=== PATIENT | female | born 1945 | race Caucasian/White ===

== ENCOUNTER 2024-08-01 06:36 | Inpatient (IN) | payer MEDICARE, BC, SELFPAY ==
[2024-08-01] VITALS (36 sets, daily range): BP systolic 94–149; BP diastolic 66–102; PULSE 68–99; RESP 14–22; TEMP 36.5–37.6; O2SAT 90–99; BMI 24.8; BMI 26.5
--- OUTSIDE RECORDS SUMMARY | 2024-08-01 06:38 | XMS_ITS | Clinical Summary ---
Author Organization [facility] Address [address] [place] [address] Care Team Providers Care Weight Tester Name Role Phone Iza Ayon M.D. Primary Care Provider [phone] Source Comments Patient records contain information from all sites at [facility]. For routine questions regarding patient records, call [phone] during business hours, M-F 8:00 AM - 5:00 PM Central Time. Record requests for emergency care only can be directed to [phone] at any time.[facility] Allergies No known active allergies Medications * This document contains information received from the source organization and may not represent a complete record from that organization. multivitamin tablet Take 1 tablet by mouth daily. 015 Active ASCORBIC ACID, VITAMIN C, ORAL Take 500 mg by mouth. 011 Active CALCIUM CARBONATE-VITAM IN D2 ORAL Take 1,200 mg by mouth. 011 Active acetaminophen (TYLENOL) 500 mg tablet Take 1,000 mg by mouth as needed. Active melatonin 5 mg tablet Take 5 mg by mouth. Active polyethylene glycol (MIRALAX) 17 gram/dose oral powder Take by mouth at bedtime as needed. 023 Active sennosides (SENOKOT) 8.6 mg tablet Take 8.6 mg by mouth 2 (two) times a day as needed. 023 Active warfarin (JANTOVEN) 2 mg tabletIndicatio ns:Atrial Fibrillation Paroxysmal (HCC) Please take as directed by your Anticoagulation Clinic. 165 tablet 3 024 Active omeprazole (PriLOSEC) [address] capsule TAKE 1 CAPSULE BY MOUTH IN THE MORNING BEFORE BREAKFAST 90 capsule 3 024 Active dilTIAZem CD (CARDIZEM CD/CARTIA XT) 120 mg 24 hr capsule Take 1 capsule (120 mg total) by mouth daily. 90 capsule 3 024 Active alendronate (FOSAMAX) 70 mg tablet Take 1 tablet (70 mg total) by mouth every 7 (seven) days. Take with 8oz of water, on an empty stomach. Remain upright for 30min. 12 tablet 4 024 Active amiodarone (Pacerone) 200 mg tabletIndicatio ns:Atrial Fibrillation Paroxysmal (HCC) Take 0.5 tablets (100 mg total) by mouth daily. 45 tablet 1 024 Active clobetasoL (Temovate) 0.05 % ointmentIndicat ions:Lichen Sclerosus DIRECTED APPLY 2-3 DAYS PER WEEK NEEDED TO MANAGE SYMPTOMS. INCREASE TO TWICE DAILY FOR UP TO 2 WEEK FOR FLARE-UPS 30 g 3 025 Active clobetasoL (TEMOVATE) 0.05 % ointmentIndicat ions:Lichen Sclerosus Apply 1 application topically as directed. Apply 2-3 days per week as needed to manage symptoms. Increase to twice daily for up to 2 weeks for flare-ups. 30 g 3 023 2024 Discontinued Active Problems Problem Noted Date Diagnosed Date Lichen Sclerosus 01/21/2021 Overview (07/28/2022): Biopsy confirmed in 2020. Managing effectively with clobetasol as needed. Prescription renewed today. Monitoring For Therapeutic Drug Therapy 04/13/20 20 Barretts Esophagus Without Dysplasia 01/16/2020 Urinary Urge Incontinence 12/30/2019 Osteopenia 05/06/2019 Atrial Fibrillation Paroxysmal 05/06/2019 Skilled Nursing (Current) Anticoagulant Treatment 04/17 Lymphedema 04/28/2019 Impaired Fasting Glucose 04/28/2019 Gastroesophageal Reflux Disease Without Esophagi tis 04/28/2019 Peptic Ulcer Disease Personal History 04/28/2019 Detachment Vitreous Posterior 12/15/2013 Opacity Vitreous 07/23/2010 Resolved Problems Problem Noted Date Diagnosed Date Resolved Date COVID-19 Infection 06/16/2021 2 Monitoring For Therapeutic Drug Therapy 05/24/2019 07/27/2019 Atrial Fibrillation Other Persistent 05/16/2019 07/27/2019 Dysphagia 11/14/2008 11/17/2022 Encounters Date Type Department Care Team Description 07/11/2024 Refill Department of Obstetrics and Gynecology in [place], [place] [address] [place] [address] Jaimie Sena APRN, C.N.P. Med Refill 06/18/2024 10:10 AM RISK MODELER Anticoagulation Visit Department of Anticoagulation in [place], [place] [address] [place] [phone] Iza Ayon M.D. Atrial Fibrillation Paroxysmal (HCC); Top Knitter (Current) Anticoagulant Treatment; Barretts Esophagus Without Dysplasia; Monitoring For Therapeutic Drug Therapy 06/18/2024 9:12 AM RISK MODELER - 06/18/2024 11:59 PM RISK MODELER Hospital Encounter Department of Laboratory Medicine in [address] [phone] Iza Ayon M.D. Atrial Fibrillation Paroxysmal (HCC); Skilled Nursing (Current) Anticoagulant Treatment; Barretts Esophagus Without Dysplasia; Monitoring For Therapeutic Drug Therapy Discharge Disposition: Home or Self Care 06/04/2024 12:30 PM RISK MODELER Anticoagulation Visit Department of Anticoagulation in [place], [place] [address] [place] [phone] Iza Ayon M.D. Atrial Fibrillation Paroxysmal (HCC) (Primary Dx); Skilled Nursing (Current) Anticoagulant Treatment; Barretts Esophagus Without Dysplasia; Monitoring For Therapeutic Drug Therapy 06/04/2024 9:37 AM RISK MODELER - 06/04/2024 11:59 PM RISK MODELER Hospital Encounter Department of Laboratory Medicine in [place], [place] [address] [place] [address] Iza Ayon M.D. Atrial Fibrillation Paroxysmal (HCC); Skilled Nursing (Current) Anticoagulant Treatment; Barretts Esophagus Without Dysplasia; Monitoring For Therapeutic Drug Therapy Discharge Disposition: Home or Self Care 05/27/2024 12:00 PM RISK MODELER Anticoagulation Visit Department of Anticoagulation in [place], [place] [address] [place] [phone] Iza Ayon M.D. Atrial Fibrillation Paroxysmal (HCC); Top Knitter (Current) Anticoagulant Treatment; Barretts Esophagus Without Dysplasia; Monitoring For Therapeutic Drug Therapy 05/27/2024 11:20 AM RISK MODELER - 05/27/2024 11:59 PM RISK MODELER Hospital Encounter Department of Laboratory Medicine in [address] [phone] Iza Ayon M.D. Atrial Fibrillation Paroxysmal (HCC); Top Knitter (Current) Anticoagulant Treatment; Barretts Esophagus Without Dysplasia; Monitoring For Therapeutic Drug Therapy Discharge Disposition: Home or Self Care 05/20/2024 Clinical Communication Department of Anticoagulation in [place], [place] [address] [place] [address] Zofia Mendes M.S.N., R.N. Anticoagulation (Upcoming procedure) 05/17/2024 2:00 PM CDT Office Visit Department of Internal Medicine in [address] [phone] Jessica Cardozo, Kai-Chiara., M.S. Preoperative Exam (Primary Dx); Atrial Fibrillation Paroxysmal (HCC); Top Knitter (Current) Anticoagulant Treatment; Gastroesophageal Reflux Disease Without Esophagitis; Need Vaccine Immunization 05/14/2024 10:45 AM CDT Office Visit Department of Cardiovascular Diseases in [place], [place] [address] [place] [phone] Dallas Bradford, NIDHI, C.N.P. Atrial Fibrillation Unspecified (HCC) (Primary Dx); High Risk Medication 05/10/2024 11:30 AM CDT - 05/10/2024 11:59 PM CDT Hospital Encounter Department of Radiology in [address] [address] Jasvir Carrillo M.D. Atrial Fibrillation Unspecified (HCC); High Risk Medication Discharge Disposition: Home or Self Care 05/10/2024 11:20 AM CDT - 05/10/2024 11:29 AM CDT Hospital Encounter Department of Laboratory Medicine in [address] [place] [address] Jasvir Carrillo M.D. Atrial Fibrillation Unspecified (HCC); High Risk Medication Discharge Disposition: Home or Self Care 05/10/2024 11:10 AM CDT - 05/10/2024 11:19 AM CDT Hospital Encounter Department of Laboratory Medicine in [address] [phone] Jasvir Carrillo M.D. Atrial Fibrillation Unspecified (HCC); High Risk Medication Discharge Disposition: Home or Self Care from Last 3 Months Immunizations Name Administration Dates Next Due HZV (ZOSTAVAX) 11/17/2009 Influenza Split 09/04/2006 Influenza high dose QV(65 ye ars or older) (PF) 05/19/2022,05/14/2020 Influenza, Unspecified 05/02/2019 PCV13 02/10/2015 PCV20 12/24/2022 PPSV23 11/07/2013 RZV (SHINGRIX) 12/24/2022,09/21/2022 SARS-COV-2 (COVID-19) - MODE RNA (12 YEARS AND OLDER) Fall Seasonal 05/17/2024 SARS-COV-2 (COVID-19) - PFIZ ER BIVALENT TS(Discontinued)(12 YEARS OR OLDER) 05/19/2022 Td (Adult), adsorbed 11/02/1990 Td Preservative Free (TENIVAC, DECAVAC) 01/16/20 20,05/09/2000 Td, (Adult) Unspecified 05/09/2000 Tdap 11/17/2009 influenza trivalent high dose (HD)(PF) 4,05/02/2019,08/09/2018 influenza vaccine quad (FLUZ ONE/FLUARIX) (6 months and older)(PF) 07/16/2021 Family History Medical History Relation Name Comments No Known Problems Brother No Known Problems Daughter 1 Alena No Known Problems Daughter 2 Maryjo Coronary artery disease Father [place] Root Heart attack Father [place] Root Heart failure Father [place] Root Transient ischemic attack Mother IdaMae No Known Problems Sister 1 No Known Problems Sister 2 Leukemia Son 1 Jose Amputation Son 2 Osmin Neuropathy Son 2 [place] Obesity Son 2 [place] Relation Name Status Comments Brother Daughter 1 Alena Alive Daughter 2 Maryjo Alive Father All Dunlap Mother Wil Sister 1 Sister 2 Son 1 Jose Alive Son 2 Osmin Alive Social History Tobacco Use Types Packs/Day Years Used Date Smoking Tobacco: Never Passive Smoke Exposure: Never Smokeless Tobacco: Never Tobacco Cessation:Counseling Given: Not Answered Alcohol Use Standard Drinks/Week Comments Yes 1 (1 standard drink = 0.6 oz pur e alcohol) [facility] Utilities Answer Date Recorded In the past 12 months has e [employer], oil, or water [employer] threatened to shut off services in your home? No 11/15/2023 Humiliation, Afraid, Rape, and Kick questionnair e Answer Date Recorded Within the last year, have y ou been afraid of your partner or ex-partner? No 12/07/2023 Within the last year, have y ou been humiliated or emotionally abused in other ways by your partner or ex-partner? No Within the last year, have y ou been kicked, hit, slapped, or otherwise physically hurt by your partner or ex-partner? No 12/07/2023 Within the last year, have y ou been raped or forced to have any kind of sexual activity by your partner or ex-partner? No 12/07/2023 Social Connection and Isolat ion Panel [NHANES] Answer Date Recorded In a typical week, how many times do you talk on the phone with family, friends, or neighbors? More than three times a week 11/17/2022 How often do you get togethe r with friends or relatives? More than three times a week 11/17/2022 How often do you attend chur or jewish services? More than 4 times per year 11/17/2022 Do you belong to any clubs o r organizations such as judaism groups, unions, fraternal or athletic groups, or school groups? No 11/17/2022 How often do you attend meet ings of the clubs or organizations you belong to? Never 11/17/2022 Are you , , di vorced, , never , or living with a partner? 11/17/2022 AUDIT-C Answer Date Recorded Q1: How often do you have a drink containing alc ohol? 2-4 times a month 11/17/2022 Q2: How many drinks containi ng alcohol do you have on a typical day when you are drinking? 1 or 2 11/17/2022 Q3: How often do you have si x or more drinks on one occasion? Never 11/17/2022 Overall Financial Resource Strain (CARDIA) Answe r Date Recorded How hard is it for you to pa y for the very basics like food, housing, medical care, and heating? Not hard at all 11/17/2022 PHQ-2 Answer Date Recorded PHQ-2 Score 0 12/07/2023 [facility] of Occupat ional [facility] - Occupational Stress Questionnaire Answer Date Recorded Do you feel stress - tense, restless, nervous, or anxious, or unable to sleep at night because your mind is troubled all the time - these days? Only a little 11/17/2022 Exercise Vital Sign Answer Date Recorde d On average, how many days pe r week do you engage in moderate to strenuous exercise (like a brisk walk)? 3 days 11/15/2023 On average, how many minutes do you engage in exercise at this level? 30 min 11/15/2023 Hunger Vital Sign Answer Date Recorded Within the past 12 months, y ou worried that your food would run out before you got the money to buy more. Never true 11/15/19 24 Within the past 12 months, t he food you bought just didn't last and you didn't have money to get more. Never true 11/15/2023 PRAPARE - Transportation Answer Date Re corded In the past 12 months, has l ack of transportation kept you from medical appointments or from getting medications? No 07/2023 In the past 12 months, has l ack of transportation kept you from meetings, work, or from getting things needed for daily living? No 11/15/2023 Nutrition Answer Date Recorded On average, how many serving s of fruits and vegetables do you eat per day (serving size is equal to 1 cup or approximately the size of a tennis ball)? 3-5 11/15/2023 Dental Answer Date Recorded Dental: Regular Dentist Yes 03/02/20 Employment Answer Date Recorded Employment status Retired 11/15/2023 Housing Stability Answer Date Recorded What is your living situation today? [facility] 11/15/2023 Education Answer Date Recorded What is the highest level of school you have completed or the highest degree you have received? 12th grade 05/06/2019 Comments No Sex and Gender Information Value Date Recorded Sex Assigned at Female 11/15/2023 12:19 PM CDT Legal Sex Female 8:46 AM RISK MODELER Gender Identity Female 01/12/2020 9:19 AM CDT Sexual Orientation Straight 01/12/2020 9: 19 AM CDT Last Filed Vital Signs Vital Sign Reading Time Taken Comments Blood Pressure 119/79 05/17/2024 1:49 PM CDT Pulse 64 05/17/2024 1:49 PM CDT Temperature 36.1 C (96.9 F) 05/17/2024 1:49 PM CDT Respiratory Rate 18 12/07/2023 10:12 AM CDT Oxygen Saturation 100% 05/14/2024 10:28 AM CDT Inhaled Oxygen Concentration - - Weight 75.5 kg (166 lb 7.2 oz) 05/17/2024 1:49 P M CDT Height 172.5 cm (5' 7.91) 12/07/2023 10:12 AM C DT Body Mass Index 25.37 12/07/2023 10:12 AM CDT Plan of Treatment Upcoming Encounters Date Type Department Care Team (Latest Contact Info) Description 08/13/2024 11:20 AM RISK MODELER Appointment Department of Laboratory Medicine in [address] [phone] Iza Ayon M.D. [address] [place] [address] 08/13/2024 12:00 PM RISK MODELER Anticoagulation Visit Department of Anticoagulation in [place], [place] [address] [place] [address] Iza Ayon M.D. [address] [place] [address] 10/23/2024 10:20 AM CDT Appointment Department of Laboratory Medicine in [address] [phone] Dallas Bradford APRN, C.N.P. [address] [place] [phone] 10/23/2024 10:30 AM CDT Appointment Department of Laboratory Medicine in [place], [place] [address] [facility] [place] [address] Dallas Bradford APRN, C.N.P. [address] [address] 10/25/2024 11:30 AM CDT Office Visit Department of Cardiovascular Diseases in [place], [place] [address] [phone] Dallas Bradford APRN, C.N.P. [address] [address] Health Maintenance Due Date Last Done Comments RSV vaccine - (32-36 weeks) or 60+ years (1 - 1-dose 75+ series) 2022 Depression Screening (Annual PHQ-2) 07/17/2024 Fall Risk Screen (Annual) 07/17/2024 Fasting Glucose for Diabetes Screening 12/06/2024 12/07/2023, 12/07/2023, 03/03/2023, Additional history exists Visit: Medicare Annual Wellness 12/07/2024 12/07/2023 Visit: Annual, age 65+ (or Medicare and <65) 05/17/2025 05/17/2024 DTaP,Tdap,and Td Vaccines (3 - Td or Tdap) 01/15/2030 01/16/2020, 11/17/2009, 05/09/2000, Additional history exists Colonoscopy Discontinued 11/19/2013 Colorectal Cancer Screening Discontinued Hepatitis C Screening Completed 11/17/2022 Pneumococcal vaccine (50+ years) Completed 12/24/2022, 02/10/2015, 11/07/2013 Zoster Vaccines Completed 12/24/2022, 03/0 02/2023, 11/17/2009 Mammogram Discontinued 12/07/2023, 0 10/2022, 09/21/2021, Additional history exists COVID-19 Vaccine Completed 05/17/2024, 09/2021, 01/18/2022, Additional history exists Influenza Vaccine Completed 05/17/2024, , 07/16/2021, Additional history exists CT Colonography Discontinued Cologuard Discontinued FIT Discontinued IPV Vaccines Aged Out No longer eligi ble based on patient's age to complete this topic Procedures Procedure Name Priority Date/Time Associated Diagnosis Comments INR REFLEX, POCT, B Routine 06/18/2024 9:22 AM RISK MODELER Atrial Fibrillation Paroxysmal (HCC) Top Knitter (Current) Anticoagulant Treatment Barretts Esophagus Without Dysplasia Monitoring For Therapeutic Drug Therapy INR REFLEX, POCT, B Routine 06/04/2024 9:45 AM RISK MODELER Atrial Fibrillation Paroxysmal (HCC) Top Knitter (Current) Anticoagulant Treatment Barretts Esophagus Without Dysplasia Monitoring For Therapeutic Drug Therapy INR REFLEX, POCT, B Routine 05/27/2024 12:37 PM RISK MODELER Atrial Fibrillation Paroxysmal (HCC) Skilled Nursing (Current) Anticoagulant Treatment Barretts Esophagus Without Dysplasia Monitoring For Therapeutic Drug Therapy DX CHEST AP OR PA AND LATERAL 2 VIEWS RAD - Routine (most inpatients and all outpatients) 05/10/2024 11:47 AM CDT Atrial Fibrillation Unspecified (HCC) High Risk Medication OH T4 FREE Routine 05/10/2024 11:27 AM CDT THYROPEROXIDASE (TPO) ABS, S Routine 05/10/2024 11:27 AM CDT CREATININE WITH EGFR, S/P Routine 05/10/2024 11:27 AM CDT Atrial Fibrillation Unspecified (HCC) High Risk Medication POTASSIUM, S/P Routine 05/10/2024 11:27 AM CDT Atrial Fibrillation Unspecified (HCC) High Risk Medication SODIUM, S/P Routine 05/10/2024 11:27 AM CDT Atrial Fibrillation Unspecified (HCC) High Risk Medication THYROID FUNCTION CASCADE, S Routine 05/10/2024 11:27 AM CDT Atrial Fibrillation Unspecified (HCC) High Risk Medication ALANINE AMINOTRANSFERASE (ALT), S/P Routine 05/10/2024 11:27 AM CDT Atrial Fibrillation Unspecified (HCC) High Risk Medication ASPARTATE AMINOTRANSFERASE (AST), S/P Routine 05/10/2024 11:27 AM CDT Atrial Fibrillation Unspecified (HCC) High Risk Medication ECG Routine 05/10/2024 11:25 AM CDT Atrial Fibrillation Unspecified (HCC) High Risk Medication BI BREAST SCREENING BILATERAL WITH TOMOSYNTHESIS RAD - Routine (most inpatients and all outpatients) 12/07/2023 12:07 PM CDT Screening Mammogram Breast Cancer HEMOGLOBIN A1C, B Routine 12/07/2023 9:43 AM CDT Impaired Fasting Glucose HCV AB SCRN W/REFLEX TO HCV PCR, S Routine 11/17/2022 7:10 AM CDT Screening Examination For Viral Disease from Last 3 Months or Most Recently Relevant to Health Maintenance Results * INR Reflex, POCT, Blood (06/18/2024 9:22 AM RISK MODELER) Only the most recent of3 resultswithin the time period is included. INR Reflex, POCT, B 2.3 06/18/2024 9:21 AM RISK MODELER FB60 Comment: ----ADDITIONAL INFORMATION---- Standard intensity warfarin therapeutic range: 2.0 to 3.0 High intensity warfarin therapeutic range: 2.5 to 3.5 Blood (Blood, Capillary) 06/18/2024 9:22 AM RISK MODELER 06/18/2024 9:21 AM RISK MODELER us Iza Ayon M.D. LAB POCT ORDERABLES - DEVIC E Final Result [facility] [address] [place] [address], [facility] FB60 [facility] in [place] [address] [place] [address] * DX Chest AP or PA and Lateral 2 Views (05/10/2024 11:47 AM CDT) Anatomical Region Laterality Modality Chest, Thoracic RST LOS, Tho racic ARZ LOS, Thoracic FLA LOS N/A Digital Radiography Impressions 05/10/2024 12:45 PM CDT Lung hyperinflation. Otherwise no acute cardiopulmonary abnormality. Narrative 05/10/2024 12:45 PM CDT EXAM: DX CHEST AP OR PA AND LATERAL 2 VIEWS COMPARISON: Radiograph 02/05/2024 FINDINGS: Trachea is midline. Cardiac and mediastinal borders are clear. Cardiac silhouette is nonenlarged. No focal consolidation. No pleural effusion. No pneumothorax. Lung hyperinflation. Visualized upper abdomen is unremarkable. Degenerative change of the thoracic spine. Procedure Note Osmin Cortes M.D. - 05/10/2024 EXAM: DX CHEST AP OR PA AND LATERAL 2 VIEWS COMPARISON: Radiograph 02/05/2024 FINDINGS: Trachea is midline. Cardiac and mediastinal borders are clear.Cardiac silhouette is nonenlarged. No focal consolidation. No pleuraleffusion. No pneumothorax. Lung hyperinflation. Visualized upper abdomenis unremarkable. Degenerative change of the thoracic spine. IMPRESSION: Lung hyperinflation. Otherwise no acute cardiopulmonary abnormality. Jasvir Carrillo M.D. IMG DIAGNOSTIC IMAGING PRO CEDURES Final Result * T4 (Thyroxine), Free, Serum (05/10/2024 11:27 AM CDT) T4 (Thyroxine), Free, S 1.6 0.9 - 1.7 ng/dL 05/10/2024 2:26 PM CDT OWAT Blood 05/10/2024 11:2 7 AM CDT 05/10/2024 1:17 PM CDT Jasvir Carrillo M.D. LAB BLOOD ADD-ON Final Res ult [facility] [address] [place] [address], [place] OWAT [facility] in [place] [address] [place] [address] * (ABNORMAL) Thyroid Function [place] (05/10/2024 11:27 AM CDT) TSH, Sensitive 5.6(H) 0.3 - 4.2 mIU/L 05/10/2024 2:02 PM CDT OW Blood (Blood, Venous) 05/10/2024 11:27 AM CDT 05/10/2024 1:17 PM CDT Jasvir Carrillo M.D. LAB BLOOD ADD-ON Final Res ult [facility] [address] [place] [address], [place] OW[place] [facility] [place] [address] [place] [address] * Thyroperoxidase (TPO) Antibodies (05/10/2024 11:27 AM CDT) Thyroperoxidase Ab, S <15.0 <34.0 IU/mL 05/11/2024 8:18 AM CDT DTL Blood 05/10/2024 11:2 7 AM CDT 05/11/2024 7:43 AM CDT Jasvir Carrillo M.D. LAB BLOOD ADD-ON Final Res ult [facility] [address] [place] [address], [place] DTL [facility] [address] * ALT (Alanine Aminotransferase) (05/10/2024 11:27 AM CDT) Alanine Aminotransferase (ALT), P 19 7 - 45 U/L 05/10/2024 1:49 PM CDT OWAT Blood (Blood, Venous) 05/10/2024 11:27 AM CDT 05/10/2024 1:17 PM CDT Jasvir Carrillo M.D. LAB BLOOD ADD-ON Final Res ult Performing Organization Address City/[facility]/ZIP Co de Phone Number [facility] [address] [place] [address], [facility] [place] [address] [place] [id number] * AST (Aspartate Aminotransferase) (05/10/2024 11:27 AM CDT) Aspartate Aminotransferase (AST), P 26 8 - 43 U/L 05/10/2024 1:49 PM CDT OWAT Blood (Blood, Venous) 05/10/2024 11:27 AM CDT 05/10/2024 1:17 PM CDT Jasvir Carrillo M.D. LAB BLOOD ADD-ON Final Res ult Performing Organization Address City/[facility]/ZIP Co de Phone Number [facility] [address] [place] [address], [place] AT [facility] [place] [address] * Sodium (05/10/2024 11:27 AM CDT) Sodium, P 139 135 - 145 mmol/L 05/10/2024 1:49 PM CDT OWAT Blood (Blood, Venous) 05/10/2024 11:27 AM CDT 05/10/2024 1:17 PM CDT Jasvir Carrillo M.D. LAB BLOOD ADD-ON Final Res ult [facility] [address] [place] [address], [place] [facility] [place] [address] [place] [address] * Potassium (05/10/2024 11:27 AM CDT) Potassium, P 5.1 3.6 - 5.2 mmol/L 05/10/2024 1:49 PM CDT OWAT Blood (Blood, Venous) 05/10/2024 11:27 AM CDT 05/10/2024 1:17 PM CDT Jasvir Carrillo M.D. LAB BLOOD ADD-ON Final Res ult Performing Organization Address City/[facility]/ZIP Co de Phone Number [facility] [address] [place] [address], [place] [facility] [place] [address] [place] [address] * Creatinine with Estimated GFR (05/10/2024 11:27 AM CDT) Creatinine 0.92 0.59 - 1.04 mg/dL 05/10/2024 1:49 PM CDT OWAT Estimated GFR (eGFR) 64 >=60 mL/min/BSA 05/10/2024 1:49 PM CDT OWAT Comment: Estimated GFR calculated using the 2020 CKD_EPI creatinine equation. Blood (Blood, Venous) 05/10/2024 11:27 AM CDT 05/10/2024 1:17 PM CDT Jasvir Carrillo M.D. LAB BLOOD ADD-ON Final Res ult [facility] [address] [place] [address], [place] [facility] [place] [address] [place] [address] * ECG 12 Lead (05/10/2024 11:25 AM CDT) Ventricular Rate ECG/Min 63 BPM MUSE OH Interval 94 ms MUSE QRSD Interval 94 ms MUSE QT Interval 464 ms MUSE QTC Interval 474 ms MUSE P Tracy 62 degrees MUSE R Tracy 27 degrees MUSE T Wave Tracy 31 degrees MUSE 05/10/2024 11:2 5 AM CDT 05/10/2024 11:46 AM CDT Impressions MUSE - 05/10/2024 11:46 AM CDT Sinus rhythm with short OH Premature atrial complexes Low voltage QRS in the limb leads Nonspecific T wave abnormality When compared with ECG of 05-Feb-2024 14:34, OH interval has decreased Reviewed by TINA Fitzgerald Narrative Procedure Note Joselito Negrete M.D. - 05/10/2024 IMPRESSION: Sinus rhythm with short OH Premature atrial complexes Low voltage QRS in the limb leads Nonspecific T wave abnormality When compared with ECG of 05-Feb-2024 14:34, OH interval has decreased Reviewed by TINA Fitzgerald Jasvir Carrillo M.D. ECG ORDERABLES Final Resu lt MUSE NA * BI Breast Screening Bilateral with Tomosynthesis (12/07/2023 12:07 PM CDT) Anatomical Region Laterality Modality Breast, Breast Imaging RST L OS, Breast Imaging ARZ LOS, Breast Imaging FLA LOS Bilateral Mammography Impressions 12/07/2023 12:25 PM CDT Negative. RECOMMENDATION: Annual Screening Mammogram ASSESSMENT: BI-RADS: 1: Negative. Narrative 12/07/2023 12:25 PM CDT EXAM: BI BREAST SCREENING BILATERAL WITH TOMOSYNTHESIS Current study was evaluated with a Computer Aided Detection (CAD) system. INDICATION: Screening mammogram. COMPARISON: Prior exam(s) were available and reviewed for comparison. DENSITY: c. The breast(s) are heterogeneously dense, which may obscure small masses. FINDINGS: No mammographic findings of malignancy. Procedure Note Isaac Goetz M.D. - 12/07/2023 EXAM: BI BREAST SCREENING BILATERAL WITH TOMOSYNTHESIS Current study was evaluated with a Computer Aided Detection (CAD) system. INDICATION: Screening mammogram. COMPARISON: Prior exam(s) were available and reviewed for comparison. DENSITY: c. The breast(s) are heterogeneously dense, which may obscuresmall masses. FINDINGS: No mammographic findings of malignancy. IMPRESSION: Negative. RECOMMENDATION: Annual Screening Mammogram ASSESSMENT: BI-RADS: 1: Negative. Iza Ayon M.D. IMG BI PROCEDURES Final Res ult * Hemoglobin A1c (12/07/2023 9:43 AM CDT) Hemoglobin A1c, B 5.6 4.2 - 5.6 % 12/07/2023 10:[address] [facility] Blood (Blood, Venous) 12/07/2023 9:43 AM CDT 12/07/2023 9:45 AM CDT Iza Ayon M.D. LAB BLOOD ADD-ON Final Resu lt [facility] [address] [place] [address], [facility] in [place] [address] [place] [address] * HCV Ab Scrn w/Reflex to HCV PCR, Serum (11/17/2022 7:10 AM CDT) HCV Ab Screen, S Negative Negative 11/18/19 3:38 PM CDT MKTO Comment: Biotin has been identified by the java lead engineer as a potential interfering substance. Higher concentrations of biotin may be found in multivitamins, hair/nail supplements, and workout supplements. If the result does not match clinical observations, repeat testing after patient refrains from the use of supplements for at least 12 hours. Blood (Blood, Venous) 11/17/2022 7:10 AM CDT Narrative [facility] - 11/17/2022 3:38 PM CDT Specimen Information: Specimen ID: [id number] Specimen Type: Blood Specimen Collection Start Date: 11/17/2022 7:10 AM Specimen ID: [id number] Specimen Type: Blood Specimen Collection Start Date: 11/17/2022 7:10 AM Specimen Received Date: 11/17/2022 2:28 PM Iza Ayon M.D. LAB MICROBIOLOGY - BLOOD OR DERABLES Final Result [facility] [address] [place] [address], [facility] in [place] [address] [place] [address] from Last 3 Months or Most Recently Relevant to Health Maintenance Insurance [facility] MEDICARE Care Teams Weight Tester Relationship Specialty Start Date End Date Iza Ayon M.D. [address] [place] [address] PCP - General Internal Medicine 04/24/19
--- OUTSIDE RECORDS SUMMARY | 2024-08-01 06:38 | XMS_ITS | Clinical Summary ---
Author Organization [employer] Address [place], [place] [address] Care Team Providers Care Laborer General Name Role Phone Iza Ayon MD Primary Care Provide r Allergies No known active allergies Medications ASCORBIC ACID (VITAMIN C ORAL)Indications :Supplement Take 500 mg by mouth once daily. Indications: Supplement 12/11/19 11 Active MULTIVITAMINS WITH FLUORIDE (MULTI-VITAMIN ORAL)Indications :Supplement Take 1 Tab by mouth once daily. Indications: Supplement 12/11/19 11 Active dilTIAZem (DILACOR XR; DILTIA XT) 240 mg Extended-Release capsule Take 240 mg by mouth once daily. 09/22/19 22 Active warfarin (COUMADIN) 1 mg tablet Take 2 mg by mouth once daily. Take per anticoagulation clinic direction; 2 mg on , 4 mg the other days of the week Active acetaminophen (TYLENOL EXTRA STRGTH) 500 mg tablet Take 1,000 mg by mouth every 6 hours if needed. Max acetaminophen dose: 4000mg in 24 hrs. Active clobetasol 0.05% (TEMOVATE 0.05% OINTMENT) 0.05 % ointment Apply topically 2-3 times per week as needed Active alendronate (FOSAMAX) 70 mg tablet Take 70 mg by mouth once weekly. 02/22/20 23 Active melatonin 5 mg tab tablet Take 5 mg by mouth at bedtime. Active CALCIUM ORAL Take 1 Tablet by mouth two times daily. Active omeprazole (PRILOSEC) 40 mg Delayed-Release capsule Take 40 mg by mouth once daily. Active polyethylene glycoL (MIRALAX) 17 gram/scoop powderIndication s:Constipation, unspecified constipation type Measure 17g in the cap provided and dissolve completely in 8 ounces of liquid as directed and drink once a day 238 g 3 3:14 PM CDT 02/28/20 23 Active sennosides (SENNA) 8.6 mg tabletIndication s:Constipation, unspecified constipation type Take 1 Tablet (8.6 mg) by mouth 2 times daily if needed for Constipation. 30 Tablet 3 3:14 PM CDT 02/28/20 23 Active Active Problems Problem Noted Date Diagnosed Date Cellulitis of left thigh 02/27/2023 Leg edema, left 02/27/2023 Fever 02/27/2023 Lactic acid acidosis 02/27/2023 Leukocytosis 02/27/2023 Severe sepsis 02/24/2023 Other headache syndrome 02/24/2023 Petechial hemorrhage 02/24/2023 Ileus 02/21/2022 Constipation by delayed colonic transit 02/22/20 22 Small bowel obstruction 02/20/2022 Owens's esophagus 01/16/2020 Paroxysmal atrial fibrillation 05/01/2019 Personal history of peptic ulcer disease 019 Abnormal glucose tolerance test (GTT) 10/29/2007 Gastroesophageal reflux disease without esophagi tis 10/29/2007 Immunizations Name Administration Dates Next Due Influenza, IIV3 (Age >=3 years) 09/04/2006 Influenza, Inactivated IIV3 (Age 65+ Years) Preserv Free 05/02/2019 Pneumococcal Poly,23-Valent (Pneumovax) 11/08/19 14 Td (Age >=7 Years) 11/17/2009,05/09/2000 Zoster (Zostavax-ZVL, live) 11/17/2009 Family History Medical History Relation Name Comments Heart Disease Father CHF and CAD, d ied at 71 Other Mother lived to age 95 Hyperlipidemia Sister 1 Hyperlipidemia Sister 2 Lymphoma Son Non-Hodgkin's Relation Name Status Comments Brother Alive Father Mother Sister 1 Alive Sister 2 Son Social History Tobacco Use Types Packs/Day Years Used Date Smoking Tobacco: Never Smokeless Tobacco: Never Tobacco Cessation:Counseling Given: No Alcohol Use Standard Drinks/Week Comments Yes 0 (1 standard drink = 0.6 oz pur e alcohol) Social Connections Answer Date Recorded Frequency of Communication with Friends and Fami ly Not on file 02/24/2023 Comments No Sex and Gender Information Value Date Recorded Sex Assigned at Not on file 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 Gender Identity Not on file Sexual Orientation Not on file Obstetrics History Last Filed Vital Signs Vital Sign Reading Time Taken Comments Blood Pressure 120/72 03/03/2023 1:42 PM CDT Pulse 69 03/03/2023 1:41 PM CDT Temperature 36.7 C (98 F) 03/03/2023 1:27 PM CDT Respiratory Rate 17 03/03/2023 1:27 PM CDT Oxygen Saturation 100% 03/03/2023 1:41 PM CDT Inhaled Oxygen Concentration - - Weight 78.5 kg (173 lb 1.6 oz) 03/03/2023 1:24 P M CDT Height 174 cm (5' 8.5) 03/03/2023 1:24 PM CDT Body Mass Index 25.94 03/03/2023 1:24 PM CDT Plan of Treatment Health Maintenance Due Date Last Done Comments Tdap 1956 Depression screening for age 12+ 1959 BMI (ht and wt on same day) for age 18+ 1965 Hepatitis C screening for ag e 18-79 1965 Zoster (shingles) series for age 50+ (2 of 3) 01/12/2010 11/17/2009 DEXA/DXA scan for age 65+ 02/27/2012 Pneumococcal series for age 50+ (2 of 2 - PCV) 11/07/2014 11/07/2013 Tetanus booster 11/18/2019 11/17/2009, 05/09/2000 RSV vaccine for adults or (1 - 1-dose 75+ series) 2022 COVID-19 vaccine series ( season) 2024 05/19/2022, 01/18/2022, 05/20/2021, Additional history exists Influenza for age 65+ 03/17/2024 05/02/2019, 007 Insurance MEDICARE PART A HB ONLY MEDICARE PART B HB ONLY BLUE CROSS [employer]NAK BLUE HB ONLY [employer]UE [employer] BLUE PB ONLY Advance Directives * Full Code (Latest Code Status on File) Date Activated Date Inactivated Comments 02/24/2023 12:36 AM 02/27/2023 9:21 PM Question Answer Comments Code Status Discussion: Reviewed Preferences * Full Code Date Activated Date Inactivated Comments 02/20/2022 9:35 PM 02/21/2022 7:47 PM Question Answer Comments Code Status Discussion: Reviewed Preferences * Full Code Date Activated Date Inactivated Comments 11/16/2021 6:00 AM 11/16/2021 12:01 PM Question Answer Comments Code Status Discussion: Reviewed Preferences * Full Code Date Activated Date Inactivated Comments 05/22/2019 10:17 AM 05/22/2019 4:05 PM * Full Code Date Activated Date Inactivated Comments 05/01/2019 3:17 PM 05/02/2019 1:41 PM Question Answer Comments Code Status Discussion: Not Discussed Care Teams Laborer General Relationship Specialty Start Date End Date Iza Ayon MD [address] [place] [address] PCP - General Internal Medicine 10/27/21
--- OUTSIDE RECORDS SUMMARY | 2024-08-01 06:39 | XMS_ITS | Encounter Summary ---
Author Organization [facility] Address [address] [place] [address] Care Team Providers Care Student Activities Director Name Role Phone Iza Ayon M.D. Primary Care Provider [phone] Encounter Details Date Type Department Care Team (Latest Contact Info) Description 06/18/2024 9:12 AM DIRECTOR COMMUNITY HE[facility] NURSING - 06/18/2024 11:59 PM DIRECTOR COMMUNITY HEALTH NURSING Hospital Encounter Department of Laboratory Medicine in [place], [place] [address] [place] [address] Iza Ayon M.D. [address] [place] [address] Atrial Fibrillation Paroxysmal (HCC); Mixing Pan Tender (Current) Anticoagulant Treatment; Barretts Esophagus Without Dysplasia; Monitoring For Therapeutic Drug Therapy Discharge Disposition: Home or Self Care Social History Tobacco Use Types Packs/Day Years Used Date Smoking Tobacco: Never Passive Smoke Exposure: Never Smokeless Tobacco: Never Alcohol Use Standard Drinks/Week Comments Yes 1 (1 standard drink = 0.6 oz pur e alcohol) [facility] Utilities Answer Date Recorded In the past 12 months has [employer], gas, oil, or water [employer] threatened to shut off services in your [...] How often do you attend chur or yarsani services? More than 4 times per year 11/17/2022 Do you belong to any clubs o r organizations such as latter day groups, unions, fraternal or athletic groups, or [...] Answer Date Recorded PHQ-2 Score 0 12/07/2023 [facility] [place] of Occupat ional Health - Occupational Stress Questionnaire Answer Date Recorded [...] your living situation today? I have a [facility] place to live 11/15/2023 Education Answer Date Recorded What is the highest level of school you have completed or the highest degree you have received? 12th grade 05/06/2019 Comments No Sex and Gender Information Value Date Recorded Sex Assigned at Female 11/15/2023 12:19 PM CDT Legal Sex Female 8:46 AM DIRECTOR COMMUNITY HEALTH NURSING Gender Identity Female 01/12/2020 9:19 AM CDT Sexual Orientation Straight 01/12/2020 9: 19 AM CDT documented as of this encounter Medications at Time of Discharge acetaminophen (TYLENOL) 500 mg tablet Take 1,000 mg by mouth as needed. alendronate (FOSAMAX) 70 mg tablet Take 1 tablet (70 mg total) by mouth every 7 (seven) days. Take with 8oz of water, on an empty stomach. Remain upright for 30min. 12 tablet 4 4 amiodarone (Pacerone) 200 mg tabletIndications :Atrial Fibrillation Paroxysmal (HCC) Take 0.5 tablets (100 mg total) by mouth daily. 45 tablet 1 4 ASCORBIC ACID, VITAMIN C, ORAL Take 500 mg by mouth. 1 CALCIUM CARBONATE-VITAMIN D2 ORAL Take 1,200 mg by mouth. 1 dilTIAZem CD (CARDIZEM CD/CARTIA XT) 120 mg 24 hr capsule Take 1 capsule (120 mg total) by mouth daily. 90 capsule 3 4 melatonin 5 mg tablet Take 5 mg by mouth. multivitamin tablet Take 1 tablet by mouth daily. 5 omeprazole (PriLOSEC) [address] capsule TAKE 1 CAPSULE BY MOUTH IN THE MORNING BEFORE BREAKFAST 90 capsule 3 4 polyethylene glycol (MIRALAX) 17 gram/dose oral powder Take by mouth at bedtime as needed. 3 sennosides (SENOKOT) 8.6 mg tablet Take 8.6 mg by mouth 2 (two) times a day as needed. 3 warfarin (JANTOVEN) 2 mg tabletIndications :Atrial Fibrillation Paroxysmal (HCC) Please take as directed by your Anticoagulation Clinic. 165 tablet 3 4 clobetasoL (TEMOVATE) 0.05 % ointmentIndicatio ns:Lichen Sclerosus Apply 1 application topically as directed. Apply 2-3 days per week as needed to manage symptoms. Increase to twice daily for up to 2 weeks for flare-ups. 30 g 3 3 07/18/19 25 documented as of this encounter Plan of Treatment Upcoming Encounters Date Type Department Care Team (Latest Contact Info) Description 08/13/2024 11:20 AM DIRECTOR COMMUNITY HE[facility] NURSING Appointment Department of Laboratory Medicine in [address] [phone] Iza Ayon M.D. [address] [place] [phone] 08/13/2024 12:00 PM DIRECTOR COMMUNITY HE[facility] NURSING Anticoagulation Visit Department of Anticoagulation in [place], [place] [address] [place] [address] Iza Ayon M.D. [address] [phone] 10/23/2024 10:20 AM CDT Appointment Department of Laboratory Medicine in [address] [phone] Dallas Bradford APRN, C.N.P. [address] [phone] 10/23/2024 10:30 AM CDT Appointment Department of Laboratory Medicine in [address] [phone] Dallas Bradford APRN, C.N.P. [address] [phone] 10/25/2024 11:30 AM CDT Office Visit Department of Cardiovascular Diseases in [place], [place] [address] [phone] Dallas Bradford APRN, C.N.P. [address] [phone] documented as of this encounter Procedures Procedure Name Priority Date/Time Associated Diagnosis Comments INR REFLEX, POCT, B Routine 06/18/2024 9:22 AM DIRECTOR COMMUNITY HE[facility] NURSING Atrial Fibrillation Paroxysmal (HCC) Senior Living (Current) Anticoagulant Treatment Barretts Esophagus Without Dysplasia Monitoring For Therapeutic Drug Therapy documented in this encounter Results * INR Reflex, POCT, Blood (06/18/2024 9:22 AM DIRECTOR COMMUNITY HE[facility] NURSING) INR Reflex, POCT, B 2.3 06/18/2024 9:21 AM DIRECTOR COMMUNITY [facility] NURSING [id number] Comment: ----ADDITIONAL INFORMATION---- Standard intensity warfarin therapeutic range: 2.0 to 3.0 High intensity warfarin therapeutic range: 2.5 to 3.5 Blood (Blood, Capillary) 06/18/2024 9:22 AM DIRECTOR COMMUNITY HE[facility] NURSING 06/18/2024 9:21 AM DIRECTOR COMMUNITY HE[facility] NURSING Iza Ayon M.D. LAB POCT ORDERABLES - DEVIC E Final Result [facility] [address] [place] [address], [facility] FB60 [facility] [place] [address] [place] [address] documented in this encounter Visit Diagnoses Diagnosis Atrial Fibrillation Paroxysmal (HCC) Mixing Pan Tender (Current) Anticoagulant Treatment Barretts Esophagus Without Dysplasia Monitoring For Therapeutic Drug Therapy documented in this encounter Care Teams Student Activities Director Relationship Specialty Start Date End Date Iza Ayon M.D. [address] [address] PCP - General Internal Medicine 04/24/19 documented as of this encounter
--- OUTSIDE RECORDS SUMMARY | 2024-08-01 06:39 | XMS_ITS | Encounter Summary ---
Author Organization [facility] Address [address] [place] [address] Care Team Providers Care Frontend Engineer Name Role Phone Iza Ayon M.D. Primary Care Provider [phone] Reason for Visit * Reason Comments Med Refill Encounter Details Date Type Department Care Team (Late st Contact Info) Description 07/11/2024 Refill Department of Obstetrics and Gynecology in [place], [place] [address] [phone] Jaimie Sena, OUTSOLE CEMENTER MACHINE, C.N.P. [address] [phone] Med Refill Social History Tobacco Use Types Packs/Day Years Used Date Smoking Tobacco: Never Passive Smoke Exposure: Never Smokeless Tobacco: Never Alcohol Use Standard Drinks/Week Comments Yes 1 (1 standard drink = 0.6 oz pur e alcohol) [facility] Utilities Answer Date Recorded In the past 12 months has [facility] [employer], oil, or water [email or web address] threatened to shut off services in your [...] How often do you attend chur or rastafarian services? More than 4 times per year 11/17/2022 Do you belong to any clubs o r organizations such as caodaism groups, unions, fraternal or athletic groups, or [...] Answer Date Recorded PHQ-2 Score 0 12/07/2023 [facility] of Occupat ional Health - Occupational Stress [...] your living situation today? I have a [facility] place to live 11/15/2023 Education Answer Date Recorded What is the highest level of school you have completed or the highest degree you have received? 12th grade 05/06/2019 Comments No Sex and Gender Information Value Date Recorded Sex Assigned at Female 11/15/2023 12:19 PM CDT Legal Sex Female 8:46 AM PHARMACEUTICAL COMPOUNDING SUPERVISOR Gender Identity Female 01/12/2020 9:19 AM CDT Sexual Orientation Straight 01/12/2020 9: 19 AM CDT documented as of this encounter Plan of Treatment Upcoming Encounters Date Type Department Care Team (Latest Contact Info) Description 08/13/2024 11:20 AM PHARMACEUTICAL COMPOUNDING SUPERVISOR Appointment Department of Laboratory Medicine in [place], [place] [address] [place] [address] Iza Ayon M.D. [address] [place] [phone] 08/13/2024 12:00 PM PHARMACEUTICAL COMPOUNDING SUPERVISOR Anticoagulation Visit Department of Anticoagulation in [place], [place] [address] [place] [address] Iza Ayon M.D. [address] [phone] 10/23/2024 10:20 AM CDT Appointment Department of Laboratory Medicine in [place], [place] [address] [place] [phone] Dallas Bradford APRN, C.N.P. [address] [phone] 10/23/2024 10:30 AM CDT Appointment Department of Laboratory Medicine in [place], [place] [address] [place] [address] Dallas Bradford APRN, C.N.P. [address] [phone] 10/25/2024 11:30 AM CDT Office Visit Department of Cardiovascular Diseases in [place], [place] [address] [phone] Dallas Bradford APRN, C.N.P. [address] [phone] documented as of this encounter Visit Diagnoses Diagnosis Lichen Sclerosus documented in this encounter Care Teams Frontend Engineer Relationship Specialty Start Date End Date Iza Ayon M.D. [address] [phone] PCP - General Internal Medicine 04/24/19 documented as of this encounter
--- OUTSIDE RECORDS SUMMARY | 2024-08-01 06:39 | XMS_ITS | Encounter Summary ---
Author Organization [facility] Address [address] [place] [address] Care Team Providers Care Sexual Assault Counsellor Name Role Phone Iza Ayon M.D. Primary Care Provider [phone] Reason for Visit * Outpatient (Routine) - Authorized Specialty Diagnoses / Procedures Referred By Contsharlene t Referred To Contact Anticoagulation Diagnoses Atrial Fibrillation Paroxysmal (HCC) Usp (Current) Anticoagulant Treatment Barretts Esophagus Without Dysplasia Monitoring For Therapeutic Drug Therapy Iza Ayon M.D. [address], [place] [address] Phone: tel: fax: [facility] Referral ID Status Reason Start Date Expiration Date V isits Requested Visits Authorized [id number] Authorized 05/20/2024 11/19/2025 300 300 Encounter Details Date Type Department Care Team (Latest Contact Info) Description 06/18/2024 10:10 AM ADOBE LAYER HELPER Anticoagulation Visit Department of Anticoagulation in [place], [place] [address] [place] [address] Iza Ayon M.D. [address], [place] [address] Atrial Fibrillation Paroxysmal (HCC); Transit Specialist (Current) Anticoagulant Treatment; Barretts Esophagus Without Dysplasia; Monitoring For Therapeutic Drug Therapy Social History Tobacco Use Types Packs/Day Years Used Date Smoking Tobacco: Never Passive Smoke Exposure: Never Smokeless Tobacco: Never Alcohol Use Standard Drinks/Week Comments Yes 1 (1 standard drink = 0.6 oz pur e alcohol) [facility] Utilities Answer Date Recorded In the past 12 months has th e electric, gas, oil, or water [employer] threatened to shut off services in your [...] How often do you attend chur or mandaen services? More than 4 times per year 11/17/2022 Do you belong to any clubs o r organizations such as bahai groups, unions, fraternal or athletic groups, or [...] Answer Date Recorded PHQ-2 Score 0 12/07/2023 [facility] - Occupational Stress Questionnaire Answer Date Recorded [...] your living situation today? I have a [facility] to live 11/15/2023 Education Answer Date Recorded What is the highest level of school you have completed or the highest degree you have received? 12th grade 05/06/2019 Comments No Sex and Gender Information Value Date Recorded Sex Assigned at Female 11/15/2023 12:19 PM CDT Legal Sex Female 8:46 AM ADOBE LAYER HELPER Gender Identity Female 01/12/2020 9:19 AM CDT Sexual Orientation Straight 01/12/2020 9: 19 AM CDT documented as of this encounter Patient Instructions * Patient Instructions* Jaimie Deras R.N. - 06/18/2024 10:10 AM ADOBE LAYER HELPER Your next INR will be 08/13/2024. You will need to call the Anticoagulation Program at the time of your scheduled nurse visit or you can complete the Anticoagulation Pre-Visit Questionnaire and if no additional information is needed, your dosing can be provided via your Patient portal. To reschedule your appointment or for questions about your warfarin, please call Primary Care Anticoagulation Program at [phone] from 7:30 am to 4:30 pm. Monday-Monday . When To Contact Your Health Care Provider If you are experiencing any of the following symptoms, Call 911 or go to the emergency room: chest pain, shortness of breath, vomiting or coughing up blood, large amounts of rectal bleeding, symptomsof a stroke- sudden weakness or inability to move a body part (the face, arm or leg), difficulty speaking or trouble understanding others, sudden blurred, decreased vision, or double vision, dizziness, loss of balance /coordination or a sudden, severe headache. If you fall and or hit your head or suffer a blow to the head, seek emergency treatment. Contact your health care provider about your Warfarin dose: Before any surgical procedures (including tooth extractions) and certain non- surgical procedures (for example, colonoscopies). When you are sick with a fever or develop persistent diarrhea or vomiting. If you doubt that you took your Warfarin as directed. If you start an antibiotic or any prescription drug or if you start any herbal or other ycec-uft-[id number] product (check with your doctor, a nurse, or pharmacist). If you change your diet significantly. If you decide to stop or start using tobacco or alcohol. If you notice unusual bruising or bleeding. If you notice dark, tarry, or bright red stools or blood in your urine. If you have a painful and swollen calf. E LAYER HELPER documented in this encounter Plan of Treatment Upcoming Encounters Date Type Department Care Team (Latest Contact Info) Description 08/13/2024 11:20 AM ADOBE LAYER HELPER Appointment Department of Laboratory Medicine in [place] [phone] Iza Ayon M.D. [address], [place] [address] 08/13/2024 12:00 PM ADOBE LAYER HELPER Anticoagulation Visit Department of Anticoagulation in [place], [place] [address] [place] [address] Iza Ayon M.D. [address], [place] [address] 10/23/2024 10:20 AM CDT Appointment Department of Laboratory Medicine in [place], [place] [address] [place] [address] Dallas Bradford APRN, C.N.P. [address] [place] [phone] 10/23/2024 10:30 AM CDT Appointment Department of Laboratory Medicine in [place], [place] [address] [place] [address] Dallas Bradford APRN, C.N.P. [address], [place] [address] 10/25/2024 11:30 AM CDT Office Visit Department of Cardiovascular Diseases in [place], [place] [address], [place] [address] Dallas Bradford APRN, C.N.P. [address] [phone] Scheduled Orders Name Type Priority Associated Diagnoses Orde r Schedule INR Reflex, POCT, Blood Point of Care Testing-Docked Device Routine Atrial Fibrillation Paroxysmal (HCC) Transit Specialist (Current) Anticoagulant Treatment Barretts Esophagus Without Dysplasia Monitoring For Therapeutic Drug Therapy Expected: 08/13/2024, Expires: 09/16/2025 documented as of this encounter Visit Diagnoses Diagnosis Atrial Fibrillation Paroxysmal (HCC) Usp (Current) Anticoagulant Treatment Barretts Esophagus Without Dysplasia Monitoring For Therapeutic Drug Therapy documented in this encounter Care Teams Sexual Assault Counsellor Relationship Specialty Start Date End Date Iza Ayon M.D. [address] [phone] PCP - General Internal Medicine 04/24/19 documented as of this encounter
--- OUTSIDE RECORDS SUMMARY | 2024-08-01 06:39 | XMS_ITS ---
Author Organization [facility] Address [address] [place] [address] Care Team Providers Care Bistro Attendant Name Role Phone Unavailable Unavailable Unavailable Surgery Details Not on file Complications Check Surgery Details section. Procedure Estimated Blood Loss Check Surgery Details section. Procedure Findings Check Surgery Details section. Procedure Specimens Taken Check Surgery Details section.
--- OUTSIDE RECORDS SUMMARY | 2024-08-01 06:39 | XMS_ITS | Referral Summary ---
Author Organization [facility] Address [address] [place] [address] Care Team Providers Care Social Scientist Name Role Phone Iza Ayon M.D. Primary Care Provider [phone] Source Comments Patient records contain information from all sites at [facility]. For routine questions regarding patient records, call [phone] during business hours, M-F 8:00 AM - 5:00 PM Central Time. Record requests for emergency care only can be directed to [phone] at any time.[facility] Encounters Date Type Department Care Team Description 07/11/2024 Refill Department of Obstetrics and Gynecology in [place], [place] [address] [place] [address] Jaimie Sena, NIDHI, C.N.P. Med Refill 06/18/2024 10:10 AM SOILED LINEN DISTRIBUTOR Anticoagulation Visit Department of Anticoagulation in [place], [place] [address] [place] [address] Iza Ayon M.D. Atrial Fibrillation Paroxysmal (HCC); Track Laying Supervisor (Current) Anticoagulant Treatment; Barretts Esophagus Without Dysplasia; Monitoring For Therapeutic Drug Therapy 06/18/2024 9:12 AM SOILED LINEN DISTRIBUTOR - 06/18/2024 11:59 PM SOILED LINEN DISTRIBUTOR Hospital Encounter Department of Laboratory Medicine in [address] [address] Iza Ayon M.D. Atrial Fibrillation Paroxysmal (HCC); Track Laying Supervisor (Current) Anticoagulant Treatment; Barretts Esophagus Without Dysplasia; Monitoring For Therapeutic Drug Therapy Discharge Disposition: Home or Self Care 06/04/2024 12:30 PM SOILED LINEN DISTRIBUTOR Anticoagulation Visit Department of Anticoagulation in [place], [place] [address] [place] [phone] Iza Ayon M.D. Atrial Fibrillation Paroxysmal (HCC) (Primary Dx); Track Laying Supervisor (Current) Anticoagulant Treatment; Barretts Esophagus Without Dysplasia; Monitoring For Therapeutic Drug Therapy 06/04/2024 9:37 AM SOILED LINEN DISTRIBUTOR - 06/04/2024 11:59 PM SOILED LINEN DISTRIBUTOR Hospital Encounter Department of Laboratory Medicine in [place], [place] [address] [place] [address] Iza Ayon M.D. Atrial Fibrillation Paroxysmal (HCC); [facility] (Current) Anticoagulant Treatment; Barretts Esophagus Without Dysplasia; Monitoring For Therapeutic Drug Therapy Discharge Disposition: Home or Self Care 05/27/2024 12:00 PM SOILED LINEN DISTRIBUTOR Anticoagulation Visit Department of Anticoagulation in [place], [place] [address] [place] [phone] Iza Ayon M.D. Atrial Fibrillation Paroxysmal (HCC); [facility] (Current) Anticoagulant Treatment; Barretts Esophagus Without Dysplasia; Monitoring For Therapeutic Drug Therapy 05/27/2024 11:20 AM SOILED LINEN DISTRIBUTOR - 05/27/2024 11:59 PM SOILED LINEN DISTRIBUTOR Hospital Encounter Department of Laboratory Medicine in [place], [place] [address] [place] [address] Iza Ayon M.D. Atrial Fibrillation Paroxysmal (HCC); Track Laying Supervisor (Current) Anticoagulant Treatment; Barretts Esophagus Without Dysplasia; Monitoring For Therapeutic Drug Therapy Discharge Disposition: Home or Self Care 05/20/2024 Clinical Communication Department of Anticoagulation in [place], [place] [address] [place] [phone] Zofia Mendes M.S.N., R.N. Anticoagulation (Upcoming procedure) 05/17/2024 2:00 PM CDT Office Visit Department of Internal Medicine in [place], [place] [address] [place] [address] Jessica Cardozo P.A.-C., M.S. Preoperative Exam (Primary Dx); Atrial Fibrillation Paroxysmal (HCC); Track Laying Supervisor (Current) Anticoagulant Treatment; Gastroesophageal Reflux Disease Without Esophagitis; Need Vaccine Immunization 05/14/2024 10:45 AM CDT Office Visit Department of Cardiovascular Diseases in [place], [place] [address] [place] [address] Dallas Bradford, NIDHI, C.N.P. Atrial Fibrillation Unspecified (HCC) (Primary Dx); High Risk Medication 05/10/2024 11:20 AM CDT - 05/10/2024 11:29 AM CDT Hospital Encounter Department of Laboratory Medicine in [address] [address] Jasvir Carrillo M.D. Atrial Fibrillation Unspecified (HCC); High Risk Medication Discharge Disposition: Home or Self Care 05/10/2024 11:30 AM CDT - 05/10/2024 11:59 PM CDT Hospital Encounter Department of Radiology in [address] [address] Jasvir Carrillo M.D. Atrial Fibrillation Unspecified (HCC); High Risk Medication Discharge Disposition: Home or Self Care 05/10/2024 11:10 AM CDT - 05/10/2024 11:19 AM CDT Hospital Encounter Department of Laboratory Medicine in [address] [address] Jasvir Carrillo M.D. Atrial Fibrillation Unspecified (HCC); High Risk Medication Discharge Disposition: Home or Self Care from Last 3 Months Allergies No known active allergies Medications * [...] 12/30/2019 Osteopenia 05/06/2019 Atrial Fibrillation Paroxysmal 05/06/2019 Track Laying Supervisor (Current) Anticoagulant Treatment 04/17 Lymphedema 04/28/2019 Impaired Fasting Glucose 04/28/2019 Gastroesophageal Reflux Disease Without Esophagi tis 04/28/2019 Peptic Ulcer Disease Personal History 04/28/2019 Detachment Vitreous Posterior 12/15/2013 Opacity Vitreous 07/23/2010 Resolved Problems Problem Noted Date Diagnosed Date Resolved Date COVID-19 Infection 06/16/2021 Monitoring For Therapeutic Drug Therapy 05/24/2019 07/27/2019 Atrial Fibrillation Other Persistent 05/16/2019 07/27/2019 Dysphagia 11/14/2008 11/17/2022 Immunizations Name Administration Dates Next Due HZV [...] (FLUZ ONE/FLUARIX) (6 months and older)(PF) 07/16/2021 Social History Tobacco Use Types Packs/Day Years Used Date Smoking Tobacco: Never Passive Smoke Exposure: Never Smokeless Tobacco: Never Tobacco Cessation:Counseling Given: Not Answered Alcohol Use Standard Drinks/Week Comments Yes 1 (1 standard drink = 0.6 oz pur e alcohol) [facility] Utilities Answer Date Recorded In the past 12 months has e [employer], or [employer] threatened to shut off services in your [...] week 11/17/2022 How often do you attend [facility] or yarsani services? More than 4 times per year 11/17/2022 Do you belong to any clubs o r organizations such as pentecostal groups, unions, fraternal or athletic groups, or [...] Answer Date Recorded PHQ-2 Score 0 12/07/2023 [facility] - Occupational Stress Questionnaire Answer Date Recorded [...] your living situation today? I have a [facility] place to live 11/15/2023 Education Answer Date Recorded What is the highest level of school you have completed or the highest degree you have received? 12th grade 05/06/2019 Comments No Sex and Gender Information Value Date Recorded Sex Assigned at Female 11/15/2023 12:19 PM CDT Legal Sex Female 8:46 AM SOILED LINEN DISTRIBUTOR Gender Identity Female 01/12/2020 9:19 AM CDT [...] (Latest Contact Info) Description 08/13/2024 11:20 AM SOILED LINEN DISTRIBUTOR Appointment Department of Laboratory Medicine in [address] [address] Iza Ayon M.D. [address] [place] [phone] 08/13/2024 12:00 PM SOILED LINEN DISTRIBUTOR Anticoagulation Visit Department of Anticoagulation in [place], [place] [address] [place] [address] Iza Ayon M.D. [address] [place] [phone] 10/23/2024 10:20 AM CDT Appointment Department of Laboratory Medicine in [address] [address] Dallas Bradford APRN, C.N.P. [address] [place] [phone] 10/23/2024 10:30 AM CDT Appointment Department of Laboratory Medicine in [address] [phone] Dallas Bradford APRN, C.N.P. [address] [place] [address] 10/25/2024 11:30 AM CDT Office Visit Department of Cardiovascular Diseases in [place], [place] [address] [place] [address] Dallas Bradford APRN, C.N.P. [address] [place] [address] Procedures Procedure Name Priority Date/Time Associated Diagnosis Comments INR REFLEX, POCT, B Routine 06/18/2024 9:22 AM SOILED LINEN DISTRIBUTOR Atrial Fibrillation Paroxysmal (HCC) Track Laying Supervisor (Current) Anticoagulant Treatment Barretts Esophagus Without Dysplasia Monitoring For Therapeutic Drug Therapy INR REFLEX, POCT, B Routine 06/04/2024 9:45 AM SOILED LINEN DISTRIBUTOR Atrial Fibrillation Paroxysmal (HCC) Track Laying Supervisor (Current) Anticoagulant Treatment Barretts Esophagus Without Dysplasia Monitoring For Therapeutic Drug Therapy INR REFLEX, POCT, B Routine 05/27/2024 12:37 PM SOILED LINEN DISTRIBUTOR Atrial Fibrillation Paroxysmal (HCC) [facility] (Current) Anticoagulant Treatment Barretts Esophagus Without Dysplasia Monitoring For Therapeutic Drug Therapy DX CHEST AP OR PA AND LATERAL 2 VIEWS RAD - Routine (most inpatients and all outpatients) 05/10/2024 11:47 AM CDT Atrial Fibrillation Unspecified (HCC) High Risk Medication [facility] T4 FREE Routine 05/10/2024 11:27 AM CDT [...] INR Reflex, POCT, Blood (06/18/2024 9:22 AM SOILED LINEN DISTRIBUTOR) Only the most recent of3 resultswithin the time period is included. INR Reflex, POCT, B 2.3 06/18/2024 9:21 AM SOILED LINEN DISTRIBUTOR [id number] Comment: ----ADDITIONAL INFORMATION---- Standard intensity warfarin therapeutic range: 2.0 to 3.0 High intensity warfarin therapeutic range: 2.5 to 3.5 Blood (Blood, Capillary) 06/18/2024 9:22 AM SOILED LINEN DISTRIBUTOR 06/18/2024 9:21 AM SOILED LINEN DISTRIBUTOR us Iza Ayon M.D. LAB POCT ORDERABLES - DEVIC E Final Result [facility] [address] [place] [address], [place] [id number] [facility] in [place] [address] [place] [address] * DX Chest AP or PA and [...] Lung hyperinflation. Otherwise no acute cardiopulmonary abnormality. us Jasvir Carrillo M.D. IMG DIAGNOSTIC IMAGING PRO CEDURES Final Result * T4 (Thyroxine), Free, Serum (05/10/2024 11:27 AM CDT) T4 (Thyroxine), Free, S 1.6 0.9 - 1.7 ng/dL 05/10/2024 2:26 PM CDT OWAT Blood 05/10/2024 11:2 7 AM CDT 05/10/2024 1:17 PM CDT Jasvir Carrillo M.D. LAB BLOOD ADD-ON Final Res ult [facility] [address] [place] [address], [place] OWAT [facility] [place] [address] [place] [address] * (ABNORMAL) Thyroid Function Grady (05/10/2024 11:27 AM CDT) TSH, Sensitive 5.6(H) 0.3 - 4.2 mIU/L 05/10/2024 2:02 PM CDT OWAT Blood (Blood, Venous) 05/10/2024 11:27 AM CDT 05/10/2024 1:17 PM CDT us Jasvir Carrillo M.D. LAB BLOOD ADD-ON Final Res ult [facility] [address] [place] [address], [facility] OWAT [facility] [place] [address] [place] [address] * Thyroperoxidase (TPO) Antibodies (05/10/2024 11:27 AM CDT) Thyroperoxidase Ab, S <15.0 <34.0 IU/mL 05/11/2024 8:18 AM CDT DTL Blood 05/10/2024 11:2 7 AM CDT 05/11/2024 7:43 AM CDT Jasvir Carrillo M.D. LAB BLOOD ADD-ON Final Res ult [facility] [address] [place] [address], [facility] [address] [place] [address] * ALT (Alanine Aminotransferase) (05/10/2024 11:27 AM CDT) Alanine Aminotransferase (ALT), P 19 7 - 45 U/L 05/10/2024 1:49 PM CDT OWAT Blood (Blood, Venous) 05/10/2024 11:27 AM CDT 05/10/2024 1:17 PM CDT Jasvir Carrillo M.D. LAB BLOOD ADD-ON Final Res ult Performing Organization Address City/[facility]/ZIP Co de Phone Number [facility] [address] [place] [address], [place] OWAT [facility] [place] [address], [place] [address] * AST (Aspartate Aminotransferase) (05/10/2024 11:27 AM CDT) Aspartate Aminotransferase (AST), P 26 8 - 43 U/L 05/10/2024 1:49 PM CDT OWAT Blood (Blood, Venous) 05/10/2024 11:27 AM CDT 05/10/2024 1:17 PM CDT Jasvir Carrillo M.D. LAB BLOOD ADD-ON Final Res ult [facility] [address] [place] [address], [place] OW[place] [facility] [place] [address] * Sodium (05/10/2024 11:27 AM CDT) Sodium, P 139 135 - 145 mmol/L 05/10/2024 1:49 PM CDT OWAT Blood (Blood, Venous) 05/10/2024 11:27 AM CDT 05/10/2024 1:17 PM CDT Jasvir Carrillo M.D. LAB BLOOD ADD-ON Final Res ult [facility] [address] [place] [address], [place] OW[place] [facility] [place] [address] [place] [address] * Potassium (05/10/2024 11:27 AM CDT) Potassium, P 5.1 3.6 - 5.2 mmol/L 05/10/2024 1:49 PM CDT OWAT Blood (Blood, Venous) 05/10/2024 11:27 AM CDT 05/10/2024 1:17 PM CDT Jasvir Carrillo M.D. LAB BLOOD ADD-ON Final Res ult Performing Organization Address [facility] Co de Phone Number [facility] [address] [place] [address], [place] OW[place] [facility] [place] [address], [place] [address] * Creatinine with Estimated GFR (05/10/2024 11:27 AM CDT) Creatinine 0.92 0.59 - 1.04 mg/dL 05/10/2024 1:49 PM CDT OWAT Estimated GFR (eGFR) 64 >=60 mL/min/BSA 05/10/2024 1:49 PM CDT OWAT Comment: Estimated GFR calculated using the 2020 CKD_EPI creatinine equation. Blood (Blood, Venous) 05/10/2024 11:27 AM CDT 05/10/2024 1:17 PM CDT Jasvir Carrillo M.D. LAB BLOOD ADD-ON Final Res ult [facility] [address] [facility] [place] [address], [place] OWAT [facility] in [place] [address] [place] [address] * ECG 12 Lead (05/10/2024 11:25 AM CDT) Ventricular Rate ECG/Min 63 BPM MUSE VA Interval 94 ms MUSE QRSD Interval 94 ms MUSE QT Interval 464 ms MUSE QTC Interval 474 ms MUSE P [place] 62 degrees MUSE R [place] 27 degrees MUSE T Wave [place] 31 degrees MUSE 05/10/2024 11:2 5 AM CDT 05/10/2024 11:46 AM CDT Impressions MUSE - 05/10/2024 11:46 AM CDT Sinus rhythm with short VA Premature atrial complexes Low voltage QRS in the limb leads Nonspecific T wave abnormality When compared with ECG of 05-Feb-2024 14:34, VA interval has decreased Reviewed by TINA Fitzgerald Narrative Procedure Note Joselito Negrete M.D. - 05/10/2024 IMPRESSION: Sinus rhythm with short VA Premature atrial complexes Low voltage QRS in the limb leads Nonspecific T wave abnormality When compared with ECG of 05-Feb-2024 14:34, VA interval has decreased Reviewed by TINA Fitzgerald us Jasvir Carrillo M.D. ECG ORDERABLES Final Resu [...] 5.6 % 12/07/2023 10:[address] [facility] Blood (Blood, Venous) 12/07/2023 9:43 AM CDT 12/07/2023 9:45 AM CDT Iza Ayon M.D. LAB BLOOD ADD-ON Final Resu lt [facility] [address] [place] [address], [facility] OWAT [facility] [place] [address] [place] [address] * HCV Ab Scrn w/Reflex to HCV PCR, Serum (11/17/2022 7:10 AM CDT) HCV Ab Screen, S Negative Negative 11/18/19 3:38 PM CDT MKTO Comment: Biotin has been identified by the turf sales person as a potential interfering substance. Higher concentrations of biotin may be found in multivitamins, hair/nail supplements, and workout supplements. If the result does not match clinical observations, repeat testing after patient refrains from the use of supplements for at least 12 hours. Blood (Blood, Venous) 11/17/2022 7:10 AM CDT Narrative [facility] - 11/17/2022 3:38 PM CDT Specimen Information: Specimen ID: [id number] Specimen Type: Blood Specimen Collection Start Date: 11/17/2022 7:10 AM Specimen ID: [id number] Specimen Type: Blood Specimen Collection Start Date: 11/17/2022 7:10 AM Specimen Received Date: 11/17/2022 2:28 PM Iza Ayon M.D. LAB MICROBIOLOGY - BLOOD OR DERABLES Final Result [facility] [address] [place] [address], [facility] in [place] [address] [place] [phone] from Last 3 Months or Most Recently Relevant to Health Maintenance Insurance [facility] MEDIC[facility] Care Teams Social Scientist Relationship Specialty Start Date End Date Iza Ayon M.D. [address] [place] [phone] PCP - General Internal Medicine 04/24/19
--- NOTE | 2024-08-01 06:59 | CRLHL7_ITS ---
For Patients: As a result of the Century Cures Act, medical imaging exams and procedure reports are released immediately into your electronic medical record. You may view this report before your referring provider. If you have questions, please contact your health care provider. Indication: Abdominal pain, suspect obstruction. Technique: CT of the abdomen and pelvis was performed following the administration of 80 mL Isovue 370. Comparison: None available. Findings: Visualized lung bases: Few subpleural nodules within the visualized lung bases measuring up to 5 mm. Liver: Too small to characterize hypodensity within the right hepatic lobe. Mild diffuse hepatic steatosis. Gallbladder is small in size. There is moderate intrahepatic and proximal extrahepatic biliary ductal dilation. The distal common bile duct is not well visualized. Pancreas: Atrophic pancreas. No pancreatic ductal dilation. Spleen: Unremarkable. Adrenals: Unremarkable. Kidneys: Unremarkable. No nephrolithiasis or hydronephrosis. Aorta/IVC: Mild atherosclerotic aortic calcifications without aneurysmal dilation. Lymph nodes: No lymphadenopathy. Bowel: There are multiple dilated loops of small bowel throughout the abdomen and pelvis with transition point in the left hemipelvis where there is a fecalized loop of ileum. There appears to be abnormal bowel rotation where the duodenum remains to the right of the midline. There is extensive sigmoid diverticula with bowel decompression and mild wall thickening in the region of the left hemipelvis small-bowel transition point. No definite intraperitoneal free air. Trace pelvic free fluid. Moderate colonic fecal burden. Pelvis: Bladder is partially decompressed. Uterus is surgically absent.. Bones/body wall: Osseous demineralization. Multilevel degenerative disc disease. Impression: 1. Small-bowel obstruction with transition point at the left hemipelvis. 2. 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 3. Sigmoid diverticulosis with segmental bowel wall thickening in the left hemipelvis in close proximity to the small bowel transition point, possibly due to underdistention versus diverticulitis/colitis. Recommend direct visualization when clinically appropriate to exclude underlying lesion. 4. Moderate intrahepatic and proximal extrahepatic biliary ductal dilation. Recommend further evaluation with MRI/MRCP on a nonemergent basis. 5. Few small pulmonary nodules in the visualized lung bases. If this patient is at increased risk for lung cancer, consider chest CT follow-up in 12 months. Please note that all CT scans at this facility use dose modulation, iterative reconstruction, and/or weight-based dosing when appropriate to reduce radiation dose to as low as reasonably achievable. Dictated by Kate Carlos MD @ 08/01/2024 7:53:05 AM (Electronically Signed)
--- NOTE | 2024-08-01 07:02 | ED.GENADULT ---
HPI - General Adult General Chief complaint: Abdominal Pain <Jaimie Morgan MD - Last Filed: 08/02/24 11:35> Stated complaint: Abdominal Pain <Jaimie Morgan MD - Last Filed: 08/02/24 11:35> Time Seen by Provider: 08/01/24 06:44 <Jaimie Morgan MD - Last Filed: 08/02/24 11:35> Source: patient and family <Jaimie Morgan MD - Last Filed: 08/02/24 11:35> Mode of arrival: ambulatory <Jaimie Morgan MD - Last Filed: 08/02/24 11:35> Limitations: no limitations <Jaimie Morgan MD - Last Filed: 08/02/24 11:35> History of Present Illness HPI narrative: 79-year-old female presents the emergency department with 4 hour history of diffuse abdominal pain accompanied by vomiting x1. The abdomen feels distended. Prior history of bowel obstructions. Multiple prior abdominal surgeries including x4, cholecystectomy and surgery for a duodenal ulcer Has had a prior bowel obstruction in the past as well. It sounds as though she did require surgery for a bowel obstruction. No hematemesis, no bloody stools. No abdominal trauma. Has not tried any interventions to help with symptoms. No fever. No dysuria. No other illness or complaints today. Does not sound as though she has a prior history of pancreatitis. Reports that her care is through [facility]. Past medical history notable for AFib, looks like she is rate controlled on diltiazem and an antiarrhythmic though she is not confident which 1. We are still loading her home medications into the system and she cannot list them for me. She denies drug allergies. Nonsmoker. Accompanied by daughters today. ROS is notable for the abdominal symptoms only, otherwise denies times 12 systems. <Jaimie Morgan MD - Last Filed: 08/02/24 11:35> Related Data Home medications: Home Medications ?Medication ?Instructions ?Recorded ?Confirmed clobetasol 0.05 % topical ointment 1 applic topical DAILY PRN 08/16/23 08/01/24 multivitamin 1 tab PO QAM 08/16/23 08/01/24 omeprazole 40 mg capsule,delayed 40 mg PO DAILY 08/16/23 08/01/24 release warfarin 2 mg tablet 2 - 4 mg PO DAILY 08/16/23 08/02/24 alendronate 70 mg tablet 70 mg PO QWEEK 08/01/24 08/01/24 amiodarone 200 mg tablet 100 mg PO DAILY 08/01/24 08/01/24 ascorbic acid (vitamin C) 500 mg 500 mg PO DAILY 08/01/24 08/01/24 capsule calcium 600 mg capsule 1,200 mg PO DAILY 08/01/24 08/01/24 diltiazem HCl 120 mg 120 mg PO DAILY 08/01/24 08/01/24 capsule,extended release 24 hr melatonin 5 mg capsule 5 mg PO HS 08/01/24 08/01/24 <Jaimie Morgan MD - Last Filed: 08/02/24 11:35> Allergies/adverse reactions: Allergies Allergy/AdvReac Type Severity Reaction Status Date / Time No Known Drug Allergies Allergy Verified 08/01/24 07:38 <Jaimie Morgan MD - Last Filed: 08/02/24 11:35> [facility] Medical History: Medical History (Updated 08/01/24 @ 14:34 by Lizbeth Webber MD) Chronic anticoagulation ?Z79.01 - intermediate (current) use of anticoagulants (ICD-10) Paroxysmal atrial fibrillation ?I48.0 - Paroxysmal atrial fibrillation (ICD-10) 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 (ICD-10) Small bowel obstruction ?K56.609 - Unspecified intestinal obstruction, unspecified as to partial versus complete obstruction (ICD-10) Volvulus ?K56.2 - Volvulus (ICD-10) Peptic ulcer disease ?K27.9 - Peptic ulcer, site unspecified, unspecified as acute or chronic, without hemorrhage or perforation (ICD-10) GERD (gastroesophageal reflux disease) ?K21.9 - Gastro-esophageal reflux disease without esophagitis (ICD-10) <Jaimie Morgan MD - Last Filed: 08/02/24 11:35> Surgical History: Surgical History (Updated 08/02/24 @ 09:07 by Jonathan Abraham MD) History of tonsillectomy ?Z90.89 - Acquired absence of other organs (ICD-10) History of esophagogastroduodenoscopy (EGD) ?Z98.890 - Other specified postprocedural states (ICD-10) History of colonoscopy ?Z98.890 - Other specified postprocedural states (ICD-10) History of cholecystectomy ?Z90.49 - Acquired absence of other specified parts of digestive tract (ICD-10) History of appendectomy ?Z90.49 - Acquired absence of other specified parts of digestive tract (ICD-10) <Jaimie Morgan MD - Last Filed: 08/02/24 11:35> Social History: Social History What is your current living situation?: I presently have a place to live Problems where you live: no known problems Problems where you live details: NA In the past 12 months, utilities in danger of being shut off: no In past 12 months, lack of transportation kept you from medical appts, meetings, work, or getting things needed for daily living: no In the past 12 mos, have been you worried that your food would run out before you had money to buy more?: never true In the past 12 mos, the food you bought just didn't last and you didn't have money to buy more?: sometimes true Highest level of school completed/degree received: high school graduate Smoking Status: Never smoker Second hand tobacco smoke exposure: No How often do you have a drink containing alcohol: never AUDIT-C Alcohol total score: 0 Non-prescribed substance use: denies use Caffeine: Yes How often does anyone, including family, friends and others, physically hurt you: never How often does anyone, including family, friends and others, insult or talk down to you: never How often does anyone, including family, friends and others, threaten you with harm: never How often does anyone, including family, friends and others, scream or curse at you: never service: No Health Related Social Needs: food insecurity (Z59.41) <Jaimie Morgan MD - Last Filed: 08/02/24 11:35> Exam Const: Vital Signs, click to edit/add: Vital Signs - 24 hr 08/01/24 12:30 Temperature 98.8 F Pulse Rate [Pulse Oximeter] 83 Respiratory Rate 16 Blood Pressure [Ri ght Arm] 143/88 H Pulse Oximetry 97 Oxygen Delivery Me thod Room Air <Jaimie Morgan MD - Last Filed: 08/02/24 11:35> Vital Signs, click to edit/add: Vital Signs - 24 hr 08/01/24 12:30 Temperature 98.8 F Pulse Rate [Pulse Oximeter] 83 Respiratory Rate 16 Blood Pressure [Ri ght Arm] 143/88 H Pulse Oximetry 97 Oxygen Delivery Me thod Room Air <Delmar Reyez DO - Last Filed: 08/01/24 12:01> Documenting provider has reviewed patient's vital signs: yes <Jaimie Morgan MD - Last Filed: 08/02/24 11:35> Common normals: no apparent distress and alert <Jaimie Morgan MD - Last Filed: 08/02/24 11:35> General appearance: cooperative and well kempt <Jaimie Morgan MD - Last Filed: 08/02/24 11:35> HENMT: Common normals: normocephalic, moist oral mucous membranes and oropharynx normal <MD Tenisha Bassett Last Filed: 08/02/24 11:35> Head and scalp: normocephalic <Jaimie Morgan MD - Last Filed: 08/02/24 11:35> Eye: Common normals: conjunctivae normal <Jaimie Morgan MD - Last Filed: 08/02/24 11:35> General eye: normal appearance of both eyes <Jaimie Morgan MD - Last Filed: 08/02/24 11:35> Conjunctiva: conjunctiva(e) normal <Jaimie Morgan MD - Last Filed: 08/02/24 11:35> Neck & C-Spine: Common normals: no lymphadenopathy <Jaimie Morgan MD - Last Filed: 08/02/24 11:35> General: normal visual inspection <MD Tenisha Bassett Last Filed: 08/02/24 11:35> Resp: Common normals: normal respiratory effort and clear to auscultation bilaterally <MD Tenisha Bassett Last Filed: 08/02/24 11:35> Effort & inspection: able to speak in complete sentences <MD Tenisha Bassett Last Filed: 08/02/24 11:35> Auscultation: clear to auscultation bilaterally <Jaimie Morgan MD - Last Filed: 08/02/24 11:35> Cardio: Common normals: regular rate, regular rhythm, S1 normal heart sound, S2 normal heart sound and no murmurs <MD Tenisha Bassett Last Filed: 08/02/24 11:35> Rate: regular rate <MD Tenisha Bassett Last Filed: 08/02/24 11:35> Rhythm: regular rhythm <MD Tenisha Bassett Last Filed: 08/02/24 11:35> Heart sounds: S1 normal and S2 normal <Jaimie Morgan MD - Last Filed: 08/02/24 11:35> GI: Other: Abdomen is mildly distended appearing. Bowel sounds are hyperactive throughout. Mildly diffusely tender but no rebound tenderness or guarding. No obvious mass. No hepatosplenomegaly <Jaimie Morgan MD - Last Filed: 08/02/24 11:35> : Common normals: no CVA tenderness <MD Tenisha Bassett Last Filed: 08/02/24 11:35> Bladder/kidney exam: no CVA tenderness <MD Tenisha Bassett Last Filed: 08/02/24 11:35> Back & Pelvis: Common normals: no CVA tenderness <MD Tenisha Bassett Last Filed: 08/02/24 11:35> Thoracic spine/upper back: normal to inspection <MD Tenisha Bassett Last Filed: 08/02/24 11:35> Extremity: Common normals: normal capillary refill <MD Tenisha Bassett Last Filed: 08/02/24 11:35> Other: Left leg swollen as compared to the right but no redness. She reports that this is chronic lymphedema of that leg and is normal for her. <Jaimie Morgan MD - Last Filed: 08/02/24 11:35> Neuro: Common normals: moves all extremities <Jaimie Morgan MD - Last Filed: 08/02/24 11:35> Sensorium/orientation: alert <Jaimie Morgan MD - Last Filed: 08/02/24 11:35> Speech: speech normal <Jaimie Morgan MD - Last Filed: 08/02/24 11:35> Motor exam: no movement abnormalities noted <Jaimie Morgan MD - Last Filed: 08/02/24 11:35> Psych: Appearance: well kempt <Jaimie Morgan MD - Last Filed: 08/02/24 11:35> Attitude: engaged <Jaimie Morgan MD - Last Filed: 08/02/24 11:35> Activity/motor behavior: appropriate eye contact <Jaimie Morgan MD - Last Filed: 08/02/24 11:35> Insight: insight good <Jaimie Morgan MD - Last Filed: 08/02/24 11:35> Judgement: judgment good <Jaimie Morgan MD - Last Filed: 08/02/24 11:35> Skin: Common normals: no rashes or lesions noted <Jaimie Morgan MD - Last Filed: 08/02/24 11:35> General skin exam: no rashes or lesions noted <Jaimie Morgan MD - Last Filed: 08/02/24 11:35> Course Course ED Course: 79-year-old female with abdominal pain and nausea suspicious for acute bowel obstruction. History of multiple prior abdominal surgeries and prior bowel obstruction as well. I-STAT creatinine ordered, typical abdominal labs. CT of the abdomen and pelvis and urinalysis. Will give Dilaudid 0.5 mg IV x1 and Zofran 4 mg IV. Await lab and imaging findings. Differential diagnosis also including pancreatitis, colitis, volvulus, gastroenteritis, gallstone, kidney stone, musculoskeletal etiology, gastroenteritis, amongst others. <Jaimie Morgan MD - Last Filed: 08/02/24 11:35> Vital Signs Vital signs: Initial Vital Signs Temperature 97.9 F 08/01/24 06:44 Temperature Source Temporal Artery Scan 08/01/24 06:44 Pulse Rate 82 08/01/24 06:44 Respiratory Rate 16 08/01/24 06:44 Blood Pressure 138/102 H 08/01/24 06:44 Blood Pressure Mean 114 H 08/01/24 06:44 Blood Pressure Position Sitting 08/01/24 06:44 Pulse Oximetry 98 08/01/24 06:44 Oxygen Delivery Method Room Air 08/01/24 06:44 Vital Signs Temperature 97.9 F 08/01/24 06:44 Pulse Rate 82 08/01/24 06:44 Respiratory Rate 16 08/01/24 06:44 Blood Pressure 138/102 H 08/01/24 06:44 Pulse Oximetry 98 08/01/24 06:44 Oxygen Delivery Method Room Air 08/01/24 06:44 Temperature 98.9 F 08/02/24 09:51 Pulse Rate 86 08/02/24 09:51 Respiratory Rate 20 08/02/24 09:51 Blood Pressure 102/70 08/02/24 09:51 Pulse Oximetry 96 08/02/24 09:51 Oxygen Delivery Method Room Air 08/02/24 09:51 <Jaimie Morgan MD - Last Filed: 08/02/24 11:35> Initial Vital Signs Temperature 97.9 F 08/01/24 06:44 Temperature Source Temporal Artery Scan 08/01/24 06:44 Pulse Rate 82 08/01/24 06:44 Respiratory Rate 16 08/01/24 06:44 Blood Pressure 138/102 H 08/01/24 06:44 Blood Pressure Mean 114 H 08/01/24 06:44 Blood Pressure Position Sitting 08/01/24 06:44 Pulse Oximetry 98 08/01/24 06:44 Oxygen Delivery Method Room Air 08/01/24 06:44 Vital Signs Temperature 97.9 F 08/01/24 06:44 Pulse Rate 82 08/01/24 06:44 Respiratory Rate 16 08/01/24 06:44 Blood Pressure 138/102 H 08/01/24 06:44 Pulse Oximetry 98 08/01/24 06:44 Oxygen Delivery Method Room Air 08/01/24 06:44 Temperature 98.9 F 08/02/24 09:51 Pulse Rate 86 08/02/24 09:51 Respiratory Rate 20 08/02/24 09:51 Blood Pressure 102/70 08/02/24 09:51 Pulse Oximetry 96 08/02/24 09:51 Oxygen Delivery Method Room Air 08/02/24 09:51 <Delmar Reyez, DO - Last Filed: 08/01/24 12:01> Medications Administered Medications: Generic Name Dose Route Start Last Admin Trade Name Justina PRN Reason Stop Dose Admin Amiodarone HCl 100 mg 08/02/24 09:00 08/02/24 09:51 Amiodarone 200 Mg Tablet PO Not Given DAILY TONYA Benzocaine/Menthol 1 each 08/02/24 08:08 08/02/24 09:48 Benzocaine/Menthol 1 Each Lozenge MUCOUS MEM 1 each Q1H PRN Administration sore/dry throat Hydromorphone HCl 0.5 mg 08/01/24 13:26 08/02/24 09:28 Hydromorphone 0.5 Mg/0.5 Ml Inj IVP 0.5 mg Q1H PRN Administration Acetaminophen 1,000 mg in 100 mls @ 400 mls/hr 08/01/24 13:26 08/02/24 06:10 Ofirmev IVPB Infused Q6H PRN Infusion Pain Lactated Ringer's 1,000 mls @ 75 mls/hr 08/01/24 21:29 08/01/24 22:52 Lactated Ringers 1000 Ml IV 75 mls/hr .[id number] TONYA Administration Discontinued Medications Generic Name Dose Route Start Last Admin Trade Name Justina PRN Reason Stop Dose Admin Acetaminophen 325 - 650 mg 08/01/24 16:01 08/02/24 01:45 Acetaminophen 325 Mg Tablet PO 08/01/24 16:02 Not Given ONCE ONE Cefazolin Sodium 1 gm 08/01/24 15:00 08/01/24 15:10 Cefazolin 1 Gm Inj IVP 08/01/24 15:01 1 gm ONCE ONE Administration Hydromorphone HCl 0.5 mg 08/01/24 06:59 08/01/24 07:15 Hydromorphone 0.5 Mg/0.5 Ml Inj IVP 08/01/24 07:00 0.5 mg ONCE ONE Administration Hydromorphone HCl 0.5 mg 08/01/24 08:33 08/01/24 08:41 Hydromorphone 0.5 Mg/0.5 Ml Inj IVP 08/01/24 08:34 0.5 mg ONCE ONE Administration Sodium Chloride 1,000 mls @ 500 mls/hr 08/01/24 06:59 08/02/24 01:46 0.9 % Sodium Chloride 1000 Ml IV 08/01/24 08:58 Infused .Q2H TONYA Infusion Lactated Ringer's 500 mls @ 500 mls/hr 08/01/24 13:28 08/02/24 01:46 Lactated Ringers 500 Ml IV 08/01/24 14:27 Infused .Q1H ONE Infusion Lactated Ringer's 1,000 mls @ 125 mls/hr 08/01/24 13:30 08/02/24 01:46 Lactated Ringers 1000 Ml IV Infused .Q8H TONYA Infusion Sodium Chloride 500 mls @ 500 mls/hr 08/02/24 09:05 08/02/24 11:24 0.9 % Sodium Chloride 500 Ml IV 08/02/24 10:04 Infused .Q1H ONE Infusion Metoclopramide HCl 10 mg 08/01/24 09:45 08/01/24 09:50 Metoclopramide Hcl 5 Mg/Ml Inj IVP 08/01/24 09:46 10 mg ONCE ONE Administration Metoclopramide HCl 10 mg 08/01/24 16:01 08/02/24 01:45 Metoclopramide Hcl 5 Mg/Ml Inj IVP 08/01/24 16:02 Not Given ONCE ONE Ondansetron HCl 4 mg 08/01/24 06:59 08/01/24 07:14 Ondansetron 2 Mg/Ml Inj IVP 08/01/24 07:00 4 mg ONCE ONE Administration Ondansetron HCl 4 mg 08/01/24 08:33 08/01/24 08:39 Ondansetron 2 Mg/Ml Inj IVP 08/01/24 08:34 4 mg ONCE ONE Administration Pantoprazole Sodium 40 mg 08/01/24 12:51 08/01/24 13:30 Pantoprazole Sodium 40 Mg Inj IVP 08/01/24 12:52 40 mg ONCE ONE Administration Sodium Chloride 5 ml 08/01/24 21:00 08/02/24 01:46 Sodium Chloride 0.9 % (Flush) 10 Ml Syringe IVF Not Given BID TONYA <Jaimie Morgan MD - Last Filed: 08/02/24 11:35> Generic Name Dose Route Start Last Admin Trade Name Justina PRN Reason Stop Dose Admin Amiodarone HCl 100 mg 08/02/24 09:00 08/02/24 09:51 Amiodarone 200 Mg Tablet PO Not Given DAILY TONYA Benzocaine/Menthol 1 each 08/02/24 08:08 08/02/24 09:48 Benzocaine/Menthol 1 Each Lozenge MUCOUS MEM 1 each Q1H PRN Administration sore/dry throat Hydromorphone HCl 0.5 mg 08/01/24 13:26 08/02/24 09:28 Hydromorphone 0.5 Mg/0.5 Ml Inj IVP 0.5 mg Q1H PRN Administration Acetaminophen 1,000 mg in 100 mls @ 400 mls/hr 08/01/24 13:26 08/02/24 06:10 Ofirmev IVPB Infused Q6H PRN Infusion Pain Lactated Ringer's 1,000 mls @ 75 mls/hr 08/01/24 21:29 08/01/24 22:52 Lactated Ringers 1000 Ml IV 75 mls/hr .[id number] TONYA Administration Discontinued Medications Generic Name Dose Route Start Last Admin Trade Name Justina PRN Reason Stop Dose Admin Acetaminophen 325 - 650 mg 08/01/24 16:01 08/02/24 01:45 Acetaminophen 325 Mg Tablet PO 08/01/24 16:02 Not Given ONCE ONE Cefazolin Sodium 1 gm 08/01/24 15:00 08/01/24 15:10 Cefazolin 1 Gm Inj IVP 08/01/24 15:01 1 gm ONCE ONE Administration Hydromorphone HCl 0.5 mg 08/01/24 06:59 08/01/24 07:15 Hydromorphone 0.5 Mg/0.5 Ml Inj IVP 08/01/24 07:00 0.5 mg ONCE ONE Administration Hydromorphone HCl 0.5 mg 08/01/24 08:33 08/01/24 08:41 Hydromorphone 0.5 Mg/0.5 Ml Inj IVP 08/01/24 08:34 0.5 mg ONCE ONE Administration Sodium Chloride 1,000 mls @ 500 mls/hr 08/01/24 06:59 08/02/24 01:46 0.9 % Sodium Chloride 1000 Ml IV 08/01/24 08:58 Infused .Q2H TONYA Infusion Lactated Ringer's 500 mls @ 500 mls/hr 08/01/24 13:28 08/02/24 01:46 Lactated Ringers 500 Ml IV 08/01/24 14:27 Infused .Q1H ONE Infusion Lactated Ringer's 1,000 mls @ 125 mls/hr 08/01/24 13:30 08/02/24 01:46 Lactated Ringers 1000 Ml IV Infused .Q8H TONYA Infusion Sodium Chloride 500 mls @ 500 mls/hr 08/02/24 09:05 08/02/24 11:24 0.9 % Sodium Chloride 500 Ml IV 08/02/24 10:04 Infused .Q1H ONE Infusion Metoclopramide HCl 10 mg 08/01/24 09:45 08/01/24 09:50 Metoclopramide Hcl 5 Mg/Ml Inj IVP 08/01/24 09:46 10 mg ONCE ONE Administration Metoclopramide HCl 10 mg 08/01/24 16:01 08/02/24 01:45 Metoclopramide Hcl 5 Mg/Ml Inj IVP 08/01/24 16:02 Not Given ONCE ONE Ondansetron HCl 4 mg 08/01/24 06:59 08/01/24 07:14 Ondansetron 2 Mg/Ml Inj IVP 08/01/24 07:00 4 mg ONCE ONE Administration Ondansetron HCl 4 mg 08/01/24 08:33 08/01/24 08:39 Ondansetron 2 Mg/Ml Inj IVP 08/01/24 08:34 4 mg ONCE ONE Administration Pantoprazole Sodium 40 mg 08/01/24 12:51 08/01/24 13:30 Pantoprazole Sodium 40 Mg Inj IVP 08/01/24 12:52 40 mg ONCE ONE Administration Sodium Chloride 5 ml 08/01/24 21:00 08/02/24 01:46 Sodium Chloride 0.9 % (Flush) 10 Ml Syringe IVF Not Given BID TONYA <Delmar Reyez, DO - Last Filed: 08/01/24 12:01> Medical Decision Making MDM Narrative Medical decision making narrative: The patient was signed out to me by the night provider pending final decision on surgery by the general surgeon on-call. He feels she was also having more pain and nausea so Zofran and dilaudid were ordered again. The Dr. Abraham came down to evaluate her and does believe she will need surgery. Recommends an NG tube. This was placed and x-ray showed aided to be pushed further down and this was done. Patient is feeling okay right now after a dose of Reglan. Patient will be admitted to the hospitalist service. Was given FFP for warfarin reversal. Family is agreeable to this plan. <Delmar Reyez, DO - Last Filed: 08/01/24 12:01> Lab Data Labs: Lab Results 08/01/24 08/01/24 08/01/24 Range/Units 06:55 06:58 07:33 WBC 8.13 (4.50-11.00) K/uL RBC 4.50 (4.00-5.20) m/uL Hgb 13.4 (12.0-16.0) gm/dL Hct 41.0 (33.0-51.0) % MCV 91 (80-100) fL MCH 30 (26-34) pg MCHC 33 (32-36) gm/dL RDW Coeff of Xavi 13.6 (11.5-15.5) % Plt Count 194 (140-440) K/uL Neut % (Auto) 85.6 H (42.0-72.0) % Lymph % (Auto) 8.6 L (20-44) % [place] % (Auto) 5.3 (0.0-11.0) % Eos % (Auto) 0.1 (0.0-7.0) % Baso % (Auto) 0.2 (0.0-3.0) % Neut # (Auto) 7.00 (1.7-7.0) K/uL Lymph # (Auto) 0.70 L (0.90-2.90) K/uL [place] # (Auto) 0.40 (0.00-0.90) K/UL Eos # (Auto) 0.01 (0.00-0.50) K/uL Baso # (Auto) 0.02 (0.00-0.30) K/uL Abs Immat Gran (auto) 0.02 (0.00-0.30) K/uL Imm/Tot Granulo (auto) 0.2 % INR 1.94 H (0.91-1.10) Sodium 131 L (135-149) mmol/L Potassium 4.7 (3.6-5.1) mmol/L Chloride 99 (96-114) mmol/L Carbon Dioxide 26 (20-32) mmol/L Anion Gap 6 L (7-15) mEq/L BUN 19 (7-30) mg/dL Creatinine 0.8 (0.5-1.5) mg/dL Estimated Creat Clear 47.53 Estimated GFR 76 ml/min Glucose 125 H (60-115) mg/dL Lactate 1.7 (0.5-1.9) mmol/L Calcium 9.0 (8.4-10.6) mg/dL Total Bilirubin 0.6 (0.1-1.5) mg/dL AST 29 (12-35) U/L ALT 20 (4-35) U/L Alkaline Phosphatase 45 (40-150) U/L C-Reactive Protein < 0.5 L (0.5-1.0) mg/dL Total Protein 6.8 (6.0-8.3) g/dL Albumin 4.2 (3.3-5.0) g/dL Lipase 26 (23-300) U/L POC Creatinine 0.9 (0.6-1.3) mg/dl Blood Type 08/01/24 Range/Units 10:15 WBC (4.50-11.00) K/uL RBC (4.00-5.20) m/uL Hgb (12.0-16.0) gm/dL Hct (33.0-51.0) % MCV (80-100) fL MCH (26-34) pg MCHC (32-36) gm/dL RDW Coeff of Xavi (11.5-15.5) % Plt Count (140-440) K/uL Neut % (Auto) (42.0-72.0) % Lymph % (Auto) (20-44) % [place] % (Auto) (0.0-11.0) % Eos % (Auto) (0.0-7.0) % Baso % (Auto) (0.0-3.0) % Neut # (Auto) (1.7-7.0) K/uL Lymph # (Auto) (0.90-2.90) K/uL [place] # (Auto) (0.00-0.90) K/UL Eos # (Auto) (0.00-0.50) K/uL Baso # (Auto) (0.00-0.30) K/uL Abs Immat Gran (auto) (0.00-0.30) K/uL Imm/Tot Granulo (auto) % INR (0.91-1.10) Sodium (135-149) mmol/L Potassium (3.6-5.1) mmol/L Chloride (96-114) mmol/L Carbon Dioxide (20-32) mmol/L Anion Gap (7-15) mEq/L BUN (7-30) mg/dL Creatinine (0.5-1.5) mg/dL Estimated Creat Clear Estimated GFR ml/min Glucose (60-115) mg/dL Lactate (0.5-1.9) mmol/L Calcium (8.4-10.6) mg/dL Total Bilirubin (0.1-1.5) mg/dL AST (12-35) U/L ALT (4-35) U/L Alkaline Phosphatase (40-150) U/L C-Reactive Protein (0.5-1.0) mg/dL Total Protein (6.0-8.3) g/dL Albumin (3.3-5.0) g/dL Lipase (23-300) U/L POC Creatinine (0.6-1.3) mg/dl Blood Type A Positive <Jaimie Morgan MD - Last Filed: 08/02/24 11:35> Lab Results 08/01/24 08/01/24 08/01/24 Range/Units 06:55 06:58 07:33 WBC 8.13 (4.50-11.00) K/uL RBC 4.50 (4.00-5.20) m/uL Hgb 13.4 (12.0-16.0) gm/dL Hct 41.0 (33.0-51.0) % MCV 91 (80-100) fL MCH 30 (26-34) pg MCHC 33 (32-36) gm/dL RDW Coeff of Xavi 13.6 (11.5-15.5) % Plt Count 194 (140-440) K/uL Neut % (Auto) 85.6 H (42.0-72.0) % Lymph % (Auto) 8.6 L (20-44) % [place] % (Auto) 5.3 (0.0-11.0) % Eos % (Auto) 0.1 (0.0-7.0) % Baso % (Auto) 0.2 (0.0-3.0) % Neut # (Auto) 7.00 (1.7-7.0) K/uL Lymph # (Auto) 0.70 L (0.90-2.90) K/uL [place] # (Auto) 0.40 (0.00-0.90) K/UL Eos # (Auto) 0.01 (0.00-0.50) K/uL Baso # (Auto) 0.02 (0.00-0.30) K/uL Abs Immat Gran (auto) 0.02 (0.00-0.30) K/uL Imm/Tot Granulo (auto) 0.2 % INR 1.94 H (0.91-1.10) Sodium 131 L (135-149) mmol/L Potassium 4.7 (3.6-5.1) mmol/L Chloride 99 (96-114) mmol/L Carbon Dioxide 26 (20-32) mmol/L Anion Gap 6 L (7-15) mEq/L BUN 19 (7-30) mg/dL Creatinine 0.8 (0.5-1.5) mg/dL Estimated Creat Clear 47.53 Estimated GFR 76 ml/min Glucose 125 H (60-115) mg/dL Lactate 1.7 (0.5-1.9) mmol/L Calcium 9.0 (8.4-10.6) mg/dL Total Bilirubin 0.6 (0.1-1.5) mg/dL AST 29 (12-35) U/L ALT 20 (4-35) U/L Alkaline Phosphatase 45 (40-150) U/L C-Reactive Protein < 0.5 L (0.5-1.0) mg/dL Total Protein 6.8 (6.0-8.3) g/dL Albumin 4.2 (3.3-5.0) g/dL Lipase 26 (23-300) U/L POC Creatinine 0.9 (0.6-1.3) mg/dl Blood Type 08/01/24 Range/Units 10:15 WBC (4.50-11.00) K/uL RBC (4.00-5.20) m/uL Hgb (12.0-16.0) gm/dL Hct (33.0-51.0) % MCV (80-100) fL MCH (26-34) pg MCHC (32-36) gm/dL RDW Coeff of Xavi (11.5-15.5) % Plt Count (140-440) K/uL Neut % (Auto) (42.0-72.0) % Lymph % (Auto) (20-44) % [place] % (Auto) (0.0-11.0) % Eos % (Auto) (0.0-7.0) % Baso % (Auto) (0.0-3.0) % Neut # (Auto) (1.7-7.0) K/uL Lymph # (Auto) (0.90-2.90) K/uL Hidalgo # (Auto) (0.00-0.90) K/UL Eos # (Auto) (0.00-0.50) K/uL Baso # (Auto) (0.00-0.30) K/uL Abs Immat Gran (auto) (0.00-0.30) K/uL Imm/Tot Granulo (auto) % INR (0.91-1.10) Sodium (135-149) mmol/L Potassium (3.6-5.1) mmol/L Chloride (96-114) mmol/L Carbon Dioxide (20-32) mmol/L Anion Gap (7-15) mEq/L BUN (7-30) mg/dL Creatinine (0.5-1.5) mg/dL Estimated Creat Clear Estimated GFR ml/min Glucose (60-115) mg/dL Lactate (0.5-1.9) mmol/L Calcium (8.4-10.6) mg/dL Total Bilirubin (0.1-1.5) mg/dL AST (12-35) U/L ALT (4-35) U/L Alkaline Phosphatase (40-150) U/L C-Reactive Protein (0.5-1.0) mg/dL Total Protein (6.0-8.3) g/dL Albumin (3.3-5.0) g/dL Lipase (23-300) U/L POC Creatinine (0.6-1.3) mg/dl Blood Type A Positive <Delmar Reyez DO - Last Filed: 08/01/24 12:01> Imaging Data CT scan - abdomen: Attestation: I have reviewed the pertinent imaging results. <Jaimie Morgan MD - Last Filed: 08/02/24 11:35> My impression: Findings consistent with bowel obstruction <Jaimie Morgan MD - Last Filed: 08/02/24 11:35> Radiologist's impression: Impression: 1. Small-bowel obstruction with transition point at the left hemipelvis. 2. 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 3. Sigmoid diverticulosis with segmental bowel wall thickening in the left hemipelvis in close proximity to the small bowel transition point, possibly due to underdistention versus diverticulitis/colitis. Recommend direct visualization when clinically appropriate to exclude underlying lesion. 4. Moderate intrahepatic and proximal extrahepatic biliary ductal dilation. Recommend further evaluation with MRI/MRCP on a nonemergent basis. 5. Few small pulmonary nodules in the visualized lung bases. If this patient is at increased risk for lung cancer, consider chest CT follow-up in 12 months. <Jaimie Morgan MD - Last Filed: 08/02/24 11:35> Abdominal x-ray: Attestation: I have reviewed the pertinent imaging results. <Delmar Reyez DO - Last Filed: 08/01/24 12:01> Radiologist's impression: The nasogastric tube ends at the EG junction. It should be advanced by approximately 10 centimeters. Dictated by Deondre Perez MD @ 08/01/2024 9:54:52 AM <Delmar Reyez DO - Last Filed: 08/01/24 12:01> Discharge Plan Discharge Clinical Impression: Small bowel obstruction <Jaimie Morgan MD - Last Filed: 08/02/24 11:35> Patient Disposition: Admitted As Observation <Jaimie Morgan MD - Last Filed: 08/02/24 11:35> Condition: Stable <Jaimie Morgan MD - Last Filed: 08/02/24 11:35>
[2024-08-01 07:03] LABS: Creatinine, Point-of-Care* 0.9 mg/dl (0.6-1.3)
[2024-08-01 07:05] LABS: Lactate* 1.7 mmol/L (0.5-1.9)
[2024-08-01 07:13] LABS: Basophils Absolute Auto 0.02 K/uL (0.00-0.30); Basophils Percent Auto 0.2 % (0.0-3.0); Eosinophils Absolute Auto 0.01 K/uL (0.00-0.50); Eosinophils Percent Auto 0.1 % (0.0-7.0); Hemoglobin* 13.4 gm/dL (12.0-16.0); Immature Granulocytes Abs Auto 0.02 K/uL (0.00-0.30); Immature Granulocytes Pct Auto 0.2 %; Lymphocytes Percent Auto 8.6 % (20-44); Mean Corpuscular HGB Conc 33 gm/dL (32-36); Mean Corpuscular Hemoglobin 30 pg (26-34); Mean Corpuscular Volume 91 fL (80-100); Monocytes Percent Auto 5.3 % (0.0-11.0); Neutrophils Percent Auto 85.6 % (42.0-72.0); Platelet Count* 194 K/uL (140-440); RDW Coefficient of Variation % 13.6 % (11.5-15.5); White Blood Count* 8.13 K/uL (4.50-11.00)
[2024-08-01] MEDS: 0.9 % SODIUM CHLORIDE 1000 ml 1,000 ML 500 ML IV (07:13)
[2024-08-01] MEDS: ONDANSETRON 2 MG/ML inj 4 MG IVP ×2 (07:14→08:39)
[2024-08-01] MEDS: HYDROmorphone 0.5 mg/0.5 ml inj IVP ×4 (07:15→22:52)
[2024-08-01 07:18] LABS: Slide Review Reflex No
--- OUTSIDE RECORDS SUMMARY | 2024-08-01 07:18 | XMS_ITS | Clinical Summary ---
Author Organization [facility] Address [address] [place] [address] Care Team Providers Care Forge Utility Worker Name Role Phone Iza Ayon M.D. Primary Care Provider +1 [phone] Source Comments Patient records contain information from all sites at [facility]. For routine questions regarding patient records, call [phone] during business hours, M-F 8:00 AM - 5:00 PM Central Time. Record requests for emergency care only can be directed to [phone] at any time.[facility] Allergies No known active allergies Medications * [...] 12/30/2019 Osteopenia 05/06/2019 Atrial Fibrillation Paroxysmal 05/06/2019 Usp (Current) Anticoagulant Treatment 04/17 Lymphedema 04/28/2019 Impaired [...] Refill Department of Obstetrics and Gynecology in [place], [place] [address] [place] [address] Jaimie Sena APRN, C.N.P. Med Refill 06/18/2024 10:10 AM RADIO STATION AUDIO ENGINEER Anticoagulation Visit Department of Anticoagulation in [place], [place] [address] [place] [phone] Iza Ayon M.D. Atrial Fibrillation Paroxysmal (HCC); Template Maker (Current) Anticoagulant Treatment; Barretts Esophagus Without Dysplasia; Monitoring For Therapeutic Drug Therapy 06/18/2024 9:12 AM RADIO STATION AUDIO ENGINEER - 06/18/2024 11:59 PM RADIO STATION AUDIO ENGINEER Hospital Encounter Department of Laboratory Medicine in [address] [phone] Iza Ayon M.D. Atrial Fibrillation Paroxysmal (HCC); Usp (Current) Anticoagulant Treatment; Barretts Esophagus Without Dysplasia; Monitoring For Therapeutic Drug Therapy Discharge Disposition: Home or Self Care 06/04/2024 12:30 PM RADIO STATION AUDIO ENGINEER Anticoagulation Visit Department of Anticoagulation in [place], [place] [address] [place] [phone] Iza Ayon M.D. Atrial Fibrillation Paroxysmal (HCC) (Primary Dx); Usp (Current) Anticoagulant Treatment; Barretts Esophagus Without Dysplasia; Monitoring For Therapeutic Drug Therapy 06/04/2024 9:37 AM RADIO STATION AUDIO ENGINEER - 06/04/2024 11:59 PM RADIO STATION AUDIO ENGINEER Hospital Encounter Department of Laboratory Medicine in [place], [place] [address] [place] [address] Iza Ayon M.D. Atrial Fibrillation Paroxysmal (HCC); Usp (Current) Anticoagulant Treatment; Barretts Esophagus Without Dysplasia; Monitoring For Therapeutic Drug Therapy Discharge Disposition: Home or Self Care 05/27/2024 12:00 PM RADIO STATION AUDIO ENGINEER Anticoagulation Visit Department of Anticoagulation in [place], [place] [address] [place] [phone] Iza Ayon M.D. Atrial Fibrillation Paroxysmal (HCC); Template Maker (Current) Anticoagulant Treatment; Barretts Esophagus Without Dysplasia; Monitoring For Therapeutic Drug Therapy 05/27/2024 11:20 AM RADIO STATION AUDIO ENGINEER - 05/27/2024 11:59 PM RADIO STATION AUDIO ENGINEER Hospital Encounter Department of Laboratory Medicine in [address] [address] Iza Ayon M.D. Atrial Fibrillation Paroxysmal (HCC); Template Maker (Current) Anticoagulant Treatment; Barretts Esophagus Without Dysplasia; Monitoring For Therapeutic Drug Therapy Discharge Disposition: Home or Self Care 05/20/2024 Clinical Communication Department of Anticoagulation in [place], [place] [address] [place] [address] Zofia Mendes M.S.N., R.N. Anticoagulation (Upcoming procedure) 05/17/2024 2:00 PM CDT Office Visit Department of Internal Medicine in [address] [phone] Jessica Cardozo, Kai-Chiara., M.S. Preoperative Exam (Primary Dx); Atrial Fibrillation Paroxysmal (HCC); Template Maker (Current) Anticoagulant Treatment; Gastroesophageal Reflux Disease Without Esophagitis; Need Vaccine Immunization 05/14/2024 10:45 AM CDT Office Visit Department of Cardiovascular Diseases in [place], [place] [address] [place] [phone] Dallas Bradford, NIDHI, C.N.P. Atrial Fibrillation Unspecified (HCC) (Primary Dx); High Risk Medication 05/10/2024 11:30 AM CDT - 05/10/2024 11:59 PM CDT Hospital Encounter Department of Radiology in [address] [address] Jasvir Carrillo M.D. Atrial Fibrillation Unspecified (HCC); High Risk Medication Discharge Disposition: Home or Self Care 05/10/2024 11:20 AM CDT - 05/10/2024 11:29 AM CDT Hospital Encounter Department of Laboratory Medicine in [address] [place] [address] Jasvir Carrillo M.D. Atrial Fibrillation Unspecified (HCC); High Risk Medication Discharge Disposition: Home or Self Care 05/10/2024 11:10 AM CDT - 05/10/2024 11:19 AM CDT Hospital Encounter Department of Laboratory Medicine in [address] [address] Jasvir Carrillo M.D. Atrial Fibrillation Unspecified (HCC); [...] drink = 0.6 oz pur e alcohol) [facility] Utilities Answer Date Recorded In the past 12 months has e [employer], oil, or water [employer] threatened to shut off services in your [...] How often do you attend chur or sikhism services? More than 4 times per year 11/17/2022 Do you belong to any clubs o r organizations such as buddhism groups, unions, fraternal or athletic groups, or [...] Answer Date Recorded PHQ-2 Score 0 12/07/2023 [facility] of Occupat ional [facility] - Occupational Stress Questionnaire Answer Date Recorded [...] your living situation today? I have a [facility] place to live 11/15/2023 Education Answer Date Recorded What is the highest level of school you have completed or the highest degree you have received? 12th grade 05/06/2019 Comments No Sex and Gender Information Value Date Recorded Sex Assigned at Female 11/15/2023 12:19 PM CDT Legal Sex Female 8:46 AM RADIO STATION AUDIO ENGINEER Gender Identity Female 01/12/2020 9:19 AM CDT [...] (Latest Contact Info) Description 08/13/2024 11:20 AM RADIO STATION AUDIO ENGINEER Appointment Department of Laboratory Medicine in [address] [address] Iza Ayon M.D. [address] [place] [address] 08/13/2024 12:00 PM RADIO STATION AUDIO ENGINEER Anticoagulation Visit Department of Anticoagulation in [place], [place] [address] [place] [address] Iza Ayon M.D. [address] [place] [address] 10/23/2024 10:20 AM CDT Appointment Department of Laboratory Medicine in [address] [phone] Dallas Bradford APRN, C.N.P. [address] [place] [phone] 10/23/2024 10:30 AM CDT Appointment Department of Laboratory Medicine in [place], [place] 300 [facility] [place] [address] Dallas Bradford APRN, C.N.P. [address], [place] [address] 10/25/2024 11:30 AM CDT Office Visit Department of Cardiovascular Diseases in [place], [place] [address] [phone] Dallas Bradford APRN, C.N.P. [address] [address] Health Maintenance Due Date Last [...] REFLEX, POCT, B Routine 06/18/2024 9:22 AM RADIO STATION AUDIO ENGINEER Atrial Fibrillation Paroxysmal (HCC) Template Maker (Current) Anticoagulant Treatment Barretts Esophagus Without Dysplasia Monitoring For Therapeutic Drug Therapy INR REFLEX, POCT, B Routine 06/04/2024 9:45 AM RADIO STATION AUDIO ENGINEER Atrial Fibrillation Paroxysmal (HCC) Template Maker (Current) Anticoagulant Treatment Barretts Esophagus Without Dysplasia Monitoring For Therapeutic Drug Therapy INR REFLEX, POCT, B Routine 05/27/2024 12:37 PM RADIO STATION AUDIO ENGINEER Atrial Fibrillation Paroxysmal (HCC) Usp (Current) Anticoagulant Treatment Barretts Esophagus Without Dysplasia Monitoring For Therapeutic Drug Therapy DX CHEST AP OR PA AND LATERAL 2 VIEWS RAD - Routine (most inpatients and all outpatients) 05/10/2024 11:47 AM CDT Atrial Fibrillation Unspecified (HCC) High Risk Medication MO T4 FREE Routine 05/10/2024 11:27 AM CDT [...] INR Reflex, POCT, Blood (06/18/2024 9:22 AM RADIO STATION AUDIO ENGINEER) Only the most recent of3 resultswithin the time period is included. INR Reflex, POCT, B 2.3 06/18/2024 9:21 AM RADIO STATION AUDIO ENGINEER [id number] Comment: ----ADDITIONAL INFORMATION---- Standard intensity warfarin therapeutic range: 2.0 to 3.0 High intensity warfarin therapeutic range: 2.5 to 3.5 Blood (Blood, Capillary) 06/18/2024 9:22 AM RADIO STATION AUDIO ENGINEER 06/18/2024 9:21 AM RADIO STATION AUDIO ENGINEER us Iza Ayon M.D. LAB POCT ORDERABLES - DEVIC E Final Result [facility] [address] [place] [address], [facility] FB60 [facility] in [place] [address] [place] [address] * DX Chest AP or PA and [...] M.D. LAB BLOOD ADD-ON Final Res ult [facility] [address] [place] [address], [place] OWAT [facility] in [place] [address] [place] [address] * (ABNORMAL) Thyroid Function Dickinson (05/10/2024 11:27 AM CDT) TSH, Sensitive 5.6(H) 0.3 - 4.2 mIU/L 05/10/2024 2:02 PM CDT OW Blood (Blood, Venous) 05/10/2024 11:27 AM CDT 05/10/2024 1:17 PM CDT Jasvir Carrillo M.D. LAB BLOOD ADD-ON Final Res ult [facility] [address] [place] [address], [place] [facility] [place] [address] [place] [address] * Thyroperoxidase (TPO) Antibodies (05/10/2024 11:27 AM CDT) Thyroperoxidase Ab, S <15.0 <34.0 IU/mL 05/11/2024 8:18 AM CDT DTL Blood 05/10/2024 11:2 7 AM CDT 05/11/2024 7:43 AM CDT Jasvir Carrillo M.D. LAB BLOOD ADD-ON Final Res ult [facility] [address] [place] [address], [place] D[place] [facility] [address] * ALT (Alanine Aminotransferase) (05/10/2024 11:27 AM CDT) Alanine Aminotransferase (ALT), P 19 7 - 45 U/L 05/10/2024 1:49 PM CDT OWAT Blood (Blood, Venous) 05/10/2024 11:27 AM CDT 05/10/2024 1:17 PM CDT Jasvir Carrillo M.D. LAB BLOOD ADD-ON Final Res ult Performing Organization Address City/[facility]/ZIP Co de Phone Number [facility] [address] [place] [address], [facility] [place] [address] [place] [address] * AST (Aspartate Aminotransferase) (05/10/2024 11:27 AM CDT) Aspartate Aminotransferase (AST), P 26 8 - 43 U/L 05/10/2024 1:49 PM CDT OWAT Blood (Blood, Venous) 05/10/2024 11:27 AM CDT 05/10/2024 1:17 PM CDT Jasvir Carrillo M.D. LAB BLOOD ADD-ON Final Res ult Performing Organization Address City/[facility]/ZIP Co de Phone Number [facility] [address] [place] [address], [place] AT [facility] [place] [address] * Sodium (05/10/2024 11:27 AM CDT) Sodium, P 139 135 - 145 mmol/L 05/10/2024 1:49 PM CDT OWAT Blood (Blood, Venous) 05/10/2024 11:27 AM CDT 05/10/2024 1:17 PM CDT Jasvir Carrillo M.D. LAB BLOOD ADD-ON Final Res ult [facility] [address] [place] [address], [place] [facility] [place] [address] [place] [address] * Potassium (05/10/2024 11:27 AM CDT) Potassium, P 5.1 3.6 - 5.2 mmol/L 05/10/2024 1:49 PM CDT OWAT Blood (Blood, Venous) 05/10/2024 11:27 AM CDT 05/10/2024 1:17 PM CDT Jasvir Carrillo M.D. LAB BLOOD ADD-ON Final Res ult Performing Organization Address City/[facility]/ZIP Co de Phone Number [facility] [address] [place] [address], [place] OW[place] [facility] [place] [address] [place] [address] * Creatinine with Estimated GFR (05/10/2024 11:27 AM CDT) Creatinine 0.92 0.59 - 1.04 mg/dL 05/10/2024 1:49 PM CDT OWAT Estimated GFR (eGFR) 64 >=60 mL/min/BSA 05/10/2024 1:49 PM CDT OWAT Comment: Estimated GFR calculated using the 2020 CKD_EPI creatinine equation. Blood (Blood, Venous) 05/10/2024 11:27 AM CDT 05/10/2024 1:17 PM CDT Jasvir Carrillo M.D. LAB BLOOD ADD-ON Final Res ult [facility] [address] [place] [address], [place] [facility] [place] [address] [place] [address] * ECG 12 Lead (05/10/2024 11:25 AM CDT) Ventricular Rate ECG/Min 63 BPM MUSE MO Interval 94 ms MUSE QRSD Interval 94 ms MUSE QT Interval 464 ms MUSE QTC Interval 474 ms MUSE P [place] 62 degrees MUSE R [place] 27 degrees MUSE T Wave [place] 31 degrees MUSE 05/10/2024 11:2 5 AM CDT 05/10/2024 11:46 AM CDT Impressions MUSE - 05/10/2024 11:46 AM CDT Sinus rhythm with short MO Premature atrial complexes Low voltage QRS in the limb leads Nonspecific T wave abnormality When compared with ECG of 05-Feb-2024 14:34, MO interval has decreased Reviewed by TINA Fitzgerald Narrative Procedure Note Joselito Negrete M.D. - 05/10/2024 IMPRESSION: Sinus rhythm with short MO Premature atrial complexes Low voltage QRS in the limb leads Nonspecific T wave abnormality When compared with ECG of 05-Feb-2024 14:34, MO interval has decreased Reviewed by TINA Fitzgerald [...] - 5.6 % 12/07/2023 10:19 AM CDT [facility] Blood (Blood, Venous) 12/07/2023 9:43 AM CDT 12/07/2023 9:45 AM CDT Iza Ayon M.D. LAB BLOOD ADD-ON Final Resu lt [facility] [address] [place] [address], [facility] OWAT [facility] [place] [address] [place] [address] * HCV Ab Scrn w/Reflex to HCV PCR, Serum (11/17/2022 7:10 AM CDT) HCV Ab Screen, S Negative Negative 11/18/19 3:38 PM CDT MKTO Comment: Biotin has been identified by the housekeeping/laundry supervisor as a potential interfering substance. Higher concentrations of biotin may be found in multivitamins, hair/nail supplements, and workout supplements. If the result does not match clinical observations, repeat testing after patient refrains from the use of supplements for at least 12 hours. Blood (Blood, Venous) 11/17/2022 7:10 AM CDT Narrative [facility] - 11/17/2022 3:38 PM CDT Specimen Information: Specimen ID: [id number] Specimen Type: Blood Specimen Collection Start Date: 11/17/2022 7:10 AM Specimen ID: [id number] Specimen Type: Blood Specimen Collection Start Date: 11/17/2022 7:10 AM Specimen Received Date: 11/17/2022 2:28 PM Iza Ayon M.D. LAB MICROBIOLOGY - BLOOD OR DERABLES Final Result [facility] [address] [place] [address], [facility] in [place] [address] [place] [address] from Last 3 Months or Most Recently Relevant to Health Maintenance Insurance [facility] MEDICARE Care Teams Forge Utility Worker Relationship Specialty Start Date End Date Iza Ayon M.D. [address] [place] [address] PCP - General Internal Medicine 04/24/19
--- OUTSIDE RECORDS SUMMARY | 2024-08-01 07:18 | XMS_ITS | Clinical Summary ---
Author Organization [facility] Address [place], [place] [address] Care Team Providers Care Senior Report Developer Name Role Phone Iza Ayon MD Primary [...] on file Legal Sex Female 6:59 AM CATH LAB TECHNOLOGIST Gender Identity Not on file Sexual Orientation [...] 2022 COVID-19 vaccine series ( season) 2024 05/17/2024, 05/19/2022, 01/18/2022, Additional history exists Influenza for age 65+ 03/17/2024 05/02/2019, 007 Insurance MEDICARE PART A HB ONLY MEDICARE PART B HB ONLY [employer] [place] [place] BLUE HB ONLY [employer] [place] BLUE PB ONLY Advance Directives * Full [...] Code Status Discussion: Not Discussed Care Teams Senior Report Developer Relationship Specialty Start Date End Date Iza Ayon MD [address] [place] [address] PCP - General Internal Medicine 10/27/21
--- OUTSIDE RECORDS SUMMARY | 2024-08-01 07:18 | XMS_ITS | Encounter Summary ---
Author Organization [facility] Address [address] [place] [address] Care Team Providers Care Stock Repairer Name Role Phone Iza Ayon M.D. Primary Care Provider [phone] Encounter Details Date Type Department Care Team (Latest Contact Info) Description 06/18/2024 9:12 AM SOUNDING DEVICE OPERATOR - 06/18/2024 11:59 PM SOUNDING DEVICE OPERATOR Hospital Encounter Department of Laboratory Medicine in [place], [place] [address] [place] [address] Iza Ayon M.D. [address] [place] [address] Atrial Fibrillation Paroxysmal (HCC); Family Worker (Current) Anticoagulant Treatment; Barretts Esophagus Without Dysplasia; Monitoring For Therapeutic Drug Therapy Discharge Disposition: Home or Self Care Social History Tobacco Use Types Packs/Day Years Used Date Smoking Tobacco: Never Passive Smoke Exposure: Never Smokeless Tobacco: Never Alcohol Use Standard Drinks/Week Comments Yes 1 (1 standard drink = 0.6 oz pur e alcohol) [facility] Utilities Answer Date Recorded In the past 12 months has [employer], gas, oil, or water [employer] threatened to shut off services in your [...] How often do you attend chur or caodaism services? More than 4 times per year 11/17/2022 Do you belong to any clubs o r organizations such as orthodoxy groups, unions, fraternal or athletic groups, or [...] Answer Date Recorded PHQ-2 Score 0 12/07/2023 [facility] of Occupat ional Health - Occupational Stress [...] your living situation today? I have a [facility] place to live 11/15/2023 Education Answer Date Recorded What is the highest level of school you have completed or the highest degree you have received? 12th grade 05/06/2019 Comments No Sex and Gender Information Value Date Recorded Sex Assigned at Female 11/15/2023 12:19 PM CDT Legal Sex Female 8:46 AM SOUNDING DEVICE OPERATOR Gender Identity Female 01/12/2020 9:19 AM CDT [...] (Latest Contact Info) Description 08/13/2024 11:20 AM SOUNDING DEVICE OPERATOR Appointment Department of Laboratory Medicine in [address] [phone] Iza Ayon M.D. [address] [place] [phone] 08/13/2024 12:00 PM SOUNDING DEVICE OPERATOR Anticoagulation Visit Department of Anticoagulation in [place], [place] [address] [place] [address] Iza Ayon M.D. [address] [phone] 10/23/2024 10:20 AM CDT Appointment Department of Laboratory Medicine in [address] [address] Dallas Bradford APRN, C.N.P. [address] [address] 10/23/2024 10:30 AM CDT Appointment Department of Laboratory Medicine in [address] [address] Dallas Bradford APRN, C.N.P. [address] [address] 10/25/2024 11:30 AM CDT Office Visit Department of Cardiovascular Diseases in [place], [place] [address] [address] Dallas Bradford APRN, C.N.P. [address] [address] documented as of this encounter Procedures Procedure Name Priority Date/Time Associated Diagnosis Comments INR REFLEX, POCT, B Routine 06/18/2024 9:22 AM SOUNDING DEVICE OPERATOR Atrial Fibrillation Paroxysmal (HCC) Fpc (Current) Anticoagulant Treatment Barretts Esophagus Without Dysplasia Monitoring For Therapeutic Drug Therapy documented in this encounter Results * INR Reflex, POCT, Blood (06/18/2024 9:22 AM SOUNDING DEVICE OPERATOR) INR Reflex, POCT, B 2.3 06/18/2024 9:21 AM SOUNDING DEVICE OPERATOR FB60 Comment: ----ADDITIONAL INFORMATION---- Standard intensity warfarin therapeutic range: 2.0 to 3.0 High intensity warfarin therapeutic range: 2.5 to 3.5 Blood (Blood, Capillary) 06/18/2024 9:22 AM SOUNDING DEVICE OPERATOR 06/18/2024 9:21 AM SOUNDING DEVICE OPERATOR Iza Ayon M.D. LAB POCT ORDERABLES - DEVIC E Final Result [facility] [address] [place] [address], [facility] FB60 [facility] in [place] [address] [place] [address] documented in this encounter Visit Diagnoses Diagnosis Atrial Fibrillation Paroxysmal (HCC) Family Worker (Current) Anticoagulant Treatment Barretts Esophagus Without Dysplasia Monitoring For Therapeutic Drug Therapy documented in this encounter Care Teams Stock Repairer Relationship Specialty Start Date End Date Iza Ayon M.D. [address], [place] [address] PCP - General Internal Medicine 04/24/19 documented as of this encounter
--- OUTSIDE RECORDS SUMMARY | 2024-08-01 07:18 | XMS_ITS | Encounter Summary ---
Author Organization [facility] Address [address] [place] [address] Care Team Providers Care Evaporator Operator Molasses Name Role Phone Iza Ayon M.D. Primary Care Provider [phone] [phone] Reason for Visit * Reason Comments Med Refill Encounter Details Date Type Department Care Team (Late st Contact Info) Description 07/11/2024 Refill Department of Obstetrics and Gynecology in [place], [place] [address] [address] Jaimie Sena, ELECTRIC METER READER, C.N.P. [address] [phone] Med Refill Social History Tobacco Use Types Packs/Day Years Used Date Smoking Tobacco: Never Passive Smoke Exposure: Never Smokeless Tobacco: Never Alcohol Use Standard Drinks/Week Comments Yes 1 (1 standard drink = 0.6 oz pur e alcohol) [facility] Utilities Answer Date Recorded In the past 12 months has [facility] [employer], oil, or water [employer] threatened to shut off services in your [...] How often do you attend chur or islam services? More than 4 times per year [...] Date Recorded PHQ-2 Score 0 12/07/2023 [facility] of Occupat ional Health - Occupational Stress [...] your living situation today? I have a [facility] place to live 11/15/2023 Education Answer Date Recorded What is the highest level of school you have completed or the highest degree you have received? 12th grade 05/06/2019 Comments No Sex and Gender Information Value Date Recorded Sex Assigned at Female 11/15/2023 12:19 PM CDT Legal Sex Female 8:46 AM HEAVY DUTY PRESS OPERATOR Gender Identity Female 01/12/2020 9:19 AM CDT Sexual Orientation Straight 01/12/2020 9: 19 AM CDT documented as of this encounter Plan of Treatment Upcoming Encounters Date Type Department Care Team (Latest Contact Info) Description 08/13/2024 11:20 AM HEAVY DUTY PRESS OPERATOR Appointment Department of Laboratory Medicine in [place], [place] [address] [place] [address] Iza Ayon M.D. [address] [place] [phone] 08/13/2024 12:00 PM HEAVY DUTY PRESS OPERATOR Anticoagulation Visit Department of Anticoagulation in [place], [place] [address] [place] [address] Iza Ayon M.D. [address] [phone] 10/23/2024 10:20 AM CDT Appointment Department of Laboratory Medicine in [place], [place] [address] [place] [phone] Dallas Bradford APRN, C.N.P. [address] [phone] 10/23/2024 10:30 AM CDT Appointment Department of Laboratory Medicine in [place], [place] [address] [place] [address] Dallas Bradford APRN, C.N.P. [address] [phone] 10/25/2024 11:30 AM CDT Office Visit Department of Cardiovascular Diseases in [place], [place] [address] [phone] Dallas Bradford APRN, C.N.P. [address] [phone] documented as of this encounter Visit Diagnoses Diagnosis Lichen Sclerosus documented in this encounter Care Teams Evaporator Operator Molasses Relationship Specialty Start Date End Date Iza Ayon M.D. [address] [phone] PCP - General Internal Medicine 04/24/19 documented as of this encounter
--- OUTSIDE RECORDS SUMMARY | 2024-08-01 07:18 | XMS_ITS | Encounter Summary ---
Author Organization [facility] Address [address] [place] [address] Care Team Providers Care Family Medicine Physician Name Role Phone Iza Ayon M.D. Primary Care Provider [phone] Reason for Visit * Outpatient (Routine) - Authorized Specialty Diagnoses / Procedures Referred By Contsharlene t Referred To Contact Anticoagulation Diagnoses Atrial Fibrillation Paroxysmal (HCC) Fdc (Current) Anticoagulant Treatment Barretts Esophagus Without Dysplasia Monitoring For Therapeutic Drug Therapy Iza Ayon M.D. [address], [place] [address] Phone: tel: fax: [facility] Referral ID Status Reason Start Date Expiration Date V isits Requested Visits Authorized [id number] Authorized 05/20/2024 11/19/2025 300 300 Encounter Details Date Type Department Care Team (Latest Contact Info) Description 06/18/2024 10:10 AM BRICK HANDLER Anticoagulation Visit Department of Anticoagulation in [place], [place] [address] [place] [address] Iza Ayon M.D. [address], [place] [address] Atrial Fibrillation Paroxysmal (HCC); Sales Representatives (Current) Anticoagulant Treatment; Barretts Esophagus Without Dysplasia; Monitoring For Therapeutic Drug Therapy Social History Tobacco Use Types Packs/Day Years Used Date Smoking Tobacco: Never Passive Smoke Exposure: Never Smokeless Tobacco: Never Alcohol Use Standard Drinks/Week Comments Yes 1 (1 standard drink = 0.6 oz pur e alcohol) [facility] Utilities Answer Date Recorded In the past 12 months has th e electric, gas, oil, or water [employer] threatened to shut off services in your [...] How often do you attend chur or yazdanism services? More than 4 times per year 11/17/2022 Do you belong to any clubs o r organizations such as yarsani groups, unions, fraternal or athletic groups, or [...] Answer Date Recorded PHQ-2 Score 0 12/07/2023 [facility] - Occupational Stress Questionnaire Answer Date [...] PM CDT Legal Sex Female 8:46 AM BRICK HANDLER Gender Identity Female 01/12/2020 9:19 AM CDT Sexual Orientation Straight 01/12/2020 9: 19 AM CDT documented as of this encounter Patient Instructions * Patient Instructions* Jaimie Deras R.N. - 06/18/2024 10:10 AM BRICK HANDLER Your next INR will be 08/13/2024. You will need to call the Anticoagulation Program at the time of your scheduled nurse visit or you can complete the Anticoagulation Pre-Visit Questionnaire and if no additional information is needed, your dosing can be provided via your Patient portal. To reschedule your appointment or for questions about your warfarin, please call Primary Care Anticoagulation Program at [phone] from 7:30 am to 4:30 pm. Monday-Monday [...] if you start any herbal or other [id number] product (check with your doctor, a nurse, or pharmacist). If you change your diet significantly. If you decide to stop or start using tobacco or alcohol. If you notice unusual bruising or bleeding. If you notice dark, tarry, or bright red stools or blood in your urine. If you have a painful and swollen calf. K HANDLER documented in this encounter Plan of Treatment Upcoming Encounters Date Type Department Care Team (Latest Contact Info) Description 08/13/2024 11:20 AM BRICK HANDLER Appointment Department of Laboratory Medicine in [place] [phone] Iza Ayon M.D. [address], [place] [address] 08/13/2024 12:00 PM BRICK HANDLER Anticoagulation Visit Department of Anticoagulation in [place], [place] [address] [place] [address] Iza Ayon M.D. [address], [place] [address] 10/23/2024 10:20 AM CDT Appointment Department of Laboratory Medicine in [place], [place] [address] [place] [address] Dallas Bradford APRN, C.N.P. [address] [place] [phone] 10/23/2024 10:30 AM CDT Appointment Department of Laboratory Medicine in [place], [place] [address] [place] [address] Dallas Bradford APRN, C.N.P. [address], [place] [address] 10/25/2024 11:30 AM CDT Office Visit Department of Cardiovascular Diseases in [place], [place] [address] [address] Dallas Bradford APRN, C.N.P. [address] [phone] Scheduled Orders Name Type Priority Associated Diagnoses Orde r Schedule INR Reflex, POCT, Blood Point of Care Testing-Docked Device Routine Atrial Fibrillation Paroxysmal (HCC) Sales Representatives (Current) Anticoagulant Treatment Barretts Esophagus Without Dysplasia Monitoring For Therapeutic Drug Therapy Expected: 08/13/2024, Expires: 09/16/2025 documented as of this encounter Visit Diagnoses Diagnosis Atrial Fibrillation Paroxysmal (HCC) Fdc (Current) Anticoagulant Treatment Barretts Esophagus Without Dysplasia Monitoring For Therapeutic Drug Therapy documented in this encounter Care Teams Family Medicine Physician Relationship Specialty Start Date End Date Iza Ayon M.D. [address] [phone] PCP - General Internal Medicine 04/24/19 documented as of this encounter
--- OUTSIDE RECORDS SUMMARY | 2024-08-01 07:18 | XMS_ITS | Referral Summary ---
Author Organization [facility] Address [address] [place] [address] Care Team Providers Care Fence Manufacture Supervisor Name Role Phone Iza Ayon M.D. Primary Care Provider [phone] Source Comments Patient records contain information from all sites at [facility]. For routine questions regarding patient records, call [phone] during business hours, M-F 8:00 AM - 5:00 PM Central Time. Record requests for emergency care only can be directed to [phone] at any time.[facility] Encounters Date Type Department Care Team Description 07/11/2024 Refill Department of Obstetrics and Gynecology in [place], [place] [address] [place] [address] Jaimie Sena, NIDHI, C.N.P. Med Refill 06/18/2024 10:10 AM SAGGER PREPARER Anticoagulation Visit Department of Anticoagulation in [place], [place] [address] [place] [address] Iza Ayon M.D. Atrial Fibrillation Paroxysmal (HCC); Support Representative (Current) Anticoagulant Treatment; Barretts Esophagus Without Dysplasia; Monitoring For Therapeutic Drug Therapy 06/18/2024 9:12 AM SAGGER PREPARER - 06/18/2024 11:59 PM SAGGER PREPARER Hospital Encounter Department of Laboratory Medicine in [address] [address] Iza Ayon M.D. Atrial Fibrillation Paroxysmal (HCC); Support Representative (Current) Anticoagulant Treatment; Barretts Esophagus Without Dysplasia; Monitoring For Therapeutic Drug Therapy Discharge Disposition: Home or Self Care 06/04/2024 12:30 PM SAGGER PREPARER Anticoagulation Visit Department of Anticoagulation in [place], [place] [address] [place] [phone] Iza Ayon M.D. Atrial Fibrillation Paroxysmal (HCC) (Primary Dx); Support Representative (Current) Anticoagulant Treatment; Barretts Esophagus Without Dysplasia; Monitoring For Therapeutic Drug Therapy 06/04/2024 9:37 AM SAGGER PREPARER - 06/04/2024 11:59 PM SAGGER PREPARER Hospital Encounter Department of Laboratory Medicine in [place], [place] [address] [place] [address] Iza Ayon M.D. Atrial Fibrillation Paroxysmal (HCC); Correction (Current) Anticoagulant Treatment; Barretts Esophagus Without Dysplasia; Monitoring For Therapeutic Drug Therapy Discharge Disposition: Home or Self Care 05/27/2024 12:00 PM SAGGER PREPARER Anticoagulation Visit Department of Anticoagulation in [place], [place] [address] [place] [phone] Iza Ayon M.D. Atrial Fibrillation Paroxysmal (HCC); Correction (Current) Anticoagulant Treatment; Barretts Esophagus Without Dysplasia; Monitoring For Therapeutic Drug Therapy 05/27/2024 11:20 AM SAGGER PREPARER - 05/27/2024 11:59 PM SAGGER PREPARER Hospital Encounter Department of Laboratory Medicine in [place], [place] [address] [place] [address] Iza Ayon M.D. Atrial Fibrillation Paroxysmal (HCC); Support Representative (Current) Anticoagulant Treatment; Barretts Esophagus Without Dysplasia; Monitoring For Therapeutic Drug Therapy Discharge Disposition: Home or Self Care 05/20/2024 Clinical Communication Department of Anticoagulation in [place], [place] [address] [place] [phone] Zofia Mendes M.S.N., R.N. Anticoagulation (Upcoming procedure) 05/17/2024 2:00 PM CDT Office Visit Department of Internal Medicine in [place], [place] [address] [place] [address] Jessica Cardozo P.A.-C., M.S. Preoperative Exam (Primary Dx); Atrial Fibrillation Paroxysmal (HCC); Support Representative (Current) Anticoagulant Treatment; Gastroesophageal Reflux Disease Without Esophagitis; Need Vaccine Immunization 05/14/2024 10:45 AM CDT Office Visit Department of Cardiovascular Diseases in [place], [place] [address] [place] [address] Dallas Bradford, NIDHI, C.N.P. Atrial Fibrillation Unspecified (HCC) (Primary Dx); High Risk Medication 05/10/2024 11:20 AM CDT - 05/10/2024 11:29 AM CDT Hospital Encounter Department of Laboratory Medicine in [address] [address] Jasvir Carrillo M.D. Atrial Fibrillation Unspecified (HCC); High Risk Medication Discharge Disposition: Home or Self Care 05/10/2024 11:30 AM CDT - 05/10/2024 11:59 PM CDT Hospital Encounter Department of Radiology in [address] [address] Jasvir Carrillo M.D. Atrial Fibrillation Unspecified (HCC); High Risk Medication Discharge Disposition: Home or Self Care 05/10/2024 11:10 AM CDT - 05/10/2024 11:19 AM CDT Hospital Encounter Department of Laboratory Medicine in [address] [address] Jasvir Carrillo M.D. Atrial Fibrillation Unspecified (HCC); [...] 12/30/2019 Osteopenia 05/06/2019 Atrial Fibrillation Paroxysmal 05/06/2019 Support Representative (Current) Anticoagulant Treatment 04/17 Lymphedema 04/28/2019 Impaired [...] drink = 0.6 oz pur e alcohol) [facility] Utilities Answer Date Recorded In the past 12 months has e [employer], or [employer] threatened to shut off services in [...] week 11/17/2022 How often do you attend [facility] or anglican services? More than 4 times per year 11/17/2022 Do you belong to any clubs o r organizations such as religion groups, unions, fraternal or athletic groups, or [...] Answer Date Recorded PHQ-2 Score 0 12/07/2023 [facility] of Occupat ional [facility] - Occupational Stress Questionnaire Answer Date [...] your living situation today? I have a [facility] place to live 11/15/2023 Education Answer Date Recorded What is the highest level of school you have completed or the highest degree you have received? 12th grade 05/06/2019 Comments No Sex and Gender Information Value Date Recorded Sex Assigned at Female 11/15/2023 12:19 PM CDT Legal Sex Female 8:46 AM SAGGER PREPARER Gender Identity Female 01/12/2020 9:19 AM CDT [...] (Latest Contact Info) Description 08/13/2024 11:20 AM SAGGER PREPARER Appointment Department of Laboratory Medicine in [address] [address] Iza Ayon M.D. [address] [place] [phone] 08/13/2024 12:00 PM SAGGER PREPARER Anticoagulation Visit Department of Anticoagulation in [place], [place] [address] [place] [address] Iza Ayon M.D. [address] [place] [phone] 10/23/2024 10:20 AM CDT Appointment Department of Laboratory Medicine in [address] [address] Dallas Bradford APRN, C.N.P. [address] [place] [phone] 10/23/2024 10:30 AM CDT Appointment Department of Laboratory Medicine in [address] [phone] Dallas Bradford APRN, C.N.P. [address] [place] [address] 10/25/2024 11:30 AM CDT Office Visit Department of Cardiovascular Diseases in [place], [place] [address] [place] [address] Dallas Bradford APRN, C.N.P. [address] [place] [address] Procedures Procedure Name Priority Date/Time Associated Diagnosis Comments INR REFLEX, POCT, B Routine 06/18/2024 9:22 AM SAGGER PREPARER Atrial Fibrillation Paroxysmal (HCC) Support Representative (Current) Anticoagulant Treatment Barretts Esophagus Without Dysplasia Monitoring For Therapeutic Drug Therapy INR REFLEX, POCT, B Routine 06/04/2024 9:45 AM SAGGER PREPARER Atrial Fibrillation Paroxysmal (HCC) Support Representative (Current) Anticoagulant Treatment Barretts Esophagus Without Dysplasia Monitoring For Therapeutic Drug Therapy INR REFLEX, POCT, B Routine 05/27/2024 12:37 PM SAGGER PREPARER Atrial Fibrillation Paroxysmal (HCC) Correction (Current) Anticoagulant Treatment Barretts Esophagus Without Dysplasia Monitoring For Therapeutic Drug Therapy DX CHEST AP OR PA AND LATERAL 2 VIEWS RAD - Routine (most inpatients and all outpatients) 05/10/2024 11:47 AM CDT Atrial Fibrillation Unspecified (HCC) High Risk Medication SC T4 FREE Routine 05/10/2024 11:27 AM CDT [...] INR Reflex, POCT, Blood (06/18/2024 9:22 AM SAGGER PREPARER) Only the most recent of3 resultswithin the time period is included. INR Reflex, POCT, B 2.3 06/18/2024 9:21 AM SAGGER PREPARER [id number] Comment: ----ADDITIONAL INFORMATION---- Standard intensity warfarin therapeutic range: 2.0 to 3.0 High intensity warfarin therapeutic range: 2.5 to 3.5 Blood (Blood, Capillary) 06/18/2024 9:22 AM SAGGER PREPARER 06/18/2024 9:21 AM SAGGER PREPARER us Iza Ayon M.D. LAB POCT ORDERABLES - DEVIC E Final Result [facility] [address] [place] [address], [place] [id number] [facility] in [place] [address] [place] [address] * DX Chest AP or PA and [...] M.D. LAB BLOOD ADD-ON Final Res ult [facility] [address] [place] [address], [place] OWAT [facility] in [place] [address] [place] [address] * (ABNORMAL) Thyroid Function [place] (05/10/2024 11:27 AM CDT) TSH, Sensitive 5.6(H) 0.3 - 4.2 mIU/L 05/10/2024 2:02 PM CDT OWAT Blood (Blood, Venous) 05/10/2024 11:27 AM CDT 05/10/2024 1:17 PM CDT us Jasvir Carrillo M.D. LAB BLOOD ADD-ON Final Res ult [facility] [address] [place] [address], [facility] OWAT [facility] in [place] [address] [place] [address] * Thyroperoxidase (TPO) Antibodies (05/10/2024 11:27 AM CDT) Thyroperoxidase Ab, S <15.0 <34.0 IU/mL 05/11/2024 8:18 AM CDT DTL Blood 05/10/2024 11:2 7 AM CDT 05/11/2024 7:43 AM CDT Jasvir Carrillo M.D. LAB BLOOD ADD-ON Final Res ult [facility] [address] [place] [address], [facility] [address] [place] [address] * ALT (Alanine Aminotransferase) (05/10/2024 11:27 AM CDT) Alanine Aminotransferase (ALT), P 19 7 - 45 U/L 05/10/2024 1:49 PM CDT OWAT Blood (Blood, Venous) 05/10/2024 11:27 AM CDT 05/10/2024 1:17 PM CDT Jasvir Carrillo M.D. LAB BLOOD ADD-ON Final Res ult Performing Organization Address City/[facility]/ZIP Co de Phone Number [facility] [address] [place] [address], [place] OWAT [facility] in [place] [address] [address] * AST (Aspartate Aminotransferase) (05/10/2024 11:27 AM CDT) Aspartate Aminotransferase (AST), P 26 8 - 43 U/L 05/10/2024 1:49 PM CDT OWAT Blood (Blood, Venous) 05/10/2024 11:27 AM CDT 05/10/2024 1:17 PM CDT Jasivr Carrillo M.D. LAB BLOOD ADD-ON Final Res ult [facility] [address] [place] [address], [place] OW[place] [facility] [place] [address] * Sodium (05/10/2024 11:27 AM CDT) Sodium, P 139 135 - 145 mmol/L 05/10/2024 1:49 PM CDT OWAT Blood (Blood, Venous) 05/10/2024 11:27 AM CDT 05/10/2024 1:17 PM CDT Jasvir Carrillo M.D. LAB BLOOD ADD-ON Final Res ult [facility] [address] [place] [address], [place] OW[place] [facility] in [place] [address] [place] [address] * Potassium (05/10/2024 11:27 AM CDT) Potassium, P 5.1 3.6 - 5.2 mmol/L 05/10/2024 1:49 PM CDT OWAT Blood (Blood, Venous) 05/10/2024 11:27 AM CDT 05/10/2024 1:17 PM CDT Jasvir Carrillo M.D. LAB BLOOD ADD-ON Final Res ult Performing Organization Address [facility] Co de Phone Number [facility] [address] [place] [address], [place] OWAT [facility] in [place] [address], [place] [address] * Creatinine with Estimated GFR (05/10/2024 11:27 AM CDT) Creatinine 0.92 0.59 - 1.04 mg/dL 05/10/2024 1:49 PM CDT OWAT Estimated GFR (eGFR) 64 >=60 mL/min/BSA 05/10/2024 1:49 PM CDT OWAT Comment: Estimated GFR calculated using the 2020 CKD_EPI creatinine equation. Blood (Blood, Venous) 05/10/2024 11:27 AM CDT 05/10/2024 1:17 PM CDT Jasvir Carrillo M.D. LAB BLOOD ADD-ON Final Res ult [facility] [address] [facility] [place] [address], [place] OWAT [facility] in [place] [address] [place] [address] * ECG 12 Lead (05/10/2024 11:25 AM CDT) Ventricular Rate ECG/Min 63 BPM MUSE SC Interval 94 ms MUSE QRSD Interval 94 ms MUSE QT Interval 464 ms MUSE QTC Interval 474 ms MUSE P Nelson 62 degrees MUSE R Nelson 27 degrees MUSE T Wave Nelson 31 degrees MUSE 05/10/2024 11:2 5 AM CDT 05/10/2024 11:46 AM CDT Impressions MUSE - 05/10/2024 11:46 AM CDT Sinus rhythm with short SC Premature atrial complexes Low voltage QRS in the limb leads Nonspecific T wave abnormality When compared with ECG of 05-Feb-2024 14:34, SC interval has decreased Reviewed by TINA Fitzgerald Narrative Procedure Note Joselito Negrete M.D. - 05/10/2024 IMPRESSION: Sinus rhythm with short SC Premature atrial complexes Low voltage QRS in the limb leads Nonspecific T wave abnormality When compared with ECG of 05-Feb-2024 14:34, SC interval has decreased Reviewed by TINA Fitzgerald [...] Annual Screening Mammogram ASSESSMENT: BI-RADS: 1: Negative. Iaz Ayon M.D. IMG BI PROCEDURES Final Res ult * Hemoglobin A1c (12/07/2023 9:43 AM CDT) Hemoglobin A1c, B 5.6 4.2 - 5.6 % 12/07/2023 10:19 AM CDT [facility] Blood (Blood, Venous) 12/07/2023 9:43 AM CDT 12/07/2023 9:45 AM CDT Iza Ayon M.D. LAB BLOOD ADD-ON Final Resu lt [facility] [address] [place] [address], [facility] OWAT [facility] in [place] [address] [place] [address] * HCV Ab Scrn w/Reflex to HCV PCR, Serum (11/17/2022 7:10 AM CDT) HCV Ab Screen, S Negative Negative 11/18/19 3:38 PM CDT MKTO Comment: Biotin has been identified by the auxiliary equipment tender as a potential interfering substance. Higher concentrations of biotin may be found in multivitamins, hair/nail supplements, and workout supplements. If the result does not match clinical observations, repeat testing after patient refrains from the use of supplements for at least 12 hours. Blood (Blood, Venous) 11/17/2022 7:10 AM CDT Narrative [facility] - 11/17/2022 3:38 PM CDT Specimen Information: Specimen ID: [id number] Specimen Type: Blood Specimen Collection Start Date: 11/17/2022 7:10 AM Specimen ID: [id number] Specimen Type: Blood Specimen Collection Start Date: 11/17/2022 7:10 AM Specimen Received Date: 11/17/2022 2:28 PM Iza Ayon M.D. LAB MICROBIOLOGY - BLOOD OR DERABLES Final Result [facility] [address] [place] [address], [facility] in [place] [address] [place] [phone] from Last 3 Months or Most Recently Relevant to Health Maintenance Insurance [facility] MEDICARE Care Teams Fence Manufacture Supervisor Relationship Specialty Start Date End Date Iza Ayon M.D. [address] [place] [phone] PCP - General Internal Medicine 04/24/19
--- OUTSIDE RECORDS SUMMARY | 2024-08-01 07:18 | XMS_ITS ---
Author Organization [facility] Address [address] [place] [address] Care Team Providers Care Pension Agent Name Role Phone Unavailable Unavailable Unavailable Surgery Details Not on file Complications Check Surgery Details section. Procedure Estimated Blood Loss Check Surgery Details section. Procedure Findings Check Surgery Details section. Procedure Specimens Taken Check Surgery Details section.
[2024-08-01 07:25] LABS: Albumin* 4.2 g/dL (3.3-5.0)
[2024-08-01 07:26] LABS: Chloride* 99 mmol/L (96-114); Potassium* 4.7 mmol/L (3.6-5.1); Sodium* 131 mmol/L (135-149)
[2024-08-01 07:28] LABS: Bilirubin Total* 0.6 mg/dL (0.1-1.5); Creatinine* 0.8 mg/dL (0.5-1.5); Est. Creatinine Clearance* 47.53; Estimated Glomerular Filt Rate 76 ml/min
[2024-08-01 07:29] LABS: Alanine Aminotransferase* 20 U/L (4-35); Alkaline Phosphatase* 45 U/L (40-150); Anion Gap 6 mEq/L (7-15); Aspartate Amino Transferase* 29 U/L (12-35); Blood Urea Nitrogen* 19 mg/dL (7-30); Carbon Dioxide* 26 mmol/L (20-32); Glucose* 125 mg/dL (60-115); Lipase* 26 U/L (23-300); Total Protein* 6.8 g/dL (6.0-8.3)
[2024-08-01 07:33] LABS: C Reactive Protein* < 0.5 mg/dL (0.5-1.0)
[2024-08-01 07:41] LABS: INR 1.94 (0.91-1.10); Prothrombin Time 23.5 Seconds
--- NOTE | 2024-08-01 09:31 | CRLHL7_ITS ---
For Patients: As a result of the Century Cures Act, medical imaging exams and procedure reports are released immediately into your electronic medical record. You may view this report before your referring provider. If you have questions, please contact your health care provider. Indication: Confirm nasogastric tube placement Technique: Single view study Comparison: None Findings: As below Impression: The nasogastric tube ends at the EG junction. It should be advanced by approximately 10 centimeters. Dictated by Deondre Perez MD @ 08/01/2024 9:54:52 AM (Electronically Signed)
[2024-08-01] MEDS: METOCLOPRAMIDE HCL 5 MG/ML INJ 10 MG IVP (09:50)
--- NOTE | 2024-08-01 11:02 | PM.GSCN ---
History of Present Illness Consult details Date Seen: 08/01/24 Consult date: 08/01/24 Narrative: 79-year-old female on warfarin presented to emergency room with sudden onset of periumbilical abdominal pain and I was asked by Dr. Morgan to see her in consultation. Patient states that her pain started yesterday all of a sudden when she was sitting in her recliner. The pain was crampy and intermittent. When the sharp pain was gone she continued to have dull aching. Patient is not sure what was making the pain worse or better. She passed gas yesterday but not today in the emergency room. She had a bowel movement in the morning. Patient's surgical history is complex. 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 She was not sure what was done. She had an open cholecystectomy. During her cholecystectomy they looked for her appendix but she is not sure if that was found and removed. She had 4 C sections. She also had surgery for duodenal or gastric ulcer and thinks it was some sort of a bypass that was done. Patient had previous episode of small-bowel obstruction that resolved with conservative therapy. At that time [facility] admission H&P describes possible transition point in the left pelvis near the segment of small bowel with fecalization. I personally reviewed her workup. She was found to have normal WBC. An abdominal CT was obtained that showed dilated loops of small intestine with a transition point in the left pelvis. 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 There was no evidence of free air. Patient's [facility] record was reviewed and she had an upper endoscopy a few years ago that showed gastrojejunostomy. 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 (ICD-10) Small bowel obstruction ?K56.609 - Unspecified intestinal obstruction, unspecified as to partial versus complete obstruction (ICD-10) Volvulus ?K56.2 - Volvulus (ICD-10) Peptic ulcer disease ?K27.9 - Peptic ulcer, site unspecified, unspecified as acute or chronic, without hemorrhage or perforation (ICD-10) GERD (gastroesophageal reflux disease) ?K21.9 - Gastro-esophageal reflux disease without esophagitis (ICD-10) Surgical History History of tonsillectomy ?Z90.89 - Acquired absence of other organs (ICD-10) History of esophagogastroduodenoscopy (EGD) ?Z98.890 - Other specified postprocedural states (ICD-10) History of colonoscopy ?Z98.890 - Other specified postprocedural states (ICD-10) History of cholecystectomy ?Z90.49 - Acquired absence of other specified parts of digestive tract (ICD-10) History of appendectomy ?Z90.49 - Acquired absence of other specified parts of digestive tract (ICD-10) Social History Smoking Status: Never smoker Second hand tobacco smoke exposure: No How often do you have a drink containing alcohol: never AUDIT-C Alcohol total score: 0 Non-prescribed substance use: denies use Meds Home Medications and Allergies Home Medications ?Medication ?Instructions ?Recorded ?Confirmed ?Type calcium carbonate [Calcium 500] PO 08/16/23 08/16/23 History cholecalciferol (vitamin D3) PO 08/16/23 08/16/23 History clobetasol 0.05 % topical ointment 1 applic topical DAILY PRN 08/16/23 08/01/24 History multivitamin 1 tab PO QAM 08/16/23 08/01/24 History omeprazole 40 mg capsule,delayed 40 mg PO DAILY 08/16/23 08/01/24 History release warfarin 2 mg tablet 2 mg PO DAILY 08/16/23 08/01/24 History alendronate 70 mg tablet 70 mg PO QWEEK 08/01/24 08/01/24 History amiodarone 200 mg tablet 100 mg PO DAILY 08/01/24 08/01/24 History ascorbic acid (vitamin C) 500 mg 500 mg PO DAILY 08/01/24 08/01/24 History capsule diltiazem HCl 120 mg 120 mg PO DAILY 08/01/24 08/01/24 History capsule,extended release 24 hr Allergies Allergy/AdvReac Type Severity Reaction Status Date / Time No Known Drug Allergies Allergy Verified 08/01/24 07:38 Exam Narrative: Exam Narrative: General appearance: Alert, cooperative, and in no distress Pulmonary: Chest symmetric, lungs clear bilaterally Cardiovascular Heart: Regular rate and rhythm, S1, S2, 2/6 crescendo decrescendo murmur. Gastrointestinal Abdominal: soft, minimally distended, tender to palpation throughout the abdomen with rebound tenderness in the lower abdomen. Skin: Normal skin color, texture, and turgor. No rashes or lesions. Psychiatric: Alert, cooperative, normal affect. Const: Vital Signs, click to edit/add: Vital Signs - 24 hr 08/01/24 06:44 08/01/24 08:00 08/01/24 08:18 Temperature 97.9 F Pulse Rate 68 Pulse Rate [Pulse Oximeter] 82 70 Respiratory Rate 16 16 Blood Pressure Blood Pressure [Ri ght Upper Arm] 138/102 H 125/68 Pulse Oximetry 98 95 95 Oxygen Delivery [facility] Room Air Room Air 08/01/24 08:22 08/01/24 08:23 08/01/24 08:30 Temperature Pulse Rate 70 68 69 Pulse Rate [Pulse Oximeter] Respiratory Rate Blood Pressure 130/72 Blood Pressure [Ri ght Upper Arm] Pulse Oximetry 90 99 96 Oxygen Delivery [facility] 08/01/24 08:31 08/01/24 08:45 08/01/24 09:00 Temperature Pulse Rate 68 71 73 Pulse Rate [Pulse Oximeter] Respiratory Rate Blood Pressure 130/72 Blood Pressure [Ri ght Upper Arm] Pulse Oximetry 98 96 95 Oxygen Delivery [facility] 08/01/24 09:01 08/01/24 09:15 08/01/24 09:30 Temperature Pulse Rate 73 76 71 Pulse Rate [Pulse Oximeter] Respiratory Rate Blood Pressure 132/81 Blood Pressure [Ri ght Upper Arm] Pulse Oximetry 96 99 [facility] 08/01/24 09:31 08/01/24 09:45 08/01/24 10:00 Temperature Pulse Rate 69 94 79 Pulse Rate [Pulse Oximeter] Respiratory Rate Blood Pressure 124/72 Blood Pressure [Ri ght Upper Arm] Pulse Oximetry 96 97 97 Oxygen Delivery Me thod 08/01/24 10:01 Temperature Pulse Rate 77 Pulse Rate [Pulse Oximeter] Respiratory Rate Blood Pressure 132/77 Blood Pressure [Ri ght Upper Arm] Pulse Oximetry 97 Oxygen Delivery Me thod Results Labs Labs: Abnormal lab results 08/01/24 08/01/24 Range/Units 06:58 07:33 Neut % (Auto) 85.6 H (42.0-72.0) % Lymph % (Auto) 8.6 L (20-44) % Lymph # (Auto) 0.70 L (0.90-2.90) K/uL INR 1.94 H (0.91-1.10) Sodium 131 L (135-149) mmol/L Anion Gap 6 L (7-15) mEq/L Glucose 125 H (60-115) mg/dL C-Reactive Protein < 0.5 L (0.5-1.0) mg/dL Diabetes panel 08/01/24 Range/Units 06:58 Sodium 131 L (135-149) mmol/L Potassium 4.7 (3.6-5.1) mmol/L Chloride 99 (96-114) mmol/L Carbon Dioxide 26 (20-32) mmol/L BUN 19 (7-30) mg/dL Creatinine 0.8 (0.5-1.5) mg/dL Glucose 125 H (60-115) mg/dL Calcium 9.0 (8.4-10.6) mg/dL AST 29 (12-35) U/L ALT 20 (4-35) U/L Alkaline Phosphatase 45 (40-150) U/L Total Protein 6.8 (6.0-8.3) g/dL Albumin 4.2 (3.3-5.0) g/dL Calcium panel 08/01/24 Range/Units 06:58 Calcium 9.0 (8.4-10.6) mg/dL Albumin 4.2 (3.3-5.0) g/dL Pituitary panel 08/01/24 Range/Units 06:58 Sodium 131 L (135-149) mmol/L Potassium 4.7 (3.6-5.1) mmol/L Chloride 99 (96-114) mmol/L Carbon Dioxide 26 (20-32) mmol/L BUN 19 (7-30) mg/dL Creatinine 0.8 (0.5-1.5) mg/dL Glucose 125 H (60-115) mg/dL Calcium 9.0 (8.4-10.6) mg/dL Adrenal panel 08/01/24 Range/Units 06:58 Sodium 131 L (135-149) mmol/L Potassium 4.7 (3.6-5.1) mmol/L Chloride 99 (96-114) mmol/L Carbon Dioxide 26 (20-32) mmol/L BUN 19 (7-30) mg/dL Creatinine 0.8 (0.5-1.5) mg/dL Glucose 125 H (60-115) mg/dL Calcium 9.0 (8.4-10.6) mg/dL Total Bilirubin 0.6 (0.1-1.5) mg/dL AST 29 (12-35) U/L ALT 20 (4-35) U/L Alkaline Phosphatase 45 (40-150) U/L Total Protein 6.8 (6.0-8.3) g/dL Albumin 4.2 (3.3-5.0) g/dL All other labs normal. Progress Note:A&P Assessment and plan (1) Small bowel obstruction: Status: Acute Plan 79-year-old female with complex surgical history on warfarin for atrial fibrillation presents with small-bowel obstruction and evidence of malrotation. I discussed with the patient her CT findings and her laboratory findings. Patient's abdominal CT shows small-bowel obstruction with a transition point in the left pelvis with a thickened segment of small intestine and a segment of small bowel with fecalized stool. Patient was noted to have evidence of malrotation. On clinical exam she has tenderness to palpation in the abdomen with rebound tenderness. NG tube was placed in the emergency room. I recommended to proceed with exploratory laparotomy. Patient's INR is 1.9. We will give her 1 unit of FFP to reverse this further. We will obtain EKG for preoperative planning. The procedure was discussed in detail. The risks associated procedure including infection, bleeding, injury to intra-abdominal organs, possible need for small-bowel resection, and the need for additional procedures were all discussed with the patient, and she agreed to proceed.
[2024-08-01] MEDS: PANTOPRAZOLE SODIUM 40 MG INJ IVP (13:30)
[2024-08-01] MEDS: LACTATED RINGERS 500 ML 500 ML IV (13:35)
--- NOTE | 2024-08-01 13:52 | PM.IMHP1 ---
Hospitalist- H&P: HPI History of Present Illness Date Seen: 08/01/24 Chief complaint: Abdominal Pain Narrative: ADMISSION HISTORY AND PHYSICAL - HOSPITALIST Chief Complaint: Abdominal pain HPI: 79-year-old white female with a history of atrial fibrillation on chronic anticoagulation, osteoporosis, GERD and with a history of bowel obstruction in the distant past that required an emergency laparotomy presents today with symptoms of a small-bowel obstruction. She felt normal yesterday. She ate dinner last night. And then at approximately 9:00 p.m. she had the sudden onset of acute abdominal pain. She vomited once. She said the pain was constant most of the night. She felt like she knew this was a bowel obstruction based on how she had felt previously. She called family at 5 in the morning and they brought her to our emergency room. In the emergency room she received fluids, antiemetics, opioids. She had labs and a CT scan. He abdominal pelvic CT revealed a small bowel obstruction with a transition point in the left hemipelvis. There were also findings concerning for intestinal malrotation with the duodenum remaining within the right jany abdomen. There is also some concern about thickening of the sigmoid colon and some nonspecific extrahepatic biliary ductal dilation. Her labs revealed a normal white blood cell count, normal hemoglobin. As she is on Coumadin it is not unexpected that her INR is 1.94. Her electrolytes reveal a mildly depressed sodium at 131. Her renal function, LFTs, lipase, CRP, lactate were all normal. CODE STATUS: FULL CODE EMERGENCY CONTACT PLAN: 2 DAUGHTERS ARE PRESENT TODAY. THEY WILL SHARE HEALTHCARE PROXY DUTIES. RYNE IS AVAILABLE AT [phone], CHRISTO IS AVAILABLE AT [phone]. THEY BOTH LIVE IN [place]. I've updated the PFSH, medications and allergies in the Expanse tabs. INVESTIGATIONS: LABS/MICRO/ECG/IMAGING As above REVIEW OF SYSTEMS: 12-point ROS completed with patient and negative unless otherwise stated in HPI or below. PHYSICAL EXAM: CONSTITUTIONAL: Resting on her right side. NG in place. She looks as if she does not feel well. Not septic a critically ill-appearing. GENERAL: Well-developed and at ideal body weight, in no respiratory distress. VITAL SIGNS: see record. HEENT: Sclerae are anicteric. No petechiae. CARDIAC: rhythm is regular. There is no S3 or rub. Holosystolic murmur noted. Extremities show trace edema with symmetrical pulses. PULM: good air entry with no wheeze. Abdomen: soft; healed incisions midline, RUQ, LTCS. no bowel sounds appreciated. NEURO: Speech is fluent. A brief neurologic exam is negative. SKIN: No rashes, petechiae, concerning changes PSYCHIATRIC: Euthymic. [facility] DVT: SCDs GI: PPI Time spent: Today I spent 75 minutes seeing the patient, discussing the patient with ER staff, reviewing Expanse and EPIC notes/diagnostics, discussing the care plan with our care time that includes social work, PT/OT, pharmacy, RT, halfway and documenting my impressions and plan in the medical record. MEDICAL NECESSITY FOR HOSPITALIZATION Anticipated midnights in the hospital: 2 Admitting diagnosis: Acute small-bowel obstruction Risk of morbidity and mortality: high Acuity is characterized as high and reflected in: Advanced age, cardiac arrhythmia, chronic anticoagulation in need of FFP for acute surgical intervention. New heart murmur noticed at admission as well. This patient will require hospital services as outlined in the assessment and plan in order to stabilize and be safely discharged to a lower level of care. Because of the risk and acuity as described above, this patient cannot be managed at a lower level of care. LENGTH OF STAY: 2 IP ? 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 (ICD-10) Small bowel obstruction ?K56.609 - Unspecified intestinal obstruction, unspecified as to partial versus complete obstruction (ICD-10) Volvulus ?K56.2 - Volvulus (ICD-10) Peptic ulcer disease ?K27.9 - Peptic ulcer, site unspecified, unspecified as acute or chronic, without hemorrhage or perforation (ICD-10) GERD (gastroesophageal reflux disease) ?K21.9 - Gastro-esophageal reflux disease without esophagitis (ICD-10) Surgical History History of tonsillectomy ?Z90.89 - Acquired absence of other organs (ICD-10) History of esophagogastroduodenoscopy (EGD) ?Z98.890 - Other specified postprocedural states (ICD-10) History of colonoscopy ?Z98.890 - Other specified postprocedural states (ICD-10) History of cholecystectomy ?Z90.49 - Acquired absence of other specified parts of digestive tract (ICD-10) History of appendectomy ?Z90.49 - Acquired absence of other specified parts of digestive tract (ICD-10) Social History Smoking Status: Never smoker Second hand tobacco smoke exposure: No How often do you have a drink containing alcohol: never AUDIT-C Alcohol total score: 0 Non-prescribed substance use: denies use Meds Home Medications and Allergies Home Medications ?Medication ?Instructions ?Recorded ?Confirmed ?Type calcium carbonate [Calcium 500] PO 08/16/23 08/16/23 History cholecalciferol (vitamin D3) PO 08/16/23 08/16/23 History clobetasol 0.05 % topical ointment 1 applic topical DAILY PRN 08/16/23 08/01/24 History multivitamin 1 tab PO QAM 08/16/23 08/01/24 History omeprazole 40 mg capsule,delayed 40 mg PO DAILY 08/16/23 08/01/24 History release warfarin 2 mg tablet 2 mg PO DAILY 08/16/23 08/01/24 History alendronate 70 mg tablet 70 mg PO QWEEK 08/01/24 08/01/24 History amiodarone 200 mg tablet 100 mg PO DAILY 08/01/24 08/01/24 History ascorbic acid (vitamin C) 500 mg 500 mg PO DAILY 08/01/24 08/01/24 History capsule diltiazem HCl 120 mg 120 mg PO DAILY 08/01/24 08/01/24 History capsule,extended release 24 hr Allergies Allergy/AdvReac Type Severity Reaction Status Date / Time No Known Drug Allergies Allergy Verified 08/01/24 07:38 Exam Const: Vital Signs, click to edit/add: Vital Signs - 24 hr 08/01/24 06:44 08/01/24 08:00 08/01/24 08:18 Temperature 97.9 F Pulse Rate 68 Pulse Rate [Pulse Oximeter] 82 70 Respiratory Rate 16 16 Blood Pressure Blood Pressure [Ri ght Arm] Blood Pressure [Ri ght Upper Arm] 138/102 H 125/68 Pulse Oximetry 98 95 95 Oxygen Delivery Me thod Room Air Room Air 08/01/24 08:22 08/01/24 08:23 08/01/24 08:30 Temperature Pulse Rate 70 68 69 Pulse Rate [Pulse Oximeter] Respiratory Rate Blood Pressure 130/72 Blood Pressure [Ri ght Arm] Blood Pressure [Ri ght Upper Arm] Pulse Oximetry 90 99 96 Oxygen Delivery Me thod 08/01/24 08:31 08/01/24 08:45 08/01/24 09:00 Temperature Pulse Rate 68 71 73 Pulse Rate [Pulse Oximeter] Respiratory Rate Blood Pressure 130/72 Blood Pressure [Ri ght Arm] Blood Pressure [Ri ght Upper Arm] Pulse Oximetry 98 96 95 Oxygen Delivery Me thod 08/01/24 09:01 08/01/24 09:15 08/01/24 09:30 Temperature Pulse Rate 73 76 71 Pulse Rate [Pulse Oximeter] Respiratory Rate Blood Pressure 132/81 Blood Pressure [Ri ght Arm] Blood Pressure [Ri ght Upper Arm] Pulse Oximetry 96 99 93 Oxygen Delivery Me thod 08/01/24 09:31 08/01/24 09:45 08/01/24 10:00 Temperature Pulse Rate 69 94 79 Pulse Rate [Pulse Oximeter] Respiratory Rate Blood Pressure 124/72 Blood Pressure [Ri ght Arm] Blood Pressure [Ri ght Upper Arm] Pulse Oximetry 96 97 97 Oxygen Delivery Me thod 08/01/24 10:01 08/01/24 12:30 08/01/24 13:00 Temperature 98.8 F 98.7 F Pulse Rate 77 Pulse Rate [Pulse Oximeter] 83 74 Respiratory Rate 16 16 Blood Pressure 132/77 Blood Pressure [Ri ght Arm] 143/88 H 133/70 Blood Pressure [Ri ght Upper Arm] Pulse Oximetry 97 97 97 Oxygen Delivery Me thod Room Air Room Air 08/01/24 13:30 08/01/24 13:41 Temperature 98.2 F 98.7 F Pulse Rate Pulse Rate [Pulse Oximeter] 74 75 Respiratory Rate 16 18 Blood Pressure Blood Pressure [Ri ght Arm] 126/78 149/84 H [facility] Pulse Oximetry 97 97 Oxygen Delivery Me thod Room Air Room Air Hospitalist - H&P: Result Labs Labs: Short CBC 08/01/24 Range/Units 06:58 WBC 8.13 (4.50-11.00) K/uL Hgb 13.4 (12.0-16.0) gm/dL Hct 41.0 (33.0-51.0) % Plt Count 194 (140-440) K/uL BMP 08/01/24 06:58 Sodium 131 L Potassium 4.7 Chloride 99 Carbon Dioxide 26 BUN 19 Creatinine 0.8 Glucose 125 H Calcium 9.0 Liver Function 08/01/24 Range/Units 06:58 Total Bilirubin 0.6 (0.1-1.5) mg/dL AST 29 (12-35) U/L ALT 20 (4-35) U/L Alkaline Phosphatase 45 (40-150) U/L Albumin 4.2 (3.3-5.0) g/dL Assessment and Plan Assessment and plan (1) Paroxysmal atrial fibrillation: Problem comment: -will continue amiodarone; dilt. can do IV if not able to take with clamped NG -continuous telemetry -monitor rate Status: Acute (2) Chronic anticoagulation: Problem comment: -INR 1.94; FFP administered 08/01 -surgery planned 08/01 Status: Acute (3) Small bowel obstruction: Problem comment: -recurrent. emergent laparotomy; 30+ years ago. one admission for SBO, nonoperative in 2019. -NG in place -general surgery planning surgery 08/01 Status: Acute
[2024-08-01] MEDS: LACTATED RINGERS 1000 ML 1,000 ML 125 ML IV (15:00)
[2024-08-01] MEDS: CEFAZOLIN 1 GM inj IVP (15:10)
--- NOTE | 2024-08-01 17:37 | W.PM.NB ---
Nerve Block Nerve Block Time Seen by Provider: 15:12 Date Seen: 08/01/24 Type of block requested by surgeon for post-operative analgesia: TAP Side: bilateral Time out performed: Yes Verification of patient name: Yes Verification of date of : Yes Site marking: site marked Name of person performing procedure: Jagjit Continuous monitoring Was continuous monitoring of O2 sat, B/P, ekg monitor tech, recorded every 15 minutes?: Yes Procedure Checklist: sterile prep, needles and gloves Ultrasound guided. Images saved: Yes Medications given in 5ml increments after negative aspiration: Marcaine %: 0.25 mL: 30 Needle gauge: 20 and Exparel mL: 10 Patient tolerated procedure well: Yes Additional comments: Needle noted between internal oblique and transversus abdominus. Local spread visualized Block Charges Block Charge (with Pro Fee): TAP Bilateral Use of Ultrasound Machine for Block: Yes- US Guidance/pain block
--- NOTE | 2024-08-01 18:32 | SUR.OPER ---
Talked to daughter Maryjo at 6:00 p.m. to give her an update that surgery is going well, there is a lot of scar tissue and we do not have an estimated end time for surgery at this time.
--- NOTE | 2024-08-01 19:00 | PC.NURSE ---
Pt arrived from ED around noon. ED had started Plasma infusion (see paper charting as documentation as electronic system unavailable for that treatment.) At arrival to floor pt stated she had abdominal pain, headache, dizziness and nausea which she had had since before arriving in ED. Pt is up with SBA to bedside commode. Pt made ready for surgery post admission. Pt brought to surgery at 1450. Pt had an NG placed in the ED at 60cm. Pt has not returned from surgery.?
--- NOTE | 2024-08-01 19:46 | P.GSOP_ITS ---
Operative Note Date of procedure: 08/01/24 Pre-op diagnosis: 1. Small-bowel obstruction with concern for bowel compromise. Post-op diagnosis: 1. Small-bowel obstruction due to extensive adhesions. Type of Procedure: 1. Exploratory laparotomy. 2. Lysis of adhesions 4.5 hours. Indications: 79-year-old female presented to emergency room with sudden onset of severe periumbilical abdominal pain. Patient had multiple surgeries in the past including a surgery for adult mall rotation and perforated ulcer treated with gastrojejunostomy. Patient also had an open cholecystectomy and several C- sections. Upon patient's workup she was found to have normal WBC. Her abdominal CT showed findings of malrotation. Small intestine was diffusely dilated with a transition point in the left pelvis. There was a segment of small intestine with fecalized stool. On clinical exam patient had diffuse tenderness to palpation with rebound tenderness in the lower abdomen. Given patient's clinical history with multiple previous surgeries and her physical exam, exploratory laparotomy was recommended. The procedure was discussed in detail. The risks associated procedure including infection, bleeding, injury to intra-abdominal organs, and the need for additional procedures were all discussed with the patient, and she agreed to proceed. Procedure Description: After discussing the risks and benefits of the procedure, the patient signed informed consent.? The operative site was marked and the patient was brought to the operating room and placed on the operating table in supine position.? Care was taken to pad the patient's pressure points.?? The patient was then intubated by anesthesia.? TAP blocks were administered by Anesthesia. Parada catheter was placed under sterile conditions.? The operative site was then prepped and draped in the usual sterile fashion.? A time-out was then performed. Midline laparotomy incision was then made with the scalpel excising previously healed scar. Subcutaneous fat was divided with cautery down to the anterior fascia. The anterior fascia was grasped with Brodie clamps and abdomen was entered with Metzenbaum scissors. The small intestine was immediately visualized and was adherent to the anterior abdominal wall. I then proceeded with lysing the adhesions to mobilize the small intestine of the peritoneum. This was tedious. With more small bowel mobilized off the anterior abdominal wall, we were able to extend the fascial incision. When the abdomen was entered the entire small intestine was adherent to itself and to the peritoneum diffusely. The entire case consisted of lysis of adhesions of small intestine to the abdominal wall, to the right-sided colon, and interloop adhesions. On the left there was a dilated segment of small intestine just proximal to a segment of small intestine that was adherent to itself. The dilated segment was most likely the bowel noted with fecalized stool on the CT scan. The right side colon was tightly adherent to the right-sided abdominal wall and was difficult to tell where the correct plane was. Lysis of adhesions took a total of 4-1/2 hours. Throughout mobilization of the small intestine small serosal tears were made, and those were immediately oversewn with 3-0 silk sutures. The terminal ileum was identified and the bowel was then ran to the gastrojejunostomy. The gastrojejunostomy was also identified and appeared to be intact. Dense adhesions were noted in the upper abdomen and those were not lysed after we were able to identify gastrojejunostomy. The right colon was mobilized off the abdominal wall to be able to achieve fascial closure. Serosal tears were noted in the right colon and those were oversewn with silk sutures. When the entire small intestine was mobile, it was examined for enterotomies and injuries, and no further injuries were seen. The small intestine was placed into the abdomen. No omentum was noted in the abdomen. The abdomen was irrigated with normal saline. No bleeding was seen at the end of the procedure. Two sheets of Seprafilm were placed in the midline in attempt to prevent adhesions. The anterior fascia was then closed with 2 running 0-0 PDS sutures. The skin of the midline laparotomy incision was then closed with lalitha. Sterile gauze and tape were placed over the incision. All counts were correct at the end of the case. ? The patient was then woken and transported to the recovery area in stable condition. ? The patient tolerated the procedure well. Findings: Dense diffuse adhesions throughout the entire abdomen. Anesthesia: GETA Surgeon: MD Justina Bryant MD first beater Estimated blood loss (mL): 200 Condition: stable Disposition: PACU
--- NOTE | 2024-08-01 19:50 | P.ANES_ITS ---
Anesthesia Charges Start Date/Time Anesthesia Start Date: 08/01/24 Anesthesia Start Time: 15:00 Stop Date/Time Anesthesia Stop Date: 08/01/24 Anesthesia Stop Time: 19:50 Summary Emergency: MDA Extremes of Age - Over 70 or under 1: MDA Coding CPT Codes CPT Codes: ANESTH SURG LOWER ABDOMEN - 33879 ([id number]) P3 - PATIENT W/SEVERE SYS DISEASE, QK - CANDLEMAKING LABORER 2-4 CNCRNT ANES PROC, QX - LINE BUILDER SVC W/ MD MED DIRECTION Additional Codes: Summary - Emergency: MDA ([id number]) Summary - Extremes of Age - Over 70 or under 1: MDA ([id number])
--- NOTE | 2024-08-01 19:50 | W.ANESCHARGE ---
Anesthesia Charges Start Date/Time Anesthesia Start Date: 08/01/24 Anesthesia Start Time: 15:00 Stop Date/Time Anesthesia Stop Date: 08/01/24 Anesthesia Stop Time: 19:50 Summary Emergency: MDA Extremes of Age - Over 70 or under 1: MDA Coding CPT Codes CPT Codes: ANESTH SURG LOWER ABDOMEN - 70794 ([id number]) P3 - PATIENT W/SEVERE SYS DISEASE, QK - LUBRICATION TECHNICIAN 2-4 CNCRNT ANES PROC, QX - DIRECTOR OF VALUATION SVC W/ MD MED DIRECTION Additional Codes: Summary - Emergency: MDA ([id number]) Summary - Extremes of Age - Over 70 or under 1: MDA ([id number])
--- NOTE | 2024-08-01 19:55 | P.ANES_ITS ---
Anesthesia Charges Start Date/Time Anesthesia Start Date: 08/01/24 Anesthesia Start Time: 15:00 Stop Date/Time Anesthesia Stop Date: 08/01/24 Anesthesia Stop Time: 19:50 Summary Emergency: STOVE POLISHER Extremes of Age - Over 70 or under 1: STOVE POLISHER Coding CPT Codes CPT Codes: ANESTH SURG LOWER ABDOMEN - 67071 ([id number]) P3 - PATIENT W/SEVERE SYS DISEASE, QK - HATCHERY MANAGER 2-4 CNCRNT ANES PROC, P6 - BRAIN- PT ORGANS REMOVED Additional Codes: Summary - Emergency: STOVE POLISHER ([id number]) Summary - Extremes of Age - Over 70 or under 1: STOVE POLISHER ([id number])
--- NOTE | 2024-08-01 19:55 | W.ANESCHARGE ---
Anesthesia Charges Start Date/Time Anesthesia Start Date: 08/01/24 Anesthesia Start Time: 15:00 Stop Date/Time Anesthesia Stop Date: 08/01/24 Anesthesia Stop Time: 19:50 Summary Emergency: ECG TECHNICIAN Extremes of Age - Over 70 or under 1: ECG TECHNICIAN Coding CPT Codes CPT Codes: ANESTH SURG LOWER ABDOMEN - 86519 ([id number]) P3 - PATIENT W/SEVERE SYS DISEASE, QK - COLLAR STITCHER 2-4 CNCRNT ANES PROC, P6 - BRAIN- PT ORGANS REMOVED Additional Codes: Summary - Emergency: ECG TECHNICIAN ([id number]) Summary - Extremes of Age - Over 70 or under 1: ECG TECHNICIAN ([id number])
--- NOTE | 2024-08-01 20:02 | SUR.PHASEI ---
Patient arrived to PACU, oxygen saturation above 90%, follows commands, drowsy.
--- NOTE | 2024-08-01 20:13 | SUR.PHASEI ---
Patient not complaining of pain or nausea, resting comfortably. No oxygen required. Dressing dry and intact.
--- NOTE | 2024-08-01 20:17 | SUR.PHASEI ---
Patient meets discharge criteria from PACU.
[2024-08-01] MEDS: LACTATED RINGERS 1000 ML 1,000 ML 75 ML IV (22:52)
[2024-08-02] VITALS (18 sets, daily range): BP systolic 93–124; BP diastolic 58–77; PULSE 79–189; RESP 16–20; TEMP 36.4–37.2; O2SAT 93–96
--- NOTE | 2024-08-02 02:58 | CRLHL7_ITS ---
For Patients: As a result of the Century Cures Act, medical imaging exams and procedure reports are released immediately into your electronic medical record. You may view this report before your referring provider. If you have questions, please contact your health care provider. INDICATION: Tube placement. TECHNIQUE: Abdomen 1 view. COMPARISON: 08/01/2024. IMPRESSION: NG tube tip projects over the proximal stomach with the side hole near the gastroesophageal junction, consider advancement. Nondistended bowel loops. Dictated by Hong Harris MD @ 08/02/2024 3:38:08 AM (Electronically Signed)
[2024-08-02] MEDS: ACETAMINOPHEN INJ 1,000 MG/100 ML VIAL 400 MG IVPB (05:38)
[2024-08-02 06:40] LABS: HCO3 VBG 28 mmol/L (21-28); PCO2 VBG 45 mmHG (40-50); PO2 VBG < 30.1 mmHG (25-47); pH VBG 7.399 (7.32-7.43)
[2024-08-02 06:48] LABS: Hematocrit 40.8 % (33.0-51.0); Hemoglobin* 13.2 gm/dL (12.0-16.0); Immature Granulocytes Abs Auto 0.01 K/uL (0.00-0.30); Immature Granulocytes Pct Auto 0.1 %; Lymphocytes Percent Auto 4.9 % (20-44); Mean Corpuscular HGB Conc 32 gm/dL (32-36); Mean Corpuscular Hemoglobin 30 pg (26-34); Mean Corpuscular Volume 93 fL (80-100); Monocytes Percent Auto 7.9 % (0.0-11.0); Neutrophils Percent Auto 87.1 % (42.0-72.0); Platelet Count* 192 K/uL (140-440); RDW Coefficient of Variation % 14.1 % (11.5-15.5); Red Blood Count 4.41 m/uL (4.00-5.20); White Blood Count* 10.31 K/uL (4.50-11.00)
[2024-08-02 06:55] LABS: Slide Review Reflex No
[2024-08-02 07:07] LABS: Albumin* 3.2 g/dL (3.3-5.0); Chloride* 102 mmol/L (96-114); Sodium* 133 mmol/L (135-149)
[2024-08-02 07:08] LABS: Potassium* 4.5 mmol/L (3.6-5.1)
[2024-08-02 07:10] LABS: Anion Gap 4 mEq/L (7-15); Bilirubin Direct* 0.2 mg/dL (0.0-0.5); Bilirubin Total* 0.6 mg/dL (0.1-1.5); Carbon Dioxide* 27 mmol/L (20-32); Creatinine* 0.8 mg/dL (0.5-1.5); Est. Creatinine Clearance* 47.53; Estimated Glomerular Filt Rate 76 ml/min; Total Protein* 5.5 g/dL (6.0-8.3)
[2024-08-02 07:11] LABS: Alanine Aminotransferase* 16 U/L (4-35); Alkaline Phosphatase* 34 U/L (40-150); Aspartate Amino Transferase* 26 U/L (12-35); Blood Urea Nitrogen* 16 mg/dL (7-30); Calcium* 7.6 mg/dL (8.4-10.6); Glucose* 127 mg/dL (60-115); Phosphorus* 3.3 mg/dL (2.5-4.5)
[2024-08-02 07:14] LABS: C Reactive Protein* 4.6 mg/dL (0.5-1.0)
[2024-08-02 08:13] LABS: INR 1.88 (0.91-1.10)
--- NOTE | 2024-08-02 08:33 | PC.NURSE ---
Pt is alert and oriented x3. Afebrile. Pt reports 3/10 pain in abdomen and 8/10 headache, pain managed with PRN medication. Pt's NG tube at start of shift was 60 cm patent and draining, PH test done showing 0.7, updated MD Asher, x-ray ordered to check NG tube placement. Radiologist suggest push 5 cm in further. Pt's NG tube is now 65 cm, patent and draining pt had 300 ml of brown liquid output. Pt's catheter is patent and draining.
--- NOTE | 2024-08-02 09:05 | PM.GSPN ---
Subjective Subjective Date Seen: 08/02/24 Interval history: Patient states that her abdominal pain is well controlled but she has a headache and a sore throat. That bothers her the most. Her urine output was 150 mL overnight only. Parada catheter is in place. NG with bilious output. Exam Narrative: Exam Narrative: Abdomen is soft, minimally distended, tender to palpation in bilateral lower quadrants, surgical incision is covered with clean dressing. Const: Vital Signs, click to edit/add: Vital Signs - 24 hr 08/01/24 09:15 08/01/24 09:30 08/01/24 09:31 Temperature Pulse Rate 76 71 69 Pulse Rate [Pulse Oximeter] Respiratory Rate Blood Pressure 124/72 Blood Pressure [Ri ght Arm] Pulse Oximetry 99 93 96 Oxygen Delivery Me thod 08/01/24 09:45 08/01/24 10:00 08/01/24 10:01 Temperature Pulse Rate 94 79 77 Pulse Rate [Pulse Oximeter] Respiratory Rate Blood Pressure 132/77 Blood Pressure [Ri ght Arm] Pulse Oximetry 97 97 97 Oxygen Delivery Me thod 08/01/24 12:30 08/01/24 13:00 08/01/24 13:30 Temperature 98.8 F 98.7 F 98.2 F Pulse Rate Pulse Rate [Pulse Oximeter] 83 74 74 Respiratory Rate 16 16 16 Blood Pressure Blood Pressure [Ri ght Arm] 143/88 H 133/70 126/78 Pulse Oximetry 97 97 97 Oxygen Delivery Me thod Room Air Room Air Room Air 08/01/24 13:39 08/01/24 13:41 08/01/24 13:41 Temperature 98.7 F Pulse Rate 75 Pulse Rate [Pulse Oximeter] 75 Respiratory Rate 18 18 Blood Pressure Blood Pressure [Ri ght Arm] 149/84 H Pulse Oximetry 97 97 Oxygen Delivery Me thod Room Air Room Air 08/01/24 19:46 08/01/24 19:50 08/01/24 19:55 Temperature 99.7 F H Pulse Rate 97 97 99 Pulse Rate [Pulse Oximeter] Respiratory Rate 19 16 16 Blood Pressure 110/71 94/66 100/68 Blood Pressure [Ri ght Arm] Pulse Oximetry 93 95 93 Oxygen Delivery Me thod Room Air Room Air Room Air 08/01/24 20:00 08/01/24 20:05 08/01/24 20:10 Temperature Pulse Rate 98 98 95 Pulse Rate [Pulse Oximeter] Respiratory Rate 22 20 20 Blood Pressure 103/67 106/68 111/69 Blood Pressure [Ri ght Arm] Pulse Oximetry 95 96 97 Oxygen Delivery Me thod Room Air Room Air Room Air 08/01/24 20:15 08/01/24 20:28 08/01/24 20:30 Temperature 99.7 F H 97.7 F 97.7 F Pulse Rate 91 84 86 Pulse Rate [Pulse Oximeter] Respiratory Rate 20 14 14 Blood Pressure 112/73 126/82 121/74 Blood Pressure [Ri ght Arm] Pulse Oximetry 97 95 96 Oxygen Delivery Me thod Room Air Room Air Room Air 08/01/24 20:45 08/01/24 21:00 08/01/24 21:15 Temperature 97.9 F 97.7 F 97.7 F Pulse Rate 86 86 83 Pulse Rate [Pulse Oximeter] Respiratory Rate 14 16 16 Blood Pressure 119/74 123/70 130/80 Blood Pressure [Ri ght Arm] Pulse Oximetry 96 96 95 Oxygen Delivery Me thod Room Air Room Air Room Air 08/01/24 21:45 08/01/24 22:15 08/01/24 23:00 Temperature 97.7 F 97.9 F 97.9 F Pulse Rate 84 88 84 Pulse Rate [Pulse Oximeter] Respiratory Rate 16 16 16 Blood Pressure 124/72 129/76 113/70 Blood Pressure [Ri ght Arm] Pulse Oximetry 96 95 97 Oxygen Delivery Me thod Room Air Room Air Room Air 08/01/24 23:00 08/02/24 00:00 08/02/24 01:00 Temperature 97.9 F Pulse Rate 86 90 87 Pulse Rate [Pulse Oximeter] Respiratory Rate 18 18 Blood Pressure 113/68 119/73 Blood Pressure [Ri ght Arm] Pulse Oximetry 94 93 Oxygen Delivery Me thod Room Air Room Air 08/02/24 02:00 Temperature 97.6 F Pulse Rate 86 Pulse Rate [Pulse Oximeter] Respiratory Rate 16 Blood Pressure 115/72 Blood Pressure [Ri ght Arm] Pulse Oximetry 94 Oxygen Delivery Me thod Progress Note:A&P Assessment and plan (1) S/P exploratory laparotomy: Status: Acute Plan 79-year-old female s/p exploratory laparotomy and Extensive lysis of adhesions POD 1. patient is stable overnight. Her urine output was low so we will give her a 500 mL bolus today. We will leave Parada catheter in to monitor urine output. Patient's INR is 1.8. Will hold off on given her Lovenox for now since she is almost therapeutic on her INR. I discussed with the patient that she needs to ambulate as many times as possible.
[2024-08-02] MEDS: HYDROmorphone 0.5 mg/0.5 ml inj IVP ×4 (09:28→23:51)
[2024-08-02] MEDS: 0.9 % SODIUM CHLORIDE 500 ML 500 ML IV (09:34)
[2024-08-02] MEDS: BENZOCAINE/MENTHOL 1 EACH LOZENGE MUCOUS MEM (09:48)
[2024-08-02] MEDS: LACTATED RINGERS 1000 ML 1,000 ML 75 ML IV ×3 (12:00→23:48)
--- NOTE | 2024-08-02 13:35 | PM.IMPN1 ---
Progress Note: A&P Assessment and plan (1) S/P exploratory laparotomy: Problem details: POD#1 - hospital team following anticoagulation, HR, new murmur, Afib Status: Acute (2) Small bowel obstruction: Problem details: -recurrent. emergent laparotomy; 30+ years ago. one admission for SBO, nonoperative in 2019. -NG in place -general surgery planning surgery 08/01 Status: Acute (3) Paroxysmal atrial fibrillation: Problem details: -will continue amiodarone (hold for hypotension); dilt. can do IV if not able to take with clamped NG -continuous telemetry -monitor rate Status: Acute (4) Chronic anticoagulation: Problem details: -INR 1.88 post-op - restart coumadin 08/02 (we clamped NG tube for 30 mins) Status: Acute (5) Aortic stenosis: Problem details: mild, new murmur (worsened by acute illness?) echo reassuring - would have her f/u with interactive media project manager outpatient Status: Acute Subjective Date Seen: 08/02/24 Interval history: Daily Progress Note - Hospital Medicine Day #: 2 Post Op Day#1 1. Exploratory laparotomy. 2. Lysis of adhesions 4.5 hours CC: Abdominal pain; SBO. stable night. 24 HOUR UPDATE: surgery was prolonged d/t extensive adhesions. patient did well. perez and NG in place. Notable Labs, Micro, Rads, Interventions: CBC is stable postoperatively. INR remained elevated at 1.88 VBG this morning was normal Electrolytes this morning showed improving sodium, normal glucose echo today: Final Impressions: 1. Technically limited exam. 2. Normal LV size, normal wall thickness, normal global systolic function with an estimated EF of 60 - 65%. 3. Right ventricular cavity size is normal, global systolic RV function is normal. 4. The aortic valve is trileaflet and sclerotic, mild stenosis and trivial regurgitation. The aortic valve peak velocity is 2.2 m/s, the peak gradient is 20 mmHg, and the mean gradient is 11 mmHg. The aortic valve area is 1.49 cm?? with a dimensionless index of 0.53. The stroke volume index is 34.6 ml/m??. ? Objective: alert; insightul. Vitals: see above Lungs: Clear. Cardiac: holosystolic ejection murmur. regular. abdomen: soft; mildly distended. NG output has been decreasing all day. UOP was low initially - improved after bolus Disposition/Potential discharge - Today I spent 50minutes seeing the patient, reviewing Expanse and EPIC notes/diagnostics, discussing the care plan with our care time that includes social work, PT/OT, pharmacy, RT, senior living and documenting my impressions and plan in the medical record. Exam Const: Vital Signs, click to edit/add: Vital Signs - 24 hr 08/01/24 13:39 08/01/24 13:41 08/01/24 13:41 Temperature 98.7 F Pulse Rate 75 Pulse Rate [Pulse Oximeter] 75 Respiratory Rate 18 18 Blood Pressure Blood Pressure [Ri ght Arm] 149/84 H Pulse Oximetry 97 97 Oxygen Delivery Me thod Room Air Room Air 08/01/24 19:46 08/01/24 19:50 08/01/24 19:55 Temperature 99.7 F H Pulse Rate 97 97 99 Pulse Rate [Pulse Oximeter] Respiratory Rate 19 16 16 Blood Pressure 110/71 94/66 100/68 Blood Pressure [Ri ght Arm] Pulse Oximetry 93 95 93 Oxygen Delivery Me thod Room Air Room Air Room Air 08/01/24 20:00 08/01/24 20:05 08/01/24 20:10 Temperature Pulse Rate 98 98 95 Pulse Rate [Pulse Oximeter] Respiratory Rate 22 20 20 Blood Pressure 103/67 106/68 111/69 Blood Pressure [Ri ght Arm] Pulse Oximetry 95 96 97 Oxygen Delivery Me thod Room Air Room Air Room Air 08/01/24 20:15 08/01/24 20:28 08/01/24 20:30 Temperature 99.7 F H 97.7 F 97.7 F Pulse Rate 91 84 86 Pulse Rate [Pulse Oximeter] Respiratory Rate 20 14 14 Blood Pressure 112/73 126/82 121/74 Blood Pressure [Ri ght Arm] Pulse Oximetry 97 95 96 Oxygen Delivery Me thod Room Air Room Air Room Air 08/01/24 20:45 08/01/24 21:00 08/01/24 21:15 Temperature 97.9 F 97.7 F 97.7 F Pulse Rate 86 86 83 Pulse Rate [Pulse Oximeter] Respiratory Rate 14 16 16 Blood Pressure 119/74 123/70 130/80 Blood Pressure [Ri ght Arm] Pulse Oximetry 96 96 95 Oxygen Delivery Me thod Room Air Room Air Room Air 08/01/24 21:45 08/01/24 22:15 08/01/24 23:00 Temperature 97.7 F 97.9 F 97.9 F Pulse Rate 84 88 84 Pulse Rate [Pulse Oximeter] Respiratory Rate 16 16 16 Blood Pressure 124/72 129/76 113/70 Blood Pressure [Ri ght Arm] Pulse Oximetry 96 95 [facility] Room [facility] 08/01/24 23:00 08/02/24 00:00 08/02/24 01:00 Temperature 97.9 F Pulse Rate 86 90 87 Pulse Rate [Pulse Oximeter] Respiratory Rate 18 18 Blood Pressure 113/68 119/73 Blood Pressure [Ri ght Arm] Pulse Oximetry 94 93 [facility] 08/02/24 02:00 08/02/24 09:06 08/02/24 09:51 Temperature 97.6 F 98.9 F 98.9 F Pulse Rate 86 Pulse Rate [Pulse Oximeter] 79 86 Respiratory Rate 16 20 20 Blood Pressure 115/72 Blood Pressure [Ri ght Arm] 116/72 102/70 Pulse Oximetry 94 93 96 Oxygen Delivery [facility] Room Air Room Air Labs Labs: Laboratory Results - last 24 hr 08/01/24 08/02/24 08/02/24 10:15 06:07 07:31 WBC 10.31 RBC 4.41 Hgb 13.2 Hct 40.8 MCV 93 MCH 30 MCHC 32 RDW Coeff of Xavi 14.1 Plt Count 192 Neut % (Auto) 87.1 H Lymph % (Auto) 4.9 L Bonner % (Auto) 7.9 Eos % (Auto) 0.0 Baso % (Auto) 0.0 Neut # (Auto) 9.00 H Lymph # (Auto) 0.50 L Bonner # (Auto) 0.80 Eos # (Auto) 0.00 Baso # (Auto) 0.00 Abs Immat Gran (auto) 0.01 Imm/Tot Granulo (auto) 0.1 INR 1.88 H VBG pH 7.399 VBG pCO2 45 VBG pO2 < 30.1 VBG HCO3 28 Sodium 133 L Potassium 4.5 Chloride 102 Carbon Dioxide 27 Anion Gap 4 L BUN 16 Creatinine 0.8 Estimated Creat Clear 47.53 Estimated GFR 76 Glucose 127 H Calcium 7.6 L Phosphorus 3.3 Total Bilirubin 0.6 Direct Bilirubin 0.2 AST 26 ALT 16 Alkaline Phosphatase 34 L C-Reactive Protein 4.6 H Total Protein 5.5 L Albumin 3.2 L Lab Acknowledgement Test Added Blood Type A Positive
[2024-08-02] MEDS: phenoL 1.4 % THROAT SPRAY 1 SPRAY MUCOUS MEM ×4 (14:22→23:49)
[2024-08-02 14:24] LABS: Appearance Urine Clear (Clear); Bilirubin Urine Negative (Negative); Blood Urine 2+ (Negative); Color Urine Yellow (Yellow); Glucose Urine Negative (Negative); Ketones Urine Negative (Negative); Leukocyte Esterase Urine Negative (Negative); Nitrite Urine Negative (Negative); Protein Urine 2+ (Negative); Specific Gravity Urine >= 1.030 (1.000-1.030); pH Urine 5.5 (5.0-8.5)
[2024-08-02 15:02] LABS: Bacteria Urine Moderate; Mucus Urine Moderate; Squamous Epithelial Cell Urine Few (None-Few)
--- NOTE | 2024-08-02 16:38 | PC.NURSE ---
pt reported discomfort with NG tube PRNs orders and received. pt amiodarone held this AM for borderline low BP that was symptomatic. Pain addressed with Hydromorphone and it did work well for lower back pain. Patient was bale to be clamped on her NG today for 1 hour during therapy no nausea reported and 25 ml out after being reconnected. Patient able to ambulate well with x1 assist walker and gate belt. patient comfortable and with family in her room. All questions answered to JAMILA Welch prior to departing. Pt vital signs stable.
[2024-08-02] MEDS: WARFARIN 2 MG TABLET 4 MG PO (16:57)
[2024-08-02] MEDS: ADENOSINE 6 MG/2ML INJ IVP ×2 (22:44→22:47)
[2024-08-02] MEDS: ADENOSINE 6 MG/2ML INJ 12 MG IVP (22:57)
[2024-08-02] MEDS: LACTATED RINGERS 500 ML 500 ML 1000 ML IV (23:05)
[2024-08-02] MEDS: METOPROLOL TARTRATE 1 MG/ML inj 5 MG IVP ×2 (23:09→23:15)
--- NOTE | 2024-08-02 23:54 | W.PM.CROSSCO ---
Objective Objective Data Details: @ 10:30 pm: Patient's monitor showed tachycardia with a heart rate in the 180s EKG was done and it showed SVT, patient was given adenosine with 3 sequential doses of 6, 6, 12 with the crash cart on the side, improvement was for seconds and then heart rate went back to 180s. Second-line medication was given then, patient took IV metoprolol 5 mg, and 5 minutes later she got another 5 mg of metoprolol which decreased her heart rate to 120s and her rhythm now changed back to AFib which is her baseline rhythm, EKG was repeated and it confirmed AFib RVR with heart rate of about 114. blood pressure was monitored all the time and we bolused the patient with about 500 mL. At home, Patient is on amiodarone p.o. 100 daily, patient's systolic blood pressure decreased below 100 mmhg, thus we decided to continue treatment with amiodarone push and then amiodarone drip to treat her AFib RVR
[2024-08-03] VITALS (18 sets, daily range): BP systolic 83–134; BP diastolic 51–80; PULSE 74–113; RESP 16–18; TEMP 36.2–37.1; O2SAT 90–94
[2024-08-03] MEDS: AMIODARONE 50 MG/ML inj 150 MG in 5 % DEXTROSE 100 ML 100 ML 618 MG IVPB (00:30)
[2024-08-03] MEDS: AMIODARONE INFUSION 360 MG/200 ML PLAST..BAG 33 MG IV (00:47)
[2024-08-03] MEDS: phenoL 1.4 % THROAT SPRAY 1 SPRAY MUCOUS MEM ×6 (02:36→22:47)
[2024-08-03] MEDS: HYDROmorphone 0.5 mg/0.5 ml inj IVP ×2 (02:36→21:16)
--- NOTE | 2024-08-03 03:23 | PC.NURSE ---
Event Note: At 2230 patient TELE read SVT with HR 180's. Patient had just moved from the recliner in her room to the bed. Asymptotic. BP 93/58. MD notified. EKG read SVT HR 183. First dose Adenosine 6mg administered @ 2244, second Adenosine 6mg @ 2247, third Adenosine 12mg @2257 every time with little improvement for seconds then back to 180's. BP's low 100's (see critical care vitals on patient chart). Patient A&Ox3 and responding appropriate during this time. Metoprolol 5mg administered @2309 and 2315. Decision was made to start Amiodarone drip and change to CCU status. All CCU room beds full, 2 with patients on droplet precautions, and 2 with bariatric beds. 243 and 245 are patients with dementia and need to stay close to the nurses station. 247 and 249 have patients with precautions as well. HS, and charge nurse decided to leave patient in 258 with CCU status. Patient still a 1:2 nurse ratio.
--- NOTE | 2024-08-03 04:17 | PC.NURSE ---
Occupational Therapy Teacher called [facility] and left voicemail at [phone] regarding pt's blood pressure of 83/57 when checked after 0300. Dr. Valdes called back at this time and was updated that latest B/P has improved to 98/63 when checked after 0400. Dr. Valdes aware that pt is on LR at this time as well as receiving Amiodarone drip. No new orders at this time per Dr. Valdes.
[2024-08-03] MEDS: AMIODARONE INFUSION 360 MG/200 ML PLAST..BAG 16.5 MG IV (06:45)
[2024-08-03 06:55] LABS: INR 2.43 (0.91-1.10); Prothrombin Time 28.3 Seconds
--- NOTE | 2024-08-03 06:58 | PC.NURSE ---
Addendum entered by Barbara Denson RN 08/03/24 07:29: Pt's two daughters here overnight after discharge door operator updated pt's daughter regarding pt's SVT event- daughter updated at approximately 2330. Original Note: End of shift note [id number]: This RN took over patient?s care at 2330 as pt changed to critical care unit status per MD after SVT event. Pt noted to be alert & oriented x 4 when spoken to. PRN IV Dilaudid administered for c/o abdominal pain following surgery. Dressing to abdomen noted to be C/D/I. Pt refusing SCDs when educated. NG in place to LIS with brown output noted. No CP or N/V noted this shift. Parada catheter in place with light britney urinary output noted. Blood pressures noted to be hypotensive after pt?s episode of SVT and ordered meds given. Chocolate Temperer updated MD Valdes with [facility]. Pt remains on NPO diet with ice chips and PRN phenol throat spray provided along with oral swabs. Pt transferring with assist of 1 using walker and gait belt. Tele in place- was reading A fib with RVR though HR in WNL at this time.?IV Amiodarone administered per order. Bed alarm on, call light within reach. ?
[2024-08-03] MEDS: ACETAMINOPHEN INJ 1,000 MG/100 ML VIAL 400 MG IVPB ×2 (07:53→16:21)
[2024-08-03] MEDS: LACTATED RINGERS 500 ML 500 ML IV (08:41)
--- NOTE | 2024-08-03 08:41 | P.GSPN_ITS ---
Subjective Subjective Date Seen: 08/03/24 Interval history: Patient had an episode of atrial fibrillation with RVR yesterday. She had multiple rounds of adenosine, metoprol, and then was placed on amiodarone drip. Her systolic was in the 80s but she was stable. Patient's blood pressure has improved today in the morning. Her heart rate is now normal. Amiodarone drip was stopped. Patient denies any chest pain or shortness of breath. She does feel weak. Urine output was 675 mL yesterday and 350 mL overnight. Patient still has Parada catheter in place. She ambulated 4 times yesterday. Denies passing gas. Abdominal pain is controlled. Exam Narrative: Exam Narrative: Abdomen is soft, not distended, minimally tender palpation in the bilateral lower quadrants, this is improved from yesterday. Surgical dressing was removed. [place] are intact. There is ruben-incisional ecchymosis present but no surrounding erythema. Const: Vital Signs, click to edit/add: Vital Signs - 24 hr 08/02/24 09:06 08/02/24 09:51 08/02/24 11:00 Temperature 98.9 F 98.9 F 98.6 F Pulse Rate Pulse Rate [Pulse Oximeter] 79 86 82 Respiratory Rate 20 20 20 Blood Pressure [Le ft Arm] Blood Pressure [Ri ght Arm] 116/72 102/70 112/71 Pulse Oximetry 93 96 95 Oxygen Delivery Me thod Room Air Room Air Room Air 08/02/24 15:24 08/02/24 18:09 08/02/24 22:25 Temperature 98.6 F 97.9 F Pulse Rate Pulse Rate [Pulse Oximeter] 90 81 165 H Respiratory Rate 20 20 Blood Pressure [Le ft Arm] 93/58 L Blood Pressure [Ri ght Arm] 111/71 124/77 Pulse Oximetry 94 94 94 Oxygen Delivery Me thod Room Air Room Air Room Air 08/02/24 23:00 08/02/24 23:07 08/02/24 23:14 Temperature Pulse Rate 189 H Pulse Rate [Pulse Oximeter] 185 H 131 H Respiratory Rate Blood Pressure [Le ft Arm] 107/60 106/64 Blood Pressure [Ri ght Arm] Pulse Oximetry Oxygen Delivery Me thod 08/02/24 23:19 08/02/24 23:20 08/02/24 23:22 Temperature Pulse Rate 118 H Pulse Rate [Pulse Oximeter] 129 H 121 H Respiratory Rate Blood Pressure [Le ft Arm] 101/73 95/67 Blood Pressure [Ri ght Arm] Pulse Oximetry Oxygen Delivery Me thod 08/02/24 23:36 08/02/24 23:36 08/02/24 23:52 Temperature 97.9 F 97.9 F Pulse Rate 106 H Pulse Rate [Pulse Oximeter] 106 H 106 H Respiratory Rate 18 18 Blood Pressure [Le ft Arm] 103/73 103/73 Blood Pressure [Ri ght Arm] Pulse Oximetry 95 95 Oxygen Delivery Me thod Room Air Room Air 08/02/24 23:55 08/03/24 00:30 08/03/24 01:00 Temperature 97.3 F L 97.3 F L Pulse Rate Pulse Rate [Pulse Oximeter] 106 H 103 H 107 H Respiratory Rate 18 16 18 Blood Pressure [Le ft Arm] 83/62 L 90/58 L Blood Pressure [Ri ght Arm] Pulse Oximetry 92 93 Oxygen Delivery Or thod Room Air Room Air 08/03/24 01:53 08/03/24 02:00 08/03/24 02:49 Temperature Pulse Rate 107 H 113 H Pulse Rate [Pulse Oximeter] 106 H Respiratory Rate 18 Blood Pressure [Le ft Arm] 84/61 L Blood Pressure [Ri ght Arm] Pulse Oximetry 93 Oxygen Delivery Or thod Room Air 08/03/24 03:00 08/03/24 03:00 08/03/24 04:13 Temperature 97.1 F L Pulse Rate Pulse Rate [Pulse Oximeter] 106 H 102 H 84 Respiratory Rate 18 16 16 Blood Pressure [Le ft Arm] 83/57 L 98/63 Blood Pressure [Ri ght Arm] Pulse Oximetry 90 91 Oxygen Delivery Or thod Room Air Room Air 08/03/24 05:15 08/03/24 06:00 08/03/24 07:18 Temperature 98.7 F Pulse Rate 83 Pulse Rate [Pulse Oximeter] 88 87 Respiratory Rate 16 16 Blood Pressure [Le ft Arm] 103/68 105/66 Blood Pressure [Ri ght Arm] Pulse Oximetry 94 94 Oxygen Delivery Me thod Room Air Room Air Progress Note:A&P Assessment and plan (1) S/P exploratory laparotomy: Status: Acute Plan 79-year-old female s/p exploratory laparotomy with extensive lysis of adhesions POD 2. Patient is currently hemodynamically stable with systolics in the 90s and heart rate controlled. We will leave Parada catheter in place to monitor her urine output. I recommended to continue ambulating several times a day. Patient will continue NPO for now since she does not have return of bowel function. NG tube will stay in place. We will check her electrolytes and CBC today. Patient is with therapeutic INR today, no Lovenox for DVT prophylaxis.
[2024-08-03 08:54] LABS: Chloride* 104 mmol/L (96-114)
[2024-08-03 08:55] LABS: Potassium* 3.9 mmol/L (3.6-5.1); Sodium* 132 mmol/L (135-149)
[2024-08-03 08:57] LABS: Creatinine* 0.9 mg/dL (0.5-1.5); Est. Creatinine Clearance* 47.53; Estimated Glomerular Filt Rate 66 ml/min
[2024-08-03 08:58] LABS: Anion Gap 1 mEq/L (7-15); Blood Urea Nitrogen* 17 mg/dL (7-30); Calcium* 7.3 mg/dL (8.4-10.6); Carbon Dioxide* 27 mmol/L (20-32); Glucose* 104 mg/dL (60-115); Magnesium* 2.2 mg/dL (1.5-2.6); Phosphorus* 2.1 mg/dL (2.5-4.5)
[2024-08-03 08:59] LABS: Basophils Absolute Auto 0.01 K/uL (0.00-0.30); Basophils Percent Auto 0.1 % (0.0-3.0); Hematocrit 34.7 % (33.0-51.0); Hemoglobin* 11.3 gm/dL (12.0-16.0); Immature Granulocytes Abs Auto 0.07 K/uL (0.00-0.30); Immature Granulocytes Pct Auto 0.8 %; Mean Corpuscular HGB Conc 33 gm/dL (32-36); Mean Corpuscular Hemoglobin 30 pg (26-34); Mean Corpuscular Volume 93 fL (80-100); Neutrophils Percent Auto 82.1 % (42.0-72.0); Platelet Count* 96 K/uL (140-440); RDW Coefficient of Variation % 14.4 % (11.5-15.5); Red Blood Count 3.72 m/uL (4.00-5.20); White Blood Count* 8.34 K/uL (4.50-11.00)
[2024-08-03 09:13] LABS: Slide Review Reflex No
--- NOTE | 2024-08-03 09:35 | REH.OT ---
Attempted OT treat, pt positioned EOB with min A and c/o of lightheadness. BP = 99/60, nsg informed. Positioned back into supine with feet elevated. Holding OT today.
[2024-08-03] MEDS: AMIODARONE 200 MG TABLET 100 MG PO (10:43)
[2024-08-03 13:34] LABS: INR 2.36 (0.91-1.10); Prothrombin Time 27.6 Seconds
[2024-08-03] MEDS: LACTATED RINGERS 1000 ML 1,000 ML 75 ML IV (14:26)
--- NOTE | 2024-08-03 16:08 | PM.IMPN1 ---
Progress Note: A&P Assessment and plan (1) S/P exploratory laparotomy: Problem details: - 08/01/2024 exploratory laparotomy with extensive lysis of adhesions - continue NG tube to LIS, awaiting return of bowel function Status: Acute (2) Small bowel obstruction: Problem details: -recurrent. emergent laparotomy; 30+ years ago. one admission for SBO, nonoperative in 2019. -NG in place -general surgery planning surgery 08/01 Status: Resolved (3) SVT (supraventricular tachycardia): Problem details: - this was potentially atrial fibrillation with RVR, however with a rate of 183, and the regularity of the heart rate on the EKG at the time is more suspicious for SVT - resolved with metoprolol and then amiodarone. Patient is on amiodarone chronically, however the doses low and she may not be absorbing this currently because of the SBO. The half life is fairly long however so it is unlikely that her levels dropped too much, but since she is on a low-dose chronically, she may benefit from an increase in her dose. Will increase amiodarone to 200 mg daily. Status: Suspected (4) Paroxysmal atrial fibrillation: Problem details: -will continue amiodarone. Hold diltiazem due to hypotension. -continuous telemetry -monitor rate Status: Acute (5) Chronic anticoagulation: Problem details: -Coumadin restarted, INR within goal between 2 and 3. Monitor daily. Status: Acute (6) Aortic stenosis: Problem details: mild, new murmur (worsened by acute illness?) echo reassuring - would have her f/u with cable cutter and swager outpatient Status: Acute Time Spent With Patient Total time spent: Today I spent 50minutes seeing the patient, reviewing [facility]panse and EPIC notes/diagnostics/labs, discussing the care plan with the general surgeon and our care team that includes social work, PT/OT, pharmacy, RT, nursing home and documenting my impressions and plan in the medical record. Subjective Time Seen by Provider: 07:53 Date Seen: 08/03/24 Interval history: Clary had an episode of elevated heart rate into the 180s last night that was thought to be SVT. She was given adenosine without much affect. She was then given IV metoprolol which did decrease her heart rate to 120s and her rhythm changed back to AFib. Heart rate remained elevated at 114 and blood pressure was low so patient was given a fluid bolus and then given an amiodarone bolus with the amiodarone drip following it. This morning she complains of some weakness and her blood pressures remain slightly low. She denies chest pain or shortness of breath. Exam Narrative: Exam Narrative: General: No acute distress. Awake, alert, oriented x3. No pallor. No jaundice. NG tube in place. Oropharynx: Clear. Mucous membranes slightly dry. Cardiovascular: Regular rate and rhythm. No murmurs, gallops, or rubs. Respiratory: Clear to auscultation bilaterally. No wheezes or crackles. Abdomen: Bowel sounds absent. Soft, nondistended, mild diffuse tenderness, no rebound tenderness or guarding.. Extremities: No lower extremity edema. Const: Vital Signs, click to edit/add: Vital Signs - 24 hr 08/02/24 18:09 08/02/24 22:25 08/02/24 23:00 Temperature 97.9 F Pulse Rate 189 H Pulse Rate [Pulse Oximeter] 81 165 H Respiratory Rate 20 Blood Pressure [Le ft Arm] 93/58 L Blood Pressure [Ri ght Arm] 124/77 Pulse Oximetry 94 94 Oxygen Delivery Me thod Room Air Room Air 08/02/24 23:07 08/02/24 23:14 08/02/24 23:19 Temperature Pulse Rate Pulse Rate [Pulse Oximeter] 185 H 131 H 129 H Respiratory Rate Blood Pressure [Le ft Arm] 107/60 106/64 101/73 Blood Pressure [Ri ght Arm] Pulse Oximetry Oxygen Delivery Me thod 08/02/24 23:20 08/02/24 23:22 08/02/24 23:36 Temperature 97.9 F Pulse Rate 118 H Pulse Rate [Pulse Oximeter] 121 H 106 H Respiratory Rate 18 Blood Pressure [Le ft Arm] 95/67 103/73 Blood Pressure [Ri ght Arm] Pulse Oximetry 95 Oxygen Delivery Me thod Room Air 08/02/24 23:36 08/02/24 23:52 08/02/24 23:55 Temperature 97.9 F Pulse Rate 106 H Pulse Rate [Pulse Oximeter] 106 H 106 H Respiratory Rate 18 18 Blood Pressure [Le ft Arm] 103/73 Blood Pressure [Ri ght Arm] Pulse Oximetry 95 Oxygen Delivery Me thod Room Air 08/03/24 00:30 08/03/24 01:00 08/03/24 01:53 Temperature 97.3 F L 97.3 F L Pulse Rate 107 H Pulse Rate [Pulse Oximeter] 103 H 107 H Respiratory Rate 16 18 Blood Pressure [Le ft Arm] 83/62 L 90/58 L Blood Pressure [Ri ght Arm] Pulse Oximetry 92 93 Oxygen Delivery Me thod Room Air Room Air 08/03/24 02:00 08/03/24 02:49 08/03/24 03:00 Temperature Pulse Rate 113 H Pulse Rate [Pulse Oximeter] 106 H 106 H Respiratory Rate 18 18 Blood Pressure [Le ft Arm] 84/61 L Blood Pressure [Ri ght Arm] Pulse Oximetry 93 Oxygen Delivery Me thod Room Air 08/03/24 03:00 08/03/24 04:13 08/03/24 05:15 Temperature 97.1 F L 98.7 F Pulse Rate Pulse Rate [Pulse Oximeter] 102 H 84 88 Respiratory Rate 16 16 16 Blood Pressure [Le ft Arm] 83/57 L 98/63 103/68 Blood Pressure [Ri ght Arm] Pulse Oximetry 90 91 94 Oxygen Delivery Ak thod Room Air Room Air Room Air 08/03/24 06:00 08/03/24 07:18 08/03/24 08:00 Temperature 98.6 F Pulse Rate 83 Pulse Rate [Pulse Oximeter] 87 86 Respiratory Rate 16 16 Blood Pressure [Le ft Arm] 105/66 99/51 L Blood Pressure [Ri ght Arm] Pulse Oximetry 94 94 Oxygen Delivery Ak thod Room Air Room Air 08/03/24 10:02 08/03/24 11:00 08/03/24 14:04 Temperature 98.3 F Pulse Rate 78 79 Pulse Rate [Pulse Oximeter] 81 Respiratory Rate 16 Blood Pressure [Le ft Arm] 113/76 Blood Pressure [Ri ght Arm] Pulse Oximetry 94 Oxygen Delivery Me thod Room Air 08/03/24 14:38 Temperature 97.6 F Pulse Rate Pulse Rate [Pulse Oximeter] 89 Respiratory Rate 18 Blood Pressure [Le ft Arm] 125/79 Blood Pressure [Ri ght Arm] Pulse Oximetry 93 Oxygen Delivery Ak thod Room Air Labs Labs: Laboratory Results - last 24 hr 08/03/24 08/03/24 08/03/24 05:47 08:38 13:10 WBC 8.34 RBC 3.72 L Hgb 11.3 L Hct 34.7 MCV 93 MCH 30 MCHC 33 RDW Coeff of Xavi 14.4 Plt Count 96 L Neut % (Auto) 82.1 H Lymph % (Auto) 6.0 L [place] % (Auto) 11.0 Eos % (Auto) 0.0 Baso % (Auto) 0.1 Neut # (Auto) 6.80 Lymph # (Auto) 0.50 L [place] # (Auto) 0.90 Eos # (Auto) 0.00 Baso # (Auto) 0.01 Abs Immat Gran (auto) 0.07 Imm/Tot Granulo (auto) 0.8 INR 2.43 H 2.36 H Sodium 132 L Potassium 3.9 Chloride 104 Carbon Dioxide 27 Anion Gap 1 L BUN 17 Creatinine 0.9 Estimated Creat Clear 47.53 Estimated GFR 66 Glucose 104 Calcium 7.3 L Phosphorus 2.1 L Magnesium 2.2 Lab Acknowledgement Test Added
[2024-08-03] MEDS: WARFARIN 2 MG TABLET 4 MG PO (16:57)
--- NOTE | 2024-08-03 17:21 | PC.NURSE ---
Shift Summary: Patient pleasant and cooperative. Up with one assist, walker and gait belt, up in halls for walks. This morning HR WNL with BP low, given bolus (see MAR), improved BP following bolus. Patient states she is passing gas this afternoon, bowel sounds still hypoactive. Parada patent with straw colored urine, continues to have IV fluids running. Given PRN IV acetaminophen for headache x2. Seen by surgeon this morning, dressing over abdomen removed and left open to air, surgical site looks clean and dry, no blood noted. Abdomen is tender and firm. Patient has denied pain in abdomen all throughout day. Patient removed from amiodarone drip at start of shift, HR has been 70's-90's when observed on tele.
[2024-08-04] VITALS (9 sets, daily range): BP systolic 131–147; BP diastolic 77–90; PULSE 80–86; RESP 16–20; TEMP 36.4–36.8; O2SAT 92–98
[2024-08-04] MEDS: LACTATED RINGERS 1000 ML 1,000 ML 75 ML IV ×2 (03:25→16:36)
[2024-08-04] MEDS: ACETAMINOPHEN INJ 1,000 MG/100 ML VIAL 400 MG IVPB ×2 (03:31→12:03)
[2024-08-04] MEDS: phenoL 1.4 % THROAT SPRAY 1 SPRAY MUCOUS MEM (03:35)
--- NOTE | 2024-08-04 06:13 | PC.NURSE ---
Addendum entered by Barbara Denson RN 08/04/24 07:22: Pt up in chair per request. Call light within reach. Original Note: End of shift note [id number]: Pt remains A&Ox4 and able to make needs known. VSS- pt has been afebrile and on RA throughout the shift. No CP or N/V noted throughout the shift. NG tube remains in place to LIS. Parada catheter remains in place. NPO diet order in place and pt continues to transfer with assist of 1 using rolling walker and gait belt. Pt ambulating hallway with SBA from staff. 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 No redness, warmth, edema or drainage observed upon inspection. Previous IV to R forearm noted to be leaking and was therefore discontinued with catheter tip intact. IV in place to L forearm noted to have infiltrated and new IV site insertion was then completed. Pt has LR running per order. Tele in place with NSR noted. HR has been WNL throughout the shift, even during ambulation in hallway. Call light within reach. PRN IV Dilaudid and Tylenol administered for c/o abdominal, back and headache throughout the shift. Pt continues to wear SCDs when approached and educated. Pt has not had a bowel movement following surgery though she reports she is passing gas when asked. Bowel sounds remain hypoactive x 4. ?
--- NOTE | 2024-08-04 07:57 | PM.GSPN ---
Subjective Subjective Date Seen: 08/21/24 Interval history: Patient passed a lot of gas yesterday. She ambulated 3 times. She states that her abdominal pain is not bothering her as much, she does complain of back pain. She has chronic back issues especially if she is not able to move around a lot. She also complains of congestion in the upper chest. Exam Narrative: Exam Narrative: Abdomen is soft, not distended, still somewhat tender to palpation on the left more than the right with no peritoneal signs, midline laparotomy incision is with intact lalitha with no surrounding erythema. Const: Vital Signs, click to edit/add: Vital Signs - 24 hr 08/03/24 08:00 08/03/24 10:02 08/03/24 11:00 Temperature 98.6 F 98.3 F Pulse Rate 78 Pulse Rate [Pulse Oximeter] 86 81 Respiratory Rate 16 16 Blood Pressure [Le ft Arm] 99/51 L 113/76 Blood Pressure [Ri ght Arm] Pulse Oximetry 94 94 Oxygen Delivery Me thod Room Air Room Air 08/03/24 14:04 08/03/24 14:38 08/03/24 19:37 Temperature 97.6 F 97.2 F L Pulse Rate 79 Pulse Rate [Pulse Oximeter] 89 80 Respiratory Rate 18 18 Blood Pressure [Le ft Arm] 125/79 122/77 Blood Pressure [Ri ght Arm] Pulse Oximetry 93 93 Oxygen Delivery Me thod Room Air Room Air 08/03/24 22:24 08/03/24 23:00 08/03/24 23:00 Temperature 97.3 F L Pulse Rate 74 Pulse Rate [Pulse Oximeter] 79 79 Respiratory Rate 16 16 Blood Pressure [Le ft Arm] 134/80 Blood Pressure [Ri ght Arm] Pulse Oximetry 94 Oxygen Delivery Me thod Room Air 08/04/24 03:44 08/04/24 07:16 08/04/24 07:37 Temperature 98.2 F 97.6 F Pulse Rate 86 Pulse Rate [Pulse Oximeter] 85 84 Respiratory Rate 18 18 Blood Pressure [Le ft Arm] 131/82 Blood Pressure [Ri ght Arm] 133/79 Pulse Oximetry 92 95 Oxygen Delivery Me thod Room Air Room Air Progress Note:A&P Assessment and plan (1) S/P exploratory laparotomy: Status: Acute Plan 79-year-old female s/p exploratory laparotomy with extensive lysis of adhesions POD 3. Patient passed gas. Will remove her NG tube and that should help with her upper chest congestion. Patient can have sips of clears but did not advance beyond that. I discussed with the patient that she should continue walking outside of her room as match as possible. Will remove her Parada catheter as her urine output has improved. Patient's hemoglobin was 11, down from 13 the previous day. This is most likely dilutional since patient does not have hemodynamic instability and her abdomen is not distended. Patient's INR is 2.3 so no Lovenox is indicated for DVT prophylaxis.
[2024-08-04] MEDS: AMIODARONE 200 MG TABLET PO (09:41)
[2024-08-04 12:47] LABS: PCR FLU A Negative PCR FLU A (Negative); PCR FLU B Negative PCR FLU B (Negative); PCR RSV Negative PCR RSV (Negative); SARS PCR* Negative SARS-CoV-2 (Negative)
[2024-08-04 14:10] LABS: INR 2.53 (0.91-1.10); Prothrombin Time 29.1 Seconds
[2024-08-04] MEDS: HYDROmorphone 0.5 mg/0.5 ml inj IVP ×2 (14:32→20:09)
[2024-08-04] MEDS: LACTATED RINGERS 500 ML 500 ML IV (16:36)
[2024-08-04] MEDS: WARFARIN 2 MG TABLET 4 MG PO (16:46)
--- NOTE | 2024-08-04 17:16 | PC.NURSE ---
Shift Summary: Patient pleasant and cooperative. Up with one assist, walker and gait belt. Up in halls walking with staff. NG pulled, perez out. Passing gas, bowel sounds active. Tolerating sips of clears, denies nausea. Pain in abdomen managed with PRN medication, pain in back managed with repositioning. Vitals stable and WNL, afebrile. Decreased urine output, Bolus running now.
--- NOTE | 2024-08-04 18:27 | PM.IMPN1 ---
Progress Note: A&P Assessment and plan (1) S/P exploratory laparotomy: Problem details: - 08/01/2024 exploratory laparotomy with extensive lysis of adhesions for high grade SBO - 08/03 continue NG tube to LIS, awaiting return of bowel function - 08/04 large amount flatus yesterday, NGT out today Status: Acute (2) SVT (supraventricular tachycardia): Problem details: - this was potentially atrial fibrillation with RVR, however with a rate of 183, and the regularity of the heart rate on the EKG at the time is more suspicious for SVT - 08/03 resolved with metoprolol and then amiodarone. Patient is on amiodarone chronically, however the doses low and she may not be absorbing this currently because of the SBO. The half life is fairly long however so it is unlikely that her levels dropped too much, but since she is on a low-dose chronically, she may benefit from an increase in her dose. Will increase amiodarone to 200 mg daily. - 08/04 no further SVT Status: Suspected (3) Paroxysmal atrial fibrillation: Problem details: -will continue amiodarone. BPs improved. Restart diltiazem in am. -continuous telemetry -monitor rate Status: Acute (4) Chronic anticoagulation: Problem details: -Coumadin restarted, INR within goal between 2 and 3. Monitor daily. 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 NG tube and Parada out today. Patient complains of mild chest congestion that started today. Denies chest pain or shortness of breath. No other symptoms. Exam Narrative: Exam Narrative: General: No acute distress. Awake, alert, oriented x3. No pallor. No jaundice. Oropharynx: Clear. Mucous membranes slightly dry. Cardiovascular: Regular rate and rhythm. No murmurs, gallops, or rubs. Respiratory: Clear to auscultation bilaterally. No wheezes or crackles. Abdomen: Bowel sounds present, hypoactive. Soft, nondistended, mild diffuse tenderness, no rebound tenderness or guarding. Extremities: No lower extremity edema. Const: Vital Signs, click to edit/add: Vital Signs - 24 hr 08/03/24 19:37 08/03/24 22:24 08/03/24 23:00 Temperature 97.2 F L 97.3 F L Pulse Rate 74 Pulse Rate [Pulse Oximeter] 80 79 Respiratory Rate 18 16 Blood Pressure [Le ft Arm] 122/77 134/80 Blood Pressure [Ri ght Arm] Pulse Oximetry 93 94 Oxygen Delivery Me thod Room Air Room Air 08/03/24 23:00 08/04/24 03:44 08/04/24 07:16 Temperature 98.2 F Pulse Rate 86 Pulse Rate [Pulse Oximeter] 79 85 Respiratory Rate 16 18 Blood Pressure [Le ft Arm] 131/82 Blood Pressure [Ri ght Arm] Pulse Oximetry 92 Oxygen Delivery Me thod Room Air 08/04/24 07:37 08/04/24 10:45 08/04/24 15:00 Temperature 97.6 F 97.6 F Pulse Rate 82 Pulse Rate [Pulse Oximeter] 84 80 Respiratory Rate 18 16 Blood Pressure [Le ft Arm] 140/83 H Blood Pressure [Ri ght Arm] 133/79 Pulse Oximetry 95 96 Oxygen Delivery Me thod Room Air Room Air 08/04/24 15:00 Temperature 98.2 F Pulse Rate Pulse Rate [Pulse Oximeter] 80 Respiratory Rate 16 Blood Pressure [Le ft Arm] 135/78 Blood Pressure [Ri ght Arm] Pulse Oximetry 96 Oxygen Delivery Me thod Room Air Labs Labs: Laboratory Results - last 24 hr 08/04/24 08/04/24 11:51 13:47 INR 2.53 H SARS-CoV-2 (PCR) Negative SARS-CoV-2 Influenza Type A (PCR) Negative PCR FLU A Influenza Type B (PCR) Negative PCR FLU B RSV (PCR) Negative PCR RSV
[2024-08-04] MEDS: ACETAMINOPHEN 325 MG TABLET 650 MG PO (23:49)
[2024-08-05] VITALS (8 sets, daily range): BP systolic 114–144; BP diastolic 78–87; PULSE 81–95; RESP 16–20; TEMP 36.1–36.9; O2SAT 94–97; BMI 27.2
[2024-08-05] MEDS: HYDROmorphone 0.5 mg/0.5 ml inj IVP ×4 (03:33→12:38)
[2024-08-05] MEDS: LACTATED RINGERS 1000 ML 1,000 ML 75 ML IV ×2 (04:51→17:39)
--- NOTE | 2024-08-05 06:28 | PC.NURSE ---
End of shift note [id number]: Pt A&Ox4 and able to make needs known. Tele in place with NSR noted. VSS- pt has been afebrile and on RA throughout the shift. Pt tolerating sips of clear liquids with no N/V noted. No CP throughout the shift. 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 Pt transferring/ambulating with SBA/A1 using rolling walker and gait belt. Pt ambulated in hallway last evening with RN present. LR running per order. PRN pain medications administered to treat c/o headache and abdominal pain throughout the shift. Pt continent of bladder and voided frequently throughout the shift. Pt passing gas- no BM since surgery though bowel sounds noted to be active x 4. Pt refuses SCDs. Call light within reach. ?
[2024-08-05] MEDS: AMIODARONE 200 MG TABLET PO (08:27)
[2024-08-05] MEDS: dilTIAZem 120 MG CAP.ER.24H PO (08:27)
--- NOTE | 2024-08-05 11:52 | PM.IMPN1 ---
Progress Note: A&P Assessment and plan (1) S/P exploratory laparotomy: Problem details: - 08/01/2024 exploratory laparotomy with extensive lysis of adhesions for high grade SBO - 08/03 continue NG tube to LIS, awaiting return of bowel function - 08/04 large amount flatus yesterday, NGT out today - 08/05 sips of clears going well, but bloated today. Discussed with Dr. Abraham. Advancing to clears with option of yogurt. Status: Acute (2) SVT (supraventricular tachycardia): Problem details: - this was potentially atrial fibrillation with RVR, however with a rate of 183, and the regularity of the heart rate on the EKG at the time is more suspicious for SVT - 08/03 resolved with metoprolol and then amiodarone. Patient is on amiodarone chronically, however the doses low and she may not be absorbing this currently because of the SBO. The half life is fairly long however so it is unlikely that her levels dropped too much, but since she is on a low-dose chronically, she may benefit from an increase in her dose. Will increase amiodarone to 200 mg daily. - 08/05 no further SVT Status: Suspected (3) Paroxysmal atrial fibrillation: Problem details: -will continue amiodarone. BPs improved. Restart diltiazem 08/05. -continuous telemetry -monitor rate Status: Acute (4) Chronic anticoagulation: Problem details: -Continue Coumadin, INR within goal between 2 and 3. Monitor daily. Status: Acute (5) Aortic stenosis: Problem details: mild, new murmur (worsened by acute illness?) echo reassuring - would have her f/u with cooler man outpatient Status: Acute Plan Chest congestion - flu/covid/rsv swab negative Subjective Time Seen by Provider: 10:10 Date Seen: 08/05/24 Interval history: Clary continues to feel weak and tired, especially in the morning. She does not have an appetite yet. Sips of clears are going well. + flatus. Exam Narrative: Exam Narrative: General: No acute distress. Awake, alert, oriented x3. No pallor. No jaundice. Oropharynx: Clear. Mucous membranes slightly dry. Cardiovascular: Regular rate and rhythm. No murmurs, gallops, or rubs. Respiratory: Clear to auscultation bilaterally. No wheezes or crackles. Abdomen: Incision C/D/I. Bowel sounds present. Soft, distended, mild diffuse tenderness, no rebound tenderness or guarding. Extremities: No lower extremity edema. Const: Vital Signs, click to edit/add: Vital Signs - 24 hr 08/04/24 15:00 08/04/24 15:00 08/04/24 19:32 Temperature 98.2 F 98.0 F Pulse Rate 82 Pulse Rate [Pulse Oximeter] 80 82 Respiratory Rate 16 16 Blood Pressure [Le ft Arm] 135/78 147/77 H Pulse Oximetry 96 98 Oxygen Delivery Me thod Room Air Room Air 08/04/24 22:04 08/04/24 22:28 08/04/24 22:37 Temperature 98.1 F Pulse Rate 80 Pulse Rate [Pulse Oximeter] 82 80 Respiratory Rate 16 20 Blood Pressure [Le ft Arm] 141/90 H Pulse Oximetry 95 Oxygen Delivery Nj thod Room Air 08/05/24 03:39 08/05/24 07:53 08/05/24 10:27 Temperature 98.5 F 96.9 F L Pulse Rate 81 Pulse Rate [Pulse Oximeter] 82 85 Respiratory Rate 16 18 Blood Pressure [Le ft Arm] 137/87 144/87 H Pulse Oximetry 95 94 [facility] Room [facility] 08/05/24 10:34 Temperature 97.3 F L Pulse Rate Pulse Rate [Pulse Oximeter] 88 Respiratory Rate 18 Blood Pressure [Le ft Arm] 125/81 Pulse Oximetry 94 Oxygen Delivery Nj thod Room Air Labs Labs: Laboratory Results - last 24 hr 08/04/24 08/04/24 11:51 13:47 INR 2.53 H SARS-CoV-2 (PCR) Negative SARS-CoV-2 Influenza Type A (PCR) Negative PCR FLU A Influenza Type B (PCR) Negative PCR FLU B RSV (PCR) Negative PCR RSV
--- NOTE | 2024-08-05 11:52 | PM.GSPN ---
Subjective Subjective Date Seen: 08/05/24 Interval history: Patient states that her back pain has improved somewhat. She continues to have abdominal pain and is slightly worse in epigastrium. She had not passed as much gas as before but continues to pass gas. No bowel movement. He denies nausea or vomiting. She a drank some Sprite and juice. She ambulated 3 times yesterday and twice a day. She feels weak. Exam Narrative: Exam Narrative: Abdomen is soft, more distended and tympanic to percussion today, no tenderness to palpation in bilateral lower quadrants, mild tenderness to palpation in epigastrium. Midline incision is with intact lalitha with no surrounding erythema. Const: Vital Signs, click to edit/add: Vital Signs - 24 hr 08/04/24 15:00 08/04/24 15:00 08/04/24 19:32 Temperature 98.2 F 98.0 F Pulse Rate 82 Pulse Rate [Pulse Oximeter] 80 82 Respiratory Rate 16 16 Blood Pressure [Le ft Arm] 135/78 147/77 H Pulse Oximetry 96 98 Oxygen Delivery Me thod Room Air Room Air 08/04/24 22:04 08/04/24 22:28 08/04/24 22:37 Temperature 98.1 F Pulse Rate 80 Pulse Rate [Pulse Oximeter] 82 80 Respiratory Rate 16 20 Blood Pressure [Le ft Arm] 141/90 H Pulse Oximetry 95 Oxygen Delivery Me thod Room Air 08/05/24 03:39 08/05/24 07:53 08/05/24 10:27 Temperature 98.5 F 96.9 F L Pulse Rate 81 Pulse Rate [Pulse Oximeter] 82 85 Respiratory Rate 16 18 Blood Pressure [Le ft Arm] 137/87 144/87 H Pulse Oximetry 95 94 Oxygen Delivery Nv thod Room Air Room Air 08/05/24 10:34 Temperature 97.3 F L Pulse Rate Pulse Rate [Pulse Oximeter] 88 Respiratory Rate 18 Blood Pressure [Le ft Arm] 125/81 Pulse Oximetry 94 Oxygen Delivery Me thod Room Air Progress Note:A&P Assessment and plan (1) S/P exploratory laparotomy: Status: Acute Plan 79-year-old female s/p exploratory laparotomy with extensive lysis of adhesions POD 4. Patient will remain on clear liquid diet but if she wants yogurt, that is okay to take. I discussed with the patient that her abdomen is slightly more distended today and tympanic. This is most likely due to postop ileus there is persistent. This is expected. Patient is passing gas but not as much as yesterday. I recommended to continue walking. We will check her electrolytes today and tomorrow. Patient's Parada catheter came out yesterday and she urinated. Not ready for discharge.
[2024-08-05 12:15] LABS: Chloride* 104 mmol/L (96-114); Sodium* 132 mmol/L (135-149)
[2024-08-05 12:16] LABS: Potassium* 3.9 mmol/L (3.6-5.1)
[2024-08-05 12:18] LABS: Anion Gap 5 mEq/L (7-15); Carbon Dioxide* 23 mmol/L (20-32); Creatinine* 0.6 mg/dL (0.5-1.5); Est. Creatinine Clearance* 47.53; Estimated Glomerular Filt Rate 92 ml/min; INR 3.02 (0.91-1.10); Prothrombin Time 33.7 Seconds
[2024-08-05 12:19] LABS: Blood Urea Nitrogen* 12 mg/dL (7-30); Calcium* 7.3 mg/dL (8.4-10.6); Glucose* 93 mg/dL (60-115); Magnesium* 2.1 mg/dL (1.5-2.6)
[2024-08-05] MEDS: PANTOPRAZOLE SODIUM 40 MG INJ IVP (12:38)
[2024-08-05] MEDS: OXYCODONE 5 MG TABLET PO ×2 (15:51→20:17)
--- NOTE | 2024-08-05 16:43 | PC.NURSE ---
End of shift [id number] - Pt alert, oriented, cooperative. Up with standby assistance and noted to ambulate in halls with PT. Pt tolerating RA and clear liquid diet. Pt reported pain in abdomen rated as 4-6/10. Given medication per MAR with pt reporting improvement. Pt reported feeling very tired and observed to nap during shift. RN encouraged pt to drink nutritional supplement ordered per aircraft engineer. Pt noted to pass gas and burp, no BM during shift.
[2024-08-05] MEDS: WARFARIN 2 MG TABLET 4 MG PO (17:02)
[2024-08-05] MEDS: ACETAMINOPHEN 325 MG TABLET 650 MG PO (20:17)
[2024-08-06] VITALS (8 sets, daily range): BP systolic 100–127; BP diastolic 75–90; PULSE 68–89; RESP 16–20; TEMP 36.1–37.2; O2SAT 92–97
[2024-08-06] MEDS: OXYCODONE 5 MG TABLET PO ×5 (00:42→18:33)
[2024-08-06] MEDS: ACETAMINOPHEN 325 MG TABLET 650 MG PO ×5 (00:42→18:33)
[2024-08-06] MEDS: HYDROmorphone 0.5 mg/0.5 ml inj IVP ×2 (00:46→22:16)
[2024-08-06] MEDS: ONDANSETRON 2 MG/ML inj 4 MG IVP (04:49)
[2024-08-06] MEDS: LACTATED RINGERS 1000 ML 1,000 ML 75 ML IV ×2 (04:56→20:30)
--- NOTE | 2024-08-06 06:32 | PC.NURSE ---
End of shift summary: Pt has been A&O, afebrile and VSS overnight. She is SBA with gait belt & 2ww for ambulation/transfers. C/o some dizziness with change of position. Reported nausea this morning, zofran given @ 0450. C/o posterior neck pain, back pain & midline abdominal pain overnight; rating them between 5-8. PRN Tylenol & oxycodone given throughout the night & 1x dose of Dilaudid given @ 0045. LR infusing @ 75 mL/hr. Patient frequently goes to the bathroom, urinating only 50 mL britney colored urine at a time. Midline incision [employer] with lalitha, no surrounding redness. Bowel sounds are active & pt is passing gas. No BM yet. Abdomen is firm and distended. Tolerated clears overnight. Meds need to be crushed in applesauce. TELE read NSR overnight. ?
[2024-08-06 06:33] LABS: Chloride* 104 mmol/L (96-114); Potassium* 3.7 mmol/L (3.6-5.1); Sodium* 132 mmol/L (135-149)
[2024-08-06 06:36] LABS: Anion Gap 4 mEq/L (7-15); Blood Urea Nitrogen* 12 mg/dL (7-30); Carbon Dioxide* 24 mmol/L (20-32); Creatinine* 0.6 mg/dL (0.5-1.5); Est. Creatinine Clearance* 47.53; Estimated Glomerular Filt Rate 92 ml/min; Glucose* 112 mg/dL (60-115)
[2024-08-06 06:37] LABS: Calcium* 7.3 mg/dL (8.4-10.6); Magnesium* 2.2 mg/dL (1.5-2.6)
--- NOTE | 2024-08-06 07:18 | PM.GSPN ---
Subjective Subjective Date Seen: 08/06/24 Interval history: Patient complains of somewhat increased abdominal pain. The pain medication is controlling the pain. She has been passing gas but was nauseated in the morning today. Tolerated some clears yesterday. Ambulated 3 times. Exam Narrative: Exam Narrative: Abdomen is distended and tympanic to percussion, mildly tender to palpation on the left side of the abdomen. Midline laparotomy incision with intact lalitha and no surrounding erythema. Const: Vital Signs, click to edit/add: Vital Signs - 24 hr 08/05/24 07:53 08/05/24 10:27 08/05/24 10:34 Temperature 96.9 F L 97.3 F L Pulse Rate 81 Pulse Rate [Pulse Oximeter] 85 88 Respiratory Rate 18 18 Blood Pressure [Le ft Arm] 144/87 H 125/81 Blood Pressure [Ri ght Arm] Pulse Oximetry 94 94 Oxygen Delivery Me thod Room Air Room Air 08/05/24 15:19 08/05/24 15:49 08/05/24 20:15 Temperature 97.2 F L 97.7 F Pulse Rate 90 Pulse Rate [Pulse Oximeter] 95 88 Respiratory Rate 20 18 Blood Pressure [Le ft Arm] 114/84 Blood Pressure [Ri ght Arm] 128/78 Pulse Oximetry 97 95 Oxygen Delivery Me thod Room Air Room Air 08/05/24 23:00 08/05/24 23:00 08/06/24 00:45 Temperature 97.4 F L Pulse Rate 84 Pulse Rate [Pulse Oximeter] 84 86 Respiratory Rate 18 18 Blood Pressure [Le ft Arm] Blood Pressure [Ri ght Arm] 127/83 Pulse Oximetry 93 Oxygen Delivery Me thod Room Air 08/06/24 04:50 Temperature 96.9 F L Pulse Rate Pulse Rate [Pulse Oximeter] 86 Respiratory Rate 20 Blood Pressure [Le ft Arm] Blood Pressure [Ri ght Arm] 124/85 Pulse Oximetry 95 Oxygen Delivery Me thod Room Air Progress Note:A&P Assessment and plan (1) S/P exploratory laparotomy: Status: Acute Assessment and Plan: 79-year-old female s/p exploratory laparotomy with lysis of adhesions POD 5. I discussed with the patient that her abdomen is more distended today, it is tympanic to percussion and she has postoperative ileus which is expected after the extent of lysis of adhesions that was performed. Patient is passing gas. Will keep her on clears and I discussed with the patient not to drink too much of clears. She can have clear Ensure. Patient's INR is 3 today, will hold her warfarin and we will check her liver function tests. Will also check her electrolytes and urine clean-catch and culture to make sure she does not have UTI.
[2024-08-06 07:39] LABS: INR 4.88 (0.91-1.10); Prothrombin Time 49.6 Seconds
[2024-08-06] MEDS: AMIODARONE 200 MG TABLET PO (09:10)
[2024-08-06 09:12] LABS: Albumin* 2.8 g/dL (3.3-5.0)
[2024-08-06 09:15] LABS: Alanine Aminotransferase* 15 U/L (4-35); Alkaline Phosphatase* 76 U/L (40-150); Aspartate Amino Transferase* 25 U/L (12-35); Bilirubin Direct* 0.6 mg/dL (0.0-0.5); Total Protein* 5.3 g/dL (6.0-8.3)
[2024-08-06] MEDS: dilTIAZem 120 MG CAP.ER.24H PO (10:30)
--- NOTE | 2024-08-06 14:27 | PM.IMPN1 ---
Progress Note: A&P Assessment and plan (1) S/P exploratory laparotomy: Problem details: - 08/01/2024 exploratory laparotomy with extensive lysis of adhesions for high grade SBO - 08/03 continue NG tube to LIS, awaiting return of bowel function - 08/04 large amount flatus yesterday, NGT out today - 08/05 sips of clears going well, but bloated today. Discussed with Dr. Abraham. Advancing to clears with option of yogurt. - 08/06 more distended, continue sips. Discussed with Dr. Abraham. Status: Acute (2) SVT (supraventricular tachycardia): Problem details: - this was potentially atrial fibrillation with RVR, however with a rate of 183, and the regularity of the heart rate on the EKG at the time is more suspicious for SVT - 08/03 resolved with metoprolol and then amiodarone. Patient is on amiodarone chronically, however the doses low and she may not be absorbing this currently because of the SBO. The half life is fairly long however so it is unlikely that her levels dropped too much, but since she is on a low-dose chronically, she may benefit from an increase in her dose. Will increase amiodarone to 200 mg daily. - 08/06 no further SVT Status: Suspected (3) Paroxysmal atrial fibrillation: Problem details: -will continue amiodarone. BPs improved. Restarted diltiazem 08/05. -continuous telemetry -monitor rate Status: Acute (4) Chronic anticoagulation: Problem details: - supratherapeutic INR (4.88) (likely due to poor po intake while on coumadin). Hold Coumadin today, monitor daily. Status: Acute (5) Aortic stenosis: Problem details: mild, new murmur (worsened by acute illness?) echo reassuring - would have her f/u with clinical technician outpatient Status: Acute Subjective Time Seen by Provider: 13:00 Date Seen: 08/06/24 Interval history: Clary is feeling more bloated today. She is still only taking sips of clears because she fears cramping, although she has not had any of that. She also has low urine output today. She is still on 75 mL an hour of LR. Exam Narrative: Exam Narrative: General: No acute distress. Awake, alert, oriented x3. Sitting up in chair. No pallor. No jaundice. Oropharynx: Clear. Mucous membranes slightly dry. Cardiovascular: Regular rate and rhythm. No murmurs, gallops, or rubs. Respiratory: Clear to auscultation bilaterally. No wheezes or crackles. Abdomen: Incision C/D/I. Bowel sounds hypoactive. More distended today, mild diffuse tenderness, no rebound tenderness or guarding. Extremities: No lower extremity edema. Const: Vital Signs, click to edit/add: Vital Signs - 24 hr 08/05/24 15:19 08/05/24 15:49 08/05/24 20:15 Temperature 97.2 F L 97.7 F Pulse Rate 90 Pulse Rate [Pulse Oximeter] 95 88 Respiratory Rate 20 18 Blood Pressure [Le ft Arm] 114/84 Blood Pressure [Ri ght Arm] 128/78 Pulse Oximetry 97 95 Oxygen Delivery Ar thod Room Air Room Air 08/05/24 23:00 08/05/24 23:00 08/06/24 00:45 Temperature 97.4 F L Pulse Rate 84 Pulse Rate [Pulse Oximeter] 84 86 Respiratory Rate 18 18 Blood Pressure [Le ft Arm] Blood Pressure [Ri ght Arm] 127/83 Pulse Oximetry 93 Oxygen Delivery Ar thod Room Air 08/06/24 04:50 08/06/24 07:00 08/06/24 07:00 Temperature 96.9 F L 98.9 F Pulse Rate Pulse Rate [Pulse Oximeter] 86 86 68 Respiratory Rate 20 18 18 Blood Pressure [Le ft Arm] Blood Pressure [Ri ght Arm] 124/85 116/90 H Pulse Oximetry 95 96 Oxygen Delivery Ar thod Room Air Room Air 08/06/24 09:00 08/06/24 11:00 Temperature Pulse Rate 79 Pulse Rate [Pulse Oximeter] 89 Respiratory Rate 16 Blood Pressure [Le ft Arm] Blood Pressure [Ri ght Arm] 100/76 Pulse Oximetry 94 Oxygen Delivery Ar thod Room Air Labs Labs: Laboratory Results - last 24 hr 08/06/24 05:49 INR 4.88 H Sodium 132 L Potassium 3.7 Chloride 104 Carbon Dioxide 24 Anion Gap 4 L BUN 12 Creatinine 0.6 Estimated Creat Clear 47.53 Estimated GFR 92 Glucose 112 Calcium 7.3 L Magnesium 2.2 Total Bilirubin 1.0 Direct Bilirubin 0.6 H AST 25 ALT 15 Alkaline Phosphatase 76 Total Protein 5.3 L Albumin 2.8 L
[2024-08-06] MEDS: LACTATED RINGERS 500 ML 500 ML IV (14:40)
[2024-08-06 16:12] LABS: Basophils Percent Auto 0.3 % (0.0-3.0); Eosinophils Percent Auto 1.3 % (0.0-7.0); Hematocrit 36.5 % (33.0-51.0); Hemoglobin* 11.9 gm/dL (12.0-16.0); Immature Granulocytes Pct Auto 0.9 %; Lymphocytes Percent Auto 11.9 % (20-44); Mean Corpuscular HGB Conc 33 gm/dL (32-36); Mean Corpuscular Hemoglobin 30 pg (26-34); Mean Corpuscular Volume 92 fL (80-100); Monocytes Percent Auto 20.4 % (0.0-11.0); Neutrophils Percent Auto 65.2 % (42.0-72.0); Platelet Count* 248 K/uL (140-440); RDW Coefficient of Variation % 13.8 % (11.5-15.5); Red Blood Count 3.99 m/uL (4.00-5.20); White Blood Count* 3.18 K/uL (4.50-11.00)
[2024-08-06 16:18] LABS: Slide Review Reflex No
[2024-08-06 17:01] LABS: Chloride* 103 mmol/L (96-114); Potassium* 3.9 mmol/L (3.6-5.1); Sodium* 133 mmol/L (135-149)
[2024-08-06 17:04] LABS: Anion Gap 7 mEq/L (7-15); Blood Urea Nitrogen* 15 mg/dL (7-30); Calcium* 7.4 mg/dL (8.4-10.6); Carbon Dioxide* 23 mmol/L (20-32); Creatinine* 0.7 mg/dL (0.5-1.5); Est. Creatinine Clearance* 47.53; Estimated Glomerular Filt Rate 89 ml/min; Glucose* 120 mg/dL (60-115)
[2024-08-06 17:05] LABS: Magnesium* 2.1 mg/dL (1.5-2.6)
[2024-08-06] MEDS: PANTOPRAZOLE SODIUM 40 MG INJ IVP (18:51)
--- NOTE | 2024-08-06 19:37 | PC.NURSE ---
Nursing Care Hours: [id number] Pt this shift calm and cooperative, alert and oriented. Pt pain rated 4-7/10, managed with PO pain meds. Pt abdomen rigid and tender up to sternum. developed acid reflux, Protonix given. Soft BP without symptoms, denies dizziness or nausea. Passing gas but no BM. INR elevated and no current CBC noted. Updated surgeon Jarad, new orders for labs placed, Vit K infused, and Pt back to NPO with ice chips allowed. Pt walking the mtz Q2H, tolerating well with SB assist using walker and gait belt. Tele shows NSR with prolong QT.
[2024-08-07] VITALS (11 sets, daily range): BP systolic 101–117; BP diastolic 62–79; PULSE 80–125; RESP 18–20; TEMP 36.3–36.8; O2SAT 91–94
[2024-08-07] MEDS: ONDANSETRON 2 MG/ML inj 4 MG IVP (01:18)
[2024-08-07] MEDS: HYDROmorphone 0.5 mg/0.5 ml inj IVP ×5 (01:20→21:53)
[2024-08-07] MEDS: OMEPRAZOLE 20 MG CAPSULE DR PO (06:24)
[2024-08-07 07:11] LABS: Chloride* 105 mmol/L (96-114); Potassium* 3.8 mmol/L (3.6-5.1); Sodium* 134 mmol/L (135-149)
[2024-08-07 07:14] LABS: Anion Gap 6 mEq/L (7-15); Blood Urea Nitrogen* 17 mg/dL (7-30); Carbon Dioxide* 23 mmol/L (20-32); Creatinine* 0.6 mg/dL (0.5-1.5); Est. Creatinine Clearance* 47.53; Estimated Glomerular Filt Rate 92 ml/min; Glucose* 97 mg/dL (60-115)
[2024-08-07 07:15] LABS: Magnesium* 2.1 mg/dL (1.5-2.6)
--- NOTE | 2024-08-07 07:22 | PC.NURSE ---
End of shift summary: Pt has been A&O, afebrile and VSS overnight. TELE reads NSR with prolonged QT. Pt is NPO with sips & chips d/t increased pain & abdominal distention. Abdomen is firm, tender & tympanic sounding. Bowel sounds are active. Midline incision intact & [employer] with lalitha, no surrounding redness. PRN IV Dilaudid given throughout the night for pain management & bowel rest. She?s been rating it at 5/10. Pt had mild nausea @ 0120 so IV Zofran given 1x. She is Ax1 for transfers with rolling walker & gait belt d/t intermittent dizziness. Pt is passing gas & belching plenty but no BM yet. She completed 5 walks total today. PIV in right FA infusing LR @ 75 mL/hr. Patient?s daughter was here in the evening and they had multiple questions/concerns re: patient?s care & condition ? worried about her weight gain, nutrition intake, fluid intake, lab values, increased fatigue/weakness and possible UTI.?
[2024-08-07] MEDS: AMIODARONE 200 MG TABLET PO (08:32)
[2024-08-07] MEDS: dilTIAZem 120 MG CAP.ER.24H PO (08:32)
--- NOTE | 2024-08-07 09:15 | NUTR.NU ---
RDN with LOS note. Patient admitted for small bowel obstruction status post ex lap 08/01. Patient is slowly improving, however was more distended yesterday. Weight seems to have increased 10-20 lbs since admit, per MD suspects this to be fluid related. Current diet order is NPO, sips and chips. Today is day 7 of NPO/Clears intake. RDN recommends if patient does not advance diet to at least full liquids or greater by 08/08/23, to initiate TPN/PPN for nutrition. RDN will continue to monitor and follow-up as appropriate.
[2024-08-07] MEDS: METOPROLOL TARTRATE 1 MG/ML inj 5 MG IVP ×2 (10:15→18:12)
[2024-08-07] MEDS: LACTATED RINGERS 1000 ML 1,000 ML 75 ML IV (10:15)
--- NOTE | 2024-08-07 11:35 | CRLHL7_ITS ---
For Patients: As a result of the 21st Century Cures Act, medical imaging exams and procedure reports are released immediately into your electronic medical record. You may view this report before your referring provider. If you have questions, please contact your health care provider. INDICATION: ILEUS, MORE DISTENTION, TACHY, RECENT SBO, PROLONGED SURGERY. (Sic) COMPARISON: 08/01/2024 TECHNIQUE: CT of the abdomen and pelvis with 91 cc of Isovue 370 intravenous contrast. Please note that all CT scans at this facility use dose modulation, iterative reconstruction, and/or weight-based dosing when appropriate to reduce radiation dose to as low as reasonably achievable. FINDINGS: ABDOMEN Liver: Normal contour and attenuation. No significant focal lesion. Unchanged diffuse intrahepatic biliary ductal dilatation which could be due to reservoir effect status post cholecystectomy. Patent portal veins. Patent hepatic veins. Gallbladder: Not seen, presumably surgically absent. Please correlate with patient`s clinical history. Increasing caliber of the extrahepatic bile duct which measures 13 mm (2; 39). Correlation with serum biochemistry is recommended. If abnormal, gastroenterology consultation is recommended. Pancreas: Normal contour and attenuation. No peripancreatic inflammatory changes. No significant focal lesion. Normal main duct caliber. Spleen: Not enlarged. No significant focal lesion. Patent splenic artery and vein. Adrenal Glands: Symmetrical adrenal glands. No significant focal lesion. Kidneys: Normal bilateral renal attenuation. No significant focal lesion. No nephrolith. No dilatation of the intrarenal collecting systems. No ureteral stone. Nondilated ureters. Patent renal arteries and veins. Gastrointestinal tract: A nasogastric tube is present with its tip in the lumen of the upper gastric body. Long segmental small bowel and proximal large bowel distension consistent with postoperative adynamic ileus given the clinical history. Unseen appendix. Possible abnormal position of the duodenojejunal junction which, if present, is consistent with congenital/developmental midgut malrotation. The precise location of the ligament of Treitz is difficult to identify. Please correlate with surgical findings at the time of laparotomy. Vascular: Chronic mild aortoiliac atherosclerotic mural calcification. Abdominal aorta and its major proximal branches including the celiac, superior mesenteric, inferior mesenteric, renal, and bilateral common iliac arteries are patent. Patent superior mesenteric vein. Peritoneal Cavity/Retroperitoneum: Small volume ascites and pneumoperitoneum presumably postsurgical in nature. No adenopathy. PELVIS No bladder lesion is identified. Hysterectomy. Small volume ascites. No adenopathy. SKELETON AND BODY WALL Interval anterior abdominal wall midline laparotomy scar. Diffuse subcutaneous edema of the body wall consistent with anasarca. LOWER THORAX Moderate bilateral low-density pleural effusions. Associated bilateral lower lobe dependent atelectasis. IMPRESSION: 1. The patient has undergone laparotomy in the interval since the prior study of 08/01/2024. No information is available as to the nature of the surgery or findings at the time of laparotomy. Please correlate with the patient`s surgical history in this regard. 2. Long segmental small bowel and proximal large bowel distension consistent with postoperative adynamic ileus given the clinical history. No transition point is identified to indicate a mechanical bowel obstruction. No abnormal bowel wall enhancement, wall thickening, intramural hemorrhage or pneumatosis intestinalis is identified to indicate mesenteric ischemia. Expected postsurgical small volume ascites and pneumoperitoneum. No circumscribed peripherally enhancing fluid collection is identified to indicate an abscess at this time. In-situ nasogastric tube. 3. Unchanged diffuse intrahepatic biliary ductal dilatation which could be due to reservoir effect status post cholecystectomy (the gallbladder is not identified and is presumed to be surgically absent). Increasing caliber of the extrahepatic bile duct which measures 13 mm (2; 39). Correlation with serum biochemistry is recommended. If abnormal, gastroenterology consultation is recommended. 4. New bilateral moderate sized dependent low-density pleural effusions. 5. Incidental findings as above. Please note that all CT scans at this facility use dose modulation, iterative reconstruction, and/or weight-based dosing when appropriate to reduce radiation dose to as low as reasonably achievable. Dictated by Jayme Urias MD @ 08/07/2024 1:14:50 PM (Electronically Signed)
[2024-08-07] MEDS: LORazepam 2 MG/ML inj 0.25 MG IVP (11:42)
[2024-08-07 11:58] LABS: Basophils Percent Auto 0.2 % (0.0-3.0); Eosinophils Percent Auto 1.5 % (0.0-7.0); Immature Granulocytes Pct Auto 1.5 %; Lymphocytes Percent Auto 19.6 % (20-44); Mean Corpuscular HGB Conc 32 gm/dL (32-36); Mean Corpuscular Hemoglobin 30 pg (26-34); Mean Corpuscular Volume 93 fL (80-100); Monocytes Percent Auto 17.2 % (0.0-11.0); Platelet Count* 274 K/uL (140-440); RDW Coefficient of Variation % 13.8 % (11.5-15.5); White Blood Count* 4.13 K/uL (4.50-11.00)
--- NOTE | 2024-08-07 12:04 | CRLHL7_ITS ---
For Patients: As a result of the Century Cures Act, medical imaging exams and procedure reports are released immediately into your electronic medical record. You may view this report before your referring provider. If you have questions, please contact your health care provider. INDICATION: Confirm NG tube placement COMPARISON: Same day CT TECHNIQUE: 1 view abdomen, supine. FINDINGS: Devices: Enteric tube over the gastric bubble in the left upper quadrant Mild stool. No dilated bowel. Dilated bowel with air-fluid levels across the upper abdomen. Small left pleural effusion. Midline surgical lalitha. Excreted contrast in both renal collecting systems. IMPRESSION: The enteric tube is in radiographically good position. Dictated by Barbara Rabago MD @ 08/07/2024 1:22:55 PM (Electronically Signed)
[2024-08-07 12:17] LABS: Slide Review Reflex No
[2024-08-07 13:25] LABS: INR 2.56 (0.91-1.10)
[2024-08-07 14:11] LABS: C Reactive Protein* 5.2 mg/dL (0.5-1.0)
--- NOTE | 2024-08-07 14:52 | PM.GSPN ---
Subjective Subjective Date Seen: 08/07/24 Interval history: Patient had an episode of atrial fibrillation with RVR today. This was controlled with metoprolol. Patient feels like her abdominal pain is not changed from yesterday. She does have pain in the abdomen and pain medication is helping. She is not increasing the frequency of her pain medications significantly. She continues to pass gas and had small bowel movement today. Exam Narrative: Exam Narrative: abdomen: Slightly distended but softer and less distended than yesterday, midline incision with intact lalitha with erythema at the inferior most aspect of the incision. Patient had tenderness to palpation on the left side of the abdomen but not on the right side or epigastrium. No peritoneal signs. Const: Vital Signs, click to edit/add: Vital Signs - 24 hr 08/06/24 15:00 08/06/24 15:00 08/06/24 15:00 Temperature Pulse Rate 80 Pulse Rate [Pulse Oximeter] 86 86 Respiratory Rate 16 18 Blood Pressure [Le ft Arm] 109/79 Blood Pressure [Ri ght Arm] Pulse Oximetry [facility] 08/06/24 19:00 08/06/24 23:00 08/06/24 23:00 Temperature 97.2 F L Pulse Rate 78 Pulse Rate [Pulse Oximeter] 83 82 Respiratory Rate 18 18 Blood Pressure [Le ft Arm] Blood Pressure [Ri ght Arm] 118/79 Pulse Oximetry 93 [facility] 08/06/24 23:00 08/07/24 05:00 08/07/24 07:20 Temperature 97 F L 97.9 F Pulse Rate 106 H Pulse Rate [Pulse Oximeter] 82 110 H Respiratory Rate 18 18 Blood Pressure [Le ft Arm] 117/77 Blood Pressure [Ri ght Arm] 112/75 Pulse Oximetry 92 93 [facility] 08/07/24 08:29 08/07/24 09:50 08/07/24 10:19 Temperature 97.4 F L Pulse Rate 83 Pulse Rate [Pulse Oximeter] 108 H 125 H Respiratory Rate 20 Blood Pressure [Le ft Arm] 101/76 104/79 Blood Pressure [Ri ght Arm] Pulse Oximetry 94 [facility] 08/07/24 12:14 Temperature 97.8 F Pulse Rate Pulse Rate [Pulse Oximeter] 83 Respiratory Rate 18 Blood Pressure [Le ft Arm] 112/69 Blood Pressure [Ri ght Arm] Pulse Oximetry 93 Oxygen Delivery Me thod Room Air Progress Note:A&P Assessment and plan (1) S/P exploratory laparotomy: Status: Acute Plan 79-year-old female s/p 6 was laparotomy with lysis of adhesions POD 6. In the morning there was a concern with abdomen being more distended and patient having an episode with AFib with RVR. An NG tube was recommended and was placed today. Small amount of bilious fluid is suctioned from NG tube. A repeat abdominal CT was obtained that showed dilated small intestine and ascending colon. There are several foci of free air in the anterior abdomen that was thought to be postsurgical. I discussed her CT scan with the radiologist and he felt this is most likely to be post surgical and not an injury to the bowel. Patient's WBC is low with no neutrophilia. Patient's CRP is 5. I discussed with the patient and her family the CT findings. Patient's exam is fairly benign to be concerned about a bowel injury. However, she had extensive lysis of adhesions. I discussed with the patient and her daughter Alena that at this time we would continue watching her and follow her labs and her clinical exam. We will place her on IV antibiotics for surgical site infection in the inferior incision. Will also place an order for PICC line and TPN to be started as soon as possible given the length of time she was without nutrition. All questions were answered.
[2024-08-07 16:21] LABS: Albumin* 2.8 g/dL (3.3-5.0); Chloride* 105 mmol/L (96-114); Potassium* 3.7 mmol/L (3.6-5.1); Sodium* 134 mmol/L (135-149)
[2024-08-07 16:23] LABS: Bilirubin Total* 0.7 mg/dL (0.1-1.5); Creatinine* 0.7 mg/dL (0.5-1.5); Est. Creatinine Clearance* 47.53; Estimated Glomerular Filt Rate 89 ml/min
[2024-08-07 16:24] LABS: Alanine Aminotransferase* 41 U/L (4-35); Alkaline Phosphatase* 191 U/L (40-150); Anion Gap 4 mEq/L (7-15); Aspartate Amino Transferase* 59 U/L (12-35); Blood Urea Nitrogen* 16 mg/dL (7-30); Carbon Dioxide* 25 mmol/L (20-32); Glucose* 93 mg/dL (60-115); Total Protein* 5.1 g/dL (6.0-8.3)
[2024-08-07 16:25] LABS: Calcium* 6.9 mg/dL (8.4-10.6); Phosphorus* 2.2 mg/dL (2.5-4.5); Triglycerides* 128 mg/dL (40-149)
[2024-08-07] MEDS: PIPERACILLIN/TAZOBACTAM 3.375 GM in 0.9 % SODIUM CHLORIDE Mini-bag 100 ML IVPB ×2 (16:25→21:54)
[2024-08-07 16:27] LABS: C Reactive Protein* 5.2 mg/dL (0.5-1.0)
[2024-08-07 16:33] LABS: Basophils Percent Auto 0.3 % (0.0-3.0); Eosinophils Percent Auto 1.2 % (0.0-7.0); Hematocrit 34.4 % (33.0-51.0); Hemoglobin* 11.1 gm/dL (12.0-16.0); Immature Granulocytes Pct Auto 2.1 %; Lymphocytes Percent Auto 14.5 % (20-44); Mean Corpuscular HGB Conc 32 gm/dL (32-36); Mean Corpuscular Hemoglobin 30 pg (26-34); Mean Corpuscular Volume 93 fL (80-100); Monocytes Percent Auto 15.6 % (0.0-11.0); Neutrophils Percent Auto 66.3 % (42.0-72.0); Platelet Count* 255 K/uL (140-440); RDW Coefficient of Variation % 13.9 % (11.5-15.5); Red Blood Count 3.71 m/uL (4.00-5.20); White Blood Count* 3.39 K/uL (4.50-11.00)
[2024-08-07 16:42] LABS: Slide Review Reflex No
--- NOTE | 2024-08-07 16:55 | P.IMPN_ITS ---
Progress Note: A&P Assessment and plan (1) S/P exploratory laparotomy: Problem details: - 08/01/2024 exploratory laparotomy with extensive lysis of adhesions for high grade SBO - 08/03 continue NG tube to LIS, awaiting return of bowel function - 08/04 large amount flatus yesterday, NGT out today - 08/05 sips of clears going well, but bloated today. Discussed with Dr. Abraham. Advancing to clears with option of yogurt. - 08/06 more distended, continue sips. Discussed with Dr. Abraham. - 08/07 remains distended. Had episode of afib with RVR today. Discussed with Dr. Abraham. Placed NGT to LIS, obtained CT abd/pelvis which showed adynamic ileus. PICC and TPN ordered. Status: Acute (2) Atrial fibrillation with RVR: Problem details: - 08/07 resolved with one dose of metoprolol 5 mg IV. Due to being NPO for ileus, will start scheduled IV metoprolol, also has amiodorone on board from being on it chronically, okay to hold that while NPO. Also holding po diltiazem Status: Acute (3) SVT (supraventricular tachycardia): Problem details: - this was potentially atrial fibrillation with RVR, however with a rate of 183, and the regularity of the heart rate on the EKG at the time is more suspicious for SVT - 08/03 resolved with metoprolol and then amiodarone. Patient is on amiodarone chronically, however the doses low and she may not be absorbing this currently because of the SBO. The half life is fairly long however so it is unlikely that her levels dropped too much, but since she is on a low-dose chronically, she may benefit from an increase in her dose. Will increase amiodarone to 200 mg daily. - 08/06 no further SVT Status: Suspected (4) Paroxysmal atrial fibrillation: Problem details: -as above Status: Acute (5) Chronic anticoagulation: Problem details: - INR improved. Restart warfarin at lower dose. Continue daily INR monitoring Status: Acute (6) Aortic stenosis: Problem details: mild, new murmur (worsened by acute illness?) echo reassuring - would have her f/u with domestic helper outpatient Status: Acute Time Spent With Patient Total time spent: Today I spent 70 minutes seeing the patient, discussions with Dr. Abraham, reviewing Expanse and EPIC notes/diagnostics/labs, discussing the care plan with our care team that includes social work, PT/OT, pharmacy, Nutrition, RT, correction and documenting my impressions and plan in the medical record. Subjective Time Seen by Provider: 07:56 Date Seen: 08/07/24 Interval history: Shabnam's daughter, Maryjo, was in the room with her this morning. Maryjo notes Clary is perkier than she has been. Clary notes that oxycodone made her feel very fatigued, but dilaudid doesn't seem to have that same effect. She still has no appetite. Abdomen still feels bloated. Only has flatus with ambulation. Exam Narrative: Exam Narrative: General: No acute distress. Awake, alert, oriented x3. No pallor. No jaundice. Oropharynx: Clear. Mucous membranes dry. Cardiovascular: Regular rate and rhythm. No murmurs, gallops, or rubs. Respiratory: Clear to auscultation bilaterally. No wheezes or crackles. Abdomen: Bowel sounds present. Distended, nontender, mild erythema at the inferior surgical wound, no induration. Extremities: Trace lower extremity edema, left more than right. Const: Vital Signs, click to edit/add: Vital Signs - 24 hr 08/06/24 19:00 08/06/24 23:00 08/06/24 23:00 Temperature 97.2 F L Pulse Rate 78 Pulse Rate [Pulse Oximeter] 83 82 Respiratory Rate 18 18 Blood Pressure [Le ft Arm] Blood Pressure [Ri ght Arm] 118/79 Pulse Oximetry 93 Oxygen Delivery Me thod Room Air 08/06/24 23:00 08/07/24 05:00 08/07/24 07:20 Temperature 97 F L 97.9 F Pulse Rate 106 H Pulse Rate [Pulse Oximeter] 82 110 H Respiratory Rate 18 18 Blood Pressure [Le ft Arm] 117/77 Blood Pressure [Ri ght Arm] 112/75 Pulse Oximetry 92 93 Oxygen Delivery Me thod Room Air Room Air 08/07/24 08:29 08/07/24 09:50 08/07/24 10:19 Temperature 97.4 F L Pulse Rate 83 Pulse Rate [Pulse Oximeter] 108 H 125 H Respiratory Rate 20 Blood Pressure [Le ft Arm] 101/76 104/79 Blood Pressure [Ri ght Arm] Pulse Oximetry 94 Oxygen Delivery Me thod Room Air 08/07/24 12:14 08/07/24 15:42 08/07/24 15:47 Temperature 97.8 F 97.6 F Pulse Rate Pulse Rate [Pulse Oximeter] 83 81 81 Respiratory Rate 18 18 18 Blood Pressure [Le ft Arm] 112/69 109/68 Blood Pressure [Ri ght Arm] Pulse Oximetry 93 92 Oxygen Delivery Me thod Room Air Room Air Labs Labs: Laboratory Results - last 24 hr 08/06/24 08/07/24 08/07/24 16:02 06:13 11:44 WBC 4.13 L RBC 4.00 Hgb 12.0 Hct 37.0 MCV 93 MCH 30 MCHC 32 RDW Coeff of Xavi 13.8 Plt Count 274 Neut % (Auto) 60.0 Lymph % (Auto) 19.6 L [place] % (Auto) 17.2 H Eos % (Auto) 1.5 Baso % (Auto) 0.2 Neut # (Auto) 2.50 Lymph # (Auto) 0.80 L [place] # (Auto) 0.70 Eos # (Auto) 0.10 Baso # (Auto) 0.00 Abs Immat Gran (auto) 0.10 Imm/Tot Granulo (auto) 1.5 INR 2.56 H Sodium 133 L 134 L Potassium 3.9 3.8 Chloride 103 105 Carbon Dioxide 23 23 Anion Gap 7 6 L BUN 15 17 Creatinine 0.7 0.6 Estimated Creat Clear 47.53 47.53 Estimated GFR 89 92 Glucose 120 H 97 Calcium 7.4 L 7.0 L Phosphorus Magnesium 2.1 2.1 Total Bilirubin AST ALT Alkaline Phosphatase C-Reactive Protein 5.2 H Total Protein Albumin Triglycerides 08/07/24 16:00 WBC 3.39 L RBC 3.71 L Hgb 11.1 L Hct 34.4 MCV 93 MCH 30 MCHC 32 RDW Coeff of Xavi 13.9 Plt Count 255 Neut % (Auto) 66.3 Lymph % (Auto) 14.5 L [place] % (Auto) 15.6 H Eos % (Auto) 1.2 Baso % (Auto) 0.3 Neut # (Auto) 2.20 Lymph # (Auto) 0.50 L [place] # (Auto) 0.50 Eos # (Auto) 0.00 Baso # (Auto) 0.00 Abs Immat Gran (auto) 0.10 Imm/Tot Granulo (auto) 2.1 INR 2.56 Sodium 134 L Potassium 3.7 Chloride 105 Carbon Dioxide 25 Anion Gap 4 L BUN 16 Creatinine 0.7 Estimated Creat Clear 47.53 Estimated GFR 89 Glucose 93 Calcium 6.9 L Phosphorus 2.2 L Magnesium Total Bilirubin 0.7 AST 59 H ALT 41 H Alkaline Phosphatase 191 H C-Reactive Protein 5.2 H Total Protein 5.1 L Albumin 2.8 L Triglycerides 128 Ordering Physician: Kristin Granados M.D. Date of Service: 08/07/24 Procedure(s): CT abdomen pelvis w con Accession Number(s): [id number] cc: Iza Ayon M.D.; Kristin Granados M.D.~ For Patients: As a result of the Cures Act, medical imaging exams and procedure reports are released immediately into your electronic medical record. You may view this report before your referring provider. If you have questions, please contact your health care provider. INDICATION: ILEUS, MORE DISTENTION, TACHY, RECENT SBO, PROLONGED SURGERY. (Sic) COMPARISON: 08/01/2024 TECHNIQUE: CT of the abdomen and pelvis with 91 cc of Isovue 370 intravenous contrast. Please note that all CT scans at this facility use dose modulation, iterative reconstruction, and/or weight-based dosing when appropriate to reduce radiation dose to as low as reasonably achievable. FINDINGS: ABDOMEN Liver: Normal contour and attenuation. No significant focal lesion. Unchanged diffuse intrahepatic biliary ductal dilatation which could be due to reservoir effect status post cholecystectomy. Patent portal veins. Patent hepatic veins. Gallbladder: Not seen, presumably surgically absent. Please correlate with patient`s clinical history. Increasing caliber of the extrahepatic bile duct which measures 13 mm (2; 39). Correlation with serum biochemistry is recommended. If abnormal, gastroenterology consultation is recommended. Pancreas: Normal contour and attenuation. No peripancreatic inflammatory changes. No significant focal lesion. Normal main duct caliber. Spleen: Not enlarged. No significant focal lesion. Patent splenic artery and vein. Adrenal Glands: Symmetrical adrenal glands. No significant focal lesion. Kidneys: Normal bilateral renal attenuation. No significant focal lesion. No nephrolith. No dilatation of the intrarenal collecting systems. No ureteral stone. Nondilated ureters. Patent renal arteries and veins. Gastrointestinal tract: A nasogastric tube is present with its tip in the lumen of the upper gastric body. Long segmental small bowel and proximal large bowel distension consistent with postoperative adynamic ileus given the clinical history. Unseen appendix. Possible abnormal position of the duodenojejunal junction which, if present, is consistent with congenital/developmental midgut malrotation. The precise location of the ligament of Treitz is difficult to identify. Please correlate with surgical findings at the time of laparotomy. Vascular: Chronic mild aortoiliac atherosclerotic mural calcification. Abdominal aorta and its major proximal branches including the celiac, superior mesenteric, inferior mesenteric, renal, and bilateral common iliac arteries are patent. Patent superior mesenteric vein. Peritoneal Cavity/Retroperitoneum: Small volume ascites and pneumoperitoneum presumably postsurgical in nature. No adenopathy. PELVIS No bladder lesion is identified. Hysterectomy. Small volume ascites. No adenopathy. SKELETON AND BODY WALL Interval anterior abdominal wall midline laparotomy scar. Diffuse subcutaneous edema of the body wall consistent with anasarca. LOWER THORAX Moderate bilateral low-density pleural effusions. Associated bilateral lower lobe dependent atelectasis. IMPRESSION: 1. The patient has undergone laparotomy in the interval since the prior study of 08/01/2024. No information is available as to the nature of the surgery or findings at the time of laparotomy. Please correlate with the patient`s surgical history in this regard. 2. Long segmental small bowel and proximal large bowel distension consistent with postoperative adynamic ileus given the clinical history. No transition point is identified to indicate a mechanical bowel obstruction. No abnormal bowel wall enhancement, wall thickening, intramural hemorrhage or pneumatosis intestinalis is identified to indicate mesenteric ischemia. Expected postsurgical small volume ascites and pneumoperitoneum. No circumscribed peripherally enhancing fluid collection is identified to indicate an abscess at this time. In-situ nasogastric tube. 3. Unchanged diffuse intrahepatic biliary ductal dilatation which could be due to reservoir effect status post cholecystectomy (the gallbladder is not identified and is presumed to be surgically absent). Increasing caliber of the extrahepatic bile duct which measures 13 mm (2; 39). Correlation with serum biochemistry is recommended. If abnormal, gastroenterology consultation is recommended. 4. New bilateral moderate sized dependent low-density pleural effusions. 5. Incidental findings as above. Please note that all CT scans at this facility use dose modulation, iterative reconstruction, and/or weight-based dosing when appropriate to reduce radiation dose to as low as reasonably achievable. Dictated by Jayme Urias MD @ 08/07/2024 1:14:50 PM (Electronically Signed) Ordering Physician: Jonathan Abraham M.D. Date of Service: 08/07/24 Procedure(s): XR abdomen 1V Accession Number(s): [id number] cc: Jonathan Abraham M.D.; Iza Ayon M.D.~ For Patients: As a result of the Cures Act, medical imaging exams and procedure reports are released immediately into your electronic medical record. You may view this report before your referring provider. If you have questions, please contact your health care provider. INDICATION: Confirm NG tube placement COMPARISON: Same day CT TECHNIQUE: 1 view abdomen, supine. FINDINGS: Devices: Enteric tube over the gastric bubble in the left upper quadrant Mild stool. No dilated bowel. Dilated bowel with air-fluid levels across the upper abdomen. Small left pleural effusion. Midline surgical lalitha. Excreted contrast in both renal collecting systems. IMPRESSION: The enteric tube is in radiographically good position. Dictated by Barbara Rabago MD @ 08/07/2024 1:22:55 PM (Electronically Signed)
[2024-08-07] MEDS: WARFARIN 2 MG TABLET PO (17:19)
--- NOTE | 2024-08-07 19:00 | CRLHL7_ITS ---
For Patients: As a result of the Century Cures Act, medical imaging exams and procedure reports are released immediately into your electronic medical record. You may view this report before your referring provider. If you have questions, please contact your health care provider. INDICATION: PICC placement TECHNIQUE: Chest radiograph 1 view COMPARISON: None FINDINGS: Mediastinum: The mediastinum is normal in appearance. Right PICC line is present with tip in the SVC approximately 2.5 cm proximal to the cavoatrial junction. NG tube is present with tip in the gastric cardia. Lung: Small lung volumes are present with bibasilar ground-glass opacities are present which may be due to atelectasis or edema. Small bilateral pleural effusions are noted. No pneumothorax is identified. Bone and Soft tissue: Unremarkable for age. IMPRESSION: 1. Right PICC line is present with tip in the SVC approximately 2.5 cm proximal to the cavoatrial junction. Please note that radiographic measurements may be accentuated by the inherent magnification in radiography. Dictated by Bear Johnson MD @ 08/07/2024 7:16:11 PM Dictated by: Bear Johnson MD @ 08/07/2024 19:16:12 (Electronically Signed)
--- NOTE | 2024-08-07 22:38 | PC.NURSE ---
End of Shift: Patient pleasant and cooperative, A&O. VSS, afebrile. SpO2 maintained above 90% on RA. Dressing on abdomen does have some surrounding redness, MD aware. Patient reports pain in her abdomen this shift, managed with PRN medication, see NITHYA. MRALEE to PHONG. PICC placed this shift. 1A with walker and gait belt. NPO.
[2024-08-08] VITALS (13 sets, daily range): BP systolic 96–130; BP diastolic 61–85; PULSE 68–89; RESP 14–18; TEMP 36.3–37; O2SAT 90–97
[2024-08-08] MEDS: METOPROLOL TARTRATE 1 MG/ML inj 5 MG IVP ×4 (00:25→18:03)
[2024-08-08] MEDS: PIPERACILLIN/TAZOBACTAM 3.375 GM in 0.9 % SODIUM CHLORIDE Mini-bag 100 ML IVPB ×4 (03:52→22:32)
[2024-08-08] MEDS: LACTATED RINGERS 1000 ML 1,000 ML 75 ML IV (06:26)
--- NOTE | 2024-08-08 06:55 | PC.NURSE ---
End of shift [id number]: Pt AxOx4, cooperative, and pleasant. LR running @ 75. NG tube verified, low intermittent suction. Pt SBA to the bathroom, tolerated well. Pt wound remains CDI, slight redness around incision site noted. Pt denies pain, nausea, SOB, CP during shift. Pt appears resting with call light in reach. SpO2 maintained above 90% on RA. Tolerating NPO diet well. Pt appears resting with call light in reach.
[2024-08-08 07:00] LABS: Chloride* 105 mmol/L (96-114)
[2024-08-08 07:01] LABS: Albumin* 2.5 g/dL (3.3-5.0); Potassium* 3.6 mmol/L (3.6-5.1); Sodium* 135 mmol/L (135-149)
[2024-08-08 07:03] LABS: Anion Gap 7 mEq/L (7-15); Carbon Dioxide* 23 mmol/L (20-32); Creatinine* 0.7 mg/dL (0.5-1.5); Est. Creatinine Clearance* 47.53; Estimated Glomerular Filt Rate 89 ml/min
[2024-08-08 07:04] LABS: Alanine Aminotransferase* 36 U/L (4-35); Alkaline Phosphatase* 152 U/L (40-150); Aspartate Amino Transferase* 45 U/L (12-35); Bilirubin Total* 0.6 mg/dL (0.1-1.5); Blood Urea Nitrogen* 13 mg/dL (7-30); Calcium* 6.7 mg/dL (8.4-10.6); Glucose* 72 mg/dL (60-115); Phosphorus* 2.1 mg/dL (2.5-4.5); Total Protein* 4.6 g/dL (6.0-8.3)
[2024-08-08 07:05] LABS: Magnesium* 2.1 mg/dL (1.5-2.6)
[2024-08-08 07:13] LABS: INR 2.36 (0.91-1.10); Prothrombin Time 27.6 Seconds
[2024-08-08] MEDS: HYDROmorphone 0.5 mg/0.5 ml inj IVP ×4 (08:02→22:40)
--- NOTE | 2024-08-08 09:37 | P.IMPN_ITS ---
Progress Note: A&P Assessment and plan (1) S/P exploratory laparotomy: Problem details: - 08/01/2024 exploratory laparotomy with extensive lysis of adhesions for high grade SBO - 08/03 continue NG tube to LIS, awaiting return of bowel function - 08/04 large amount flatus yesterday, NGT out today - 08/05 sips of clears going well, but bloated today. Discussed with Dr. Abraham. Advancing to clears with option of yogurt. - 08/06 more distended, continue sips. Discussed with Dr. Abraham. - 08/07 remains distended. Had episode of afib with RVR today. Discussed with Dr. Abraham. Placed NGT to LIS, obtained CT abd/pelvis which showed adynamic ileus. PICC and TPN ordered -08/08 TPN to start today, encouraged ambulation. CRP downtrending Status: Acute (2) Atrial fibrillation with RVR: Problem details: - 08/07 resolved with one dose of metoprolol 5 mg IV. Due to being NPO for ileus, will start scheduled IV metoprolol, also has amiodorone on board from being on it chronically, okay to hold that while NPO. Also holding po diltiazem -IV metoprolol 5 mg q.6 hours scheduled. Holding oral diltiazem and amiodarone while NPO Status: Acute (3) SVT (supraventricular tachycardia): Problem details: - this was potentially atrial fibrillation with RVR, however with a rate of 183, and the regularity of the heart rate on the EKG at the time is more suspicious for SVT - 08/03 resolved with metoprolol and then amiodarone. Patient is on amiodarone chronically, however the doses low and she may not be absorbing this currently because of the SBO. The half life is fairly long however so it is unlikely that her levels dropped too much, but since she is on a low-dose chronically, she may benefit from an increase in her dose. Will increase amiodarone to 200 mg daily. - 08/06 no further SVT Status: Suspected (4) Paroxysmal atrial fibrillation: Problem details: -as above Status: Acute (5) Chronic anticoagulation: Problem details: - INR improved. Restart warfarin at lower dose. Continue daily INR monitoring -INR 2.36 on 08/08, resume warfarin, pharmacy managing -TPN starting 08/08 Status: Acute (6) Aortic stenosis: Problem details: mild, new murmur (worsened by acute illness?) echo reassuring - would have her f/u with slipman outpatient Status: Acute (7) Hypocalcemia: Problem details: -Ca 6.7, Ionized 0.99. Albumin 2.5 -discussed with Dr. Abraham, replace with 1g CaGluconate Status: Acute (8) Hypophosphatemia: Problem details: -phos 2.1 -discussed with Dr. Abraham, replace with 15mmol KPhos Status: Acute (9) Transaminitis: Problem details: -AST 45, ALT 36, Alk phos 152. Improving postoperatively Status: Acute Time Spent With Patient Total time spent: Total time spent caring for the patient today was 45 minutes. This includes time spent for the visit reviewing the chart, time spent during the visit, time spent after the visit and documentation and planning in coordination of care. Subjective Date Seen: 08/08/24 Interval history: Patient is seen sitting up in a chair this morning. Reports feeling better than yesterday. NGT is back in place. She will be starting TPN. Denies headache or dizziness. No nausea. Abdominal pain somewhat improved, bandlike pain lessening. Exam Narrative: Exam Narrative: PHYSICAL EXAM General: Pleasant, conversant, NAD Cardiovascular: RRR, S1S2. No pitting edema Pulmonary: CTA bilaterally without rhonchi, rales, expiratory wheezes. No dyspnea Abdominal: Soft, mildly distended, mild tenderness Neurological: Alert, answering questions appropriately, cranial nerves intact, no focal findings Extremities: No gross joint deformity or swelling. AROMI. Neurovascularly intact Skin: Warm, dry. Const: Vital Signs, click to edit/add: Vital Signs - 24 hr 08/07/24 09:50 08/07/24 10:19 08/07/24 12:14 Temperature 97.8 F Pulse Rate 83 Pulse Rate [Pulse Oximeter] 125 H 83 Respiratory Rate 18 Blood Pressure [Le ft Arm] 104/79 112/69 Pulse Oximetry 93 Oxygen Delivery Me thod Room Air 08/07/24 15:42 08/07/24 15:47 08/07/24 19:00 Temperature 97.6 F 98.3 F Pulse Rate Pulse Rate [Pulse Oximeter] 81 81 80 Respiratory Rate 18 18 18 Blood Pressure [Le ft Arm] 109/68 117/75 Pulse Oximetry 92 [facility] 08/07/24 19:13 08/07/24 23:00 08/07/24 23:00 Temperature 98.2 F Pulse Rate 96 81 Pulse Rate [Pulse Oximeter] 84 Respiratory Rate 18 Blood Pressure [Le ft Arm] 102/62 Pulse Oximetry 91 [facility] 08/08/24 00:26 08/08/24 00:26 08/08/24 00:30 Temperature Pulse Rate Pulse Rate [Pulse Oximeter] 82 76 68 Respiratory Rate Blood Pressure [Le ft Arm] 106/63 102/61 96/62 Pulse Oximetry [facility] 08/08/24 03:00 08/08/24 06:10 08/08/24 06:18 Temperature 98 F Pulse Rate Pulse Rate [Pulse Oximeter] 81 81 72 Respiratory Rate 16 Blood Pressure [Le ft Arm] 111/69 119/70 116/67 Pulse Oximetry 91 Oxygen Delivery [facility] Room Air 08/08/24 06:21 08/08/24 07:27 08/08/24 07:58 Temperature 98.3 F Pulse Rate 75 Pulse Rate [Pulse Oximeter] 68 78 Respiratory Rate 18 Blood Pressure [Le ft Arm] 112/68 119/69 Pulse Oximetry 92 [facility] 08/08/24 07:58 Temperature Pulse Rate Pulse Rate [Pulse Oximeter] 78 Respiratory Rate 18 Blood Pressure [Le ft Arm] Pulse Oximetry Oxygen Delivery [facility] Labs Labs: Laboratory Results - last 24 hr 08/07/24 08/07/24 08/07/24 06:13 11:44 16:00 WBC 4.13 L 3.39 L RBC 4.00 3.71 L Hgb 12.0 11.1 L Hct 37.0 34.4 MCV 93 93 MCH 30 30 MCHC 32 32 RDW Coeff of Xavi 13.8 13.9 Plt Count 274 255 Neut % (Auto) 60.0 66.3 Lymph % (Auto) 19.6 L 14.5 L [place] % (Auto) 17.2 H 15.6 H Eos % (Auto) 1.5 1.2 Baso % (Auto) 0.2 0.3 Neut # (Auto) 2.50 2.20 Lymph # (Auto) 0.80 L 0.50 L [place] # (Auto) 0.70 0.50 Eos # (Auto) 0.10 0.00 Baso # (Auto) 0.00 0.00 Abs Immat Gran (auto) 0.10 0.10 Imm/Tot Granulo (auto) 1.5 2.1 INR 2.56 H Sodium 134 L Potassium 3.7 Chloride 105 Carbon Dioxide 25 Anion Gap 4 L BUN 16 Creatinine 0.7 Estimated Creat Clear 47.53 Estimated GFR 89 Glucose 93 Calcium 6.9 L Phosphorus 2.2 L Magnesium Total Bilirubin 0.7 AST 59 H ALT 41 H Alkaline Phosphatase 191 H C-Reactive Protein 5.2 H 5.2 H Total Protein 5.1 L Albumin 2.8 L Triglycerides 128 08/08/24 06:00 WBC RBC Hgb Hct MCV MCH MCHC RDW Coeff of Xavi Plt Count Neut % (Auto) Lymph % (Auto) [place] % (Auto) Eos % (Auto) Baso % (Auto) Neut # (Auto) Lymph # (Auto) [place] # (Auto) Eos # (Auto) Baso # (Auto) Abs Immat Gran (auto) Imm/Tot Granulo (auto) INR 2.36 H Sodium 135 Potassium 3.6 Chloride 105 Carbon Dioxide 23 Anion Gap 7 BUN 13 Creatinine 0.7 Estimated Creat Clear 47.53 Estimated GFR 89 Glucose 72 Calcium 6.7 L Phosphorus 2.1 L Magnesium 2.1 Total Bilirubin 0.6 AST 45 H ALT 36 H Alkaline Phosphatase 152 H C-Reactive Protein Total Protein 4.6 L Albumin 2.5 L Triglycerides
[2024-08-08 10:57] LABS: Ionized Calcium* 0.99 mmol/L (1.11-1.30)
[2024-08-08] MEDS: AA 5 %/CALCIUM/LYTES/DEXT 20 % 1,000 ML 40 ML IV (11:17)
--- NOTE | 2024-08-08 11:25 | P.GSPN_ITS ---
Subjective Subjective Date Seen: 08/08/24 Interval history: Patient did well overnight. Her urine output improved yesterday. NG put out 200 mL of bilious fluid yesterday. Patient states that her abdomen is minimally improved, she passed letter gas yesterday and passed some gas today. She ambulated several times yesterday. Denies any nausea or vomiting. Exam Narrative: Exam Narrative: Abdomen is still mildly distended but soft, minimal tenderness to palpation in bilateral lower quadrants, midline laparotomy incision is with intact lalitha, inferior incisional erythema is not as bright today. There is minimal hyperemia noted superior to the previously noted erythematous spot surrounding the lalitha. No obvious cellulitis. Const: Vital Signs, click to edit/add: Vital Signs - 24 hr 08/07/24 12:14 08/07/24 15:42 08/07/24 15:47 Temperature 97.8 F 97.6 F Pulse Rate Pulse Rate [Pulse Oximeter] 83 81 81 Respiratory Rate 18 18 18 Blood Pressure [Le ft Arm] 112/69 109/68 Pulse Oximetry 93 [facility] 08/07/24 19:00 08/07/24 19:13 08/07/24 23:00 Temperature 98.3 F 98.2 F Pulse Rate 96 Pulse Rate [Pulse Oximeter] 80 84 Respiratory Rate 18 18 Blood Pressure [Le ft Arm] 117/75 102/62 Pulse Oximetry 93 91 [facility] 08/07/24 23:00 08/08/24 00:26 08/08/24 00:26 Temperature Pulse Rate 81 Pulse Rate [Pulse Oximeter] 82 76 Respiratory Rate Blood Pressure [Le ft Arm] 106/63 102/61 Pulse Oximetry Oxygen Delivery Sd thod 08/08/24 00:30 08/08/24 03:00 08/08/24 06:10 Temperature 98 F Pulse Rate Pulse Rate [Pulse Oximeter] 68 81 81 Respiratory Rate 16 Blood Pressure [Le ft Arm] 96/62 111/69 119/70 Pulse Oximetry 91 [facility] 08/08/24 06:18 08/08/24 06:21 08/08/24 07:27 Temperature Pulse Rate 75 Pulse Rate [Pulse Oximeter] 72 68 Respiratory Rate Blood Pressure [Le ft Arm] 116/67 112/68 Pulse Oximetry Oxygen Delivery Me thod 08/08/24 07:58 08/08/24 07:58 08/08/24 10:57 Temperature 98.3 F 97.4 F L Pulse Rate Pulse Rate [Pulse Oximeter] 78 78 80 Respiratory Rate 18 18 16 Blood Pressure [Le ft Arm] 119/69 115/69 Pulse Oximetry 92 97 Oxygen Delivery Me thod Room Air Room Air Progress Note:A&P Assessment and plan (1) S/P exploratory laparotomy: Status: Acute Plan 79-year-old female s/p exploratory laparotomy POD 7. Patient's WBC remains low. Her hemoglobin is stable, her INR is therapeutic. Will start IV TPN as soon as it is available from the pharmacy. Patient had elevated liver function tests that could be due to intravascular hypovolemia. Repeat liver function tests are improving. For now will continue with NPO. If patient continues to improve tomorrow, possibly clamp NG tube and give her sips of Ensure. Patient was examined with my surgery partner who will be seeing the patient over the weekend.
[2024-08-08 11:52] LABS: C Reactive Protein* 4.7 mg/dL (0.5-1.0)
[2024-08-08] MEDS: CALCIUM GLUC 1,000MG/50 ML 1,000 MG/50 ML BAG 100 MG IVPB (17:15)
[2024-08-08] MEDS: WARFARIN 2 MG TABLET PO (17:27)
[2024-08-08] MEDS: POTASSIUM PHOSPHATES 15 MMOL in 0.9 % SODIUM CHLORIDE 500 ML 500 ML 101.33 MMOL IVPB (17:54)
--- NOTE | 2024-08-08 18:53 | PC.NURSE ---
Addendum entered by Gauri Barker RN 08/08/24 19:14: Tele=NSR. Original Note: End of Shift: Patient pleasant and cooperative. Patient vitally stable, lungs clear, BS WNL, IV running potassium phosphate at 100, and PICC running LR at 40 and TPN at 40. Patient rates back and abdominal pain at most 8/10 today, 0.5 of dilauded given x3. Patient SBA with walker. Patient has been up in chair and has walked the halls today multiple times. Patient urinating well and taking in some ice chips. NG drained 300 cc today. Midline incision C/D/I. Pitting edema +1 in left leg.
[2024-08-08] MEDS: 0.9 % SODIUM CHLORIDE 250 ml IV (23:05)
[2024-08-09] VITALS (12 sets, daily range): BP systolic 122–146; BP diastolic 75–95; PULSE 68–97; RESP 18; TEMP 36.3–36.8; O2SAT 91–97
[2024-08-09] MEDS: METOPROLOL TARTRATE 1 MG/ML inj 5 MG IVP ×5 (00:12→23:53)
--- NOTE | 2024-08-09 00:57 | CRLHL7_ITS ---
For Patients: As a result of the Century Cures Act, medical imaging exams and procedure reports are released immediately into your electronic medical record. You may view this report before your referring provider. If you have questions, please contact your health care provider. Indication: NG tube placement. Technique: Abdomen 1 view. Comparison: 08/07/2024. Findings/Impression: Enteric tube tip projects over the proximal stomach. The side-port is just distal to the gastroesophageal junction. Consider slight advancement. Bibasilar lung opacities, possibly atelectasis. Small left pleural effusion. The imaged bowel gas pattern is unremarkable. Skin lalitha overlie the mid abdomen. The osseous structures are unremarkable for age. Dictated by Osmin Pelaez MD @ 08/09/2024 1:26:14 AM (Electronically Signed)
--- NOTE | 2024-08-09 01:56 | CRLHL7_ITS ---
For Patients: As a result of the Century Cures Act, medical imaging exams and procedure reports are released immediately into your electronic medical record. You may view this report before your referring provider. If you have questions, please contact your health care provider. INDICATION: Check NG placement TECHNIQUE: Abdominal radiograph 1 view COMPARISON: 08/09/2024, 08/07/2024, 08/02/2024 FINDINGS: Bowel: The bowel gas pattern is normal without evidence of bowel obstruction but most of the lower abdomen and pelvis are excluded. NG tube present with tip in the gastric body. Soft tissue: No evidence of pneumoperitoneum present. No suspicious calcifications noted. Midline skin lalitha are noted. Bone: Unremarkable for age. IMPRESSION: 1. NG tube present with tip in the gastric body with sideport just beyond the GE junction. Dictated by: Bear Johnson MD @ 08/09/2024 02:22:19 (Electronically Signed)
[2024-08-09] MEDS: HYDROmorphone 0.5 mg/0.5 ml inj IVP ×5 (01:58→23:53)
[2024-08-09] MEDS: PIPERACILLIN/TAZOBACTAM 3.375 GM in 0.9 % SODIUM CHLORIDE Mini-bag 100 ML IVPB ×4 (04:30→21:53)
[2024-08-09] MEDS: AA 5 %/CALCIUM/LYTES/DEXT 20 % 1,000 ML 80 ML IV ×2 (05:30→18:21)
--- NOTE | 2024-08-09 06:24 | PC.NURSE ---
Addendum entered by Margaret Schmidt RN 08/09/24 06:59: At 0647 Pt reported I do not know if it is my chest or upper back that is hurting me right now. Cleaning Team Member palpated back and chest area, Pt reported pain in the upper back but felt like it is apart of my chest bone. Cleaning Team Member reported to charge. EKG complete. Cleaning Team Member repositioned Pt, placed an aquaK pad under upper back. Awaiting MD at shift change for further intervention. Continuing to monitor. Original Note: End of shift [id number]: Pt AxOx4, cooperative, and pleasant. PICC running TPN @ 80. Pt reported back pain, abdominal pain, NG tube pain (when advancing). See MAR, PRN Dilaudid given. Pt up in halls walking with BEAR during the evening, tolerated well. Passing flatus. Cleaning Team Member checked ph readin.0 and 6.5. Reported to MD via telehealth. Xray ordered showing slight advancement needed. MD order to advance 1-2inches. Repeat Xray ordered showing correct placement. Pt continent of the bladder. SBA 4WW. Tolerating ice chips well. Family visited this evening. NG patent and draining. Midline incision remaining CDI, redness noted around site. Pt appears resting with call light in reach. ?
[2024-08-09 06:45] LABS: Chloride* 104 mmol/L (96-114); Potassium* 3.4 mmol/L (3.6-5.1); Sodium* 135 mmol/L (135-149)
[2024-08-09 06:48] LABS: Creatinine* 0.6 mg/dL (0.5-1.5); Est. Creatinine Clearance* 47.53; Estimated Glomerular Filt Rate 92 ml/min
[2024-08-09 06:49] LABS: Anion Gap 5 mEq/L (7-15); Blood Urea Nitrogen* 11 mg/dL (7-30); Carbon Dioxide* 26 mmol/L (20-32); Glucose* 136 mg/dL (60-115); Phosphorus* 1.9 mg/dL (2.5-4.5)
[2024-08-09 06:50] LABS: Calcium* 7.1 mg/dL (8.4-10.6)
[2024-08-09 06:52] LABS: C Reactive Protein* 2.6 mg/dL (0.5-1.0)
[2024-08-09 07:25] LABS: INR 3.08 (0.91-1.10); Prothrombin Time 34.2 Seconds
[2024-08-09] MEDS: lidocaine HCL 2 % JELLY (TOP) STERILE 6 ML UR (08:53)
--- NOTE | 2024-08-09 08:59 | PM.GSPN ---
Subjective Subjective Date Seen: 08/09/24 Interval history: Shabnam thinks that she is feeling better today, however she did not get much rest last night. Her NG tube needed to be advanced so she was awake getting multiple x-rays. Mainly has pain in her upper/mid back. She did have a normal bowel movement today. No nausea. Exam Narrative: Exam Narrative: General: No acute distress CV: Regular rate NG: output for the last 24 hours is 550. NG drainage appears bilious. Abdomen: Mildly distended. Minimally tender. Erythema around the incision is much more violaceous today. The inferior-most lalitha were removed and the wound open slightly. No purulence was encountered. This was packed with packing tape. Const: Vital Signs, click to edit/add: Vital Signs - 24 hr 08/08/24 10:57 08/08/24 15:00 08/08/24 15:00 Temperature 97.4 F L 98.6 F Pulse Rate Pulse Rate [Pulse Oximeter] 80 82 82 Respiratory Rate 16 14 14 Blood Pressure [Le ft Arm] 115/69 130/75 Pulse Oximetry 97 95 Oxygen Delivery Me thod Room Air 08/08/24 15:48 08/08/24 19:00 08/08/24 23:00 Temperature 97.9 F Pulse Rate 85 89 Pulse Rate [Pulse Oximeter] 89 Respiratory Rate 18 Blood Pressure [Le ft Arm] 109/85 Pulse Oximetry 90 Oxygen Delivery Me thod Room Air 08/09/24 00:10 08/09/24 00:16 08/09/24 00:18 Temperature 98.2 F Pulse Rate Pulse Rate [Pulse Oximeter] 88 79 75 Respiratory Rate 18 Blood Pressure [Le ft Arm] 134/81 128/81 128/77 Pulse Oximetry 92 Oxygen Delivery Me thod Room Air 08/09/24 03:00 08/09/24 05:35 08/09/24 05:40 Temperature 97.9 F Pulse Rate Pulse Rate [Pulse Oximeter] 68 89 82 Respiratory Rate 18 Blood Pressure [Le ft Arm] 130/88 137/84 127/80 Pulse Oximetry 91 Oxygen Delivery Me thod Room Air 08/09/24 05:40 Temperature Pulse Rate Pulse Rate [Pulse Oximeter] 77 Respiratory Rate Blood Pressure [Le ft Arm] 131/75 Pulse Oximetry Oxygen Delivery Me thod Labs/Imaging Labs Labs: Mild hypokalemia with potassium of 3.4. CRP is down today at 2.6 from 4.7. Progress Note:A&P Assessment and plan (1) Transaminitis: Status: Acute (2) Hypophosphatemia: Status: Acute (3) Hypocalcemia: Status: Acute (4) Atrial fibrillation with RVR: Status: Acute (5) SVT (supraventricular tachycardia): Status: Suspected (6) S/P exploratory laparotomy: Status: Acute (7) Chronic anticoagulation: Status: Acute (8) Wound cellulitis after surgery: Status: Acute Plan The patient is a 79-year-old female who is postop day 8 from exploratory laparotomy and extensive lysis of adhesions for bowel obstruction. -she has return of bowel function today, however, since NG tube was already replaced, we agreed upon a clamping trial today and she may also have clear liquids. -would continue TPN until it is clear she is tolerating liquids. -wound with erythema noted which appeared slightly worse today. This was opened at the bedside. No purulence was noted. This was packed. She will undergo daily packing changes for this. She is on Zosyn. Will switch to oral when she is reliably taking p.o.. -continue warfarin -continue ambulation and IS.
[2024-08-09 11:03] LABS: Hematocrit 33.1 % (33.0-51.0); Hemoglobin* 10.5 gm/dL (12.0-16.0); Mean Corpuscular HGB Conc 32 gm/dL (32-36); Mean Corpuscular Hemoglobin 30 pg (26-34); Mean Corpuscular Volume 93 fL (80-100); Platelet Count* 173 K/uL (140-440); Red Blood Count 3.55 m/uL (4.00-5.20); Slide Review Reflex No
[2024-08-09] MEDS: MAGNESIUM IV 2 GM/50 ML PIGGYBACK IVPB (11:03)
[2024-08-09] MEDS: POTASSIUM PHOSPHATES 15 MMOL in 0.9 % SODIUM CHLORIDE 500 ML 500 ML 101 MMOL IVPB (12:35)
--- NOTE | 2024-08-09 15:23 | PM.IMPN1 ---
Progress Note: A&P Assessment and plan (1) S/P exploratory laparotomy: Problem details: - 08/01/2024 exploratory laparotomy with extensive lysis of adhesions for high grade SBO - 08/03 continue NG tube to LIS, awaiting return of bowel function - 08/04 large amount flatus yesterday, NGT out today - 08/05 sips of clears going well, but bloated today. Discussed with Dr. Abraham. Advancing to clears with option of yogurt. - 08/06 more distended, continue sips. Discussed with Dr. Abraham. - 08/07 remains distended. Had episode of afib with RVR today. Discussed with Dr. Abraham. Placed NGT to LIS, obtained CT abd/pelvis which showed adynamic ileus. PICC and TPN ordered -08/08 TPN to start today, encouraged ambulation. CRP downtrending -08/09 continue TPN. NG clamped. Tolerating clears without nausea vomiting or pain. Followed by Dr. Diaz for the weekend Status: Acute (2) Atrial fibrillation with RVR: Problem details: - 08/07 resolved with one dose of metoprolol 5 mg IV. Due to being NPO for ileus, will start scheduled IV metoprolol, also has amiodorone on board from being on it chronically, okay to hold that while NPO. Also holding po diltiazem -IV metoprolol 5 mg q.6 hours scheduled. Holding oral diltiazem and amiodarone while NPO 08/09 will resume oral medications when tolerating advanced diet Status: Acute (3) SVT (supraventricular tachycardia): Problem details: - this was potentially atrial fibrillation with RVR, however with a rate of 183, and the regularity of the heart rate on the EKG at the time is more suspicious for SVT - 08/03 resolved with metoprolol and then amiodarone. Patient is on amiodarone chronically, however the doses low and she may not be absorbing this currently because of the SBO. The half life is fairly long however so it is unlikely that her levels dropped too much, but since she is on a low-dose chronically, she may benefit from an increase in her dose. Will increase amiodarone to 200 mg daily. - 08/06 no further SVT Status: Suspected (4) Paroxysmal atrial fibrillation: Problem details: -as above Status: Acute (5) Chronic anticoagulation: Problem details: - INR improved. Restart warfarin at lower dose. Continue daily INR monitoring -INR 2.36 on 08/08, resume warfarin, pharmacy managing -TPN starting 08/08 Status: Acute (6) Aortic stenosis: Problem details: mild, new murmur (worsened by acute illness?) echo reassuring - would have her f/u with assignment clerk outpatient Status: Acute (7) Hypocalcemia: Problem details: -Ca 6.7, Ionized 0.99. Albumin 2.5 -discussed with Dr. Abraham, replace with 1g CaGluconate 08/09 increased to 7.1, monitor Status: Acute (8) Hypophosphatemia: Problem details: -phos 2.1 -discussed with Dr. Abraham, replace with 15mmol KPhos 08/09 phosphorus 1.9. Will replace with 2nd dose 15 mmol K-Phos. Start oral replacement when tolerating advanced diet Status: Acute (9) Transaminitis: Problem details: -AST 45, ALT 36, Alk phos 152. Improving postoperatively Status: Acute Time Spent With Patient Total time spent: Total time spent caring for the patient today was 45 minutes. This includes time spent for the visit reviewing the chart, time spent during the visit, time spent after the visit and documentation and planning in coordination of care. Subjective Date Seen: 08/09/24 Interval history: Patient is seen sitting up in a chair this morning. Reports feeling well. NG has been clamped. Tolerating clears without nausea or vomiting. No increase in abdominal pain. Denies headache or dizziness. Denies chest pain or shortness of breath. Remains afebrile. Continues ambulating regularly throughout the day. Passing gas and did have a bowel movement today. Continues on TPN. Replacing Mag, phos, potassium. Exam Narrative: Exam Narrative: PHYSICAL EXAM General: Pleasant, conversant, NAD Cardiovascular: RRR, S1S2. No pitting edema Pulmonary: CTA bilaterally without rhonchi, rales, expiratory wheezes. No dyspnea on room air Abdominal: Soft, mildly distended, mild tenderness without significant change Neurological: Alert, answering questions appropriately, cranial nerves intact, no focal findings Extremities: No gross joint deformity or swelling. AROMI. Neurovascularly intact Skin: Warm, dry. Const: Vital Signs, click to edit/add: Vital Signs - 24 hr 08/08/24 15:48 08/08/24 19:00 08/08/24 23:00 Temperature 97.9 F Pulse Rate 85 89 Pulse Rate [Pulse Oximeter] 89 Respiratory Rate 18 Blood Pressure [Le ft Arm] 109/85 Pulse Oximetry 90 Oxygen Delivery Al thod Room Air 08/09/24 00:10 08/09/24 00:16 08/09/24 00:18 Temperature 98.2 F Pulse Rate Pulse Rate [Pulse Oximeter] 88 79 75 Respiratory Rate 18 Blood Pressure [Le ft Arm] 134/81 128/81 128/77 Pulse Oximetry 92 Oxygen Delivery Al thod Room Air 08/09/24 03:00 08/09/24 05:35 08/09/24 05:40 Temperature 97.9 F Pulse Rate Pulse Rate [Pulse Oximeter] 68 89 82 Respiratory Rate 18 Blood Pressure [Le ft Arm] 130/88 137/84 127/80 Pulse Oximetry 91 [facility] 08/09/24 05:40 08/09/24 07:00 08/09/24 07:00 Temperature 98 F Pulse Rate Pulse Rate [Pulse Oximeter] 77 77 96 Respiratory Rate 18 18 Blood Pressure [Le ft Arm] 131/75 123/79 Pulse Oximetry 96 Oxygen Delivery Al thod Room Air 08/09/24 07:00 08/09/24 11:00 Temperature 97.8 F Pulse Rate 92 Pulse Rate [Pulse Oximeter] 92 Respiratory Rate 18 Blood Pressure [Le ft Arm] 146/78 H Pulse Oximetry 96 Oxygen Delivery Al thod Room Air Labs Labs: Laboratory Results - last 24 hr 08/09/24 08/09/24 06:00 10:39 WBC 6.40 RBC 3.55 L Hgb 10.5 L Hct 33.1 MCV 93 MCH 30 MCHC 32 Plt Count 173 INR 3.08 H Sodium 135 Potassium 3.4 L Chloride 104 Carbon Dioxide 26 Anion Gap 5 L BUN 11 Creatinine 0.6 Estimated Creat Clear 47.53 Estimated GFR 92 Glucose 136 H Calcium 7.1 L Phosphorus 1.9 L Magnesium 2.0 C-Reactive Protein 2.6 H Lab Acknowledgement Test Added
[2024-08-09 16:41] LABS: Appearance Urine Clear (Clear); Bilirubin Urine Negative (Negative); Blood Urine Trace-intact (Negative); Color Urine Yellow (Yellow); Glucose Urine Negative (Negative); Ketones Urine Negative (Negative); Leukocyte Esterase Urine Negative (Negative); Nitrite Urine Negative (Negative); Protein Urine Negative (Negative); Specific Gravity Urine 1.025 (1.000-1.030); pH Urine 7.5 (5.0-8.5)
[2024-08-09 16:52] LABS: RBC Urine 0-2 (0-2); Squamous Epithelial Cell Urine Few (None-Few); WBC Urine 0-2 (0-5)
[2024-08-09 18:06] LABS: Prealbumin 8.4 mg/dL (20.0-40.0)
[2024-08-09] MEDS: FAT EMULSIONS 20 % 250 ML/250 ML BAG 14 ML IV (18:17)
--- NOTE | 2024-08-09 19:30 | PC.NURSE ---
Patient alert and orientedx4. Complains of 7/10 pain in the abdomen,headache and back. The patient states that the abdominal pain started when she started trying to drink some apple juice. Patient advised not to eat anything anymore. MD notified.PRN Dilaudid given which was effective. Patient Up in chair most of the shift and also ambulated to the bathroom and the hallway. Continues on TPN,Lipids. PICC site intact. Abdominal incision intact. Urine sample collected for UA as the patient was complaining of urine urgency and burning sensation. NG remains clamped this shift( 59 at the nare) . No nausea reported by patient. Family at bedside.
[2024-08-09] MEDS: 0.9 % SODIUM CHLORIDE 250 ml IV (21:58)
[2024-08-10 02:24] VITALS: BP 153/99; PULSE 87; RESP 18; TEMP 36.8; O2SAT 95
[2024-08-10] MEDS: PIPERACILLIN/TAZOBACTAM 3.375 GM in 0.9 % SODIUM CHLORIDE Mini-bag 100 ML IVPB ×4 (03:42→21:21)
[2024-08-10] MEDS: HYDROmorphone 0.5 mg/0.5 ml inj IVP ×6 (03:47→23:16)
[2024-08-10] MEDS: METOPROLOL TARTRATE 1 MG/ML inj 5 MG IVP ×3 (06:23→17:59)
[2024-08-10] MEDS: AA 5 %/CALCIUM/LYTES/DEXT 20 % 1,000 ML 80 ML IV (06:29)
[2024-08-10 06:56] LABS: Hematocrit 36.3 % (33.0-51.0); Hemoglobin* 11.7 gm/dL (12.0-16.0); Mean Corpuscular HGB Conc 32 gm/dL (32-36); Mean Corpuscular Hemoglobin 30 pg (26-34); Mean Corpuscular Volume 93 fL (80-100); Platelet Count* 222 K/uL (140-440); Red Blood Count 3.92 m/uL (4.00-5.20); White Blood Count* 8.48 K/uL (4.50-11.00)
[2024-08-10 07:00] VITALS: BP 126/87; PULSE 86; PULSE 87; RESP 18; TEMP 36.6; O2SAT 96
--- NOTE | 2024-08-10 07:09 | PC.NURSE ---
Shift note: Pt is alert and oriented. Continue to be on TPN. PICC line clean and patent. Peripheral line line patent and intact. SBA with walker to BR. Patient had urinary frequency tonight, no dysuria, burning or fever reported. Part of incision open to air, the remaining dry, clean and intact. Pain has been rated at 3-6 and PRN pain med given 3x tonight. NG tube in place in the right nare at 59cm. No oxygen required this shift.
[2024-08-10 07:13] LABS: INR 1.91 (0.91-1.10); Prothrombin Time 23.3 Seconds
[2024-08-10 07:15] LABS: Albumin* 2.8 g/dL (3.3-5.0); Chloride* 103 mmol/L (96-114)
[2024-08-10 07:16] LABS: Potassium* 3.8 mmol/L (3.6-5.1); Sodium* 134 mmol/L (135-149)
[2024-08-10 07:18] LABS: Creatinine* 0.6 mg/dL (0.5-1.5); Est. Creatinine Clearance* 47.53; Estimated Glomerular Filt Rate 92 ml/min
[2024-08-10 07:19] LABS: Alanine Aminotransferase* 27 U/L (4-35); Alkaline Phosphatase* 106 U/L (40-150); Anion Gap 5 mEq/L (7-15); Aspartate Amino Transferase* 33 U/L (12-35); Bilirubin Direct* 0.2 mg/dL (0.0-0.5); Bilirubin Total* 0.4 mg/dL (0.1-1.5); Blood Urea Nitrogen* 13 mg/dL (7-30); Calcium* 7.5 mg/dL (8.4-10.6); Carbon Dioxide* 26 mmol/L (20-32); Glucose* 100 mg/dL (60-115); Phosphorus* 2.6 mg/dL (2.5-4.5); Total Protein* 5.1 g/dL (6.0-8.3)
[2024-08-10 07:20] LABS: Magnesium* 2.2 mg/dL (1.5-2.6); Slide Review Reflex No
[2024-08-10 07:22] LABS: C Reactive Protein* 1.8 mg/dL (0.5-1.0)
--- NOTE | 2024-08-10 07:58 | P.IMPN_ITS ---
Progress Note: A&P Assessment and plan (1) S/P exploratory laparotomy: Problem details: - 08/01/2024 exploratory laparotomy with extensive lysis of adhesions for high grade SBO - 08/03 continue NG tube to LIS, awaiting return of bowel function - 08/04 large amount flatus yesterday, NGT out today - 08/05 sips of clears going well, but bloated today. Discussed with Dr. Abraham. Advancing to clears with option of yogurt. - 08/06 more distended, continue sips. Discussed with Dr. Abraham. - 08/07 remains distended. Had episode of afib with RVR today. Discussed with Dr. Abraham. Placed NGT to LIS, obtained CT abd/pelvis which showed adynamic ileus. PICC and TPN ordered -08/08 TPN to start today, encouraged ambulation. CRP downtrending -08/09 continue TPN. NG clamped. Tolerating clears without nausea vomiting or pain. Followed by Dr. Diaz for the weekend. -08/10 evaluated by General surgery, okay to resume clears in small amounts, after episode of cramping pain last night, NGT clamped Status: Acute (2) Atrial fibrillation with RVR: Problem details: - 08/07 resolved with one dose of metoprolol 5 mg IV. Due to being NPO for ileus, will start scheduled IV metoprolol, also has amiodorone on board from being on it chronically, okay to hold that while NPO. Also holding po diltiazem -IV metoprolol 5 mg q.6 hours scheduled. Holding oral diltiazem and amiodarone while NPO 08/09 will resume oral medications when tolerating advanced diet Status: Acute (3) SVT (supraventricular tachycardia): Problem details: - this was potentially atrial fibrillation with RVR, however with a rate of 183, and the regularity of the heart rate on the EKG at the time is more suspicious for SVT - 08/03 resolved with metoprolol and then amiodarone. Patient is on amiodarone chronically, however the doses low and she may not be absorbing this currently because of the SBO. The half life is fairly long however so it is unlikely that her levels dropped too much, but since she is on a low-dose chronically, she may benefit from an increase in her dose. Will increase amiodarone to 200 mg daily. - 08/06 no further SVT DC telemetry Status: Suspected (4) Paroxysmal atrial fibrillation: Problem details: -as above Status: Acute (5) Chronic anticoagulation: Problem details: - INR improved. Restart warfarin at lower dose. Continue daily INR monitoring -INR 2.36 on 08/08, resume warfarin, pharmacy managing -TPN starting 08/08 Pharmacy continues to manage INR and warfarin Status: Acute (6) Aortic stenosis: Problem details: mild, new murmur (worsened by acute illness?) echo reassuring - would have her f/u with [employer] administrator outpatient Status: Acute (7) Hypocalcemia: Problem details: -Ca 6.7, Ionized 0.99. Albumin 2.5 -discussed with Dr. Abraham, replace with 1g CaGluconate 08/09 increased to 7.1, monitor. ->7.5 Status: Acute (8) Hypophosphatemia: Problem details: -phos 2.1 -discussed with Dr. Abraham, replace with 15mmol KPhos 08/09 phosphorus 1.9. Will replace with 2nd dose 15 mmol K-Phos. Start oral replacement when tolerating advanced diet Phosphorous 2.6 Status: Acute (9) Transaminitis: Problem details: -AST 45, ALT 36, Alk phos 152. Improving postoperatively Status: Acute (10) Dysuria: Problem details: -UA unremarkable. Monitor Status: Acute Time Spent With Patient Total time spent: Total time spent caring for the patient today was 45 minutes. This includes time spent for the visit reviewing the chart, time spent during the visit, time spent after the visit and documentation and planning in coordination of care. Subjective Date Seen: 08/10/24 Interval history: Patient is seen resting in bed this morning. Feeling better than she did last night. Had some cramping pain last night so was made NPO. Is hungry again this morning. No further pains. No nausea. Passing gas. No further BM. Denies headache or dizziness. Denies chest pain or shortness of breath. NGT remains clamped Exam Narrative: Exam Narrative: PHYSICAL EXAM General: Pleasant, conversant, NAD Cardiovascular: RRR, S1S2 Pulmonary: CTA bilaterally without rhonchi, rales, expiratory wheezes. No dyspnea on room air Abdominal: Soft, mildly distended, mild tenderness without significant change Neurological: Alert, answering questions appropriately, cranial nerves intact, no focal findings Extremities: No gross joint deformity or swelling. AROMI. Neurovascularly intact Skin: Warm, dry. Const: Vital Signs, click to edit/add: Vital Signs - 24 hr 08/08/24 15:48 08/08/24 19:00 08/08/24 23:00 Temperature 97.9 F Pulse Rate 85 89 Pulse Rate [Pulse Oximeter] 89 Respiratory Rate 18 Blood Pressure [Le ft Arm] 109/85 Pulse Oximetry 90 Oxygen Delivery Me thod Room Air 08/09/24 00:10 08/09/24 00:16 08/09/24 00:18 Temperature 98.2 F Pulse Rate Pulse Rate [Pulse Oximeter] 88 79 75 Respiratory Rate 18 Blood Pressure [Le ft Arm] 134/81 128/81 128/77 Pulse Oximetry 92 Oxygen Delivery Tn thod Room Air 08/09/24 03:00 08/09/24 05:35 08/09/24 05:40 Temperature 97.9 F Pulse Rate Pulse Rate [Pulse Oximeter] 68 89 82 Respiratory Rate 18 Blood Pressure [Le ft Arm] 130/88 137/84 127/80 Pulse Oximetry 91 Oxygen Delivery Tn thod Room Air 08/09/24 05:40 08/09/24 07:00 08/09/24 07:00 Temperature 98 F Pulse Rate Pulse Rate [Pulse Oximeter] 77 77 96 Respiratory Rate 18 18 Blood Pressure [Le ft Arm] 131/75 123/79 Pulse Oximetry 96 Oxygen Delivery Tn thod Room Air 08/09/24 07:00 08/09/24 11:00 Temperature 97.8 F Pulse Rate 92 Pulse Rate [Pulse Oximeter] 92 Respiratory Rate 18 Blood Pressure [Le ft Arm] 146/78 H Pulse Oximetry 96 Oxygen Delivery Tn thod Room Air Labs Labs: Laboratory Results - last 24 hr 08/09/24 08/09/24 06:00 10:39 WBC 6.40 RBC 3.55 L Hgb 10.5 L Hct 33.1 MCV 93 MCH 30 MCHC 32 Plt Count 173 INR 3.08 H Sodium 135 Potassium 3.4 L Chloride 104 Carbon Dioxide 26 Anion Gap 5 L BUN 11 Creatinine 0.6 Estimated Creat Clear 47.53 Estimated GFR 92 Glucose 136 H Calcium 7.1 L Phosphorus 1.9 L Magnesium 2.0 C-Reactive Protein 2.6 H Lab Acknowledgement Test Added
[2024-08-10 11:00] VITALS: BP 138/74; PULSE 84; RESP 18; TEMP 36.7; O2SAT 95
--- NOTE | 2024-08-10 11:16 | PM.GSPN ---
Subjective Subjective Date Seen: 08/10/24 Interval history: Shabnam is doing okay today. She states that yesterday she had some cramping in her abdomen so than the made her NPO but the NG was left to clamp. She has had no nausea, no further cramping. She is up ambulating. Denies significant pain. She is passing some gas but has not had a bowel movement since yesterday. Exam Narrative: Exam Narrative: General: No acute distress CV: Regular rate and rhythm Abdomen: Abdomen is very mildly distended. Minimally tender. Erythema has improved around incision. Packing changed today. No significant purulence noted. Const: Vital Signs, click to edit/add: Vital Signs - 24 hr 08/09/24 15:15 08/09/24 15:15 08/09/24 19:00 Temperature 97.4 F L 98.3 F Pulse Rate Pulse Rate [Pulse Oximeter] 97 92 88 Respiratory Rate 18 18 18 Blood Pressure [Le ft Arm] 122/91 H 127/95 H Pulse Oximetry 97 96 Oxygen Delivery Wa thod Room Air Room Air 08/09/24 22:42 08/09/24 22:42 08/09/24 23:00 Temperature 98.2 F Pulse Rate 91 Pulse Rate [Pulse Oximeter] 89 89 Respiratory Rate 18 18 Blood Pressure [Le ft Arm] 129/84 Pulse Oximetry 95 Oxygen Delivery Wa thod Room Air 08/10/24 02:24 08/10/24 07:00 08/10/24 07:00 Temperature 98.2 F 97.8 F Pulse Rate Pulse Rate [Pulse Oximeter] 87 86 86 Respiratory Rate 18 18 18 Blood Pressure [Le ft Arm] 153/99 H 126/87 Pulse Oximetry 95 96 Oxygen Delivery Wa thod Room Air Room Air 08/10/24 07:00 08/10/24 11:00 Temperature 98.1 F Pulse Rate 87 Pulse Rate [Pulse Oximeter] 84 Respiratory Rate 18 Blood Pressure [Le ft Arm] 138/74 Pulse Oximetry 95 Oxygen Delivery Wa thod Room Air Labs/Imaging Labs Labs: White blood cell count is 8 Hemoglobin is 11.7 Sodium 134, calcium 7.5. Remaining electrolytes within normal limits CRP is down to 1.8 from 2.6 Progress Note:A&P Assessment and plan (1) Wound cellulitis after surgery: Status: Acute (2) Transaminitis: Status: Acute (3) Hypocalcemia: Status: Acute (4) Atrial fibrillation with RVR: Status: Acute (5) SVT (supraventricular tachycardia): Status: Suspected (6) S/P exploratory laparotomy: Status: Acute (7) Chronic anticoagulation: Status: Acute Plan Shabnam is a 79-year-old female who is postop day 9 from exploratory laparotomy and extensive lysis of adhesions for bowel obstruction. -NG has been clamped for 24 hours, however because of cramping last evening she was made NPO. NG remains clamped however -Full liquid diet today - but instructed patient to go slowly. -continue IV antibiotics until taking adequate p.o. for wound cellulitis -daily packing changes to lower midline wound -recommend continuing TPN until she is tolerating an oral diet -okay for anticoagulation -continue ambulation and IS
[2024-08-10] MEDS: FUROSEMIDE 10 MG/ML inj 40 MG IVP (14:21)
[2024-08-10 15:00] VITALS: BP 121/87; PULSE 84; RESP 18; TEMP 36.7; O2SAT 95
[2024-08-10] MEDS: WARFARIN 2 MG TABLET 4 MG PO (16:42)
[2024-08-10] MEDS: AA 5 %/CALCIUM/LYTES/DEXT 20 % 2,000 ML 80 ML IV (17:59)
[2024-08-10 19:00] VITALS: BP 127/75; PULSE 89; RESP 18; TEMP 36.3; O2SAT 93
[2024-08-10] MEDS: 0.9 % SODIUM CHLORIDE 250 ml IV (21:23)
[2024-08-10 23:00] VITALS: BP 132/82; PULSE 96; RESP 16; TEMP 36.7; O2SAT 94
[2024-08-11] MEDS: METOPROLOL TARTRATE 1 MG/ML inj 5 MG IVP ×4 (00:30→17:50)
[2024-08-11] MEDS: HYDROmorphone 0.5 mg/0.5 ml inj IVP ×6 (02:17→22:11)
[2024-08-11 03:00] VITALS: BP 117/73; PULSE 90; RESP 20; TEMP 36.7; O2SAT 94
[2024-08-11] MEDS: PIPERACILLIN/TAZOBACTAM 3.375 GM in 0.9 % SODIUM CHLORIDE Mini-bag 100 ML IVPB ×2 (04:19→10:30)
--- NOTE | 2024-08-11 05:56 | PC.NURSE ---
End of shift report [id number]: Alert and oriented x 4. Pain to abdomen well managed with current regimen. Bowel sounds active x 4 quadrants, patient reports that she is passing flatus, no stool this shift. Midlinie incision clean, dry and intact. Dressing to distal incision intact, no drainage noted. NG continues to be clamped this shift. Patient apprehensive about taking fluids by mouth due to having increased cramping last evening. Local Owner Operator Truck Driver provided education on taking smaller amounts of fluids spaced out instead of taking in 200cc+ at a sitting. Requested tea this AM. External catheter utilized throughout the night due to patient receiving IV lasix for increased edema/fluid retention. Ambulates with SBA with walker.
[2024-08-11 06:50] LABS: Hematocrit 35.1 % (33.0-51.0); Hemoglobin* 11.4 gm/dL (12.0-16.0); Mean Corpuscular HGB Conc 33 gm/dL (32-36); Mean Corpuscular Hemoglobin 30 pg (26-34); Mean Corpuscular Volume 92 fL (80-100); Platelet Count* 329 K/uL (140-440); Red Blood Count 3.83 m/uL (4.00-5.20); White Blood Count* 8.22 K/uL (4.50-11.00)
[2024-08-11 07:00] VITALS: BP 128/80; PULSE 89; PULSE 90; RESP 18; RESP 20; TEMP 36.7; O2SAT 95
[2024-08-11 07:00] LABS: Slide Review Reflex No
[2024-08-11 07:04] LABS: Chloride* 102 mmol/L (96-114)
[2024-08-11 07:05] LABS: Sodium* 132 mmol/L (135-149)
[2024-08-11 07:07] LABS: Creatinine* 0.6 mg/dL (0.5-1.5); Est. Creatinine Clearance* 47.53; Estimated Glomerular Filt Rate 92 ml/min
[2024-08-11 07:08] LABS: Anion Gap 1 mEq/L (7-15); Blood Urea Nitrogen* 17 mg/dL (7-30); Carbon Dioxide* 29 mmol/L (20-32); Glucose* 89 mg/dL (60-115)
[2024-08-11 07:09] LABS: Calcium* 7.7 mg/dL (8.4-10.6); Magnesium* 2.1 mg/dL (1.5-2.6); Phosphorus* 3.3 mg/dL (2.5-4.5)
[2024-08-11 07:11] LABS: C Reactive Protein* 1.2 mg/dL (0.5-1.0)
[2024-08-11 07:33] LABS: INR 2.05 (0.91-1.10); Prothrombin Time 24.6 Seconds
[2024-08-11 11:00] VITALS: BP 109/78; PULSE 78; RESP 18; TEMP 36.6; O2SAT 95
[2024-08-11] MEDS: FUROSEMIDE 10 MG/ML inj 40 MG IVP (12:02)
--- NOTE | 2024-08-11 14:08 | PM.GSPN ---
Subjective Subjective Date Seen: 08/11/24 Interval history: Shabnam has been tolerating a cautious full liquid diet. She does have crampy pain after she eats. This is relieved with Dilaudid. No denies nausea. She has not vomited. NG was pulled a few hours ago as she had a bowel movement today and she continues to pass gas. Exam Narrative: Exam Narrative: General: No acute distress CV: Regular rate Abdomen: Mildly distended. Very active bowel sounds noted throughout the abdomen which is improved from yesterday. Erythema around incision improved. Const: Vital Signs, click to edit/add: Vital Signs - 24 hr 08/10/24 15:00 08/10/24 15:00 08/10/24 19:00 Temperature 98.1 F 97.4 F L Pulse Rate [Pulse Oximeter] 84 84 89 Respiratory Rate 18 18 18 Blood Pressure [Le ft Arm] 121/87 127/75 Pulse Oximetry 95 93 Oxygen Delivery Me thod Room Air Room Air 08/10/24 23:00 08/10/24 23:00 08/11/24 03:00 Temperature 98.1 F 98.1 F Pulse Rate [Pulse Oximeter] 96 96 90 Respiratory Rate 16 16 20 Blood Pressure [Le ft Arm] 132/82 117/73 Pulse Oximetry 94 94 Oxygen Delivery Me thod Room Air Room Air 08/11/24 07:00 08/11/24 07:00 08/11/24 11:00 Temperature 98.0 F 97.9 F Pulse Rate [Pulse Oximeter] 90 89 78 Respiratory Rate 20 18 18 Blood Pressure [Le ft Arm] 128/80 109/78 Pulse Oximetry 95 95 Oxygen Delivery Me thod Room Air Room Air Labs/Imaging Labs Labs: White blood cell count 8.2 Hemoglobin 11.4 Platelets 329 Sodium slightly low at 132. CRP is down to 1.2 today from 1.8. Progress Note:A&P Assessment and plan (1) Wound cellulitis after surgery: Status: Acute (2) Atrial fibrillation with RVR: Status: Acute (3) S/P exploratory laparotomy: Status: Acute Plan Shabnam is a 79-year-old female who is postop day 10 from exploratory laparotomy and extensive lysis of adhesions for bowel obstruction. -NG pulled today after 48 hours of clamping trial and continued antegrade bowel function. -continue full liquid diet cautiously. If patient tolerates this today could advance to regular tomorrow -will switch antibiotics to oral and restart omeprazole today. -reasonable to let TPN run out this evening and hold thereafter as long as patient is able to increase her p.o. intake. -if she is able to tolerate p.o. well today, would recommend switching all meds to p.o.. -daily packing changes to lower midline wound -okay for anticoagulation -continue ambulation and IS
[2024-08-11 15:00] VITALS: BP 117/73; PULSE 78; PULSE 81; RESP 18; TEMP 36.7; O2SAT 96
--- NOTE | 2024-08-11 15:01 | PM.IMPN1 ---
Progress Note: A&P Assessment and plan (1) S/P exploratory laparotomy: Problem details: - 08/01/2024 exploratory laparotomy with extensive lysis of adhesions for high grade SBO - 08/03 continue NG tube to LIS, awaiting return of bowel function - 08/04 large amount flatus yesterday, NGT out today - 08/05 sips of clears going well, but bloated today. Discussed with Dr. Abraham. Advancing to clears with option of yogurt. - 08/06 more distended, continue sips. Discussed with Dr. Abraham. - 08/07 remains distended. Had episode of afib with RVR today. Discussed with Dr. Abraham. Placed NGT to LIS, obtained CT abd/pelvis which showed adynamic ileus. PICC and TPN ordered -08/08 TPN to start today, encouraged ambulation. CRP downtrending -08/09 continue TPN. NG clamped. Tolerating clears without nausea vomiting or pain. Followed by Dr. Diaz for the weekend. -08/10 evaluated by General surgery, okay to resume clears in small amounts, after episode of cramping pain last night, NGT clamped -08/11 per general surgery, will allow TPN to run out tonight, not restarting. NGT removed. Advancing diet slowly. Encourage ambulation. Restarting some of her oral medications, including oral antibiotic for mild cellulitis at surgical site. Will continue with IV metoprolol until absorption has improved Status: Acute (2) Atrial fibrillation with RVR: Problem details: - 08/07 resolved with one dose of metoprolol 5 mg IV. Due to being NPO for ileus, will start scheduled IV metoprolol, also has amiodorone on board from being on it chronically, okay to hold that while NPO. Also holding po diltiazem -IV metoprolol 5 mg q.6 hours scheduled. Holding oral diltiazem and amiodarone while NPO 08/09 will resume oral medications when tolerating advanced diet 08/11 continue IV beta-natasha until absorption improves Status: Acute (3) Paroxysmal atrial fibrillation: Problem details: -as above Status: Acute (4) SVT (supraventricular tachycardia): Problem details: - this was potentially atrial fibrillation with RVR, however with a rate of 183, and the regularity of the heart rate on the EKG at the time is more suspicious for SVT - 08/03 resolved with metoprolol and then amiodarone. Patient is on amiodarone chronically, however the doses low and she may not be absorbing this currently because of the SBO. The half life is fairly long however so it is unlikely that her levels dropped too much, but since she is on a low-dose chronically, she may benefit from an increase in her dose. Will increase amiodarone to 200 mg daily. - 08/06 no further SVT DC telemetry Status: Suspected (5) Chronic anticoagulation: Problem details: -INR improved. Restart warfarin at lower dose. Continue daily INR monitoring -INR 2.36 on 08/08, resume warfarin, pharmacy managing -TPN starting 08/08 - will complete on 08/11 Pharmacy continues to manage INR and warfarin Status: Acute (6) Aortic stenosis: Problem details: mild, new murmur (worsened by acute illness?) echo reassuring - would have her f/u with freight sales broker outpatient Status: Acute (7) Hypocalcemia: Problem details: -Ca 6.7, Ionized 0.99. Albumin 2.5 -discussed with Dr. Abraham, replace with 1g CaGluconate 08/09 increased to 7.1, monitor. ->7.5 -> 7.7 Status: Acute (8) Hypophosphatemia: Problem details: -phos 2.1 -discussed with Dr. Abraham, replace with 15mmol KPhos 08/09 phosphorus 1.9. Will replace with 2nd dose 15 mmol K-Phos. Start oral replacement when tolerating advanced diet Phosphorous 2.6 Stable Resolved Status: Resolved (9) Transaminitis: Problem details: -AST 45, ALT 36, Alk phos 152. Improving postoperatively Resolved Status: Resolved (10) Dysuria: Problem details: -UA unremarkable. Monitor Resolved, no further symptoms Status: Resolved Time Spent With Patient Total time spent: Total time spent caring for the patient today was 45 minutes. This includes time spent for the visit reviewing the chart, time spent during the visit, time spent after the visit and documentation and planning in coordination of care. Subjective Date Seen: 08/11/24 Interval history: Patient reports feeling better this morning. Appears brighter. Smiling and joking. Occasional abdominal cramping which she thinks is her bowels waking up. No worsening pain. No nausea or vomiting with clears. NGT remains clamped. Exam Narrative: Exam Narrative: PHYSICAL EXAM General: Pleasant, conversant, NAD Cardiovascular: RRR, S1S2 Pulmonary: CTA bilaterally without rhonchi, rales, expiratory wheezes. No dyspnea on room air Abdominal: Soft, mildly distended, active bowel sounds today, no significant tenderness Neurological: Alert, answering questions appropriately, cranial nerves intact, no focal findings Extremities: No gross joint deformity or swelling. AROMI. Neurovascularly intact Skin: Warm, dry. Const: Vital Signs, click to edit/add: Vital Signs - 24 hr 08/10/24 19:00 08/10/24 23:00 08/10/24 23:00 Temperature 97.4 F L 98.1 F Pulse Rate [Pulse Oximeter] 89 96 96 Respiratory Rate 18 16 16 Blood Pressure [Le ft Arm] 127/75 132/82 Pulse Oximetry 93 94 Oxygen Delivery Me thod Room Air Room Air 08/11/24 03:00 08/11/24 07:00 08/11/24 07:00 Temperature 98.1 F 98.0 F Pulse Rate [Pulse Oximeter] 90 90 89 Respiratory Rate 20 20 18 Blood Pressure [Le ft Arm] 117/73 128/80 Pulse Oximetry 94 95 Oxygen Delivery Me thod Room Air Room Air 08/11/24 11:00 Temperature 97.9 F Pulse Rate [Pulse Oximeter] 78 Respiratory Rate 18 Blood Pressure [Le ft Arm] 109/78 Pulse Oximetry 95 Oxygen Delivery Ks thod Room Air Labs Labs: Laboratory Results - last 24 hr 08/11/24 06:35 WBC 8.22 RBC 3.83 L Hgb 11.4 L Hct 35.1 MCV 92 MCH 30 MCHC 33 Plt Count 329 INR 2.05 H Sodium 132 L Potassium 4.0 Chloride 102 Carbon Dioxide 29 Anion Gap 1 L BUN 17 Creatinine 0.6 Estimated Creat Clear 47.53 Estimated GFR 92 Glucose 89 Calcium 7.7 L Phosphorus 3.3 Magnesium 2.1 C-Reactive Protein 1.2 H
[2024-08-11] MEDS: AA 5 %/CALCIUM/LYTES/DEXT 20 % 2,000 ML 40 ML IV (15:50)
[2024-08-11] MEDS: AMOXICILLIN/CLAVULANATE 875 mg/125 mg TABLET PO (17:49)
[2024-08-11] MEDS: WARFARIN 2 MG TABLET 4 MG PO (17:50)
[2024-08-11 19:00] VITALS: BP 108/78; PULSE 95; RESP 18; TEMP 36.5; O2SAT 98
--- NOTE | 2024-08-11 19:22 | PC.NURSE ---
Patient up in the halls walking today with a standby assist. NG tube removed from nose. Pt is taking sips of full liquid. After eating, patient does experience cramping pain in her abdomen. Dilaudid given PRN for pain. Pt up to the bathroom frequently this afternoon after receiving laix. TPN discontinued at 1800.
[2024-08-11] MEDS: ACETAMINOPHEN 325 MG TABLET 650 MG PO (19:50)
[2024-08-11] MEDS: SODIUM CHLORIDE 0.9 % (FLUSH) 10 ML SYRINGE IVF (22:12)
[2024-08-11 23:00] VITALS: BP 124/73; PULSE 93; PULSE 95; RESP 18; TEMP 36.8; O2SAT 97
[2024-08-12] VITALS (7 sets, daily range): BP systolic 95–128; BP diastolic 58–87; PULSE 86–100; RESP 16–20; TEMP 36.4–36.9; O2SAT 93–97
[2024-08-12] MEDS: HYDROmorphone 0.5 mg/0.5 ml inj IVP ×2 (00:43→05:46)
[2024-08-12] MEDS: METOPROLOL TARTRATE 1 MG/ML inj 5 MG IVP ×2 (00:43→05:50)
[2024-08-12] MEDS: SODIUM CHLORIDE 0.9 % (FLUSH) 10 ML SYRINGE IVF ×3 (05:47→23:16)
[2024-08-12 06:20] LABS: Hematocrit 33.2 % (33.0-51.0); Hemoglobin* 10.9 gm/dL (12.0-16.0); Mean Corpuscular HGB Conc 33 gm/dL (32-36); Mean Corpuscular Hemoglobin 30 pg (26-34); Mean Corpuscular Volume 92 fL (80-100); Platelet Count* 321 K/uL (140-440); Red Blood Count 3.61 m/uL (4.00-5.20)
[2024-08-12 06:24] LABS: Slide Review Reflex No
[2024-08-12 06:30] LABS: Chloride* 100 mmol/L (96-114); Sodium* 132 mmol/L (135-149)
[2024-08-12 06:33] LABS: Anion Gap 3 mEq/L (7-15); Blood Urea Nitrogen* 18 mg/dL (7-30); Carbon Dioxide* 29 mmol/L (20-32); Creatinine* 0.6 mg/dL (0.5-1.5); Est. Creatinine Clearance* 47.53; Estimated Glomerular Filt Rate 92 ml/min; Glucose* 89 mg/dL (60-115)
[2024-08-12 06:34] LABS: Calcium* 7.8 mg/dL (8.4-10.6); Magnesium* 2.1 mg/dL (1.5-2.6)
[2024-08-12 06:36] LABS: C Reactive Protein* 0.9 mg/dL (0.5-1.0)
[2024-08-12 06:39] LABS: INR 1.93 (0.91-1.10); Prothrombin Time 23.5 Seconds
--- NOTE | 2024-08-12 06:41 | PC.NURSE ---
End of shift report [id number]: Pleasant and cooperative with cares. Pain to abdomen and headache managed well with current regime. Midline incision lalitha intact, dressing to distal portion of incision is clean, dry and intact. Abdomen soft, tender to palpation. Bowel sounds active x 4 quadrants. Patient passing flatus. Tolerating small amounts of clear and full liquids, does continue to report cramping with fluids but is tolerated well with medications. Ambulated x 1 throughout hallways this shift with SBA with walker and gait belt, tolerated activity well. At 0545 patient reporting abdominal pain 7/10, PRN hydromorphone administered. Anthropology Lecturer attempted to administer omeprazole, patient declined at that time due to abdominal discomfort and did not want to take medication with applesauce as it causes increased cramping. At 0630 patient sleeping, breathing even and non labored, medication appeared to be effective for pain.
[2024-08-12] MEDS: AMOXICILLIN/CLAVULANATE 875 mg/125 mg TABLET PO ×2 (07:46→18:24)
[2024-08-12] MEDS: OMEPRAZOLE 20 MG CAPSULE DR PO (07:46)
[2024-08-12 08:15] LABS: Phosphorus* 3.8 mg/dL (2.5-4.5)
--- NOTE | 2024-08-12 08:47 | PM.GSPN ---
Subjective Subjective Date Seen: 08/12/24 Interval history: Patient is doing well. She has episodes of crampy abdominal pain that resolved with pain medication. She continues to pass gas and had 2 bowel movements yesterday. She denies nausea vomiting. She had full liquid diet yesterday and today and tolerated small amounts. She is ambulating. Exam Narrative: Exam Narrative: Abdomen is soft, not distended, minimal discomfort to palpation on the right side, lalitha are intact. The inferior-most part of the incision is with intact packing, there is minimal surrounding hyperemia but no cellulitis. Const: Vital Signs, click to edit/add: Vital Signs - 24 hr 08/11/24 11:00 08/11/24 15:00 08/11/24 15:00 Temperature 97.9 F 98.1 F Pulse Rate [Pulse Oximeter] 78 78 81 Respiratory Rate 18 18 18 Blood Pressure [Le ft Arm] 109/78 117/73 Pulse Oximetry 95 96 Oxygen Delivery Me thod Room Air Room Air 08/11/24 19:00 08/11/24 23:00 08/11/24 23:00 Temperature 97.7 F 98.3 F Pulse Rate [Pulse Oximeter] 95 95 93 Respiratory Rate 18 18 18 Blood Pressure [Le ft Arm] 108/78 124/73 Pulse Oximetry 98 97 Oxygen Delivery Me thod Room Air Room Air 08/12/24 03:00 08/12/24 07:00 08/12/24 07:00 Temperature 97.6 F 97.8 F Pulse Rate [Pulse Oximeter] 88 86 86 Respiratory Rate 17 20 20 Blood Pressure [Le ft Arm] 128/79 108/87 Pulse Oximetry 96 94 Oxygen Delivery Me thod Room Air Room Air Progress Note:A&P Assessment and plan (1) S/P exploratory laparotomy: Status: Acute Plan 79-year-old female s/p exploratory laparotomy and extensive lysis of adhesions POD 11. Patient is slowly improving. She had great urine output yesterday. We will remove her lalitha today and continue dressing changes to her inferior open incision. I will advance the patient to regular diet but I discussed with her to have small amounts of food throughout the day. Patient should drink Ensures. If therapies feel that she is safe to go home, possible discharge home tomorrow or the day after.
[2024-08-12] MEDS: ACETAMINOPHEN 325 MG TABLET 650 MG PO ×2 (10:16→17:00)
--- NOTE | 2024-08-12 10:56 | PM.IMPN1 ---
Progress Note: A&P Assessment and plan (1) S/P exploratory laparotomy: Problem details: - 08/01/2024 exploratory laparotomy with extensive lysis of adhesions for high grade SBO - 08/03 continue NG tube to LIS, awaiting return of bowel function - 08/04 large amount flatus yesterday, NGT out today - 08/05 sips of clears going well, but bloated today. Discussed with Dr. Abraham. Advancing to clears with option of yogurt. - 08/06 more distended, continue sips. Discussed with Dr. Abraham. - 08/07 remains distended. Had episode of afib with RVR today. Discussed with Dr. Abraham. Placed NGT to LIS, obtained CT abd/pelvis which showed adynamic ileus. PICC and TPN ordered -08/08 TPN to start today, encouraged ambulation. CRP downtrending -08/09 continue TPN. NG clamped. Tolerating clears without nausea vomiting or pain. Followed by Dr. Diaz for the weekend. -08/10 evaluated by General surgery, okay to resume clears in small amounts, after episode of cramping pain last night, NGT clamped -08/11 per general surgery, will allow TPN to run out tonight, not restarting. NGT removed. Advancing diet slowly. Encourage ambulation. Restarting some of her oral medications, including oral antibiotic for mild cellulitis at surgical site. Will continue with IV metoprolol until absorption has improved 08/12 - improving. I stopped the IV metoprolol. I restarted her home diltiazem for 08/13. Her home amiodarone dosing today 08/12. She is now on Augmentin. Status: Acute (2) Small bowel obstruction: Problem details: -s/p exploratory laparotomy and extensive lysis of adhesions (08/01/24) -recurrent. emergent laparotomy; 30+ years ago. one admission for SBO, nonoperative in 2019. Status: Resolved (3) Paroxysmal atrial fibrillation: Problem details: -restarting amiodarone; diltizem. holding IV metoprolol. Status: Acute (4) Chronic anticoagulation: Problem details: -INR improved. Restart warfarin at lower dose. Continue daily INR monitoring -INR 2.36 on 08/08, resume warfarin, pharmacy managing -TPN starting 08/08 - will complete on 08/11 Pharmacy continues to manage INR and warfarin Status: Acute (5) Aortic stenosis: Problem details: mild, new murmur (worsened by acute illness?) echo reassuring - would have her f/u with calender supervisor outpatient Status: Acute Subjective Date Seen: 08/12/24 Interval history: Daily Progress Note - Hospital Medicine Day #: 12 Post Op Day# 11 1. Exploratory laparotomy. 2. Lysis of adhesions 4.5 hours 24 HOUR UPDATE: Discussed with general surgery. Improving nicely. Advancing diet today. Notable Labs, Micro, Rads, Interventions: Vitals are stable. Postop hemoglobin 10.9, preop hemoglobin 13.4 Weight has been stable from postop day 79.4, this morning 80.9 Sodium remains low normal at 132 CRP has down trended is now normal Objective: Alert, cooperative, insightful Vitals: see above Lungs: Clear. Cardiac: S1S2. Abdomen: Soft. Midline incision healing well. Small 4 x [address] at distal end of incisions Disposition/Potential discharge - Home with family in the next 24-48 hours Today I spent 50minutes seeing the patient, reviewing Expanse and EPIC notes/diagnostics, discussing the care plan with our care time that includes social work, PT/OT, pharmacy, RT, prison and documenting my impressions and plan in the medical record. Exam Const: Vital Signs, click to edit/add: Vital Signs - 24 hr 08/11/24 11:00 08/11/24 15:00 08/11/24 15:00 Temperature 97.9 F 98.1 F Pulse Rate [Pulse Oximeter] 78 78 81 Respiratory Rate 18 18 18 Blood Pressure [Le ft Arm] 109/78 117/73 Pulse Oximetry 95 96 Oxygen Delivery Me thod Room Air Room Air 08/11/24 19:00 08/11/24 23:00 08/11/24 23:00 Temperature 97.7 F 98.3 F Pulse Rate [Pulse Oximeter] 95 95 93 Respiratory Rate 18 18 18 Blood Pressure [Le ft Arm] 108/78 124/73 Pulse Oximetry 98 97 Oxygen Delivery Me thod Room Air Room Air 08/12/24 03:00 08/12/24 07:00 08/12/24 07:00 Temperature 97.6 F 97.8 F Pulse Rate [Pulse Oximeter] 88 86 86 Respiratory Rate 17 20 20 Blood Pressure [Le ft Arm] 128/79 108/87 Pulse Oximetry 96 94 Oxygen Delivery Me thod Room Air Room Air Labs Labs: Laboratory Results - last 24 hr 08/12/24 05:55 WBC 9.40 RBC 3.61 L Hgb 10.9 L Hct 33.2 MCV 92 MCH 30 MCHC 33 Plt Count 321 INR 1.93 H Sodium 132 L Potassium 4.0 Chloride 100 Carbon Dioxide 29 Anion Gap 3 L BUN 18 Creatinine 0.6 Estimated Creat Clear 47.53 Estimated GFR 92 Glucose 89 Calcium 7.8 L Phosphorus 3.8 Magnesium 2.1 C-Reactive Protein 0.9
[2024-08-12] MEDS: AMIODARONE 200 MG TABLET 100 MG PO (12:49)
[2024-08-12] MEDS: WARFARIN 2 MG TABLET 4 MG PO (16:53)
--- NOTE | 2024-08-12 18:41 | PC.NURSE ---
End of Shift Note: Have been trying to prepare patient all day for the possibly discharging to home tomorrow. Enc her to be up and about like she would be at home. She has only ambulated x2 for my shift. She complains of being weak and that nothing taste good. Have given her powerade as she doesn't like the taste water. Enc her twice to maybe take a shower to see if that would help her feel better. Keeps saying she will take a shower later. Have tried to enc her to be out of bed as much as possible but everytime I enter the room she is laying back down. Believe she is possibly nervous about the possibility of discharge to home tomorrow. Did complain of pain which appears to be controlled with tylenol. Did get an order for oral pain medication vs using IV pain medication. Will continue to monitor until next shift arrives
[2024-08-12] MEDS: HYDROCODONE-ACETAMIN 5-325 MG 1 TAB PO (19:01)
[2024-08-13] MEDS: HYDROCODONE-ACETAMIN 5-325 MG 1 TAB PO ×3 (00:47→14:25)
[2024-08-13 03:00] VITALS: BP 118/77; PULSE 93; RESP 18; TEMP 36.7; O2SAT 96
[2024-08-13] MEDS: OMEPRAZOLE 20 MG CAPSULE DR PO (06:24)
[2024-08-13 06:33] LABS: Hematocrit 32.9 % (33.0-51.0); Hemoglobin* 10.9 gm/dL (12.0-16.0); Mean Corpuscular HGB Conc 33 gm/dL (32-36); Mean Corpuscular Hemoglobin 30 pg (26-34); Mean Corpuscular Volume 91 fL (80-100); Platelet Count* 339 K/uL (140-440); Red Blood Count 3.62 m/uL (4.00-5.20); White Blood Count* 9.52 K/uL (4.50-11.00)
[2024-08-13 06:41] LABS: Slide Review Reflex No
[2024-08-13 06:50] LABS: Chloride* 102 mmol/L (96-114)
[2024-08-13 06:51] LABS: Sodium* 133 mmol/L (135-149)
[2024-08-13 06:53] LABS: Creatinine* 0.7 mg/dL (0.5-1.5); Est. Creatinine Clearance* 47.53; Estimated Glomerular Filt Rate 89 ml/min
[2024-08-13 06:54] LABS: Anion Gap 3 mEq/L (7-15); Blood Urea Nitrogen* 16 mg/dL (7-30); Carbon Dioxide* 28 mmol/L (20-32); Glucose* 99 mg/dL (60-115); Phosphorus* 4.2 mg/dL (2.5-4.5)
[2024-08-13 06:55] LABS: Calcium* 8.1 mg/dL (8.4-10.6); Magnesium* 2.1 mg/dL (1.5-2.6)
[2024-08-13 06:57] LABS: C Reactive Protein* 0.8 mg/dL (0.5-1.0)
--- NOTE | 2024-08-13 07:04 | PC.NURSE ---
End of shift note [id number]: Pt AxOx4, cooperative, and pleasant. Upon initial assessment, Pt and family at bedside reported concerns regarding discharge and wound care. Turpentine Farmer utilized therapeutic communication and teach back demonstration for wound care. Family and Pt reported understanding regarding POC. Pts Op sites remain CDI. PICC patent. Pt reported pain to the abdomen and back. Turpentine Farmer utilized repositioning, PRN medication, and food. Pt reported relief. Pt denies SOB/CP/NAUSEA/DIZZINESS. Turpentine Farmer continuing to encourage fluids. SBA 4WW. Pt appears resting with call light in reach.
[2024-08-13 07:54] LABS: INR 2.96 (0.91-1.10); Prothrombin Time 33.1 Seconds
--- NOTE | 2024-08-13 08:01 | PM.DS1 ---
DS: Providers Provider Date Seen: 08/13/24 Date of admission: 08/01/24 12:51 Primary care physician: Iza Ayon MD Admitting Clinician: Lizbeth Webber MD Consults: 08/01/24 12:51 Consult to Occupational Therapy [CONS] Routine Comment: Reason(s) for OT Consult:: Evaluate and Treat Any Restrictions?:: No Restrictions Consult to Physical Therapy [CONS] Routine Comment: Reason(s) for PT Consult:: Evaluate and Treat Any Restrictions?:: No Restrictions Consult to Maintenance Analyst [CONS] Routine Comment: Reason for Consult:: Social Service Consult 08/01/24 15:04 Consult to Maintenance Analyst [CONS] Routine Comment: Reason for Consult:: Social Service Consult 08/07/24 15:29 Consult to Nutrition [CONS] Routine Comment: Reason for consult:: Miscellaneous Comment: Patient needs to be started on TPN. 08/07/24 15:32 Consult to Nutrition [CONS] Routine Comment: Reason for consult:: Nutritional Consult 08/12/24 18:46 Consult to Maintenance Analyst [CONS] Routine Comment: Reason for Consult:: Discharge Planning Needs Home Health Assessment Attending Physician on discharge: Lizbeth Webber MD DS: Diagnosis Discharge Diagnosis (1) S/P exploratory laparotomy: Status: Acute Problem details: - 08/01/2024 exploratory laparotomy with extensive lysis of adhesions for high grade SBO - 08/03 continue NG tube to LIS, awaiting return of bowel function - 08/04 large amount flatus yesterday, NGT out today - 08/05 sips of clears going well, but bloated today. Discussed with Dr. Abraham. Advancing to clears with option of yogurt. - 08/06 more distended, continue sips. Discussed with Dr. Abraham. - 08/07 remains distended. Had episode of afib with RVR today. Discussed with Dr. Abraham. Placed NGT to LIS, obtained CT abd/pelvis which showed adynamic ileus. PICC and TPN ordered -08/08 TPN to start today, encouraged ambulation. CRP downtrending -08/09 continue TPN. NG clamped. Tolerating clears without nausea vomiting or pain. Followed by Dr. Diaz for the weekend. -08/10 evaluated by General surgery, okay to resume clears in small amounts, after episode of cramping pain last night, NGT clamped -08/11 per general surgery, will allow TPN to run out tonight, not restarting. NGT removed. Advancing diet slowly. Encourage ambulation. Restarting some of her oral medications, including oral antibiotic for mild cellulitis at surgical site. Will continue with IV metoprolol until absorption has improved 08/12 - improving. I stopped the IV metoprolol. I restarted her home diltiazem for 08/13. Her home amiodarone dosing today 08/12. 08/13 - discharge with no oral antibiotics DS: Summary Hospital Course Hospital Course: 79-year-old female presented to emergency room with abdominal pain and was found to have small-bowel obstruction. Patient was taken to the operating room for exploratory laparotomy and extensive lysis of adhesions. Patient had return of bowel function immediately after surgery but then developed an ileus. She was treated conservatively with bowel rest. She received TPN. Patient developed erythema at the inferior part of her incision. Despite starting antibiotics, the erythema continued. Her most inferior part of the incision was opened to allow drainage. Her erythema then improved. Her lalitha were removed during hospital stay. Patient was advanced to regular diet. She continued to have on and off abdominal cramping that was controlled with pain medication. Patient had bowel movements and was passing gas continuously. Time Spent with Patient Time attestation: Total time spent providing and/or coordinating discharge services: Exam Narrative: Exam Narrative: Abdomen is soft, not distended, there is some discomfort to palpation on the right side of the abdomen, no peritoneal signs, midline laparotomy incision with no surrounding erythema. The inferior most portion of the incision is open and was debrided today sharply with a curette. There is no purulent drainage noted in this part. The open part is approximately 2 cm long x 1 cm deep. This was repacked with moist 0.25 new gauze and covered with Mepilex like dressing. Const: Vital Signs, click to edit/add: Vital Signs - 24 hr 08/12/24 11:00 08/12/24 14:56 08/12/24 15:00 Temperature 98.4 F Pulse Rate [Pulse Oximeter] 98 98 100 Respiratory Rate 20 20 20 Blood Pressure [Le ft Arm] 98/58 L 95/73 Pulse Oximetry 97 95 Oxygen Delivery Me thod Room Air Room Air 08/12/24 19:00 08/12/24 23:00 08/13/24 03:00 Temperature 98.1 F 98 F 98.1 F Pulse Rate [Pulse Oximeter] 95 87 93 Respiratory Rate 16 18 18 Blood Pressure [Le ft Arm] 110/69 105/72 118/77 Pulse Oximetry 96 93 96 Oxygen Delivery Me thod Room Air Room Air Room Air DS: Data Data Completed and Pending Labs on day of discharge: Labs from last 24 hours 08/13/24 08/12/24 06:20 05:55 WBC 9.52 RBC 3.62 L Hgb 10.9 L Hct 32.9 L MCV 91 MCH 30 MCHC 33 Plt Count 339 INR 2.96 H Sodium 133 L Potassium 4.0 Chloride 102 Carbon Dioxide 28 Anion Gap 3 L BUN 16 Creatinine 0.7 Estimated Creat Clear 47.53 Estimated GFR 89 Glucose 99 Calcium 8.1 L Phosphorus 4.2 3.8 Magnesium 2.1 C-Reactive Protein 0.8 Discharge Plan Discharge Disposition: Home, Self-Care Date of Admission: 08/01/24 12:51 Attending Provider on Discharge: Jonathan Abraham Consulting Providers: Lizbeth Webber Primary Care Provider: Iza Ayon Condition: Stable Anticipated Discharge Date/Time: 08/13/24 13:59 Discharge Medications: New hydrocodone-acetaminophen 5-325 mg tablet 1 tab PO Q6H PRN (Reason: pain) Qty: 25 0RF Continued omeprazole 40 mg capsule,delayed release(DR/EC) 40 mg PO DAILY warfarin 2 mg tablet 2 - 4 mg PO DAILY Rx Instructions: 2 MG ON THURSDAYS, 4 MG ALL OTHER DAYS multivitamin Tablet 1 tab PO QAM clobetasol 0.05 % ointment 1 applic topical DAILY PRN diltiazem HCl 120 mg capsule,extended release 24hr 120 mg PO DAILY amiodarone 200 mg tablet 100 mg PO DAILY alendronate 70 mg tablet 70 mg PO QWEEK ascorbic acid (vitamin C) 500 mg capsule 500 mg PO DAILY calcium 600 mg capsule 1,200 mg PO DAILY melatonin 5 mg capsule 5 mg PO HS Discharge Orders: Discharge Order (Routine); Ordered 08/13/24 Ordered By: Lizbeth Webber Consulting provider completed their portion of the discharge: No Patient Education: Hydrocodone/Acetaminophen (By mouth), Ileus (GEN) Additional Instructions: We noted an episode of SVT (supraventricular tachycardia) after surgery; it was limited and possible was your known AFIB. Discuss with your PCP or sleeping car conductor about a heart monitor (like a Zio Patch) at follow-up. Follow-up with [facility] and or PCP in 3-4 weeks See surgery (Dr. Abraham) in two weeks Activity Level: Activity as Tolerated Activity Detail: No swimming for 2 weeks. Discharge Diet: Regular Follow Up Appointments: Jonathan Abraham MD [Staff Physician] - 08/28/24 1:30 pm ([facility] for hospital follow-up.) Iza Ayon MD [Primary Care Provider] - 09/03/24 9:40 am ([facility] to go over Zio Patch.) Forms: MyHealth Info Instructions Discharge Comments: Patient should continue daily dressing changes to the inferior incision open wound with 0.25 Nu gauze moistened with normal saline. She can covered with absorbent dressing. Okay to take showers prior to dressing change.
[2024-08-13] MEDS: AMOXICILLIN/CLAVULANATE 875 mg/125 mg TABLET PO (08:11)
[2024-08-13] MEDS: ACETAMINOPHEN 325 MG TABLET 650 MG PO (08:11)
[2024-08-13 08:30] VITALS: BP 122/80; PULSE 99; RESP 18; O2SAT 94
[2024-08-13] MEDS: AMIODARONE 200 MG TABLET 100 MG PO (09:05)
[2024-08-13] MEDS: dilTIAZem 120 MG CAP.ER.24H PO (09:05)
--- NOTE | 2024-08-13 10:37 | PM.IMPN1 ---
Progress Note: A&P Assessment and plan (1) S/P exploratory laparotomy: Problem details: - 08/01/2024 exploratory laparotomy with extensive lysis of adhesions for high grade SBO - 08/03 continue NG tube to LIS, awaiting return of bowel function - 08/04 large amount flatus yesterday, NGT out today - 08/05 sips of clears going well, but bloated today. Discussed with Dr. Abraham. Advancing to clears with option of yogurt. - 08/06 more distended, continue sips. Discussed with Dr. Abraham. - 08/07 remains distended. Had episode of afib with RVR today. Discussed with Dr. Abraham. Placed NGT to LIS, obtained CT abd/pelvis which showed adynamic ileus. PICC and TPN ordered -08/08 TPN to start today, encouraged ambulation. CRP downtrending -08/09 continue TPN. NG clamped. Tolerating clears without nausea vomiting or pain. Followed by Dr. Diaz for the weekend. -08/10 evaluated by General surgery, okay to resume clears in small amounts, after episode of cramping pain last night, NGT clamped -08/11 per general surgery, will allow TPN to run out tonight, not restarting. NGT removed. Advancing diet slowly. Encourage ambulation. Restarting some of her oral medications, including oral antibiotic for mild cellulitis at surgical site. Will continue with IV metoprolol until absorption has improved 08/12 - improving. I stopped the IV metoprolol. I restarted her home diltiazem for 08/13. Her home amiodarone dosing today 08/12. 08/13 - discharge with no oral antibiotics Status: Acute (2) Small bowel obstruction: Problem details: -s/p exploratory laparotomy and extensive lysis of adhesions (08/01/24) -recurrent. emergent laparotomy; 30+ years ago. one admission for SBO, nonoperative in 2019. Status: Resolved (3) Chronic anticoagulation: Problem details: -INR at goal; chronic AFIB Status: Acute (4) Paroxysmal atrial fibrillation: Problem details: -restarting amiodarone; diltizem. holding IV metoprolol. Status: Acute (5) Aortic stenosis: Problem details: mild, new murmur (worsened by acute illness?) echo reassuring - would have her f/u with receiving supervisor outpatient Status: Acute (6) GERD (gastroesophageal reflux disease): Status: Acute Subjective Date Seen: 08/13/24 Interval history: Daily Progress Note - Hospital Medicine Day #: 13 Post Op Day# 12 1. Exploratory laparotomy. 2. Lysis of adhesions 4.5 hours 24 HOUR UPDATE: Discussed with general surgery. Ok to discharge home with daughters. Notable Labs, Micro, Rads, Interventions: Vitals are stable. Postop hemoglobin 10.9, preop hemoglobin 13.4 Weight has been stable from postop day 79.4, this morning 80.9 Sodium remains low normal at 133 CRP has down trended is now normal Objective: Alert, cooperative, insightful Vitals: see above Lungs: Clear. Cardiac: S1S2. irreg irreg Abdomen: Soft. Midline incision healing well. Small 4 x [address] at distal end of incisions Disposition/Potential discharge - Home with family this afternoon; no therapies ordered. f/u with PCP on the ziopatch; w/gen surg at 2 weeks Today I spent 50minutes seeing the patient, reviewing Expanse and EPIC notes/diagnostics, discussing the care plan with our care time that includes social work, PT/OT, pharmacy, RT, snf and documenting my impressions and plan in the medical record. Exam Const: Vital Signs, click to edit/add: Vital Signs - 24 hr 08/12/24 11:00 08/12/24 14:56 08/12/24 15:00 Temperature 98.4 F Pulse Rate [Pulse Oximeter] 98 98 100 Respiratory Rate 20 20 20 Blood Pressure [Le ft Arm] 98/58 L 95/73 Pulse Oximetry 97 95 Oxygen Delivery Me thod Room Air Room Air 08/12/24 19:00 08/12/24 23:00 08/13/24 03:00 Temperature 98.1 F 98 F 98.1 F Pulse Rate [Pulse Oximeter] 95 87 93 Respiratory Rate 16 18 18 Blood Pressure [Le ft Arm] 110/69 105/72 118/77 Pulse Oximetry 96 93 96 Oxygen Delivery Me thod Room Air Room Air Room Air 08/13/24 08:30 08/13/24 08:30 Temperature Pulse Rate [Pulse Oximeter] 99 99 Respiratory Rate 18 18 Blood Pressure [Le ft Arm] 122/80 Pulse Oximetry 94 Oxygen Delivery Me thod Room Air Labs Labs: Laboratory Results - last 24 hr 08/13/24 06:20 WBC 9.52 RBC 3.62 L Hgb 10.9 L Hct 32.9 L MCV 91 MCH 30 MCHC 33 Plt Count 339 INR 2.96 H Sodium 133 L Potassium 4.0 Chloride 102 Carbon Dioxide 28 Anion Gap 3 L BUN 16 Creatinine 0.7 Estimated Creat Clear 47.53 Estimated GFR 89 Glucose 99 Calcium 8.1 L Phosphorus 4.2 Magnesium 2.1 C-Reactive Protein 0.8
[2024-08-13 11:00] VITALS: BP 121/85; PULSE 90; RESP 18; TEMP 36.8; O2SAT 95
--- NOTE | 2024-08-13 14:39 | PC.NURSE ---
Nursing Care Hours: [id number] Pt this shift calm and cooperative, alert and oriented. Pain rated 4-5/10, treated with PO pain meds. BS active, steri strips to midline incision CDI, dressing to lower abdomen CDI. Pt reported the dressing changed by surgeon this AM. Pt encouraged to walk the halls. Completed two laps. pt c/o feeling weak. Discussed the timeline of healing, the need for oral nutrition intake, physical movement and rest. Discussed eating 6-8 small frequent meals rather than pushing three main meals. Encouraged fluid intake. Sent some supplies home with pt for wound dressings and advised to call clinic if more supplies are needed. PICC removed per order. Occlusive dressing applied and weighted pressure for 30min while pt supine. No issue noted. Pt educated on SS of blood clot and infection to PICC site/arm.
== END 2024-08-13 14:30 | disposition home or self-care (01) | DRG 336 ==
LOC: ED 12:01 → MEDSURG 12:29
PROVIDERS: Family Medicine; Physician Assistant; Surgery; Admitting Provider Family Medicine; Emergency Provider Family Medicine; PCP Internal Medicine; Visit Provider Family Medicine
PROC: 0DN80ZZ Release Small Intestine, Open Approach (ICD-10-PCS; CPT 49000; principal; 2024-08-01 15:00)
DX: K56.50 Intestinal adhesions [bands], unspecified as to partial versus complete obstruction (principal); I47.10 Supraventricular tachycardia, unspecified; T81.49XA Infection following a procedure, other surgical site, initial encounter; L03.311 Cellulitis of abdominal wall; K56.0 Paralytic ileus; G89.18 Other acute postprocedural pain; I48.0 Paroxysmal atrial fibrillation; Z79.01 Long term (current) use of anticoagulants; I35.0 Nonrheumatic aortic (valve) stenosis; E83.51 Hypocalcemia; E83.39 Other disorders of phosphorus metabolism; R74.01 Elevation of levels of liver transaminase levels; R30.0 Dysuria; K21.9 Gastro-esophageal reflux disease without esophagitis; G89.29 Other chronic pain; M54.9 Dorsalgia, unspecified
CPT/HCPCS: 43752; 00840; 36415; 36430; 36573; 64488; 71045; 74018; 74177; 76942; 80048; 80053; 80069; 80076; 81001; 81003; 82330; 82565; 82803; 82962; 83605; 83690; 83735; 84100; 84134; 84478; 85025; 85027; 85610; 86140; 86900; 86901; 87086; 87631; 93005; 93306; 97110; 97116; 97161; 97165; 97530; 97535; 97542; 99100; 99140; 99285; A4221; A4314; A9270; B4185; B4189; C1751; J0131; J0153; J0282; J0330; J0613; J0665; J0666; J0690; J1100; J1171; J1940; J2060; J2250; J2405; J2470; J2543; J2704; J2710; J2765; J3010; J3430; J3475; J3490; J7030; J7050; J7120; P9017; Q9967

== ENCOUNTER 2024-08-16 14:28 | Inpatient (IN) | payer MEDICARE, BC, SELFPAY ==
--- OUTSIDE RECORDS SUMMARY | 2024-08-16 14:32 | XMS_ITS | Encounter Summary ---
Author Organization [facility] Address [address] [place] [address] Care Team Providers Care Geriatric Nurse Assistant Name Role Phone Iza Ayon M.D. Primary Care Provider [phone] Reason for Visit * Reason Comments Med Refill Encounter Details Date Type Department Care Team (Late st Contact Info) Description 07/11/2024 Refill Department of Obstetrics and Gynecology in [place], [place] [address] [phone] Jaimie Sena, RESIN SHAVER, C.N.P. [address] [phone] Med Refill Social History Tobacco Use Types Packs/Day Years Used Date Smoking Tobacco: Never Passive Smoke Exposure: Never Smokeless Tobacco: Never Alcohol Use Standard Drinks/Week Comments Yes 1 (1 standard drink = 0.6 oz pur e alcohol) [facility] Utilities Answer Date Recorded In the past 12 months has [facility] Interview [employer], oil, or water [employer] threatened to shut off services in your [...] any clubs o r organizations such as mandaeism groups, unions, fraternal or athletic groups, or [...] Answer Date Recorded PHQ-2 Score 0 12/07/2023 [facility] - Occupational Stress [...] your living situation today? I have a [facility] place to live 11/15/2023 Education Answer Date Recorded What is the highest level of school you have completed or the highest degree you have received? 12th grade 05/06/2019 Comments No Sex and Gender Information Value Date Recorded Sex Assigned at Female 11/15/2023 12:19 PM CDT Legal Sex Female 8:46 AM INTERNET SYSTEMS ADMINISTRATOR Gender Identity Female 01/12/2020 9:19 AM CDT Sexual Orientation Straight 01/12/2020 9: 19 AM CDT documented as of this encounter Plan of Treatment Upcoming Encounters Date Type Department Care Team (Latest Contact Info) Description 08/20/2024 10:50 AM INTERNET SYSTEMS ADMINISTRATOR Appointment Department of Laboratory Medicine in [place], [place] [address] [place] [address] Iza Ayon M.D. [address] [place] [phone] 08/20/2024 11:30 AM INTERNET SYSTEMS ADMINISTRATOR Anticoagulation Visit Department of Anticoagulation in [place], [place] [address] [place] [address] Iza Ayon M.D. [address] [place] [phone] 09/03/2024 10:00 AM INTERNET SYSTEMS ADMINISTRATOR Office Visit Department of Internal Medicine in [place], [place] [address] [place] [phone] Iza Ayon M.D. [address] [phone] 10/23/2024 10:20 AM CDT Appointment Department of Laboratory Medicine in [address] [phone] Dallas Bradford APRN, C.N.P. [address] [phone] 10/23/2024 10:30 AM CDT Appointment Department of Laboratory Medicine in [address] [phone] Dallas Bradford APRN, C.N.P. [address] [phone] 10/25/2024 11:30 AM CDT Office Visit Department of Cardiovascular Diseases in [place], [place] [address] [place] [phone] Dallas Bradford APRN, C.N.P. [address] [phone] documented as of this encounter Visit Diagnoses Diagnosis Lichen Sclerosus documented in this encounter Care Teams Geriatric Nurse Assistant Relationship Specialty Start Date End Date Iza Ayon M.D. [address] [place] [phone] PCP - General Internal Medicine 04/24/19 documented as of this encounter
--- OUTSIDE RECORDS SUMMARY | 2024-08-16 14:32 | XMS_ITS | Encounter Summary ---
Author Organization [facility] Address [address] [place] [address] Care Team Providers Care Vender Name Role Phone Iza Ayon M.D. Primary Care Provider [phone] Reason for Visit * Reason Onset Date Comments Cough 08/16/2024 Encounter Details Date Type Department Care Team (Late st Contact Info) Description 08/16/2024 Nurse Triage Department of Internal Medicine in [place], [place] [address] [place] [phone] Christina Maurer, RKaren Cough Social History Tobacco Use Types Packs/Day Years Used Date Smoking Tobacco: Never Passive Smoke Exposure: Never Smokeless Tobacco: Never Alcohol Use Standard Drinks/Week Comments Yes 1 (1 standard drink = 0.6 oz pur e alcohol) [facility] Utilities Answer Date Recorded In the past 12 months has [facility] [employer], gas, oil, or water [employer] threatened to shut off services in your [...] 11/17/2022 How often do you attend chur ch or jewish services? More than 4 times per year 11/17/2022 Do you belong to any clubs o r organizations such as anglican groups, unions, fraternal or athletic groups, or [...] Answer Date Recorded PHQ-2 Score 0 12/07/2023 [facility] - Occupational Stress Questionnaire Answer Date [...] your living situation today? I have a [facility] place to live 11/15/2023 Education Answer Date Recorded What is the highest level of school you have completed or the highest degree you have received? 12th grade 05/06/2019 Comments No Sex and Gender Information Value Date Recorded Sex Assigned at Female 11/15/2023 12:19 PM CDT Legal Sex Female 8:46 AM SEARCH ENGINE OPTIMIZATION SPECIALIST Gender Identity Female 01/12/2020 9:19 AM CDT Sexual Orientation Straight 01/12/2020 9: 19 AM CDT documented as of this encounter Miscellaneous Notes * Telephone Encounter - Christina Maurer R.N. - 08/16/2024 1:02 PM SEARCH ENGINE OPTIMIZATION SPECIALIST Chief Complaint / Reason for Call Patient is a 79 y.o. female calling regarding Cough. Assessment Concern: 2 weeks ago Shabnam had emergency abdominal surgery. She came home from the hospital on Monday. Shabnam developed a cough when she got home. She is short of breath and feeling tightness in her chest. Calling to request: advice The recommended disposition is Go to ED Now. Encouraged caller to call back with any new, worsening, or persistent symptoms. and Love patient advised to present to their nearest emergency department for further recommendation of their concerns. Reason for Disposition Chest pain (Exception: MILD central chest pain, present only when coughing.) Chest tightness Protocols used: Cough - Acute [id number] CH ENGINE OPTIMIZATION SPECIALIST documented in this encounter Plan of Treatment Upcoming Encounters Date Type Department Care Team (Latest Contact Info) Description 08/20/2024 10:50 AM SEARCH ENGINE OPTIMIZATION SPECIALIST Appointment Department of Laboratory Medicine in [address] [phone] Iza Ayon M.D. [address] [place] [phone] 08/20/2024 11:30 AM SEARCH ENGINE OPTIMIZATION SPECIALIST Anticoagulation Visit Department of Anticoagulation in [place], [place] [address] [place] [address] Iza Ayon M.D. [address] [place] [phone] 09/03/2024 10:00 AM SEARCH ENGINE OPTIMIZATION SPECIALIST Office Visit Department of Internal Medicine in [place], [place] [address] [place] [phone] Iza Ayon M.D. [address] [place] [phone] 10/23/2024 10:20 AM CDT Appointment Department of Laboratory Medicine in [address] [phone] Dallas Bradford APRN, C.N.P. [address] [place] [phone] 10/23/2024 10:30 AM CDT Appointment Department of Laboratory Medicine in [address] [phone] Dallas Bradford APRN, C.N.P. [address] [phone] 10/25/2024 11:30 AM CDT Office Visit Department of Cardiovascular Diseases in [place], [place] [address] [phone] Dallas Bradford APRN, C.N.P. [address] [phone] documented as of this encounter Visit Diagnoses Not on filedocumented in this encounter Care Teams Vender Relationship Specialty Start Date End Date Iza Ayon M.D. [address] [phone] PCP - General Internal Medicine 04/24/19 documented as of this encounter
--- OUTSIDE RECORDS SUMMARY | 2024-08-16 14:32 | XMS_ITS | Clinical Summary ---
Author Organization [facility] Address [address] [place] [address] Care Team Providers Care Protective Signal Repairer Helper Name Role Phone Iza Ayon M.D. Primary Care Provider [phone] Source Comments Patient records contain information from all sites at [facility]. For routine questions regarding patient records, call [phone] during business hours, M-F 8:00 AM - 5:00 PM Central Time. Record requests for emergency care only can be directed to [phone] at any time.[facility] Allergies No known active allergies Medications * [...] 12/30/2019 Osteopenia 05/06/2019 Atrial Fibrillation Paroxysmal 05/06/2019 Shelter (Current) Anticoagulant Treatment 04/17 Lymphedema 04/28/2019 Impaired [...] Encounters Date Type Department Care Team Description 08/16/2024 Nurse Triage Department of Internal Medicine in [place], [place] [address] [place] [phone] Christina Maurer R.N. Cough 07/11/2024 Refill Department of Obstetrics and Gynecology in [place], [place] [address] [phone] Jaimie Sena APRN, C.N.P. Med Refill 06/18/2024 10:10 AM HOSPICE CLINICAL MARKETER Anticoagulation Visit Department of Anticoagulation in [place], [place] [address] [place] [phone] Iza Ayon M.D. Atrial Fibrillation Paroxysmal (HCC); Refrigerator Glazier (Current) Anticoagulant Treatment; Barretts Esophagus Without Dysplasia; Monitoring For Therapeutic Drug Therapy 06/18/2024 9:12 AM HOSPICE CLINICAL MARKETER - 06/18/2024 11:59 PM HOSPICE CLINICAL MARKETER Hospital Encounter Department of Laboratory Medicine in [address] [phone] Iza Ayon M.D. Atrial Fibrillation Paroxysmal (HCC); Shelter (Current) Anticoagulant Treatment; Barretts Esophagus Without Dysplasia; Monitoring For Therapeutic Drug Therapy Discharge Disposition: Home or Self Care 06/04/2024 12:30 PM HOSPICE CLINICAL MARKETER Anticoagulation Visit Department of Anticoagulation in [place], [place] [address] [place] [phone] Iza Ayon M.D. Atrial Fibrillation Paroxysmal (HCC) (Primary Dx); Refrigerator Glazier (Current) Anticoagulant Treatment; Barretts Esophagus Without Dysplasia; Monitoring For Therapeutic Drug Therapy 06/04/2024 9:37 AM HOSPICE CLINICAL MARKETER - 06/04/2024 11:59 PM HOSPICE CLINICAL MARKETER Hospital Encounter Department of Laboratory Medicine in [address] [phone] Iza Ayon M.D. Atrial Fibrillation Paroxysmal (HCC); Shelter (Current) Anticoagulant Treatment; Barretts Esophagus Without Dysplasia; Monitoring For Therapeutic Drug Therapy Discharge Disposition: Home or Self Care 05/27/2024 12:00 PM HOSPICE CLINICAL MARKETER Anticoagulation Visit Department of Anticoagulation in [place], [place] [address] [place] [address] Iza Ayon M.D. Atrial Fibrillation Paroxysmal (HCC); Shelter (Current) Anticoagulant Treatment; Barretts Esophagus Without Dysplasia; Monitoring For Therapeutic Drug Therapy 05/27/2024 11:20 AM HOSPICE CLINICAL MARKETER - 05/27/2024 11:59 PM HOSPICE CLINICAL MARKETER Hospital Encounter Department of Laboratory Medicine in [place], [place] [address] [place] [address] Iza Ayon M.D. Atrial Fibrillation Paroxysmal (HCC); Shelter (Current) Anticoagulant Treatment; Barretts Esophagus Without Dysplasia; Monitoring For Therapeutic Drug Therapy Discharge Disposition: Home or Self Care 05/20/2024 Clinical Communication Department of Anticoagulation in [place], [place] [address] [place] [address] Zofia Mendes M.S.N., R.N. Anticoagulation (Upcoming procedure) 05/17/2024 2:00 PM CDT Office Visit Department of Internal Medicine in [place], [place] [address] [place] [phone] Jessica Cardozo, P.A.-C., M.S. Preoperative Exam (Primary Dx); Atrial Fibrillation Paroxysmal (HCC); Refrigerator Glazier (Current) Anticoagulant Treatment; Gastroesophageal Reflux Disease Without Esophagitis; Need Vaccine Immunization from Last 3 Months Immunizations Immunization Administration Dates Next Due HZV (ZOSTAVAX) 11/17/2009 [...] Father Carrizales Root Transient ischemic attack Mother Wil No Known Problems Sister 1 No Known Problems Sister 2 Leukemia Son 1 Jose Amputation Son 2 Osmin Neuropathy Son 2 Osmin Obesity Son 2 Osmin Relation Name Status Comments Brother Daughter 1 Alena Alive Daughter 2 Maryjo Alive Father All Root Mother Wil Sister 1 Sister 2 Son 1 Joes Alive Son 2 Osmin Alive Social History Tobacco Use Types Packs/Day Years Used Date Smoking Tobacco: Never Passive Smoke Exposure: Never Smokeless Tobacco: Never Tobacco Cessation:Counseling Given: Not Answered Alcohol Use Standard Drinks/Week Comments Yes 1 (1 standard drink = 0.6 oz pur e alcohol) [facility] [employer] Answer Date Recorded In the past 12 months has [facility] [employer], gas, oil, or water [employer] threatened to shut off services in your [...] often do you attend chur ch or sikhism services? More than 4 times per year 11/17/2022 Do you belong to any clubs o r organizations such as druze groups, unions, fraternal or athletic groups, or [...] Answer Date Recorded PHQ-2 Score 0 12/07/2023 [facility] - Occupational Stress Questionnaire Answer Date Recorded [...] your living situation today? I have a [facility] place to live 11/15/2023 Education Answer Date Recorded What is the highest level of school you have completed or the highest degree you have received? 12th grade 05/06/2019 Comments No Sex and Gender Information Value Date Recorded Sex Assigned at Female 11/15/2023 12:19 PM CDT Legal Sex Female 8:46 AM HOSPICE CLINICAL MARKETER Gender Identity Female 01/12/2020 9:19 AM CDT Sexual Orientation Straight 01/12/2020 9 :19 AM CDT Last Filed Vital Signs Vital [...] (Latest Contact Info) Description 08/20/2024 10:50 AM HOSPICE CLINICAL MARKETER Appointment Department of Laboratory Medicine in [place], [place] [address] [place] [phone] Iza Ayon M.D. [address] [place] [address] 08/20/2024 11:30 AM HOSPICE CLINICAL MARKETER Anticoagulation Visit Department of Anticoagulation in [place], [place] [address] [place] [address] Iza Ayon M.D. [address] [place] [address] 09/03/2024 10:00 AM HOSPICE CLINICAL MARKETER Office Visit Department of Internal Medicine in [place], [place] [address] [place] [address] Iza Ayon M.D. [address] [phone] 10/23/2024 10:20 AM CDT Appointment Department of Laboratory Medicine in [place], [place] [address] [place] [address] Dallas Bradford APRN, C.N.P. [address] [place] [phone] 10/23/2024 10:30 AM CDT Appointment Department of Laboratory Medicine in [place], [place] [address] [place] [address] Dallas Bradford APRN, C.N.P. [address] [phone] 10/25/2024 11:30 AM CDT Office Visit Department of Cardiovascular Diseases in [place], [place] [address], [place] [address] Dallas Bradford, PRIMER POWDER BLENDER WET, C.N.P. [address], [place] [address] Health Maintenance Due Date Last Done Comments RSV vaccine - (32-36 weeks) or 60+ years (1 - 1-dose 75+ series) 2022 Depression Screening (Annual PHQ-2) 07/17/2024 Fall Risk Screen (Annual) 07/17/2024 COVID-19 Vaccine ( season) 2024 05/17/2024, 05/19/2022, 01/18/2022, Additional history exists Fasting Glucose for Diabetes Screening 12/06/2024 12/07/2023, [...] 12/24/2022, 02/10/2015, 11/07/2013 Zoster Vaccines Completed 12/24/2022, 02/2023, 11/17/2009 Mammogram Discontinued 12/07/2023, 0 10/2022, 09/21/2021, Additional history exists Influenza Vaccine Completed 05/17/2024, , 07/16/2021, Additional history exists CT Colonography Discontinued Cologuard Discontinued FIT Discontinued IPV Vaccines Aged Out No longer eligi ble based on patient's age to complete this topic Procedures Procedure Name Priority Date/Time Associated Diagnosis Comments INR REFLEX, POCT, B Routine 06/18/2024 9 :22 AM HOSPICE CLINICAL MARKETER Atrial Fibrillation Paroxysmal (HCC) Shelter (Current) Anticoagulant Treatment Barretts Esophagus Without Dysplasia Monitoring For Therapeutic Drug Therapy INR REFLEX, POCT, B Routine 06/04/2024 9 :45 AM HOSPICE CLINICAL MARKETER Atrial Fibrillation Paroxysmal (HCC) Refrigerator Glazier (Current) Anticoagulant Treatment Barretts Esophagus Without Dysplasia Monitoring For Therapeutic Drug Therapy INR REFLEX, POCT, B Routine 05/27/2024 12:37 PM HOSPICE CLINICAL MARKETER Atrial Fibrillation Paroxysmal (HCC) Refrigerator Glazier (Current) Anticoagulant Treatment Barretts Esophagus Without Dysplasia Monitoring For Therapeutic Drug Therapy BI BREAST SCREENING BILATERAL WITH TOMOSYNTHESIS RAD - Routine (most inpatients and all outpatients) 12/07/2023 12:07 PM CDT Screening Mammogram Breast Cancer HEMOGLOBIN A1C, B Routine 12/07/2023 9:4 3 AM CDT Impaired Fasting Glucose HCV AB SCRN W/REFLEX TO HCV PCR, S Routine 11/17/2022 7:10 AM CDT Screening Examination For Viral Disease from Last 3 Months or Most Recently Relevant to Health Maintenance Results * INR Reflex, POCT, Blood (06/18/2024 9:22 AM HOSPICE CLINICAL MARKETER) Only the most recent of3 resultswithin the time period is included. INR Reflex, POCT, B 2.3 06/18/2024 9:21 AM HOSPICE CLINICAL MARKETER [id number] Comment: ----ADDITIONAL INFORMATION---- Standard intensity warfarin therapeutic range: 2.0 to 3.0 High intensity warfarin therapeutic range: 2.5 to 3.5 Blood (Blood, Capillary) 06/18/2024 9:22 AM HOSPICE CLINICAL MARKETER 06/18/2024 9:21 AM HOSPICE CLINICAL MARKETER us Iza Ayon M.D. LAB POCT ORDERABLES - DEVIC E Final Result [email or web address] [address] [place] [address], [facility] FB60 [facility] in [address] [address] * BI Breast Screening Bilateral with Tomosynthesis [...] - 5.6 % 12/07/2023 10:19 AM CDT OWAT Blood (Blood, Venous) 12/07/2023 9:43 AM CDT 12/07/2023 9:45 AM CDT us Iza Ayon M.D. LAB BLOOD ADD-ON Final Resu lt [facility] [address] [place] [address], [facility] OWAT [facility] in [place] [address] [place] [address] * HCV Ab Scrn w/Reflex to HCV PCR, Serum (11/17/2022 7:10 AM CDT) HCV Ab Screen, S Negative Negative 11/18/19 3:38 PM CDT MKTO Comment: Biotin has been identified by the biophysics professor as a potential interfering substance. Higher concentrations of biotin may be found in multivitamins, hair/nail supplements, and workout supplements. If the result does not match clinical observations, repeat testing after patient refrains from the use of supplements for at least 12 hours. Blood (Blood, Venous) 11/17/2022 7:10 AM CDT Narrative [facility] - 11/17/2022 3:38 PM CDT Specimen Information: Specimen ID: [id number] Specimen Type: Blood Specimen Collection Start Date: 11/17/2022 7:10 AM Specimen ID: [id number] Specimen Type: Blood Specimen Collection Start Date: 11/17/2022 7:10 AM Specimen Received Date: 11/17/2022 2:28 PM Iza Ayon M.D. LAB MICROBIOLOGY - BLOOD OR DERABLES Final Result [facility] [address] [place] [address], [facility] MKTO [facility] [address] [place] [address] from Last 3 Months or Most Recently Relevant to Health Maintenance Insurance [facility] MEDICARE Care Teams Protective Signal Repairer Helper Relationship Specialty Start Date End Date Iza Ayon M.D. [address] [place] [address] PCP - General Internal Medicine 04/24/19
--- OUTSIDE RECORDS SUMMARY | 2024-08-16 14:32 | XMS_ITS | Clinical Summary ---
Author Organization [employer] [facility] [employer] [facility] Address [place], [place] [address] Care Team Providers Care Computer System Technician Name Role Phone Iza Ayon MD Primary [...] Gastroesophageal reflux disease without esophagi tis 10/29/2007 Encounters Date Type Department Care Team Description 08/02/2024 11:00 AM CCO & PRESIDENT Ancillary Procedure [facility] [address] [place] [address] from Last 3 Months Immunizations Name Administration Dates Next Due Influenza, [...] on file Legal Sex Female 6:59 AM CCO & PRESIDENT Gender Identity Not on file Sexual Orientation [...] or (1 - 1-dose 75+ series) 2022 Influenza for age 65+ 03/17/2024 05/02/2019, 007 COVID-19 vaccine series Completed 05/17/20 24, 05/19/2022, 01/18/2022, Additional history exists Procedures Procedure Name Priority Date/Time Associated Diagnosis Comments ECHO TTE COMPLETE WO CONTRAST Routine 08/02/2024 1:35 PM CCO & PRESIDENT Newly recognized murmur from Last 3 Months Results * ECHO TTE COMPLETE WO CONTRAST (08/02/2024 1:35 PM CCO & PRESIDENT) AORTIC VALVE MEAN PG 11 mmHg EJECTION FRACTION 53 % PEAK TR VELOCITY 2.4 m/s LVEDD 4.2 cm EJECTION FRACTION 60 - 65% Anatomical Region Laterality Modality Ultrasound 08/02/2024 10:3 1 AM CCO & PRESIDENT Narrative 08/02/2024 1:48 PM CCO & PRESIDENT ECHOCARDIOGRAM SHABNAM BECK : 1945 79 years Study Date: 08/02/2024 10:31:25 AM Gender: F BP: 149/84 mmHg Height: 173.00 cm BSA: 1.93 m Weight: 79.00 kg Tech: NWA Referring MD: MICHELLE FELICIANO Site: [facility] Reading Location: [place]- Patient Location: Inpatient. Procedure: 2D, Color Doppler and Spectral Doppler. Indication for study: Murmur Cardiac Rhythm: Regular.Study quality: Technically limited. Imaging limitations: This study was subject to imaging limitations due to lying in a supine position. Final Impressions: 1. Technically limited exam. 2. Normal LV size, normal wall thickness, normal global systolic function with an estimated EF of 60 - 65%. 3. Right ventricular cavity size is normal, global systolic RV function is normal. 4. The aortic valve is trileaflet and sclerotic, mild stenosis and trivial regurgitation. The aortic valve peak velocity is 2.2 m/s, the peak gradient is 20 mmHg, and the mean gradient is 11 mmHg. The aortic valve area is 1.49 cm with a dimensionless index of 0.53. The stroke volume index is 34.6 ml/m . Chamber Sizes and Function Normal left ventricular size, normal wall thickness, normal global systolic function with an estimated EF of 60 - 65%. No resting regional wall motion abnormality visualized. Left atrial size is normal. Left atrial pressure is normal. Right ventricular cavity size is normal, global systolic RV function is normal. The right atrium is normal. Right atrial volume index is 15 ml/m . Right atrial area is 12 cm . The pulmonary artery is not well visualized. The sinus of Valsalva is normal sized. The ascending aorta is not well visualized. Valves, RV Pressures and Diastolic Function The aortic valve is trileaflet and sclerotic, mild stenosis and trivial regurgitation. The mitral valve is sclerotic, no mitral regurgitation. Spectral Doppler shows Grade 1 pattern of LV diastolic filling. The tricuspid valve is normal in structure. Tricuspid regurgitation is trace regurgitation. The tricuspid regurgitant velocity is 2.4 m/s, the estimated right ventricular systolic pressure is 23 mmHg plus right atrial pressure. The pulmonic valve is not well visualized. No pulmonary regurgitation. Masses, Effusion, Shunts There is no pericardial effusion. The inferior vena cava is not well visualized, respiratory size variation not well visualized. No left to right shunting was detected by limited color flow Doppler interrogation of the interatrial septum. MEASUREMENTS AND CALCULATIONS 2-D Measurements and LV Function: LVID (d) 4.2 cm LV FS% (2D) 37 % LVID (s) 2.6 cm LVOT diameter 1.9 cm IVS (d) 1.1 cm HR 82 bpm LVPW (d) 1.2 cm LA Vol index 20 ml/m2 Ao Sinus 3.5 cm RA Vol index 15 ml/m2 LA 3.1 cm RA area 12 cm Diastology: Mitral Tissue Doppler Pulmonary veins E Peak 0.8 m/s e', Septum 0.08 m/s Pulm s 51.0 cm/s A Peak 0.8 m/s e', Lateral 0.12 m/s Pulm d 44.9 cm/s E/A 1.0 E/e' Average 8.02 Pulm s/d ratio 1.14 DT 220 msec Aortic Valve: Vmax 2.2 m/s YASHIRA (V) 1.42 cm VTI 0.45 m YASHIRA (I) 1.49 cm LVOT V max 1.1 m/s Max PG 20 mmHg LVOT VTI 0.24 m Mean PG 11 mmHg SV 67 ml Dim Index 0.53 SV index 35 ml/m CO 5.5 l/min CI 2.8 l/min/m Mitral Valve: MVA 3.4 cm MV P 1/2 64 msec Tricuspid Valve and estimated PA pressures: TR Vmax 2.4 m/s TAPSE 3.4 cm TR maxG 23 mmHg Pulmonic Valve: PV Vmax 1.6 m/s . This study was interpreted by an [facility] accredited facility. CC: HIM (med records) [facility], Med/Surg - IP [facility]. Final Procedure Note Rico Small MD - 08/02/2024 ECHOCARDIOGRAM SHABNAM BECK : 1945 79 years Study Date: 08/02/2024 10:31:25 AM Gender: F BP: 149/84 mmHg Height: 173.00 cm BSA: 1.93 m Weight: 79.00 kg Tech: NWA Referring MD: MICHELLE FELICIANO Site: [facility] Reading Location: [place]- Patient Location: Inpatient. Procedure: 2D, Color Doppler and Spectral Doppler. Indication for study: Murmur Cardiac Rhythm: Regular.Study quality: Technically limited. Imaging limitations: This study was subject to imaging limitations due tolying in a supine position. Final Impressions: 1. Technically limited exam. 2. Normal LV size, normal wall thickness, normal global systolic functionwith an estimated EF of 60 - 65%. 3. Right ventricular cavity size is normal, global systolic RV functionis normal. 4. The aortic valve is trileaflet and sclerotic, mild stenosis andtrivial regurgitation. The aortic valve peak velocity is 2.2 m/s, the peakgradient is 20 mmHg, and the mean gradient is 11 mmHg. The aortic valvearea is 1.49 cm with a dimensionless index of 0.53. The stroke volumeindex is 34.6 ml/m . Chamber Sizes and Function Normal left ventricular size, normal wall thickness, normal globalsystolic function with an estimated EF of 60 - 65%. No resting regionalwall motion abnormality visualized. Left atrial size is normal. Leftatrial pressure is normal. Right ventricular cavity size is normal, globalsystolic RV function is normal. The right atrium is normal. Right atrialvolume index is 15 ml/m . Right atrial area is 12 cm . The pulmonaryartery is not well visualized. The sinus of Valsalva is normal sized. Theascending aorta is not well visualized. Valves, RV Pressures and Diastolic Function The aortic valve is trileaflet and sclerotic, mild stenosis and trivialregurgitation. The mitral valve is sclerotic, no mitral regurgitation.Spectral Doppler shows Grade 1 pattern of LV diastolic filling. Thetricuspid valve is normal in structure. Tricuspid regurgitation is traceregurgitation. The tricuspid regurgitant velocity is 2.4 m/s, theestimated right ventricular systolic pressure is 23 mmHg plus right atrialpressure. The pulmonic valve is not well visualized. No pulmonaryregurgitation. Masses, Effusion, Shunts There is no pericardial effusion. The inferior vena cava is not wellvisualized, respiratory size variation not well visualized. No left toright shunting was detected by limited color flow Doppler interrogation ofthe interatrial septum. MEASUREMENTS AND CALCULATIONS 2-D Measurements and LV Function: LVID (d) 4.2 cm LV FS% (2D) 37 % LVID (s) 2.6 cm LVOT diameter 1.9 cm IVS (d) 1.1 cm HR 82 bpm LVPW (d) 1.2 cm LA Vol index 20 ml/m2 Ao Sinus 3.5 cm RA Vol index 15 ml/m2 LA 3.1 cm RA area 12 cm Diastology: Mitral Tissue Doppler Pulmonary veins E Peak 0.8 m/s e', Septum 0.08 m/s Pulm s 51.0 cm/s A Peak 0.8 m/s e', Lateral 0.12 m/s Pulm d 44.9 cm/s E/A 1.0 E/e' Average 8.02 Pulm s/d ratio 1.14 DT 220 msec Aortic Valve: Vmax 2.2 m/s YASHIRA (V) 1.42 cm VTI 0.45 m YASHIRA (I) 1.49 cm LVOT V max 1.1 m/s Max PG 20 mmHg LVOT VTI 0.24 m Mean PG 11 mmHg SV 67 ml Dim Index 0.53 SV index 35 ml/m CO 5.5 l/min CI 2.8 l/min/m Mitral Valve: MVA 3.4 cm MV P 1/2 64 msec Tricuspid Valve and estimated PA pressures: TR Vmax 2.4 m/s TAPSE 3.4 cm TR maxG 23 mmHg Pulmonic Valve: PV Vmax 1.6 m/s . This study was interpreted by an [facility] accredited facility. CC: HIM (med records) [facility], Med/Surg - IP [facility]. Final Michelle Feliciano MD ECHO ORD Final Result from Last 3 Months Insurance MEDICARE PART A HB ONLY MEDICARE PART B HB ONLY [employer] BL[employer] HB ONLY [employer] MR PB ONLY Advance Directives * Full Code [...] Code Status Discussion: Not Discussed Care Teams Computer System Technician Relationship Specialty Start Date End Date Iza Ayon MD [address] [place] [address] PCP - General Internal Medicine 10/27/21
[2024-08-16 14:42] VITALS: BP 99/67; PULSE 107; RESP 18; TEMP 36.8; O2SAT 96; BMI 25.1
--- NOTE | 2024-08-16 15:11 | ED.GENADULT ---
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 She was discharged postoperatively on August 13. She says she was feeling okay when she left although she was pretty her week. Over the past couple of days she feels like she is more short of breath and more fatigued. She has had a little bit of a cough. She has not had fevers. She does not have chest pain. She has not had significant abdominal pain. She has had bowel movements using a stool softener. Her appetite is significantly decreased however and she says she finds that food just does not taste good. She denies unusual pain or swelling in her legs, urinary symptoms, nausea or vomiting. She is anticoagulated for chronically due to atrial fibrillation and was restarted on her Coumadin during her hospital stay. INR on the was 2.96. She does not have prior history of DVT or PE. She does have a history of aortic stenosis, echo was done during her hospital stay and this was noted to be mild. Related Data Home Medications ?Medication ?Instructions ?Recorded ?Confirmed clobetasol 0.05 % topical ointment 1 applic topical DAILY PRN 08/16/23 08/16/24 multivitamin 1 tab PO QAM 08/16/23 08/16/24 omeprazole 40 mg capsule,delayed 40 mg PO DAILY 08/16/23 08/16/24 release warfarin 2 mg tablet 2 - 4 mg PO DAILY 08/16/23 08/16/24 alendronate 70 mg tablet 70 mg PO QWEEK 08/01/24 08/16/24 amiodarone 200 mg tablet 100 mg PO DAILY 08/01/24 08/16/24 ascorbic acid (vitamin C) 500 mg 500 mg PO DAILY 08/01/24 08/16/24 capsule calcium 600 mg capsule 1,200 mg PO DAILY 08/01/24 08/16/24 diltiazem HCl 120 mg 120 mg PO DAILY 08/01/24 08/16/24 capsule,extended release 24 hr melatonin 5 mg capsule 5 mg PO HS 08/01/24 08/16/24 Previous Rx's ?Medication ?Instructions ?Recorded hydrocodone 5 mg-acetaminophen 325 1 tab PO Q6H PRN pain #25 tabs 08/13/24 mg tablet Allergies Allergy/AdvReac Type Severity Reaction Status Date / Time No Known Drug Allergies Allergy Verified 08/16/24 14:50 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 (ICD-10) Small bowel obstruction ?K56.609 - Unspecified intestinal obstruction, unspecified as to partial versus complete obstruction (ICD-10) Volvulus ?K56.2 - Volvulus (ICD-10) Peptic ulcer disease ?K27.9 - Peptic ulcer, site unspecified, unspecified as acute or chronic, without hemorrhage or perforation (ICD-10) GERD (gastroesophageal reflux disease) ?K21.9 - Gastro-esophageal reflux disease without esophagitis (ICD-10) Surgical History (Updated 08/13/24 @ 10:42 by Lizbeth Webber MD) History of tonsillectomy ?Z90.89 - Acquired absence of other organs (ICD-10) History of esophagogastroduodenoscopy (EGD) ?Z98.890 - Other specified postprocedural states (ICD-10) History of colonoscopy ?Z98.890 - Other specified postprocedural states (ICD-10) History of cholecystectomy ?Z90.49 - Acquired absence of other specified parts of digestive tract (ICD-10) History of appendectomy ?Z90.49 - Acquired absence of other specified parts of digestive tract (ICD-10) Social History What is your current living situation?: I presently have a place to live Problems where you live: no known problems Problems where you live details: NA In the past 12 months, utilities in danger of being shut off: no In past 12 months, lack of transportation kept you from medical appts, meetings, work, or getting things needed for daily living: no In the past 12 mos, have been you worried that your food would run out before you had money to buy more?: never true In the past 12 mos, the food you bought just didn't last and you didn't have money to buy more?: sometimes true Highest level of school completed/degree received: high school graduate Smoking Status: Never smoker Second hand tobacco smoke exposure: No How often do you have a drink containing alcohol: never AUDIT-C Alcohol total score: 0 Non-prescribed substance use: denies use Caffeine: Yes How often does anyone, including family, friends and others, physically hurt you: never How often does anyone, including family, friends and others, insult or talk down to you: never How often does anyone, including family, friends and others, threaten you with harm: never How often does anyone, including family, friends and others, scream or curse at you: never service: No Health Related Social Needs: food insecurity (Z59.41) Exam Const: Vital Signs, click to edit/add: Vital Signs - 24 hr 08/16/24 14:42 Temperature 98.2 F Pulse Rate [Right Pulse Oximeter] 107 H Respiratory Rate 18 Blood Pressure [Ri ght Upper Arm] 99/67 Pulse Oximetry 96 Oxygen Delivery Me thod Room Air Course Course ED Course: Patient presents status post recent hospitalization and abdominal surgery for fatigue and shortness of breath. Diagnostic considerations would include anemia, metabolic derangement, pneumonia, pulmonary embolism, viral infections such as COVID or influenza, UTI, dehydration, acute coronary syndrome among others. She does not have any symptoms to suggest an intra-abdominal complication related to her surgery. Will place an IV, give her 500 mL of normal saline and check some labs as well as a chest x-ray. Labs most notable for positive influenza a, white count is normal, hemoglobin is 12.3. Metabolic panel is unremarkable lactate is normal. Magnesium is 2.1. LFTs mildly elevated nonspecific, AST of 58, ALT of 38 and alk-phos of 463. CRP mildly elevated at 3.7. Point of care troponin was 0.01. An EKG shows a sinus rhythm at this time with a ventricular rate of 94. ST segments in a few lead such as lead 3, lead 1, lead foreign 5 have a curved appearance although she does not really have ST segment depression or elevation. In the presence of nonspecific symptoms and a negative troponin I do not think this likely represents acute coronary syndrome. Symptoms are likely related to influenza. She lives independently, she says she does not feel she can manage at home right now and would prefer to come back into the hospital. Discussed with hospitalist, Tamiflu ordered. D-dimer is elevated however I think given her anticoagulation, absence of hypoxia and more likely alternative diagnosis for now will defer imaging following discussion with hospitalist. Vital Signs Vital signs: Initial Vital Signs Temperature 98.2 F 08/16/24 14:42 Temperature Source Temporal Artery Scan 08/16/24 14:42 Pulse Rate 107 H 08/16/24 14:42 Pulse Rhythm Regular 08/16/24 14:42 Pulse Strength 3+ Normal 08/16/24 14:42 Respiratory Rate 18 08/16/24 14:42 Blood Pressure 99/67 08/16/24 14:42 Blood Pressure Mean 77 08/16/24 14:42 Blood Pressure Position Sitting 08/16/24 14:42 Pulse Oximetry 96 08/16/24 14:42 Oxygen Delivery Method Room Air 08/16/24 14:42 Vital Signs Temperature 98.2 F 08/16/24 14:42 Pulse Rate 107 H 08/16/24 14:42 Respiratory Rate 18 08/16/24 14:42 Blood Pressure 99/67 08/16/24 14:42 Pulse Oximetry 96 08/16/24 14:42 Oxygen Delivery Method Room Air 08/16/24 14:42 Temperature 98.2 F 08/16/24 14:42 Pulse Rate 107 H 08/16/24 14:42 Respiratory Rate 18 08/16/24 14:42 Blood Pressure 99/67 08/16/24 14:42 Pulse Oximetry 96 08/16/24 14:42 Oxygen Delivery Method Room Air 08/16/24 14:42 Medications Administered Medications: Discontinued Medications Generic Name Dose Route Start Last Admin Trade Name Freq PRN Reason Stop Dose Admin Sodium Chloride 500 mls @ 500 mls/hr 08/16/24 15:01 08/16/24 15:28 0.9 % Sodium Chloride 500 Ml IV 08/16/24 16:00 500 mls/hr .Q1H ONE Administration Oseltamivir Phosphate 75 mg 08/16/24 16:22 08/16/24 16:43 Oseltamivir Phosphate 75 Mg Capsule PO 08/16/24 16:23 75 mg ONCE ONE Administration Medical Decision Making Lab Data Labs: Lab Results 08/16/24 08/16/24 08/16/24 Range/Units 14:55 15:02 15:30 WBC 9.01 (4.50-11.00) K/uL RBC 4.16 (4.00-5.20) m/uL Hgb 12.3 (12.0-16.0) gm/dL Hct 38.1 (33.0-51.0) % MCV 92 (80-100) fL MCH 30 (26-34) pg MCHC 32 (32-36) gm/dL RDW Coeff of Xavi 14.5 (11.5-15.5) % Plt Count 383 (140-440) K/uL Neut % (Auto) 83.9 H (42.0-72.0) % Lymph % (Auto) 6.8 L (20-44) % [place] % (Auto) 8.3 (0.0-11.0) % Eos % (Auto) 0.1 (0.0-7.0) % Baso % (Auto) 0.2 (0.0-3.0) % Neut # (Auto) 7.60 H (1.7-7.0) K/uL Lymph # (Auto) 0.60 L (0.90-2.90) K/uL [place] # (Auto) 0.70 (0.00-0.90) K/UL Eos # (Auto) 0.01 (0.00-0.50) K/uL Baso # (Auto) 0.02 (0.00-0.30) K/uL Abs Immat Gran (auto) 0.06 (0.00-0.30) K/uL Imm/Tot Granulo (auto) 0.7 % D-Dimer Quant (PE/DVT) 2.41 H (0.00-0.50) ug/ml Sodium 134 L (135-149) mmol/L Potassium 4.4 (3.6-5.1) mmol/L Chloride 99 (96-114) mmol/L Carbon Dioxide 23 (20-32) mmol/L Anion Gap 12 (7-15) mEq/L BUN 19 (7-30) mg/dL Creatinine 0.7 (0.5-1.5) mg/dL Estimated Creat Clear 47.53 Estimated GFR 89 ml/min Glucose 91 (60-115) mg/dL Lactate 1.5 (0.5-1.9) mmol/L Calcium 8.1 L (8.4-10.6) mg/dL Magnesium 2.1 (1.5-2.6) mg/dL Total Bilirubin 0.7 (0.1-1.5) mg/dL Direct Bilirubin 0.4 (0.0-0.5) mg/dL AST 58 H (12-35) U/L ALT 38 H (4-35) U/L Alkaline Phosphatase 463 H (40-150) U/L C-Reactive Protein 3.7 H (0.5-1.0) mg/dL NT-Pro-B Natriuret Pep 324 pg/mL Total Protein 6.4 (6.0-8.3) g/dL Albumin 3.7 (3.3-5.0) g/dL SARS-CoV-2 (PCR) Negative SARS-CoV-2 (Negative) Influenza Type A (PCR) POSITIVE PCR FLU A A (Negative) Influenza Type B (PCR) Negative PCR FLU B (Negative) RSV (PCR) Negative PCR RSV (Negative) POC Troponin I 0.01 (0.01-0.04) ng/ml Imaging Data Chest x-ray: Attestation: I have reviewed the pertinent imaging results. Radiologist's impression: [place] [address] Diagnostic Imaging Report Patient: Shabnam Llamas MR#: [id number] : 1945 Acct:[id number] Loc: ED Service Date: 08/16/[address]: Ordering Physician: Guera Barnes M.D. Date of Service: 08/16/24 Procedure(s): XR chest 2V Accession Number(s): [id number] cc: Guera Barnes M.D.; Iza Ayon M.D.~ For Patients: As a result of the Cures Act, medical imaging exams and procedure reports are released immediately into your electronic medical record. You may view this report before your referring provider. If you have questions, please contact your health care provider. INDICATION: Cough. TECHNIQUE: Chest radiographs, 2 views. COMPARISON: Chest radiograph 08/07/2024. FINDINGS: Cardiovascular/Mediastinum: Normal heart size. Unremarkable. Lungs: No focal consolidation. Linear band like opacification of the lungs bilaterally, likely subsegmental atelectasis and/or scarring. Airways: Trachea remains midline. Pleura: No pleural effusions or pneumothorax. Bones: No acute osseous abnormalities. Upper abdomen: Unremarkable. IMPRESSION: No acute cardiopulmonary process. Dictated by Ortega Delgado MD @ 08/16/2024 3:22:41 PM Discharge Plan Discharge Clinical Impression: Influenza A, Weakness Patient Disposition: Admitted As Observation
--- OUTSIDE RECORDS SUMMARY | 2024-08-16 15:12 | XMS_ITS | Encounter Summary ---
Author Organization [facility] Address [address] [place] [address] Care Team Providers Care Improvement Coordinator Name Role Phone Iza Ayon M.D. Primary Care Provider [phone] Reason for Visit * Reason Onset Date Comments Cough 08/16/2024 Encounter Details Date Type Department Care Team (Late st Contact Info) Description 08/16/2024 Nurse Triage Department of Internal Medicine in [place], [place] [address] [place] [phone] Christina Maurer, RKaren Cough Social History Tobacco Use Types Packs/Day Years Used Date Smoking Tobacco: Never Passive Smoke Exposure: Never Smokeless Tobacco: Never Alcohol Use Standard Drinks/Week Comments Yes 1 (1 standard drink = 0.6 oz pur e alcohol) [facility] Utilities Answer Date Recorded In the past 12 months has [facility], gas, oil, or water [employer] threatened to shut off services in your [...] often do you attend chur ch or mandaeism services? More than 4 times per year 11/17/2022 Do you belong to any clubs o r organizations such as mormonism groups, unions, fraternal or athletic groups, or [...] Date Recorded PHQ-2 Score 0 12/07/2023 [facility] - [facility]ational [facility] Questionnaire Answer Date [...] your living situation today? [facility] 11/15/2023 Education Answer Date Recorded What is the highest level of school you have completed or the highest degree you have received? 12th grade 05/06/2019 Comments No Sex and Gender Information Value Date Recorded Sex Assigned at Female 11/15/2023 12:19 PM CDT Legal Sex Female 8:46 AM CORONER'S JUROR Gender Identity Female 01/12/2020 9:19 AM CDT Sexual Orientation Straight 01/12/2020 9: 19 AM CDT documented as of this encounter Miscellaneous Notes * Telephone Encounter - Christina Maurer R.N. - 08/16/2024 1:02 PM CORONER'S JUROR Chief Complaint / Reason for Call Patient [...] Chest tightness Protocols used: Cough - Acute [id number] NER'S JUROR documented in this encounter Plan of Treatment Upcoming Encounters Date Type Department Care Team (Latest Contact Info) Description 08/20/2024 10:50 AM CORONER'S JUROR Appointment Department of Laboratory Medicine in [address] [phone] Iza Ayon M.D. [address] [place] [phone] 08/20/2024 11:30 AM CORONER'S JUROR Anticoagulation Visit Department of Anticoagulation in [place], [place] [address] [place] [phone] Iza Ayon M.D. [address] [place] [phone] 09/03/2024 10:00 AM CORONER'S JUROR Office Visit Department of Internal Medicine in [place], [place] [address] [place] [phone] Iza Ayon M.D. [address] [place] [phone] 10/23/2024 10:20 AM CDT Appointment Department of Laboratory Medicine in [address] [phone] Dallas Bradford APRN, C.N.P. [address] [place] [phone] 10/23/2024 10:30 AM CDT Appointment Department of Laboratory Medicine in [address] [phone] Dallas Bradford APRN, C.N.P. [address] [phone] 10/25/2024 11:30 AM CDT Office Visit Department of Cardiovascular Diseases in [place], [place] [address] [phone] Dallas Bradford APRN, C.N.P. [address] [phone] documented as of this encounter Visit Diagnoses Not on filedocumented in this encounter Care Teams Improvement Coordinator Relationship Specialty Start Date End Date Iza Ayon M.D. [address] [phone] PCP - General Internal Medicine 04/24/19 documented as of this encounter
--- OUTSIDE RECORDS SUMMARY | 2024-08-16 15:12 | XMS_ITS | Encounter Summary ---
Author Organization [facility] Address [address] [place] [address] Care Team Providers Care Pathology Technologist Name Role Phone Iza Ayon M.D. Primary Care Provider [phone] Reason for Visit * Reason Comments Med Refill Encounter Details Date Type Department Care Team (Late st Contact Info) Description 07/11/2024 Refill Department of Obstetrics and Gynecology in [place], [place] [address] [phone] Jaimie Sena, HANDSTITCHING MACHINE ARMHOLE FELLER, C.N.P. [address] [phone] Med Refill Social History Tobacco Use Types Packs/Day Years Used Date Smoking Tobacco: Never Passive Smoke Exposure: Never Smokeless Tobacco: Never Alcohol Use Standard Drinks/Week Comments Yes 1 (1 standard drink = 0.6 oz pur e alcohol) [facility] Utilities Answer Date Recorded In the past 12 months has [facility] [employer] system, oil, or water [employer] threatened to shut off services in your [...] How often do you attend chur or mosque services? More than 4 times per year [...] Answer Date Recorded PHQ-2 Score 0 12/07/2023 [facility] - Occupational [...] PM CDT Legal Sex Female 8:46 AM REQUIREMENTS MANAGER Gender Identity Female 01/12/2020 9:19 AM CDT Sexual Orientation Straight 01/12/2020 9: 19 AM CDT documented as of this encounter Plan of Treatment Upcoming Encounters Date Type Department Care Team (Latest Contact Info) Description 08/20/2024 10:50 AM REQUIREMENTS MANAGER Appointment Department of Laboratory Medicine in [place], [place] [address] [place] [phone] Iza Ayon M.D. [address] [place] [phone] 08/20/2024 11:30 AM REQUIREMENTS MANAGER Anticoagulation Visit Department of Anticoagulation in [place], [place] [address] [place] [phone] Iza Ayon M.D. [address] [place] [phone] 09/03/2024 10:00 AM REQUIREMENTS MANAGER Office Visit Department of Internal Medicine in [place], [place] [address] [place] [phone] Iza Ayon M.D. [address] [phone] 10/23/2024 10:20 AM CDT Appointment Department of Laboratory Medicine in [address] [phone] Dallas Bradford APRN, C.N.P. [address] [phone] 10/23/2024 10:30 AM CDT Appointment Department of Laboratory Medicine in [address] [phone] Dallas Bradford APRN, C.N.P. [address] [phone] 10/25/2024 11:30 AM CDT Office Visit Department of Cardiovascular Diseases in [place], [place] [address] [place] [phone] Dallas Bradford APRN, C.N.P. [address] [phone] documented as of this encounter Visit Diagnoses Diagnosis Lichen Sclerosus documented in this encounter Care Teams Pathology Technologist Relationship Specialty Start Date End Date Iza Ayon M.D. [address] [place] [phone] PCP - General Internal Medicine 04/24/19 documented as of this encounter
--- OUTSIDE RECORDS SUMMARY | 2024-08-16 15:13 | XMS_ITS | Clinical Summary ---
Author Organization [facility] Address [address] [place] [address] Care Team Providers Care Job Setter Honing Name Role Phone Iza Ayon M.D. Primary Care Provider [phone] Source Comments Patient records contain information from all sites at [facility]. For routine questions regarding patient records, call [phone] during business hours, M-F 8:00 AM - 5:00 PM Central Time. Record requests for emergency care only can be directed to [phone] at any time.[facility] Allergies No known active allergies Medications [...] Nurse Triage Department of Internal Medicine in [place], [place] [address] [place] [phone] Christina Maurer R.N. Cough 07/11/2024 Refill Department of Obstetrics and Gynecology in [place], [place] [address] [phone] Jaimie Sena APRN, C.N.P. Med Refill 06/18/2024 10:10 AM SLEEP TECHNOLOGIST Anticoagulation Visit Department of Anticoagulation in [place], [place] [address] [place] [phone] Iza Ayon M.D. Atrial Fibrillation Paroxysmal (HCC); Bottom Ironer (Current) Anticoagulant Treatment; Barretts Esophagus Without Dysplasia; Monitoring For Therapeutic Drug Therapy 06/18/2024 9:12 AM SLEEP TECHNOLOGIST - 06/18/2024 11:59 PM SLEEP TECHNOLOGIST Hospital Encounter Department of Laboratory Medicine in [address] [phone] Iza Ayon M.D. Atrial Fibrillation Paroxysmal (HCC); Skilled Nursing (Current) Anticoagulant Treatment; Barretts Esophagus Without Dysplasia; Monitoring For Therapeutic Drug Therapy Discharge Disposition: Home or Self Care 06/04/2024 12:30 PM SLEEP TECHNOLOGIST Anticoagulation Visit Department of Anticoagulation in [place], [place] [address] [place] [phone] Iza Ayon M.D. Atrial Fibrillation Paroxysmal (HCC) (Primary Dx); Bottom Ironer (Current) Anticoagulant Treatment; Barretts Esophagus Without Dysplasia; Monitoring For Therapeutic Drug Therapy 06/04/2024 9:37 AM SLEEP TECHNOLOGIST - 06/04/2024 11:59 PM SLEEP TECHNOLOGIST Hospital Encounter Department of Laboratory Medicine in [address] [phone] Iza Ayon M.D. Atrial Fibrillation Paroxysmal (HCC); Skilled Nursing (Current) Anticoagulant Treatment; Barretts Esophagus Without Dysplasia; Monitoring For Therapeutic Drug Therapy Discharge Disposition: Home or Self Care 05/27/2024 12:00 PM SLEEP TECHNOLOGIST Anticoagulation Visit Department of Anticoagulation in [place], [place] [address] [place] [address] Iza Ayon M.D. Atrial Fibrillation Paroxysmal (HCC); Skilled Nursing (Current) Anticoagulant Treatment; Barretts Esophagus Without Dysplasia; Monitoring For Therapeutic Drug Therapy 05/27/2024 11:20 AM SLEEP TECHNOLOGIST - 05/27/2024 11:59 PM SLEEP TECHNOLOGIST Hospital Encounter Department of Laboratory Medicine in [place], [place] [address] [place] [address] Iza Ayon M.D. Atrial Fibrillation Paroxysmal (HCC); Skilled Nursing (Current) Anticoagulant Treatment; Barretts Esophagus Without Dysplasia; Monitoring For Therapeutic Drug Therapy Discharge Disposition: Home or Self Care 05/20/2024 Clinical Communication Department of Anticoagulation in [place], [place] [address] [place] [address] Zofia Mendes M.S.N., R.N. Anticoagulation (Upcoming procedure) 05/17/2024 2:00 PM CDT Office Visit Department of Internal Medicine in [place], [place] [address] [place] [address] Jessica Cardozo, P.A.-C., M.S. Preoperative Exam (Primary Dx); Atrial Fibrillation Paroxysmal (HCC); Bottom Ironer (Current) Anticoagulant Treatment; Gastroesophageal Reflux Disease Without [...] 0.6 oz pur e alcohol) [facility] Red Seraphimities Answer Date Recorded In the past 12 months has [facility] [employer], gas, oil, or water [employer] threatened to shut off services in your [...] often do you attend chur ch or jainism services? More than 4 times per year 11/17/2022 Do you belong to any clubs o r organizations such as episcopalian groups, unions, fraternal or athletic groups, or [...] Answer Date Recorded PHQ-2 Score 0 12/07/2023 [facility] Answer Date [...] your living situation today? I have a [facility] place to live 11/15/2023 Education Answer Date Recorded What is the highest level of school you have completed or the highest degree you have received? 12th grade 05/06/2019 Comments No Sex and Gender Information Value Date Recorded Sex Assigned at Female 11/15/2023 12:19 PM CDT Legal Sex Female 8:46 AM SLEEP TECHNOLOGIST Gender Identity Female 01/12/2020 9:19 AM CDT [...] (Latest Contact Info) Description 08/20/2024 10:50 AM SLEEP TECHNOLOGIST Appointment Department of Laboratory Medicine in [place], [place] [address] [place] [phone] Iza Ayon M.D. [address] [place] [address] 08/20/2024 11:30 AM SLEEP TECHNOLOGIST Anticoagulation Visit Department of Anticoagulation in [place], [place] [address] [place] [address] Iza Ayon M.D. [address] [place] [address] 09/03/2024 10:00 AM SLEEP TECHNOLOGIST Office Visit Department of Internal Medicine in [place], [place] [address] [place] [address] Iza Ayon M.D. [address] [phone] 10/23/2024 10:20 AM CDT Appointment Department of Laboratory Medicine in [place], [place] [address] [place] [address] Dallas Bradford APRN, C.N.P. [address] [place] [phone] 10/23/2024 10:30 AM CDT Appointment Department of Laboratory Medicine in [place], [place] [address] [place] [address] Dallas Bradford APRN, C.N.P. [address] [phone] 10/25/2024 11:30 AM CDT Office Visit Department of Cardiovascular Diseases in [place], [place] [address], [place] [address] Dallas Bradford, ASSISTANT PROFESSOR OF HISTORY, C.N.P. [address], [place] [address] Health Maintenance Due Date Last [...] POCT, B Routine 06/18/2024 9 :22 AM SLEEP TECHNOLOGIST Atrial Fibrillation Paroxysmal (HCC) Skilled Nursing (Current) Anticoagulant Treatment Barretts Esophagus Without Dysplasia Monitoring For Therapeutic Drug Therapy INR REFLEX, POCT, B Routine 06/04/2024 9 :45 AM SLEEP TECHNOLOGIST Atrial Fibrillation Paroxysmal (HCC) Bottom Ironer (Current) Anticoagulant Treatment Barretts Esophagus Without Dysplasia Monitoring For Therapeutic Drug Therapy INR REFLEX, POCT, B Routine 05/27/2024 12:37 PM SLEEP TECHNOLOGIST Atrial Fibrillation Paroxysmal (HCC) Bottom Ironer (Current) Anticoagulant Treatment Barretts Esophagus Without Dysplasia [...] INR Reflex, POCT, Blood (06/18/2024 9:22 AM SLEEP TECHNOLOGIST) Only the most recent of3 resultswithin the time period is included. INR Reflex, POCT, B 2.3 06/18/2024 9:21 AM SLEEP TECHNOLOGIST [id number] Comment: ----ADDITIONAL INFORMATION---- Standard intensity warfarin therapeutic range: 2.0 to 3.0 High intensity warfarin therapeutic range: 2.5 to 3.5 Blood (Blood, Capillary) 06/18/2024 9:22 AM SLEEP TECHNOLOGIST 06/18/2024 9:21 AM SLEEP TECHNOLOGIST us Iza Ayon M.D. LAB POCT ORDERABLES - DEVIC E Final Result [facility] [address] [place] [address], [facility] [[email or web address]] FB60 [facility] in [address] [address] * BI Breast Screening Bilateral with Tomosynthesis [...] M.D. LAB BLOOD ADD-ON Final Resu lt [facility] [address] [place] [address], [facility] [[email or web address]] OWAT [facility] in [place] [address] [place] [address] * HCV Ab Scrn w/Reflex to HCV PCR, Serum (11/17/2022 7:10 AM CDT) HCV Ab Screen, S Negative Negative 11/18/19 3:38 PM CDT MKTO Comment: Biotin has been identified by the concrete handler as a potential interfering substance. Higher concentrations of biotin may be found in multivitamins, hair/nail supplements, and workout supplements. If the result does not match clinical observations, repeat testing after patient refrains from the use of supplements for at least 12 hours. Blood (Blood, Venous) 11/17/2022 7:10 AM CDT Narrative [facility] - 11/17/2022 3:38 PM CDT Specimen Information: Specimen ID: [id number] Specimen Type: Blood Specimen Collection Start Date: 11/17/2022 7:10 AM Specimen ID: [id number] Specimen Type: Blood Specimen Collection Start Date: 11/17/2022 7:10 AM Specimen Received Date: 11/17/2022 2:28 PM Iza Ayon M.D. LAB MICROBIOLOGY - BLOOD OR DERABLES Final Result [facility] [address] [place] [address], [facility] [[email or web address]] MKTO [facility] [address] [place] [address] from Last 3 Months or Most Recently Relevant to Health Maintenance Insurance [facility] MEDICARE Care Teams Job Setter Honing Relationship Specialty Start Date End Date Iza Ayon M.D. [address] [place] [address] PCP - General Internal Medicine 04/24/19
[2024-08-16] MEDS: 0.9 % SODIUM CHLORIDE 500 ML 500 ML IV ×2 (15:28→18:59)
[2024-08-16 15:36] LABS: Lactate Sepsis w/Reflex* 1.5 mmol/L (0.5-1.9)
[2024-08-16 15:40] LABS: Basophils Absolute Auto 0.02 K/uL (0.00-0.30); Basophils Percent Auto 0.2 % (0.0-3.0); Eosinophils Absolute Auto 0.01 K/uL (0.00-0.50); Eosinophils Percent Auto 0.1 % (0.0-7.0); Hematocrit 38.1 % (33.0-51.0); Hemoglobin* 12.3 gm/dL (12.0-16.0); Immature Granulocytes Abs Auto 0.06 K/uL (0.00-0.30); Immature Granulocytes Pct Auto 0.7 %; Lymphocytes Percent Auto 6.8 % (20-44); Mean Corpuscular HGB Conc 32 gm/dL (32-36); Mean Corpuscular Hemoglobin 30 pg (26-34); Mean Corpuscular Volume 92 fL (80-100); Monocytes Percent Auto 8.3 % (0.0-11.0); Neutrophils Percent Auto 83.9 % (42.0-72.0); Platelet Count* 383 K/uL (140-440); RDW Coefficient of Variation % 14.5 % (11.5-15.5); Red Blood Count 4.16 m/uL (4.00-5.20); White Blood Count* 9.01 K/uL (4.50-11.00)
[2024-08-16 15:41] LABS: PCR FLU A POSITIVE PCR FLU A (Negative); PCR FLU B Negative PCR FLU B (Negative); PCR RSV Negative PCR RSV (Negative); SARS PCR* Negative SARS-CoV-2 (Negative)
[2024-08-16 15:56] LABS: Slide Review Reflex No
[2024-08-16 15:58] LABS: Troponin, Point-of-Care* 0.01 ng/ml (0.01-0.04)
[2024-08-16 16:01] LABS: D Dimer Quantitative* 2.41 ug/ml (0.00-0.50)
[2024-08-16 16:07] LABS: Albumin* 3.7 g/dL (3.3-5.0); Chloride* 99 mmol/L (96-114)
[2024-08-16 16:08] LABS: Potassium* 4.4 mmol/L (3.6-5.1); Sodium* 134 mmol/L (135-149)
[2024-08-16 16:10] LABS: Creatinine* 0.7 mg/dL (0.5-1.5); Est. Creatinine Clearance* 47.53; Estimated Glomerular Filt Rate 89 ml/min
[2024-08-16 16:11] LABS: Alanine Aminotransferase* 38 U/L (4-35); Alkaline Phosphatase* 463 U/L (40-150); Anion Gap 12 mEq/L (7-15); Aspartate Amino Transferase* 58 U/L (12-35); Bilirubin Direct* 0.4 mg/dL (0.0-0.5); Bilirubin Total* 0.7 mg/dL (0.1-1.5); Blood Urea Nitrogen* 19 mg/dL (7-30); Calcium* 8.1 mg/dL (8.4-10.6); Carbon Dioxide* 23 mmol/L (20-32); Glucose* 91 mg/dL (60-115); Magnesium* 2.1 mg/dL (1.5-2.6); Total Protein* 6.4 g/dL (6.0-8.3)
[2024-08-16 16:13] LABS: C Reactive Protein* 3.7 mg/dL (0.5-1.0)
[2024-08-16 16:22] LABS: NT Pro B Type NatriureticPept* 324 pg/mL
[2024-08-16] MEDS: OSELTAMIVIR PHOSPHATE 75 MG CAPSULE PO (16:43)
[2024-08-16 17:30] VITALS: BP 144/66; PULSE 70; RESP 18; TEMP 36.7; O2SAT 96; BMI 26.4
--- NOTE | 2024-08-16 17:51 | PM.IMHP1 ---
Hospitalist- H&P: [facility] History of Present Illness Date Seen: 08/16/24 Chief complaint: Abdominal surgery 1 week ago, discomfort, weak Narrative: Shabnam Llamas is a 79 year old woman presents to our emergency department with a 1-2 day history of increased weakness, myalgias, decreased appetite, and dry hacky cough. The hospitalized at [facility] from 08/01/2024 through 08/13/2024. Presented to the emergency department with abdominal pain in found to have a small-bowel obstruction. Brought to the operating room for exploratory laparotomy with extensive lyses of adhesions undertaken. Bowel function returned immediately however then developed an ileus. Treated conservatively with bowel rest and TPN. In time patient started to pass gas and stool in tolerate eating and drinking and activity and thus was discharged. Patient notes that even on the day that she was discharged from the hospital she was not feeling quite right. Continued to feel a sense of weakness. Over the last 1-2 days has had increasing body aches particularly or muscles. Over the last 1-2 days has lost interest in eating and has had hardly anything to eat or drink. Just looking at food and sometimes make her stomach feel queasy. Has had decreased urine output. Developed a dry hacky cough as well. Cough is nonproductive. Denies fevers, rigors, diaphoresis. Acknowledges a sense of lightheadedness but no syncope or near syncope. Review of Systems Status of ROS: Reports: 6 or more systems reviewed and unremarkable except as noted in History and below Narrative: Has not had abdominal bloating or pain. Passing stools. No constipation or diarrhea. No chest heaviness, pressure, tightness, or pain. Cough as described above. Sense of dyspnea with activity, mild. No trauma or injury. No travel in the last few days. Is taking warfarin anticoagulation, which is chronic for her. INR on date of discharge was 2.96. INR 08/16/2024 2.4. Denies palpitations or chest fluttering. Chronic unilateral edema more so than the other, I forget which side. This is not any different. Designates her daughter Maryjo Keene as her emergency contact and person to make decisions on her behalf if she is unable to make healthcare decisions. Designates her daughter Alena Stern as her secondary emergency contact and decision maker. Requests full resuscitation in the event of cardiopulmonary demise at this time. Would not want to be kept alive as a vegetable if that developed. 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 (ICD-10) Paroxysmal atrial fibrillation ?I48.0 - Paroxysmal atrial fibrillation (ICD-10) 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 (ICD-10) Small bowel obstruction ?K56.609 - Unspecified intestinal obstruction, unspecified as to partial versus complete obstruction (ICD-10) Volvulus ?K56.2 - Volvulus (ICD-10) Peptic ulcer disease ?K27.9 - Peptic ulcer, site unspecified, unspecified as acute or chronic, without hemorrhage or perforation (ICD-10) GERD (gastroesophageal reflux disease) ?K21.9 - Gastro-esophageal reflux disease without esophagitis (ICD-10) Surgical History History of tonsillectomy ?Z90.89 - Acquired absence of other organs (ICD-10) History of esophagogastroduodenoscopy (EGD) ?Z98.890 - Other specified postprocedural states (ICD-10) History of colonoscopy ?Z98.890 - Other specified postprocedural states (ICD-10) History of cholecystectomy ?Z90.49 - Acquired absence of other specified parts of digestive tract (ICD-10) History of appendectomy ?Z90.49 - Acquired absence of other specified parts of digestive tract (ICD-10) Social History What is your current living situation?: I presently have a place to live Problems where you live: no known problems Problems where you live details: none In the past 12 months, utilities in danger of being shut off: no In past 12 months, lack of transportation kept you from medical appts, meetings, work, or getting things needed for daily living: no In the past 12 mos, have been you worried that your food would run out before you had money to buy more?: never true In the past 12 mos, the food you bought just didn't last and you didn't have money to buy more?: never true Highest level of school completed/degree received: high school graduate Smoking Status: Never smoker Do you use any of these nicotine containing products: None Second hand tobacco smoke exposure: No How often do you have a drink containing alcohol: never How often do you have six or more drinks on one occasion: Never AUDIT-C Alcohol total score: 0 Non-prescribed substance use: denies use Caffeine: Yes (coffee 2 cups/daily) How often does anyone, including family, friends and others, physically hurt you: never How often does anyone, including family, friends and others, insult or talk down to you: never How often does anyone, including family, friends and others, threaten you with harm: never How often does anyone, including family, friends and others, scream or curse at you: never service: No Meds Home Medications and Allergies Home Medications ?Medication ?Instructions ?Recorded ?Confirmed ?Type clobetasol 0.05 % topical ointment 1 applic topical DAILY PRN 08/16/23 08/16/24 History multivitamin 1 tab PO QAM 08/16/23 08/16/24 History omeprazole 40 mg capsule,delayed 40 mg PO DAILY 08/16/23 08/16/24 History release warfarin 2 mg tablet 2 - 4 mg PO DAILY 08/16/23 08/16/24 History alendronate 70 mg tablet 70 mg PO QWEEK 08/01/24 08/16/24 History amiodarone 200 mg tablet 100 mg PO DAILY 08/01/24 08/16/24 History ascorbic acid (vitamin C) 500 mg 500 mg PO DAILY 08/01/24 08/16/24 History capsule calcium 600 mg capsule 1,200 mg PO DAILY 08/01/24 08/16/24 History diltiazem HCl 120 mg 120 mg PO DAILY 08/01/24 08/16/24 History capsule,extended release 24 hr melatonin 5 mg capsule 5 mg PO HS 08/01/24 08/16/24 History Allergies Allergy/AdvReac Type Severity Reaction Status Date / Time No Known Drug Allergies Allergy Verified 08/16/24 14:50 Exam Narrative: Exam Narrative: I examined patient in the emergency department with her son present. Appears tired and fatigued but is nevertheless awake alert cooperative articulate. Alert and oriented x4. External auditory canals are clear tympanic membranes are normal. Midline nasal septum. Dry buccal mucosa. Dentition in fair repair. No icterus or conjunctival injection. Conjugate gaze. Neck is supple. No head neck lymphadenopathy. Can hear murmur up into the right side of the neck. No bruit. Lungs are clear to auscultation. No wheezing, rhonchi, rales. Does have a dry hacky cough. No CVA tenderness. Regular heart rhythm. Grade 3/6 systolic murmur across the precordium radiating into the neck as well as the left axilla. Abdomen with active bowel sounds, soft, nontender. No rebound or guarding. Lower extremities without edema. Skin is intact. No focal motor neurologic deficits. Const: Vital Signs, click to edit/add: Vital Signs - 24 hr 08/16/24 14:42 08/16/24 17:30 Temperature 98.2 F 98.1 F Pulse Rate [Right Brachial] 70 Pulse Rate [Right Pulse Oximeter] 107 H Respiratory Rate 18 18 Blood Pressure [Ri ght Arm] 144/66 H Blood Pressure [Ri ght Upper Arm] 99/67 Pulse Oximetry 96 96 Oxygen Delivery Me thod Room Air Room Air Hospitalist - H&P: Result Labs Labs: Short CBC 08/16/24 Range/Units 15:30 WBC 9.01 (4.50-11.00) K/uL Hgb 12.3 (12.0-16.0) gm/dL Hct 38.1 (33.0-51.0) % Plt Count 383 (140-440) K/uL BMP 08/16/24 15:30 Sodium 134 L Potassium 4.4 Chloride 99 Carbon Dioxide 23 BUN 19 Creatinine 0.7 Glucose 91 Calcium 8.1 L Liver Function 08/16/24 Range/Units 15:30 Total Bilirubin 0.7 (0.1-1.5) mg/dL Direct Bilirubin 0.4 (0.0-0.5) mg/dL AST 58 H (12-35) U/L ALT 38 H (4-35) U/L Alkaline Phosphatase 463 H (40-150) U/L Albumin 3.7 (3.3-5.0) g/dL ECG ECG interpretation date: 08/16/24 Interpretation: Normal sinus rhythm Imaging Chest x-ray: Radiologist's impression: Chronic mild left pleural effusion versus linear atelectasis Assessment and Plan Assessment and plan (1) Influenza A: Problem comment: -oseltamivir 75 mg p.o. b.i.d. started 08/16/2024 -symptom management including schedule acetaminophen as well as scheduled ibuprofen for 1 day -full liquids for now and gradually introduce food again -treat the dehydration Status: Acute (2) Weakness: Problem comment: -PT and OT to reassess Status: Acute (3) Aortic stenosis: Problem comment: mild, new murmur (worsened by acute illness?) 08/02/24 TTE: Normal LV size and function, EF 60-65%. Normal RV size and function. Mild aortic stenosis, trivial aortic regurgitation. Aortic peak velocity 2.2m/s, peak gradient 20 mmHg, mean gradient 11 mmHg, valve area 1.49 cm2. f/u with property man outpatient Status: Acute (4) Dehydration: Problem comment: -normal saline and monitor daily weight and orthostatic blood pressures and pulses Status: Acute (5) Paroxysmal atrial fibrillation: Problem comment: -continue amiodarone, diltiazem. Status: Acute (6) Chronic anticoagulation: Problem comment: -INR goal 2-3; paroxysmal AFIB -pharmacist to assist with anticoagulation in hospital Status: Acute (7) Small bowel obstruction: Problem comment: -s/p exploratory laparotomy and extensive lysis of adhesions (08/01/24) -recurrent. emergent laparotomy; 30+ years ago. one admission for SBO, nonoperative in 2019. Status: Resolved (8) S/P exploratory laparotomy: Problem comment: - 08/01/2024 exploratory laparotomy with extensive lysis of adhesions for high grade SBO - 08/03 continue NG tube to LIS, awaiting return of bowel function - 08/04 large amount flatus yesterday, NGT out today - 08/05 sips of clears going well, but bloated today. Discussed with Dr. Abraham. Advancing to clears with option of yogurt. - 08/06 more distended, continue sips. Discussed with Dr. Abraham. - 08/07 remains distended. Had episode of afib with RVR today. Discussed with Dr. Harper. Placed NGT to LIS, obtained CT abd/pelvis which showed adynamic ileus. PICC and TPN ordered -08/08 TPN to start today, encouraged ambulation. CRP downtrending -08/09 continue TPN. NG clamped. Tolerating clears without nausea vomiting or pain. Followed by Dr. Diaz for the weekend. -08/10 evaluated by General surgery, okay to resume clears in small amounts, after episode of cramping pain last night, NGT clamped -08/11 per general surgery, will allow TPN to run out tonight, not restarting. NGT removed. Advancing diet slowly. Encourage ambulation. Restarting some of her oral medications, including oral antibiotic for mild cellulitis at surgical site. Will continue with IV metoprolol until absorption has improved 08/12 - improving. I stopped the IV metoprolol. I restarted her home diltiazem for 08/13. Her home amiodarone dosing today 08/12. 08/13 - discharge with no oral antibiotics Status: Acute (9) GERD (gastroesophageal reflux disease): Status: Acute Plan 1. Reviewed impression with patient and son 2. Reviewed recommendations with patient and son 3. Answered their questions to their satisfaction 4. They are agreeable with above stated plans and recommendations Total Time Spent Total Time Spent: 70 minutes
--- NOTE | 2024-08-16 18:29 | PC.NURSE ---
shift note: pt to room via wc from ED. IV patent to lt AC. son at bedside. vss stable.
[2024-08-16] MEDS: WARFARIN 2 MG TABLET 4 MG PO (18:47)
[2024-08-16] MEDS: HYDROCODONE-ACETAMIN 5-325 MG 1 TAB PO (18:49)
[2024-08-16] MEDS: 0.9 % SODIUM CHLORIDE 1000 ml 1,000 ML 125 ML IV (18:59)
[2024-08-16 19:00] VITALS: BP 136/83; PULSE 91; RESP 18; TEMP 36.8; O2SAT 93
[2024-08-16] MEDS: ONDANSETRON ODT 4 MG TAB PO (20:01)
[2024-08-16] MEDS: HYDROmorphone 0.5 mg/0.5 ml inj 0.2 MG IVP (20:49)
[2024-08-16] MEDS: SODIUM CHLORIDE 0.9 % (FLUSH) 10 ML SYRINGE 5 ML IVF ×2 (20:50→22:38)
[2024-08-16] MEDS: ONDANSETRON 2 MG/ML inj 4 MG IVP (21:50)
--- NOTE | 2024-08-16 22:11 | CRLHL7_ITS ---
For Patients: As a result of the Century Cures Act, medical imaging exams and procedure reports are released immediately into your electronic medical record. You may view this report before your referring provider. If you have questions, please contact your health care provider. INDICATION: NG tube placement, NG Tube placement assessment TECHNIQUE: Abdominal radiograph 1 view COMPARISON: 08/16/2024 FINDINGS: Bowel: The bowel gas pattern is normal without evidence of bowel obstruction but most of the lower abdomen and pelvis are excluded. NG tube present with tip in the gastric body. Soft tissue: No evidence of pneumoperitoneum present. Previous cholecystectomy noted with no significant intra- or extrahepatic biliary ductal dilatation seen. No suspicious calcifications noted. Bone: Unremarkable for age. IMPRESSION: 1. NG tube present with tip in the gastric body. Dictated by: Bear Johnson MD @ 08/16/2024 23:58:15 (Electronically Signed)
--- NOTE | 2024-08-16 22:13 | CRLHL7_ITS ---
For Patients: As a result of the Century Cures Act, medical imaging exams and procedure reports are released immediately into your electronic medical record. You may view this report before your referring provider. If you have questions, please contact your health care provider. INDICATION: ABD PAIN. NG TUBE. DISTENTION WO SBO. LYSIS OF ADHESIONS 08/01/24. TECHNIQUE: CT abdomen and pelvis without contrast. COMPARISON: August 07, 2024. FINDINGS: Limited evaluation of the intra-abdominal solid organs without IV contrast. Lower chest: Moderate right and small pleural effusions with adjacent compressive atelectasis. Trace pericardial effusion. Liver: Normal in size and attenuation. No suspicious masses. Gallbladder and bile ducts: Status post cholecystectomy. Intra and extrahepatic biliary ductal dilatation is noted. Pancreas: Unremarkable. No mass or inflammation. Spleen: Normal in size. No masses. Adrenal glands: Normal in size. No nodules. Kidneys: Normal in size. No suspicious masses, stones, or hydronephrosis. GI tract: Redemonstrated prominent loops of bowel without definite transition point may be related to ileus or partial obstruction. Appendix is not visualized. Enteric tube with distal tip and side port within the stomach. Vasculature: Abdominal aorta is normal in caliber. Mild calcific atherosclerosis. Lymph nodes: No lymphadenopathy. Peritoneum/Abdominal Wall: Fluid and foci of gas are identified in the anterior abdomen just deep to the incision, for example (). The fluid and foci of gas here are not definitively within a bowel loop and may represent an organizing collection. Midline abdominal surgical scar. Mild diffuse subcutaneous edema. Pelvis: Bladder is unremarkable. Probable prior hysterectomy. Bones: Unremarkable for age. IMPRESSION: 1. Redemonstrated prominent loops of bowel without definite transition point, which may be related to ileus or partial obstruction. The caliber of these bowel loops is mildly improved compared to prior. 2. Improved bilateral pleural effusions. 3. Fluid and foci of gas are identified in the anterior abdomen which are not definitively within loops of bowel, and may represent an organizing collection. This can be further evalua matt with postcontrast imaging or ultrasound. 4. intra and extrahepatic biliary ductal Dilatation similar to prior. Please note that all CT scans at this facility use dose modulation, iterative reconstruction, and/or weight-based dosing when appropriate to reduce radiation dose to as low as reasonably achievable. Dictated by Dov Sunshine MD @ 08/17/2024 12:17:27 AM (Electronically Signed)
--- NOTE | 2024-08-16 22:19 | PM.EN ---
Chart Event Note Date Seen: 08/16/24 Chart Event Note: Patient complained of abdominal bloating and discomfort. On exam her abdomen is certainly distended and tympanitic. Does have bowel sounds. Does have subjective discomfort to palpation. No rebound or guarding. Abdominal x-ray demonstrates multiple dilated loops of small bowel and stomach. Concerning for postop complication, small-bowel obstruction, ileus. Reviewed my concern with the patient and her 2 daughters. Recommended placement of an NG tube and then repeat x-ray to confirm placement. CT scan of the abdomen and pelvis to further assess. Will discuss with general surgeon on-call.
[2024-08-16 22:35] VITALS: O2SAT 86
[2024-08-16] MEDS: HYDROmorphone 0.5 mg/0.5 ml inj IVP ×2 (22:37→23:26)
[2024-08-16] MEDS: LORazepam 2 MG/ML inj 0.5 MG IVP (22:38)
[2024-08-16 23:00] VITALS: BP 103/67; PULSE 109; PULSE 95; RESP 16; RESP 18; O2SAT 93; O2SAT 94
[2024-08-16] MEDS: PANTOPRAZOLE SODIUM 40 MG INJ IVP (23:57)
[2024-08-16] MEDS: dilTIAZem 5 MG/ML inj IVP (23:57)
[2024-08-17] VITALS (8 sets, daily range): BP systolic 94–128; BP diastolic 59–78; PULSE 62–108; RESP 16–20; TEMP 36.7–37.2; O2SAT 90–95
[2024-08-17] MEDS: HYDROmorphone 0.5 mg/0.5 ml inj IVP ×7 (01:19→23:52)
[2024-08-17] MEDS: 0.9 % SODIUM CHLORIDE 1000 ml 1,000 ML 125 ML IV (03:05)
[2024-08-17] MEDS: ONDANSETRON 2 MG/ML inj 4 MG IVP (03:05)
[2024-08-17] MEDS: dilTIAZem 5 MG/ML inj IVP (04:09)
--- NOTE | 2024-08-17 06:47 | PC.NURSE ---
End of shift report [id number]: Alert and oriented x 4. Pain to abdomen well managed with current regimen. Bowel sounds active x 4 quadrants. Abdomen firm and distended upon initial assessment. Patient states that her stomach has been consistently firm to touch. Patient reporting nausea, IV zofran effective for nausea. At 2235 NG placed in right nare to 59cm, placement confirmed and LIS started, initial return of 850cc of green fluid. At 0400 NG draining thick brown liquid, drainage odorous and had smell of fecal matter. Dressing to distal midline incision changed, open area measures 1.2cmx0.6cmx0.4cm, wound cleansed with vashe and packed with vashe soaked kerlix and covered with non adherent dressing. Small amount of serosanguineous drainage noted on packing, patient tolerated dressing change without any discomfort. Transfers with Ax2 pivot transfer to bedside commode for voiding. No stools this shift.
[2024-08-17 07:04] LABS: Albumin* 2.9 g/dL (3.3-5.0)
[2024-08-17 07:07] LABS: Aspartate Amino Transferase* 37 U/L (12-35); Bilirubin Direct* 0.2 mg/dL (0.0-0.5); Bilirubin Total* 0.4 mg/dL (0.1-1.5); Total Protein* 5.2 g/dL (6.0-8.3)
[2024-08-17 07:08] LABS: Alanine Aminotransferase* 28 U/L (4-35); Alkaline Phosphatase* 341 U/L (40-150)
[2024-08-17 07:10] LABS: C Reactive Protein* 3.2 mg/dL (0.5-1.0)
[2024-08-17 07:25] LABS: INR 2.89 (0.91-1.10); Prothrombin Time 32.5 Seconds
--- NOTE | 2024-08-17 08:54 | P.GSCN_ITS ---
History of Present Illness Consult details Date Seen: 08/17/24 Consult date: 08/17/24 Narrative: Patient presented to the emergency department last night for persistent coughing and nausea. She had a recent hospital stay for a small-bowel obstruction here at [place]. She was taken to the operating room for an exploratory laparotomy and extensive lysis of adhesions on 08/01/2024. Postoperatively she had a prolonged postoperative ileus, requiring TPN. She was discharged from the hospital 3 days earlier on 08/14/2024. Since being at home her daughters say that she has continued to be weak. She was tolerating a regular diet, but overall had poor p.o. intake. No nausea or vomiting at home but did have some nausea with the aggressive coughing that she was experiencing yesterday. She has continued to pass gas. She had an episode of ?explosive diarrhea? in the room last night. Since having the NG tube placed her abdominal pain has improved and she denies any significant discomfort today. Review of Systems Status of ROS: Reports: 6 or more systems reviewed and unremarkable except as noted in History and below 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 (ICD-10) Small bowel obstruction ?K56.609 - Unspecified intestinal obstruction, unspecified as to partial versus complete obstruction (ICD-10) Volvulus ?K56.2 - Volvulus (ICD-10) Peptic ulcer disease ?K27.9 - Peptic ulcer, site unspecified, unspecified as acute or chronic, without hemorrhage or perforation (ICD-10) GERD (gastroesophageal reflux disease) ?K21.9 - Gastro-esophageal reflux disease without esophagitis (ICD-10) Surgical History History of tonsillectomy ?Z90.89 - Acquired absence of other organs (ICD-10) History of esophagogastroduodenoscopy (EGD) ?Z98.890 - Other specified postprocedural states (ICD-10) History of colonoscopy ?Z98.890 - Other specified postprocedural states (ICD-10) History of cholecystectomy ?Z90.49 - Acquired absence of other specified parts of digestive tract (ICD- 10) History of appendectomy ?Z90.49 - Acquired absence of other specified parts of digestive tract (ICD- 10) Social History What is your current living situation?: I presently have a place to live Problems where you live: no known problems Problems where you live details: none In the past 12 months, utilities in danger of being shut off: no In past 12 months, lack of transportation kept you from medical appts, meetings, work, or getting things needed for daily living: no In the past 12 mos, have been you worried that your food would run out before you had money to buy more?: never true In the past 12 mos, the food you bought just didn't last and you didn't have money to buy more?: never true Highest level of school completed/degree received: high school graduate Smoking Status: Never smoker Do you use any of these nicotine containing products: None Second hand tobacco smoke exposure: No How often do you have a drink containing alcohol: never How often do you have six or more drinks on one occasion: Never AUDIT-C Alcohol total score: 0 Non-prescribed substance use: denies use Caffeine: Yes (coffee 2 cups/daily) How often does anyone, including family, friends and others, physically hurt you : never How often does anyone, including family, friends and others, insult or talk down to you: never How often does anyone, including family, friends and others, threaten you with harm: never How often does anyone, including family, friends and others, scream or curse at you: never service: No Meds Home Medications and Allergies Home Medications ?Medication ?Instructions ?Recorded ?Confirmed ?Type clobetasol 0.05 % topical ointment 1 applic topical DAILY PRN 08/16/23 08/16/24 History multivitamin 1 tab PO QAM 08/16/23 08/16/24 History omeprazole 40 mg capsule,delayed 40 mg PO DAILY 08/16/23 08/16/24 History release warfarin 2 mg tablet 2 - 4 mg PO DAILY 08/16/23 08/16/24 History alendronate 70 mg tablet 70 mg PO QWEEK 08/01/24 08/16/24 History amiodarone 200 mg tablet 100 mg PO DAILY 08/01/24 08/16/24 History ascorbic acid (vitamin C) 500 mg 500 mg PO DAILY 08/01/24 08/16/24 History capsule calcium 600 mg capsule 1,200 mg PO DAILY 08/01/24 08/16/24 History diltiazem HCl 120 mg 120 mg PO DAILY 08/01/24 08/16/24 History capsule,extended release 24 hr melatonin 5 mg capsule 5 mg PO HS 08/01/24 08/16/24 History Allergies Allergy/AdvReac Type Severity Reaction Status Date / Time No Known Drug Allergies Allergy Verified 08/16/24 14:50 Exam Narrative: Exam Narrative: General: Patient lying in bed, frail but nontoxic Respiratory: Equal breath rise bilaterally, maintained on room air CV: Well perfused HEENT: NG tube in place, dark output into. Canister with approximately 300 mL dark bilious output Abdomen: Packing of the inferior wound was removed, small opening measuring 5 mm x 5 mm in size, no tunneling. A small amount of erythema around the lower portion of the incision without significant induration. No active drainage. No under lying fluid collections palpated. Tenderness with deep palpation along the incision without guarding or rebound. Abdomen is otherwise soft and nondistended. No peritoneal signs. Extremities: Left extremity with +2 edema, chronic lymphedema of that leg per patient. Right extremity with no edema. Const: Vital Signs, click to edit/add: Vital Signs - 24 hr 08/16/24 14:42 08/16/24 17:30 08/16/24 19:00 Temperature 98.2 F 98.1 F 98.3 F Pulse Rate Pulse Rate [Right Brachial] 70 91 Pulse Rate [Right Pulse Oximeter] 107 H Respiratory Rate 18 18 18 Blood Pressure [Ri ght Arm] 144/66 H 136/83 Blood Pressure [Ri ght Upper Arm] 99/67 Pulse Oximetry 96 96 93 Oxygen Delivery Me thod Room Air Room Air Room Air Oxygen Flow Rate 08/16/24 22:35 08/16/24 23:00 08/16/24 23:00 Temperature Pulse Rate 109 H Pulse Rate [Right Brachial] Pulse Rate [Right Pulse Oximeter] Respiratory Rate 18 Blood Pressure [Ri ght Arm] Blood Pressure [Ri ght Upper Arm] Pulse Oximetry 86 L 93 Oxygen Delivery Me thod Room Air Nasal Cannula Oxygen Flow Rate 2 08/16/24 23:00 08/17/24 03:00 Temperature 98.9 F Pulse Rate Pulse Rate [Right Brachial] 95 108 H Pulse Rate [Right Pulse Oximeter] Respiratory Rate 16 18 Blood Pressure [Ri ght Arm] 103/67 128/78 Blood Pressure [Ri ght Upper Arm] Pulse Oximetry 94 90 Oxygen Delivery Me thod Nasal Cannula Nasal Cannula Oxygen Flow Rate 2 2 Results Labs Labs: Abnormal lab results 08/16/24 08/16/24 08/17/24 Range/Units 14:55 15:30 05:42 Neut % (Auto) 83.9 H (42.0-72.0) % Lymph % (Auto) 6.8 L (20-44) % Neut # (Auto) 7.60 H (1.7-7.0) K/uL Lymph # (Auto) 0.60 L (0.90-2.90) K/uL INR 2.89 H (0.91-1.10) D-Dimer Quant (PE/DVT) 2.41 H (0.00-0.50) ug/ml Sodium 134 L (135-149) mmol/L Calcium 8.1 L (8.4-10.6) mg/dL AST 58 H 37 H (12-35) U/L ALT 38 H (4-35) U/L Alkaline Phosphatase 463 H 341 H (40-150) U/L C-Reactive Protein 3.7 H 3.2 H (0.5-1.0) mg/dL Total Protein 5.2 L (6.0-8.3) g/dL Albumin 2.9 L (3.3-5.0) g/dL Influenza Type A (PCR) POSITIVE PCR FLU A A (Negative) Diabetes panel 08/16/24 08/17/24 Range/Units 15:30 05:42 Sodium 134 L (135-149) mmol/L Potassium 4.4 (3.6-5.1) mmol/L Chloride 99 (96-114) mmol/L Carbon Dioxide 23 (20-32) mmol/L BUN 19 (7-30) mg/dL Creatinine 0.7 (0.5-1.5) mg/dL Glucose 91 (60-115) mg/dL Calcium 8.1 L (8.4-10.6) mg/dL AST 58 H 37 H (12-35) U/L ALT 38 H 28 (4-35) U/L Alkaline Phosphatase 463 H 341 H (40-150) U/L Total Protein 6.4 5.2 L (6.0-8.3) g/dL Albumin 3.7 2.9 L (3.3-5.0) g/dL Thyroid panel 08/16/24 Range/Units 15:30 TSH 2.780 (0.270-4.200) uIU/mL Calcium panel 08/16/24 08/17/24 Range/Units 15:30 05:42 Calcium 8.1 L (8.4-10.6) mg/dL Albumin 3.7 2.9 L (3.3-5.0) g/dL Pituitary panel 08/16/24 Range/Units 15:30 Sodium 134 L (135-149) mmol/L Potassium 4.4 (3.6-5.1) mmol/L Chloride 99 (96-114) mmol/L Carbon Dioxide 23 (20-32) mmol/L BUN 19 (7-30) mg/dL Creatinine 0.7 (0.5-1.5) mg/dL Glucose 91 (60-115) mg/dL Calcium 8.1 L (8.4-10.6) mg/dL TSH 2.780 (0.270-4.200) uIU/mL Adrenal panel 08/16/24 08/17/24 Range/Units 15:30 05:42 Sodium 134 L (135-149) mmol/L Potassium 4.4 (3.6-5.1) mmol/L Chloride 99 (96-114) mmol/L Carbon Dioxide 23 (20-32) mmol/L BUN 19 (7-30) mg/dL Creatinine 0.7 (0.5-1.5) mg/dL Glucose 91 (60-115) mg/dL Calcium 8.1 L (8.4-10.6) mg/dL Total Bilirubin 0.7 0.4 (0.1-1.5) mg/dL AST 58 H 37 H (12-35) U/L ALT 38 H 28 (4-35) U/L Alkaline Phosphatase 463 H 341 H (40-150) U/L Total Protein 6.4 5.2 L (6.0-8.3) g/dL Albumin 3.7 2.9 L (3.3-5.0) g/dL All other labs normal. Imaging Abdominal x-ray: report reviewed and image reviewed Abdomen CT scan report/results: report reviewed and image reviewed Progress Note:A&P Assessment and plan (1) Intra-abdominal abscess: Status: Acute Assessment and Plan: Patient is a 79-year-old female with recent hospitalization (08/01-08/14) for small-bowel obstruction requiring exploratory laparotomy with extensive lysis of adhesions (08/01). She had failure to thrive at home, weakness, coughing and nausea. On workup in the emergency department she was found to be positive for influenza A. A CT scan was obtained which demonstrates significant bilateral pleural effusion, prominent loops of small bowel with no definitive transition point and fluid with foci of gas in the anterior abdomen just deep to the incision. The radiologist does state that this is not definitively within a bowel loop. On review of the imaging it does look suspicious for a developing intra-abdominal abscess. Patient denies any fevers at home, but does have a el evation in her CRP (3.2), normal WBC (9) but with a left shift. After reviewing the operative report patient certainly is at risk for developing an intra- abdominal abscess and would recommend starting IV antibiotics at this time. An NG tube was placed for persistent nausea. She is passing gas and had a liquid stool last night. She could have an ileus secondary to an intra- abdominal abscess verses partial obstruction. Given her recent surgery she is very high risk for iatrogenic injury of surrounding bowel should she need to return to the operating room. No clinical indication for operative intervention at this time. Recommend that she continue with the NG tube in place. -NPO, okay for ice chips -patient has had poor p.o. intake since leaving the hospital on 08/14. She did require TPN during her last hospital stay. Will hold off on parental nutrition at this time, but she may require some pending her clinical course -IV fluids -NG tube low intermittent suction, okay to clamp for medications and with ambulation -IV Zosyn, trend WBC, CRP and fever curve -antiviral for influenza A -PT and OT consulted. Encouraged patient to ambulate the hallways -SCDs, akin for Lovenox for DVT prophylaxis. -was on Coumadin for chronic atrial fibrillation. INR 2.6. Would recommend holding at this time, akin for Lovenox Will continue to follow patient closely. Please call with any acute clinical changes or concerns.
[2024-08-17] MEDS: PIPERACILLIN/TAZOBACTAM 3.375 GM in 0.9 % SODIUM CHLORIDE Mini-bag 100 ML IVPB ×3 (09:22→21:40)
[2024-08-17] MEDS: dilTIAZem 120 MG CAP.ER.24H PO (09:23)
[2024-08-17] MEDS: AMIODARONE 200 MG TABLET 100 MG PO (09:23)
[2024-08-17] MEDS: PANTOPRAZOLE SODIUM 40 MG INJ IVP ×2 (09:25→21:40)
--- NOTE | 2024-08-17 13:38 | P.IMPN_ITS ---
Progress Note: A&P Assessment and plan (1) Intra-abdominal abscess: Problem details: -CT abdomen suggests intra-abd abscess. -Gen Sx consulted. -An NG tube was placed for persistent nausea. She is passing gas and had a liquid stool last night. She could have an ileus secondary to an intra-abd ominal abscess verses partial obstruction. Given her recent surgery she is very high risk for iatrogenic injury of surrounding bowel should she need to return to the operating room. --No clinical indication for operative intervention at this time per Sx. -NPO, okay for ice chips, patient has had poor p.o. intake since leaving the hospital on 08/14. She did require TPN during her last hospital stay. Will hold off on parental nutrition at this time, but she may require some pending her clinical course -IV fluids -NG tube low intermittent suction, okay to clamp for medications and with ambula tion -IV Zosyn, trend WBC, CRP and fever curve -PT and OT consulted. Encouraged patient to ambulate the hallways Status: Acute (2) Ileus: Problem details: as above Status: Suspected (3) Small bowel obstruction: Problem details: -Hx of recent SBO -s/p exploratory laparotomy and extensive lysis of adhesions (08/01/24) -recurrent. emergent laparotomy; 30+ years ago. one admission for SBO, nonoperative in 2019. Status: Resolved (4) Influenza A: Problem details: -oseltamivir 75 mg p.o. b.i.d. started 08/16/2024 -symptom management including schedule acetaminophen as well as scheduled ibuprofen for 1 day -full liquids for now and gradually introduce food again -continue IV fluids Status: Acute (5) Weakness: Problem details: -PT and OT to reassess Status: Acute (6) Aortic stenosis: Problem details: mild, new murmur (worsened by acute illness?) 08/02/24 TTE: Normal LV size and function, EF 60-65%. Normal RV size and function. Mild aortic stenosis, trivial aortic regurgitation. Aortic peak velocity 2.2m/s, peak gradient 20 mmHg, mean gradient 11 mmHg, valve area 1.49 cm2. f/u with technology methodology consultant outpatient Status: Acute (7) Dehydration: Problem details: -normal saline and monitor daily weight and orthostatic blood pressures and pulses Status: Acute (8) Paroxysmal atrial fibrillation: Problem details: -continue amiodarone, diltiazem. Status: Acute (9) Chronic anticoagulation: Problem details: -INR goal 2-3; paroxysmal AFIB -pharmacist to assist with anticoagulation in hospital Status: Acute (10) S/P exploratory laparotomy: Problem details: - 08/01/2024 exploratory laparotomy with extensive lysis of adhesions for high grade SBO - 08/03 continue NG tube to LIS, awaiting return of bowel function - 08/04 large amount flatus yesterday, NGT out today - 08/05 sips of clears going well, but bloated today. Discussed with Dr. Abraham. Advancing to clears with option of yogurt. - 08/06 more distended, continue sips. Discussed with Dr. Abraham. - 08/07 remains distended. Had episode of afib with RVR today. Discussed with Dr. Abraham. Placed NGT to LIS, obtained CT abd/pelvis which showed adynamic ileus. PICC and TPN ordered -08/08 TPN to start today, encouraged ambulation. CRP downtrending -08/09 continue TPN. NG clamped. Tolerating clears without nausea vomiting or pain. Followed by Dr. Diaz for the weekend. -08/10 evaluated by General surgery, okay to resume clears in small amounts, after episode of cramping pain last night, NGT clamped -08/11 per general surgery, will allow TPN to run out tonight, not restarting. NGT removed. Advancing diet slowly. Encourage ambulation. Restarting some of her oral medications, including oral antibiotic for mild cellulitis at surgical site. Will continue with IV metoprolol until absorption has improved 08/12 - improving. I stopped the IV metoprolol. I restarted her home diltiazem for 08/13. Her home amiodarone dosing today 08/12. 08/13 - discharge with no oral antibiotics Status: Acute (11) GERD (gastroesophageal reflux disease): Status: Acute Time Spent With Patient Total time spent: Today I spent 50 minutes seeing the patient, reviewing [facility]panse and EPIC notes/diagnostics, discussing the care plan with our care time that includes social work, PT/OT, pharmacy, RT, custodial and documenting my impressions and plan in the medical record. Subjective Date Seen: 08/17/24 Interval history: Patient was seen and examined at bedside today. Pain killers are helping with controlling her pain she was not nauseated or vomiting and stated that she does not have abdominal pain any more since she had NG tube in. Patient has had an explosive bowel movement yesterday night (this is how she described it). Start ed IV antibiotics today + keep NG tube in. Exam Narrative: Exam Narrative: Physical exam GENERAL: Comfortable, no acute distress. HEAD AND NECK: Atraumatic, normocephalic CARDIOVASCULAR: RRR. Normal S1, S2. No murmurs. RESPIRATORY: Clear to auscultation B/L. Good air entry B/L. No wheezes or rhonchi. GASTROINTESTINAL: Not distended, not tender to palpation. NEUROLOGY: Alert, awake, oriented X 3. Normal speech. No focal weakness. PSYCH: Normal mood, normal affect. Const: Vital Signs, click to edit/add: Vital Signs - 24 hr 08/16/24 14:42 08/16/24 17:30 08/16/24 19:00 Temperature 98.2 F 98.1 F 98.3 F Pulse Rate Pulse Rate [Pulse Oximeter] Pulse Rate [Right Brachial] 70 91 Pulse Rate [Right Pulse Oximeter] 107 H Respiratory Rate 18 18 18 Blood Pressure [Ri ght Arm] 144/66 H 136/83 Blood Pressure [Ri ght Upper Arm] 99/67 Pulse Oximetry 96 96 93 Oxygen Delivery Me thod Room Air Room Air Room Air Oxygen Flow Rate 08/16/24 22:35 08/16/24 23:00 08/16/24 23:00 Temperature Pulse Rate 109 H Pulse Rate [Pulse Oximeter] Pulse Rate [Right Brachial] Pulse Rate [Right Pulse Oximeter] Respiratory Rate 18 Blood Pressure [Ri ght Arm] Blood Pressure [Ri ght Upper Arm] Pulse Oximetry 86 L 93 Oxygen Delivery Me thod Room Air Nasal Cannula Oxygen Flow Rate 2 08/16/24 23:00 08/17/24 03:00 08/17/24 08:00 Temperature 98.9 F 98.8 F Pulse Rate Pulse Rate [Pulse Oximeter] 98 Pulse Rate [Right Brachial] 95 108 H Pulse Rate [Right Pulse Oximeter] Respiratory Rate 16 18 18 Blood Pressure [Ri ght Arm] 103/67 128/78 105/63 Blood Pressure [Ri ght Upper Arm] Pulse Oximetry 94 90 92 Oxygen Delivery Me thod Nasal Cannula Nasal Cannula Room Air Oxygen Flow Rate 2 2 08/17/24 09:10 08/17/24 09:10 08/17/24 12:32 Temperature Pulse Rate 94 Pulse Rate [Pulse Oximeter] Pulse Rate [Right Brachial] Pulse Rate [Right Pulse Oximeter] Respiratory Rate 20 20 Blood Pressure [Ri ght Arm] Blood Pressure [Ri ght Upper Arm] Pulse Oximetry 93 91 Oxygen Delivery Me thod Nasal Cannula Nasal Cannula Oxygen Flow Rate 1 1 Labs Labs: Laboratory Results - last 24 hr 08/16/24 08/16/24 08/16/24 14:55 15:02 15:30 WBC 9.01 RBC 4.16 Hgb 12.3 Hct 38.1 MCV 92 MCH 30 MCHC 32 RDW Coeff of Xavi 14.5 Plt Count 383 Neut % (Auto) 83.9 H Lymph % (Auto) 6.8 L [place] % (Auto) 8.3 Eos % (Auto) 0.1 Baso % (Auto) 0.2 Neut # (Auto) 7.60 H Lymph # (Auto) 0.60 L [place] # (Auto) 0.70 Eos # (Auto) 0.01 Baso # (Auto) 0.02 Abs Immat Gran (auto) 0.06 Imm/Tot Granulo (auto) 0.7 INR D-Dimer Quant (PE/DVT) 2.41 H Sodium 134 L Potassium 4.4 Chloride 99 Carbon Dioxide 23 Anion Gap 12 BUN 19 Creatinine 0.7 Estimated Creat Clear 47.53 Estimated GFR 89 Glucose 91 Lactate 1.5 Calcium 8.1 L Magnesium 2.1 Total Bilirubin 0.7 Direct Bilirubin 0.4 AST 58 H ALT 38 H Alkaline Phosphatase 463 H C-Reactive Protein 3.7 H NT-Pro-B Natriuret Pep 324 Total Protein 6.4 Albumin 3.7 TSH 2.780 SARS-CoV-2 (PCR) Negative SARS-CoV-2 Influenza Type A (PCR) POSITIVE PCR FLU A A Influenza Type B (PCR) Negative PCR FLU B RSV (PCR) Negative PCR RSV POC Troponin I 0.01 08/17/24 05:42 WBC RBC Hgb Hct MCV MCH MCHC RDW Coeff of Xavi Plt Count Neut % (Auto) Lymph % (Auto) [place] % (Auto) Eos % (Auto) Baso % (Auto) Neut # (Auto) Lymph # (Auto) [place] # (Auto) Eos # (Auto) Baso # (Auto) Abs Immat Gran (auto) Imm/Tot Granulo (auto) INR 2.89 H D-Dimer Quant (PE/DVT) Sodium Potassium Chloride Carbon Dioxide Anion Gap BUN Creatinine Estimated Creat Clear Estimated GFR Glucose Lactate Calcium Magnesium Total Bilirubin 0.4 Direct Bilirubin 0.2 AST 37 H ALT 28 Alkaline Phosphatase 341 H C-Reactive Protein 3.2 H NT-Pro-B Natriuret Pep Total Protein 5.2 L Albumin 2.9 L TSH SARS-CoV-2 (PCR) Influenza Type A (PCR) Influenza Type B (PCR) RSV (PCR) POC Troponin I
[2024-08-17] MEDS: 0.9 % SODIUM CHLORIDE 1000 ml 1,000 ML 75 ML IV (14:40)
--- NOTE | 2024-08-17 15:31 | PC.NURSE ---
End of Shift: Patient pleasant and cooperative, A&O. Patient reports pain in her abdomen this shift, managed with PRN medication, see MAR. NG draining green/brown fluid. Tele: franko NVR. 1A to bedside commode. NPO
[2024-08-17] MEDS: WARFARIN 2 MG TABLET 1 MG PO (16:43)
[2024-08-17] MEDS: SODIUM CHLORIDE 0.9 % (FLUSH) 10 ML SYRINGE 5 ML IVF ×2 (21:41→23:52)
--- NOTE | 2024-08-17 23:46 | PC.NURSE ---
Pt alert, oriented and vitally stable. Pt states pain rated 4-6/10 throughout shift, prn Dilaudid given. Bowel sounds are hyperactive. Dressing change complete, scant amounts of serosanguineous noted. Pt moved via 1a pivot, tolerates well. Previous dressing was not on site at the time of change. Pt had 350 cc of drainage from NG. New IV placed in left wrist as Iv in AC infiltrated. Pt in bed, appears to be resting, call light within reach.
[2024-08-18] VITALS (9 sets, daily range): BP systolic 97–134; BP diastolic 58–86; PULSE 79–108; RESP 16–18; TEMP 36.4–36.8; O2SAT 91–95
[2024-08-18] MEDS: 0.9 % SODIUM CHLORIDE 1000 ml 1,000 ML 75 ML IV (01:52)
[2024-08-18] MEDS: PIPERACILLIN/TAZOBACTAM 3.375 GM in 0.9 % SODIUM CHLORIDE Mini-bag 100 ML IVPB ×4 (02:54→22:21)
[2024-08-18] MEDS: HYDROmorphone 0.5 mg/0.5 ml inj IVP ×3 (02:55→23:22)
--- NOTE | 2024-08-18 05:53 | PC.NURSE ---
End of shift report [id number]: Alert and oriented x 4. Pain to abdomen well managed with current regimen. Dressing to lower abdomen clean, dry and intact. NG to right nare patent, draining dark green liquid. Bowel sounds active x 4 quadrants. Coarse, moist cough that patient is swallowing sputum. Denies any shortness of breath. Lung sounds clear in upper airway and diminished in bases with fine crackles. Afebrile throughout the shift. Ax1 with transfers, pivots onto bedside commode.
[2024-08-18 06:34] LABS: Basophils Absolute Auto 0.01 K/uL (0.00-0.30); Basophils Percent Auto 0.1 % (0.0-3.0); Eosinophils Absolute Auto 0.04 K/uL (0.00-0.50); Eosinophils Percent Auto 0.5 % (0.0-7.0); Hematocrit 31.6 % (33.0-51.0); Hemoglobin* 10.1 gm/dL (12.0-16.0); Immature Granulocytes Abs Auto 0.02 K/uL (0.00-0.30); Immature Granulocytes Pct Auto 0.3 %; Mean Corpuscular HGB Conc 32 gm/dL (32-36); Mean Corpuscular Hemoglobin 30 pg (26-34); Mean Corpuscular Volume 93 fL (80-100); Monocytes Percent Auto 7.9 % (0.0-11.0); Neutrophils Percent Auto 82.2 % (42.0-72.0); Platelet Count* 330 K/uL (140-440); RDW Coefficient of Variation % 14.5 % (11.5-15.5); Red Blood Count 3.39 m/uL (4.00-5.20); White Blood Count* 7.46 K/uL (4.50-11.00)
[2024-08-18 06:35] LABS: Slide Review Reflex No
[2024-08-18 06:55] LABS: Chloride* 106 mmol/L (96-114); Sodium* 135 mmol/L (135-149)
[2024-08-18 06:56] LABS: Potassium* 3.6 mmol/L (3.6-5.1)
[2024-08-18 06:58] LABS: Creatinine* 0.7 mg/dL (0.5-1.5); Est. Creatinine Clearance* 47.53; Estimated Glomerular Filt Rate 89 ml/min
[2024-08-18 06:59] LABS: Anion Gap 9 mEq/L (7-15); Blood Urea Nitrogen* 14 mg/dL (7-30); Calcium* 6.9 mg/dL (8.4-10.6); Carbon Dioxide* 20 mmol/L (20-32); Glucose* 66 mg/dL (60-115)
[2024-08-18 07:02] LABS: C Reactive Protein* 5.4 mg/dL (0.5-1.0)
[2024-08-18 07:09] LABS: INR 4.07 (0.91-1.10); Prothrombin Time 42.8 Seconds
[2024-08-18] MEDS: AMIODARONE 200 MG TABLET 100 MG PO (08:50)
[2024-08-18] MEDS: dilTIAZem 120 MG CAP.ER.24H PO (08:50)
[2024-08-18] MEDS: PANTOPRAZOLE SODIUM 40 MG INJ IVP ×2 (08:50→22:21)
--- NOTE | 2024-08-18 12:54 | PM.IMPN1 ---
Progress Note: A&P Assessment and plan (1) Intra-abdominal abscess: Problem details: -CT abdomen suggests intra-abd abscess. -Gen Sx consulted. -An NG tube was placed for persistent nausea. She is passing gas and had a liquid stool last night. She could have an ileus secondary to an intra-abdominal abscess verses partial obstruction. Given her recent surgery she is very high risk for iatrogenic injury of surrounding bowel should she need to return to the operating room. --No clinical indication for operative intervention at this time per Sx. -NPO, okay for ice chips, patient has had poor p.o. intake since leaving the hospital on 08/14. She did require TPN during her last hospital stay. -IV fluids -NG tube low intermittent suction. -IV Zosyn, trend WBC, CRP -PT and OT consulted. Encouraged patient to ambulate the hallways -Will start TPN aug,. Status: Acute (2) Ileus: Problem details: as above Status: Suspected (3) Small bowel obstruction: Problem details: -Hx of recent SBO -s/p exploratory laparotomy and extensive lysis of adhesions (08/01/24) -recurrent. emergent laparotomy; 30+ years ago. one admission for SBO, nonoperative in 2019. Status: Resolved (4) Influenza A: Problem details: -oseltamivir 75 mg p.o. b.i.d. started 08/16/2024 -symptom management including schedule acetaminophen as well as scheduled ibuprofen for 1 day -full liquids for now and gradually introduce food again -continue IV fluids Status: Acute (5) Weakness: Problem details: -PT and OT to reassess Status: Acute (6) Aortic stenosis: Problem details: mild, new murmur (worsened by acute illness?) 08/02/24 TTE: Normal LV size and function, EF 60-65%. Normal RV size and function. Mild aortic stenosis, trivial aortic regurgitation. Aortic peak velocity 2.2m/s, peak gradient 20 mmHg, mean gradient 11 mmHg, valve area 1.49 cm2. 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 Status: Acute (9) Chronic anticoagulation: Problem details: -INR goal 2-3; paroxysmal AFIB -pharmacist to assist with anticoagulation in hospital Status: Acute (10) S/P exploratory laparotomy: Problem details: - 08/01/2024 exploratory laparotomy with extensive lysis of adhesions for high grade SBO - 08/03 continue NG tube to LIS, awaiting return of bowel function - 08/04 large amount flatus yesterday, NGT out today - 08/05 sips of clears going well, but bloated today. Discussed with Dr. Abraham. Advancing to clears with option of yogurt. - 08/06 more distended, continue sips. Discussed with Dr. Abraham. - 08/07 remains distended. Had episode of afib with RVR today. Discussed with Dr. Abraham. Placed NGT to LIS, obtained CT abd/pelvis which showed adynamic ileus. PICC and TPN ordered -08/08 TPN to start today, encouraged ambulation. CRP downtrending -08/09 continue TPN. NG clamped. Tolerating clears without nausea vomiting or pain. Followed by Dr. Diaz for the weekend. -08/10 evaluated by General surgery, okay to resume clears in small amounts, after episode of cramping pain last night, NGT clamped -08/11 per general surgery, will allow TPN to run out tonight, not restarting. NGT removed. Advancing diet slowly. Encourage ambulation. Restarting some of her oral medications, including oral antibiotic for mild cellulitis at surgical site. Will continue with IV metoprolol until absorption has improved 08/12 - improving. I stopped the IV metoprolol. I restarted her home diltiazem for 08/13. Her home amiodarone dosing today 08/12. 08/13 - discharge with no oral antibiotics Status: Acute (11) GERD (gastroesophageal reflux disease): Status: Acute Time Spent With Patient Total time spent: Today I spent 50 minutes seeing the patient, reviewing [facility] and EPIC notes/diagnostics, discussing the care plan with our care time that includes social work, PT/OT, pharmacy, RT, [place] [facility] and documenting my impressions and plan in the medical record. Subjective Date Seen: 08/18/24 Interval history: Patient was seen and examined at bedside today. Pain killers are helping with controlling her pain she was not nauseated or vomiting. Afebrile, + BM. Will keep NG tube to low intermittent suction. General surgeon planning to start TPN. Exam Narrative: Exam Narrative: Physical exam GENERAL: Comfortable, no acute distress. HEAD AND NECK: Atraumatic, normocephalic CARDIOVASCULAR: RRR. Normal S1, S2. No murmurs. RESPIRATORY: Clear to auscultation B/L. Good air entry B/L. No wheezes or rhonchi. GASTROINTESTINAL: Not distended, not tender to palpation. no guarding. NEUROLOGY: Alert, awake, oriented X 3. Normal speech. PSYCH: Normal mood, normal affect. Const: Vital Signs, click to edit/add: Vital Signs - 24 hr 08/17/24 15:00 08/17/24 15:00 08/17/24 15:00 Temperature 98.6 F Pulse Rate Pulse Rate [Pulse Oximeter] 87 87 Pulse Rate [Right Brachial] 108 H Respiratory Rate 16 16 Blood Pressure [Ri ght Arm] 116/66 Pulse Oximetry 91 91 Oxygen Delivery Me thod Room Air Nasal Cannula Oxygen Flow Rate 1 08/17/24 15:00 08/17/24 19:00 08/17/24 23:00 Temperature 98.2 F Pulse Rate 81 78 Pulse Rate [Pulse Oximeter] 62 Pulse Rate [Right Brachial] Respiratory Rate 18 Blood Pressure [Ri ght Arm] Pulse Oximetry 95 Oxygen Delivery Me thod Nasal Cannula Oxygen Flow Rate 1 08/17/24 23:00 08/17/24 23:00 08/17/24 23:00 Temperature 98.3 F Pulse Rate Pulse Rate [Pulse Oximeter] 81 81 Pulse Rate [Right Brachial] Respiratory Rate 18 18 18 Blood Pressure [Ri ght Arm] 117/74 Pulse Oximetry 93 93 Oxygen Delivery Me thod Nasal Cannula Nasal Cannula Oxygen Flow Rate 1 1 08/18/24 03:00 08/18/24 07:00 08/18/24 08:00 Temperature 98.3 F 98.0 F Pulse Rate Pulse Rate [Pulse Oximeter] 79 82 82 Pulse Rate [Right Brachial] Respiratory Rate 16 18 18 Blood Pressure [Ri ght Arm] 97/58 L 130/79 Pulse Oximetry 95 93 Oxygen Delivery Me thod Nasal Cannula Nasal Cannula Oxygen Flow Rate 1 1 08/18/24 09:36 08/18/24 11:23 08/18/24 11:28 Temperature 97.9 F Pulse Rate 87 Pulse Rate [Pulse Oximeter] 88 Pulse Rate [Right Brachial] Respiratory Rate 18 18 Blood Pressure [Ri ght Arm] 129/74 Pulse Oximetry 93 94 Oxygen Delivery Me thod Room Air Room Air Oxygen Flow Rate 1 Labs Labs: Laboratory Results - last 24 hr 08/18/24 05:40 WBC 7.46 RBC 3.39 L Hgb 10.1 L Hct 31.6 L MCV 93 MCH 30 MCHC 32 RDW Coeff of Xavi 14.5 Plt Count 330 Neut % (Auto) 82.2 H Lymph % (Auto) 9.0 L [place] % (Auto) 7.9 Eos % (Auto) 0.5 Baso % (Auto) 0.1 Neut # (Auto) 6.10 Lymph # (Auto) 0.70 L [place] # (Auto) 0.60 Eos # (Auto) 0.04 Baso # (Auto) 0.01 Abs Immat Gran (auto) 0.02 Imm/Tot Granulo (auto) 0.3 INR 4.07 H Sodium 135 Potassium 3.6 Chloride 106 Carbon Dioxide 20 Anion Gap 9 BUN 14 Creatinine 0.7 Estimated Creat Clear 47.53 Estimated GFR 89 Glucose 66 Calcium 6.9 L C-Reactive Protein 5.4 H
--- NOTE | 2024-08-18 13:12 | REH.OT ---
OT received orders, OT evaluation attempted several times but unable to complete. Pic line was being placed on the last attempt for eval. Plan to evaluate in am.
--- NOTE | 2024-08-18 13:33 | CRLHL7_ITS ---
For Patients: As a result of the Century Cures Act, medical imaging exams and procedure reports are released immediately into your electronic medical record. You may view this report before your referring provider. If you have questions, please contact your health care provider. INDICATION: PICC line placement TECHNIQUE: Chest 1 view. COMPARISON: Chest x-ray 08/16/2024 FINDINGS: There is a right sided PICC line with the tip in the mid SVC. The heart is normal in size. There is bibasilar atelectasis. Negative for pneumothorax. IMPRESSION: Right-sided PICC with the tip projecting over the mid SVC. Negative for pneumothorax. Dictated by Bev Cleary MD @ 08/18/2024 2:09:11 PM Dictated by: Bev Cleary MD @ 08/18/2024 14:09:16 (Electronically Signed)
--- NOTE | 2024-08-18 13:37 | PM.GSPN ---
Subjective Subjective Date Seen: 08/18/24 Interval history: Patient feels better today compared to yesterday. Her NG tube was clamped this morning. Since being clamp she denies any increase in abdominal pain or distension. No nausea. She continues to pass gas and had 1 more bowel movement this morning. Exam Narrative: Exam Narrative: Gen: alert and oriented, lying comfortably in bed. Abd: soft, non distended, no guarding or rebound. No peritoneal signs. HEENT: NGT clamped with minimal clear output in tube. Const: Vital Signs, click to edit/add: Vital Signs - 24 hr 08/17/24 15:00 08/17/24 15:00 08/17/24 15:00 Temperature 98.6 F Pulse Rate Pulse Rate [Pulse Oximeter] 87 87 Pulse Rate [Right Brachial] 108 H Respiratory Rate 16 16 Blood Pressure [Ri ght Arm] 116/66 Pulse Oximetry 91 91 Oxygen Delivery Me thod Room Air Nasal Cannula Oxygen Flow Rate 1 08/17/24 15:00 08/17/24 19:00 08/17/24 23:00 Temperature 98.2 F Pulse Rate 81 78 Pulse Rate [Pulse Oximeter] 62 Pulse Rate [Right Brachial] Respiratory Rate 18 Blood Pressure [Ri ght Arm] Pulse Oximetry 95 Oxygen Delivery Me thod Nasal Cannula Oxygen Flow Rate 1 08/17/24 23:00 08/17/24 23:00 08/17/24 23:00 Temperature 98.3 F Pulse Rate Pulse Rate [Pulse Oximeter] 81 81 Pulse Rate [Right Brachial] Respiratory Rate 18 18 18 Blood Pressure [Ri ght Arm] 117/74 Pulse Oximetry 93 93 Oxygen Delivery Me thod Nasal Cannula Nasal Cannula Oxygen Flow Rate 1 1 08/18/24 03:00 08/18/24 07:00 08/18/24 08:00 Temperature 98.3 F 98.0 F Pulse Rate Pulse Rate [Pulse Oximeter] 79 82 82 Pulse Rate [Right Brachial] Respiratory Rate 16 18 18 Blood Pressure [Ri ght Arm] 97/58 L 130/79 Pulse Oximetry 95 93 Oxygen Delivery Me thod Nasal Cannula Nasal Cannula Oxygen Flow Rate 1 1 08/18/24 09:36 08/18/24 11:23 08/18/24 11:28 Temperature 97.9 F Pulse Rate 87 Pulse Rate [Pulse Oximeter] 88 Pulse Rate [Right Brachial] Respiratory Rate 18 18 Blood Pressure [Ri ght Arm] 129/74 Pulse Oximetry 93 94 Oxygen Delivery Me thod Room Air Room Air Oxygen Flow Rate 1 Labs/Imaging Labs Labs: No leukocytosis. CRP is trending up (5.4) Progress Note:A&P Assessment and plan (1) Intra-abdominal abscess: Status: Acute Assessment and Plan: Patient is a 79-year-old female with recent hospitalization (08/01-08/14) for small-bowel obstruction requiring exploratory laparotomy with extensive lysis of adhesions (08/01). She had failure to thrive at home, weakness, coughing and nausea. On workup in the emergency department she was found to be positive for influenza A. A CT scan was obtained which demonstrates significant bilateral pleural effusion, prominent loops of small bowel with no definitive transition point and fluid with foci of gas in the anterior abdomen just deep to the incision. The radiologist does state that this is not definitively within a bowel loop. On review of the imaging it does look suspicious for a developing intra-abdominal abscess. Patient likely has an ileus. Differential includes possible intra-abdominal abscess verses influenza. She has been started on IV Zosyn, would recommend continuing. No fevers in last 24 hours. No leukocytosis but CRP is trending up (3.2--5.4). Abdominal exam is benign this morning. Today she has evidence of return of bowel function with minimal output overnight in her NG tube. A clamping trial was performed this morning with NG tube removed this afternoon. -NG tube removed at bedside. Okay for sips of clear liquids -patient has had poor p.o. intake since leaving the hospital on 08/14. She did require TPN during her last hospital stay. Anticipate poor p.o. intake over the next several days as we slowly advanced diet. Recommend starting TPN today. -IV fluids -IV Zosyn, trend WBC, CRP and fever curve -if patient develops a fever or has increase in abdominal pain would consider a repeat CT scan. -antiviral for influenza A -PT and OT consulted. Encouraged patient to ambulate the hallways -SCDs, okay for Lovenox for DVT prophylaxis, will hold off on anticoagulation at this time with INR 4.0. Will continue to follow patient closely. Please call with any acute clinical changes or concerns.
[2024-08-18 14:34] LABS: Magnesium* 2.1 mg/dL (1.5-2.6); Phosphorus* 2.1 mg/dL (2.5-4.5); Triglycerides* 92 mg/dL (40-149)
--- NOTE | 2024-08-18 15:35 | PC.NURSE ---
End of Shift: Patient pleasant and cooperative, A&O. VSS, afebrile. SpO2 maintained above 90% on RA this shift. NG clamped this morning until about 1400, per MD. NG now connected back up to LIS. PICC placed this shift. ?Denies pain this shift. NPO. 1A with walker and gait belt. ?
[2024-08-18] MEDS: AA 5 %/CALCIUM/LYTES/DEXT 20 % 2,000 ML 40 ML IV (16:11)
[2024-08-18] MEDS: 0.9 % SODIUM CHLORIDE 1000 ml 1,000 ML 45 ML IV (16:16)
[2024-08-18] MEDS: SODIUM CHLORIDE 0.9 % (FLUSH) 10 ML SYRINGE 5 ML IVF (23:23)
--- NOTE | 2024-08-18 23:53 | PC.NURSE ---
Pt alert, oriented and vitally stable. Pt up via 1a, walking halls, tolerates well. Pt states pain rated 7/10, prn dilaudid given and pt stated improvement. Pt npo, using mouth moisturizer and tolerates well. Pt in bed, appears to be resting, call light within reach.
[2024-08-19] VITALS (15 sets, daily range): BP systolic 125–138; BP diastolic 78–93; PULSE 85–91; RESP 16–20; TEMP 36.2–36.8; O2SAT 91–99; BMI 26.1
[2024-08-19] MEDS: PIPERACILLIN/TAZOBACTAM 3.375 GM in 0.9 % SODIUM CHLORIDE Mini-bag 100 ML IVPB ×4 (03:17→20:38)
[2024-08-19] MEDS: AA 5 %/CALCIUM/LYTES/DEXT 20 % 2,000 ML 85 ML IV ×2 (04:21→16:04)
[2024-08-19] MEDS: HYDROmorphone 0.5 mg/0.5 ml inj IVP ×4 (04:23→22:00)
[2024-08-19] MEDS: SODIUM CHLORIDE 0.9 % (FLUSH) 10 ML SYRINGE 5 ML IVF ×5 (04:24→22:00)
[2024-08-19 04:32] LABS: Basophils Absolute Auto 0.01 K/uL (0.00-0.30); Basophils Percent Auto 0.2 % (0.0-3.0); Eosinophils Absolute Auto 0.04 K/uL (0.00-0.50); Eosinophils Percent Auto 0.6 % (0.0-7.0); Hematocrit 31.8 % (33.0-51.0); Hemoglobin* 10.2 gm/dL (12.0-16.0); Immature Granulocytes Abs Auto 0.09 K/uL (0.00-0.30); Immature Granulocytes Pct Auto 1.4 %; Lymphocytes Percent Auto 10.4 % (20-44); Mean Corpuscular HGB Conc 32 gm/dL (32-36); Mean Corpuscular Hemoglobin 29 pg (26-34); Mean Corpuscular Volume 91 fL (80-100); Monocytes Percent Auto 8.7 % (0.0-11.0); Neutrophils Percent Auto 78.7 % (42.0-72.0); Platelet Count* 331 K/uL (140-440); RDW Coefficient of Variation % 14.3 % (11.5-15.5); Red Blood Count 3.51 m/uL (4.00-5.20); White Blood Count* 6.44 K/uL (4.50-11.00)
[2024-08-19 04:46] LABS: Slide Review Reflex No
[2024-08-19 04:56] LABS: Albumin* 2.6 g/dL (3.3-5.0); Chloride* 105 mmol/L (96-114)
[2024-08-19 04:57] LABS: Potassium* 3.4 mmol/L (3.6-5.1); Sodium* 134 mmol/L (135-149)
[2024-08-19 04:59] LABS: Alkaline Phosphatase* 212 U/L (40-150); Anion Gap 4 mEq/L (7-15); Aspartate Amino Transferase* 31 U/L (12-35); Bilirubin Total* 0.4 mg/dL (0.1-1.5); Carbon Dioxide* 25 mmol/L (20-32); Creatinine* 0.6 mg/dL (0.5-1.5); Est. Creatinine Clearance* 47.53; Estimated Glomerular Filt Rate 92 ml/min; Total Protein* 4.9 g/dL (6.0-8.3)
[2024-08-19 05:00] LABS: Alanine Aminotransferase* 21 U/L (4-35); Blood Urea Nitrogen* 11 mg/dL (7-30); Calcium* 7.1 mg/dL (8.4-10.6); Glucose* 108 mg/dL (60-115); Phosphorus* 1.4 mg/dL (2.5-4.5)
[2024-08-19 05:02] LABS: C Reactive Protein* 3.9 mg/dL (0.5-1.0)
--- NOTE | 2024-08-19 06:30 | PC.NURSE ---
End of shift [id number]: A&O pleasant and cooperative. VSS and maintaining sats on room air. Reports intermittent pain in abdomen. See eMAR for interventions. Dressing to abdomen c/d/i. BS active. Pt reports she doesn?t feel like she is passing gas as much as she was yesterday. NG in place and draining green colored liquid. Denies n/v. Ice chips at bedside. Up w/ A1 walker and GB. Tolerates well. Using call light appropriately.
[2024-08-19] MEDS: POTASSIUM CHLORIDE 10 MEQ CAPSULE ER 40 MEQ PO (08:39)
[2024-08-19] MEDS: PANTOPRAZOLE SODIUM 40 MG INJ IVP ×2 (08:39→20:38)
[2024-08-19] MEDS: dilTIAZem 120 MG CAP.ER.24H PO (08:39)
[2024-08-19] MEDS: AMIODARONE 200 MG TABLET 100 MG PO (08:40)
[2024-08-19 09:28] LABS: Troponin I* < 0.01 ng/mL (0.01-0.04)
--- NOTE | 2024-08-19 11:15 | PM.GSPN ---
Subjective Subjective Date Seen: 08/19/24 Interval history: Patient doing well this morning. Earlier in the morning she did have a period of ?abdominal tightness over the top?. This did gradually go away. Her NG tube was clamped temporarily for administration of medications, but she states that this discomfort happened before was clamped. No change in her abdominal pain or nausea reported during the clamping with medications. She has had 100 mL of NG tube output from 11:00 p.m.-6:00 a.m.. It is still bile tinged. She continues to pass gas although ?not as much as yesterday?. Her last bowel movement was 2 days ago, no bowel movement yesterday or yet this morning. She is tolerating TPN. Denies an appetite. No nausea or vomiting. Her abdominal pain is ?stable?. Exam Narrative: Exam Narrative: General: Alert and oriented, sitting comfortably in a chair. HEENT: NG tube hooked up to canister with thin, bile tinged fluid Abdomen: Soft, nontender to palpation with no guarding or rebound. Midline incision is healing well. Previous opening on the inferior aspect is almost completely healed. Const: Vital Signs, click to edit/add: Vital Signs - 24 hr 08/18/24 11:23 08/18/24 11:28 08/18/24 15:00 Temperature 97.9 F 97.9 F Pulse Rate 87 Pulse Rate [Pulse Oximeter] 88 91 Pulse Rate [Right Brachial] Respiratory Rate 18 18 Blood Pressure [Le ft Arm] Blood Pressure [Ri ght Arm] 129/74 126/80 Pulse Oximetry 94 91 Oxygen Delivery Me thod Room Air Room Air Oxygen Flow Rate 08/18/24 15:00 08/18/24 15:00 08/18/24 15:00 Temperature Pulse Rate 86 Pulse Rate [Pulse Oximeter] 91 Pulse Rate [Right Brachial] 108 H Respiratory Rate 18 18 Blood Pressure [Le ft Arm] Blood Pressure [Ri ght Arm] Pulse Oximetry 91 Oxygen Delivery Me thod Room Air Oxygen Flow Rate 08/18/24 19:00 08/18/24 23:00 08/19/24 00:44 Temperature 97.5 F L 97.7 F Pulse Rate Pulse Rate [Pulse Oximeter] 88 89 Pulse Rate [Right Brachial] Respiratory Rate 18 18 18 Blood Pressure [Le ft Arm] 134/76 Blood Pressure [Ri ght Arm] 134/86 Pulse Oximetry 91 91 91 Oxygen Delivery Me thod Room Air Room Air Room Air Oxygen Flow Rate 08/19/24 01:12 08/19/24 03:21 08/19/24 07:58 Temperature 98.3 F 98.0 F Pulse Rate 85 Pulse Rate [Pulse Oximeter] 87 88 Pulse Rate [Right Brachial] Respiratory Rate 20 20 Blood Pressure [Le ft Arm] 130/80 131/78 Blood Pressure [Ri ght Arm] Pulse Oximetry 93 92 Oxygen Delivery Me thod Room Air Oxygen Flow Rate 0 08/19/24 07:59 08/19/24 11:07 Temperature 97.1 F L Pulse Rate Pulse Rate [Pulse Oximeter] 90 Pulse Rate [Right Brachial] Respiratory Rate 20 18 Blood Pressure [Le ft Arm] 132/93 H Blood Pressure [Ri ght Arm] Pulse Oximetry 92 97 Oxygen Delivery Me thod Room Air Room Air Oxygen Flow Rate 0 0 Labs/Imaging Labs Labs: No leukocytosis. CRP is now trending down (5.4--3.9). Imaging Imaging: No new imaging. Progress Note:A&P Assessment and plan (1) Intra-abdominal abscess: Status: Acute Assessment and Plan: Patient is a 79-year-old female with recent hospitalization (08/01-08/14) for small-bowel obstruction requiring exploratory laparotomy with extensive lysis of adhesions (08/01). She had failure to thrive at home, weakness, coughing and nausea. On workup in the emergency department she was found to be positive for influenza A. Imaging showing findings concerning for developing intra-abdominal abscess just underneath the incision on the anterior abdominal wall. Patient has been started on IV Zosyn. Afebrile. No leukocytosis. CRP is now trending down (3.9 this morning). She continues to pass gas, no bowel movement for 2 days. NG tube has remained in place, minimal output overnight. Recommend clamping trial all day today and overnight. Okay for sips of clear liquids. If patient has any increased abdominal pain, distention or nausea okay to turned back on to suction. Please call if the NG tube is placed back on suction. -NG tube clamped -patient has had poor p.o. intake since leaving the hospital on 08/14. TPN initiated 08/18. -IV fluids -IV Zosyn, trend WBC, CRP and fever curve -if patient develops a fever or has increase in abdominal pain would consider a repeat CT scan. -PT and OT consulted. Encouraged patient to ambulate the hallways -Yesica, akin for Lovenox for DVT prophylaxis, INR pending this morning. Will continue to follow patient closely. Please call with any acute clinical changes or concerns.
[2024-08-19 13:15] LABS: Prothrombin Time 56.1 Seconds
[2024-08-19 13:17] LABS: INR 5.69 (0.91-1.10)
--- NOTE | 2024-08-19 13:54 | PM.IMPN1 ---
Progress Note: A&P Assessment and plan (1) Intra-abdominal abscess: Problem details: -CT abdomen suggests intra-abd abscess. -Gen Sx consulted. -An NG tube was placed for persistent nausea. She is passing gas and had a liquid stool last night. She could have an ileus secondary to an intra-abdominal abscess verses partial obstruction. Given her recent surgery she is very high risk for iatrogenic injury of surrounding bowel should she need to return to the operating room. --No clinical indication for operative intervention at this time per Sx. -NPO, okay for ice chips, patient has had poor p.o. intake since leaving the hospital on 08/14. She did require TPN during her last hospital stay. -IV fluids -IV Zosyn, trend WBC, CRP -PT and OT consulted. Encouraged patient to ambulate the hallways -started TPN aug,. -Cont NG tube low intermittent suction. Status: Acute (2) Ileus: Problem details: as above Status: Suspected (3) Supratherapeutic international normalized ratio (INR): Problem details: -INR trending up to a was more than 5, though warfarin was stopped a couple of days ago. -will repeat INR testing -ordered PTT, platelets, fibrinogen, D-dimer. -ordered p.o. vitamin K 2.5 mg, patient is still at risk of surgical intervention. Status: Acute (4) Small bowel obstruction: Problem details: -Hx of recent SBO -s/p exploratory laparotomy and extensive lysis of adhesions (08/01/24) -recurrent. emergent laparotomy; 30+ years ago. one admission for SBO, nonoperative in 2019. Status: Resolved (5) Influenza A: Problem details: -oseltamivir 75 mg p.o. b.i.d. started 08/16/2024 -symptom management including schedule acetaminophen as well as scheduled ibuprofen for 1 day -full liquids for now and gradually introduce food again -continue IV fluids Status: Acute (6) Weakness: Problem details: -PT and OT to reassess Status: Acute (7) Aortic stenosis: Problem details: mild, new murmur (worsened by acute illness?) 08/02/24 TTE: Normal LV size and function, EF 60-65%. Normal RV size and function. Mild aortic stenosis, trivial aortic regurgitation. Aortic peak velocity 2.2m/s, peak gradient 20 mmHg, mean gradient 11 mmHg, valve area 1.49 cm2. f/u with [facility] consultant outpatient Status: Acute (8) Dehydration: Problem details: -normal saline and monitor daily weight and orthostatic blood pressures and pulses Status: Acute (9) Paroxysmal atrial fibrillation: Problem details: -continue amiodarone, diltiazem. Status: Acute (10) Chronic anticoagulation: Problem details: -INR goal 2-3; paroxysmal AFIB -pharmacist to assist with anticoagulation in hospital Status: Acute (11) S/P exploratory laparotomy: Problem details: - 08/01/2024 exploratory laparotomy with extensive lysis of adhesions for high grade SBO - 08/03 continue NG tube to LIS, awaiting return of bowel function - 08/04 large amount flatus yesterday, NGT out today - 08/05 sips of clears going well, but bloated today. Discussed with Dr. Abraham. Advancing to clears with option of yogurt. - 08/06 more distended, continue sips. Discussed with Dr. Abraham. - 08/07 remains distended. Had episode of afib with RVR today. Discussed with Dr. Abraham. Placed NGT to LIS, obtained CT abd/pelvis which showed adynamic ileus. PICC and TPN ordered -08/08 TPN to start today, encouraged ambulation. CRP downtrending -08/09 continue TPN. NG clamped. Tolerating clears without nausea vomiting or pain. Followed by Dr. Diaz for the weekend. -08/10 evaluated by General surgery, okay to resume clears in small amounts, after episode of cramping pain last night, NGT clamped -08/11 per general surgery, will allow TPN to run out tonight, not restarting. NGT removed. Advancing diet slowly. Encourage ambulation. Restarting some of her oral medications, including oral antibiotic for mild cellulitis at surgical site. Will continue with IV metoprolol until absorption has improved 08/12 - improving. I stopped the IV metoprolol. I restarted her home diltiazem for 08/13. Her home amiodarone dosing today 08/12. 08/13 - discharge with no oral antibiotics Status: Acute (12) GERD (gastroesophageal reflux disease): Status: Acute Plan F/up labs for supraTx INR Time Spent With Patient Total time spent: Today I spent 50 minutes seeing the patient, reviewing Expanse and EPIC notes/diagnostics, discussing the care plan with our care time that includes social work, PT/OT, pharmacy, RT, shelter and documenting my impressions and plan in the medical record. Subjective Date Seen: 08/19/24 Interval history: Patient was seen and examined at bedside today. No N/V. 100 mL of NG tube output from 11:00 p.m.-6:00 a.m (bile tinged). passing gas, last BM was on the night of admission. Exam Narrative: Exam Narrative: Physical exam GENERAL: Comfortable, no acute distress. NGT in. HEAD AND NECK: Atraumatic, normocephalic CARDIOVASCULAR: RRR. Normal S1, S2. No murmurs. RESPIRATORY: Clear to auscultation B/L. Good air entry B/L. GASTROINTESTINAL: Not distended, mildly tender to palpation. no rigidity NEUROLOGY: Alert, awake, oriented X 3. Normal speech. PSYCH: Normal mood, normal affect. Const: Vital Signs, click to edit/add: Vital Signs - 24 hr 08/18/24 15:00 08/18/24 15:00 08/18/24 15:00 Temperature 97.9 F Pulse Rate 86 Pulse Rate [Pulse Oximeter] 91 Pulse Rate [Right Brachial] Respiratory Rate 18 18 Blood Pressure [Le ft Arm] Blood Pressure [Ri ght Arm] 126/80 Pulse Oximetry 91 91 Oxygen Delivery Me thod Room Air Room Air Oxygen Flow Rate 08/18/24 15:00 08/18/24 19:00 08/18/24 23:00 Temperature 97.5 F L 97.7 F Pulse Rate Pulse Rate [Pulse Oximeter] 91 88 89 Pulse Rate [Right Brachial] 108 H Respiratory Rate 18 18 18 Blood Pressure [Le ft Arm] 134/76 Blood Pressure [Ri ght Arm] 134/86 Pulse Oximetry 91 91 Oxygen Delivery Me thod Room Air Room Air Oxygen Flow Rate 08/19/24 00:44 08/19/24 01:12 08/19/24 03:21 Temperature 98.3 F Pulse Rate 85 Pulse Rate [Pulse Oximeter] 87 Pulse Rate [Right Brachial] Respiratory Rate 18 20 Blood Pressure [Le ft Arm] 130/80 Blood Pressure [Ri ght Arm] Pulse Oximetry 91 93 Oxygen Delivery Me thod Room Air Oxygen Flow Rate 08/19/24 07:00 08/19/24 07:58 08/19/24 07:59 Temperature 98.0 F Pulse Rate 86 Pulse Rate [Pulse Oximeter] 88 Pulse Rate [Right Brachial] Respiratory Rate 20 20 Blood Pressure [Le ft Arm] 131/78 Blood Pressure [Ri ght Arm] Pulse Oximetry 92 92 Oxygen Delivery Me thod Room Air Room Air Oxygen Flow Rate 0 0 08/19/24 07:59 08/19/24 11:07 Temperature 97.1 F L Pulse Rate Pulse Rate [Pulse Oximeter] 86 90 Pulse Rate [Right Brachial] Respiratory Rate 18 Blood Pressure [Le ft Arm] 132/93 H Blood Pressure [Ri ght Arm] Pulse Oximetry 97 Oxygen Delivery Me thod Room Air Oxygen Flow Rate 0 Labs Labs: Laboratory Results - last 24 hr 08/18/24 08/19/24 08/19/24 05:40 04:15 08:41 WBC 6.44 RBC 3.51 L Hgb 10.2 L Hct 31.8 L MCV 91 MCH 29 MCHC 32 RDW Coeff of Xavi 14.3 Plt Count 331 Neut % (Auto) 78.7 H Lymph % (Auto) 10.4 L [place] % (Auto) 8.7 Eos % (Auto) 0.6 Baso % (Auto) 0.2 Neut # (Auto) 5.10 Lymph # (Auto) 0.70 L [place] # (Auto) 0.60 Eos # (Auto) 0.04 Baso # (Auto) 0.01 Abs Immat Gran (auto) 0.09 Imm/Tot Granulo (auto) 1.4 INR 5.69 H* Sodium 134 L Potassium 3.4 L Chloride 105 Carbon Dioxide 25 Anion Gap 4 L BUN 11 Creatinine 0.6 Estimated Creat Clear 47.53 Estimated GFR 92 Glucose 108 Calcium 7.1 L Phosphorus 2.1 L 1.4 L Magnesium 2.1 2.0 Total Bilirubin 0.4 AST 31 ALT 21 Alkaline Phosphatase 212 H Troponin I < 0.01 L C-Reactive Protein 3.9 H Total Protein 4.9 L Albumin 2.6 L Triglycerides 92
[2024-08-19 15:40] LABS: INR 4.52 (0.91-1.10); Prothrombin Time 46.6 Seconds
[2024-08-19 15:41] LABS: Fibrinogen* 443 mg/dL (200-450); Partial Thromboplastin Time* 48 Seconds (23-33)
[2024-08-19] MEDS: FAT EMULSIONS 20 % 250 ML/250 ML BAG 14 ML IV (17:30)
--- NOTE | 2024-08-19 19:14 | PC.NURSE ---
Pt alert and oriented. Pt up with assist of one with walker and gait belt. Pt?s steri strips intact. Pt advanced to regular diet and tolerated well. No complaints of N/V. Pt had complaints of pain ranging 0-5; see EMAR for intervention. Pt up to chair most of shift. Pt?s family at bedside. Pt to discharge to [facility] on 08/20/24 at 11am with EMS transport.?
--- NOTE | 2024-08-19 19:15 | PC.NURSE ---
Pt alert and oriented. PT had complaints of pain ranging 3-6; see EMAR for intervention. Pt up with assist of one with walker and gait belt. Pt has been up multiple times to the chair. Pt?s NG was clamped at 1020am; Pt tolerated well. Pt has been taking sips on a clear liquid diet and tolerated well; no complaints of N/V.?
[2024-08-20] VITALS (11 sets, daily range): BP systolic 108–138; BP diastolic 77–92; PULSE 87–97; RESP 18–20; TEMP 36.4–36.7; O2SAT 94–99
[2024-08-20] MEDS: PIPERACILLIN/TAZOBACTAM 3.375 GM in 0.9 % SODIUM CHLORIDE Mini-bag 100 ML IVPB ×4 (03:08→21:06)
[2024-08-20] MEDS: HYDROmorphone 0.5 mg/0.5 ml inj IVP (03:08)
[2024-08-20] MEDS: SODIUM CHLORIDE 0.9 % (FLUSH) 10 ML SYRINGE 5 ML IVF ×4 (03:09→21:06)
[2024-08-20] MEDS: 0.9 % SODIUM CHLORIDE 250 ml IV (03:12)
--- NOTE | 2024-08-20 05:40 | PC.NURSE ---
[id number]: Patient pleasant and cooperative. A&Ox3. Rates abdomen pain 4-7/10. PRN Dilaudid x2 for relief. NG remains clamped. Denies N/V. Tolerating sips of clears. BS hyperactive. Patient reports to RN she had a small, hard BM Monday morning. Patient continues to pass gas regularly. Walked halls x1 during shift. PICC patent with TPN and lipids running. Abdomen wound dressing changed with minimal drainage.
[2024-08-20 06:54] LABS: Basophils Absolute Auto 0.02 K/uL (0.00-0.30); Basophils Percent Auto 0.3 % (0.0-3.0); Eosinophils Absolute Auto 0.05 K/uL (0.00-0.50); Eosinophils Percent Auto 0.9 % (0.0-7.0); Hematocrit 32.8 % (33.0-51.0); Hemoglobin* 10.6 gm/dL (12.0-16.0); Immature Granulocytes Abs Auto 0.08 K/uL (0.00-0.30); Immature Granulocytes Pct Auto 1.4 %; Lymphocytes Percent Auto 11.5 % (20-44); Mean Corpuscular HGB Conc 32 gm/dL (32-36); Mean Corpuscular Hemoglobin 29 pg (26-34); Mean Corpuscular Volume 91 fL (80-100); Monocytes Percent Auto 10.1 % (0.0-11.0); Neutrophils Percent Auto 75.8 % (42.0-72.0); Platelet Count* 322 K/uL (140-440); RDW Coefficient of Variation % 14.3 % (11.5-15.5); Red Blood Count 3.61 m/uL (4.00-5.20); White Blood Count* 5.73 K/uL (4.50-11.00)
[2024-08-20 06:58] LABS: Slide Review Reflex No
[2024-08-20 07:09] LABS: Chloride* 103 mmol/L (96-114); Potassium* 3.8 mmol/L (3.6-5.1); Sodium* 134 mmol/L (135-149)
[2024-08-20 07:12] LABS: Creatinine* 0.5 mg/dL (0.5-1.5); Est. Creatinine Clearance* 47.53; Estimated Glomerular Filt Rate 97 ml/min
[2024-08-20 07:13] LABS: Anion Gap 5 mEq/L (7-15); Blood Urea Nitrogen* 13 mg/dL (7-30); Carbon Dioxide* 26 mmol/L (20-32); Glucose* 98 mg/dL (60-115); Phosphorus* 1.7 mg/dL (2.5-4.5)
[2024-08-20 07:14] LABS: Calcium* 7.3 mg/dL (8.4-10.6); Magnesium* 1.9 mg/dL (1.5-2.6)
[2024-08-20 07:16] LABS: C Reactive Protein* 2.5 mg/dL (0.5-1.0)
[2024-08-20 07:31] LABS: INR 3.41 (0.91-1.10); Prothrombin Time 37.1 Seconds
[2024-08-20] MEDS: ACETAMINOPHEN 325 MG TABLET 650 MG PO (08:33)
[2024-08-20] MEDS: dilTIAZem 120 MG CAP.ER.24H PO (08:34)
[2024-08-20] MEDS: AMIODARONE 200 MG TABLET 100 MG PO (08:34)
[2024-08-20] MEDS: PANTOPRAZOLE SODIUM 40 MG INJ IVP ×2 (08:35→21:06)
--- NOTE | 2024-08-20 10:28 | P.GSPN_ITS ---
Subjective Subjective Date Seen: 08/20/24 Interval history: Patient is doing well this morning. She ?feels like she turned a corner?. Her NG tube has been clamped since yesterday morning. She denies any abdominal pain, bloating, nausea or vomiting. She has been tolerating clear liquids and wonders if she can advance to a soft diet. She has continued to pass gas. She had a small, hard stool this morning. She feels like she is ambulating the halls better and has more energy. Patient still has a lot of anxiety surrounding removal of the NG tube and is requesting that it stay clamped. Exam Narrative: Exam Narrative: General: Alert and oriented, no acute distress. Lying comfortably in bed. HEENT: NG tube clamped Abdomen: Soft, nontender and nondistended. Incision is well healed, no concern for infection. Const: Vital Signs, click to edit/add: Vital Signs - 24 hr 08/19/24 11:07 08/19/24 14:38 08/19/24 14:48 Temperature 97.1 F L 97.8 F Pulse Rate 90 Pulse Rate [Pulse Oximeter] 90 89 Respiratory Rate 18 18 Blood Pressure [Le ft Arm] 132/93 H 126/81 Pulse Oximetry 97 99 Oxygen Delivery Mt thod Room Air Room Air Oxygen Flow Rate 0 0 08/19/24 14:49 08/19/24 14:50 08/19/24 20:35 Temperature 97.9 F Pulse Rate Pulse Rate [Pulse Oximeter] 90 91 Respiratory Rate 18 18 16 Blood Pressure [Le ft Arm] 138/80 Pulse Oximetry 99 98 [facility] Room Air Oxygen Flow Rate 0 08/19/24 21:39 08/19/24 22:26 08/19/24 22:39 Temperature 98.1 F Pulse Rate 87 Pulse Rate [Pulse Oximeter] 90 Respiratory Rate 16 20 Blood Pressure [Le ft Arm] 125/78 Pulse Oximetry 98 95 Oxygen Delivery Mt thod Room Air Oxygen Flow Rate 08/20/24 01:54 08/20/24 07:40 08/20/24 07:41 Temperature 97.9 F 98.0 F Pulse Rate Pulse Rate [Pulse Oximeter] 92 89 Respiratory Rate 20 18 18 Blood Pressure [Le ft Arm] 133/92 H 138/90 H Pulse Oximetry 94 97 97 Oxygen Delivery Mt thod Room Air Room Air Room Air Oxygen Flow Rate 0 0 Labs/Imaging Labs Labs: No leukocytosis. CRP continues to trend down. Progress Note:A&P Assessment and plan (1) Intra-abdominal abscess: Status: Acute Assessment and Plan: Patient is a 79-year-old female with recent hospitalization (08/01-08/14) for small-bowel obstruction requiring exploratory laparotomy with extensive lysis of adhesions (08/01). She had failure to thrive at home, weakness, coughing and nausea. On workup in the emergency department she was found to be positive for influenza A. Imaging showing findings concerning for developing intra-abdominal abscess just underneath the incision on the anterior abdominal wall. Patient is currently on day 3 of IV Zosyn. Vital signs stable, afebrile and inflammatory markers continue to trend towards normal. Treatment for intra-abdominal abscess based on CT findings and patien t's clinical symptoms. She has tolerated a prolonged clamping trial of her NG tube and clear liquids. Patient is requesting continuing the NG tube to stay in place clamped. I did stress to the patient that she should take her time when eating to minimize the risk of aspiration. Okay to advance diet to full liquid then soft. Anticipate removal of NG tube tomorrow. -NG tube clamped -continue TPN. Ok to advance diet with tube in place -IV fluids -IV Zosyn, trend WBC, CRP and fever curve -if patient develops a fever or has increase in abdominal pain would consider a repeat CT scan. -PT and OT consulted. Encouraged patient to ambulate the hallways -SCDs, okay for Lovenox for DVT prophylaxis, INR supratherapeutic. Will continue to follow patient closely. Please call with any acute clinical changes or concerns.
--- NOTE | 2024-08-20 13:33 | PM.IMPN1 ---
Progress Note: A&P Assessment and plan (1) Intra-abdominal abscess: Problem details: -CT abdomen suggests intra-abd abscess. -Gen Sx consulted. -An NG tube was placed for persistent nausea. She is passing gas and had a liquid stool last night. She could have an ileus secondary to an intra-abdominal abscess verses partial obstruction. Given her recent surgery she is very high risk for iatrogenic injury of surrounding bowel should she need to return to the operating room. --No clinical indication for operative intervention at this time per Sx. -NPO, okay for ice chips, patient has had poor p.o. intake since leaving the hospital on 08/14. She did require TPN during her last hospital stay. -IV fluids -IV Zosyn, trend WBC, CRP -PT and OT consulted. Encouraged patient to ambulate the hallways -started TPN aug,. -NG tube clamped if N/V then low intermittent suction. Status: Acute (2) Ileus: Problem details: as above Status: Suspected (3) Supratherapeutic international normalized ratio (INR): Problem details: -INR trending up to a was more than 5, though warfarin was stopped a couple of days ago. -will repeat INR testing -ordered PTT, platelets, fibrinogen, D-dimer -> unremarkable -ordered p.o. vitamin K 2.5 mg, patient is still at risk of surgical intervention. Status: Acute (4) Small bowel obstruction: Problem details: -Hx of recent SBO -s/p exploratory laparotomy and extensive lysis of adhesions (08/01/24) -recurrent. emergent laparotomy; 30+ years ago. one admission for SBO, nonoperative in 2019. Status: Resolved (5) Influenza A: Problem details: -oseltamivir 75 mg p.o. b.i.d. started 08/16/2024 -symptom management including schedule acetaminophen as well as scheduled ibuprofen for 1 day -full liquids for now and gradually introduce food again -continue IV fluids Status: Acute (6) Weakness: Problem details: -PT and OT to reassess Status: Acute (7) Aortic stenosis: Problem details: mild, new murmur (worsened by acute illness?) 08/02/24 TTE: Normal LV size and function, EF 60-65%. Normal RV size and function. Mild aortic stenosis, trivial aortic regurgitation. Aortic peak velocity 2.2m/s, peak gradient 20 mmHg, mean gradient 11 mmHg, valve area 1.49 cm2. 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 Status: Acute (10) Chronic anticoagulation: Problem details: -INR goal 2-3; paroxysmal AFIB -pharmacist to assist with anticoagulation in hospital Status: Acute (11) S/P exploratory laparotomy: Problem details: - 08/01/2024 exploratory laparotomy with extensive lysis of adhesions for high grade SBO - 08/03 continue NG tube to LIS, awaiting return of bowel function - 08/04 large amount flatus yesterday, NGT out today - 08/05 sips of clears going well, but bloated today. Discussed with Dr. Abraham. Advancing to clears with option of yogurt. - 08/06 more distended, continue sips. Discussed with Dr. Abraham. - 08/07 remains distended. Had episode of afib with RVR today. Discussed with Dr. Abraham. Placed NGT to LIS, obtained CT abd/pelvis which showed adynamic ileus. PICC and TPN ordered -08/08 TPN to start today, encouraged ambulation. CRP downtrending -08/09 continue TPN. NG clamped. Tolerating clears without nausea vomiting or pain. Followed by Dr. Diaz for the weekend. -08/10 evaluated by General surgery, okay to resume clears in small amounts, after episode of cramping pain last night, NGT clamped -08/11 per general surgery, will allow TPN to run out tonight, not restarting. NGT removed. Advancing diet slowly. Encourage ambulation. Restarting some of her oral medications, including oral antibiotic for mild cellulitis at surgical site. Will continue with IV metoprolol until absorption has improved 08/12 - improving. I stopped the IV metoprolol. I restarted her home diltiazem for 08/13. Her home amiodarone dosing today 08/12. 08/13 - discharge with no oral antibiotics Status: Acute (12) GERD (gastroesophageal reflux disease): Status: Acute Time Spent With Patient Total time spent: Today I spent 50 minutes seeing the patient, reviewing Expanse and EPIC notes/diagnostics, discussing the care plan with our care time that includes social work, PT/OT, pharmacy, RT, senior living and documenting my impressions and plan in the medical record. Subjective Date Seen: 08/20/24 Interval history: Patient was seen and examined at bedside today. NG tube clamped, tolerating liquid diet. She had a BM today, On TPN. Exam Narrative: Exam Narrative: GENERAL: Comfortable, no acute distress. NGT in. HEAD AND NECK: Atraumatic, normocephalic CARDIOVASCULAR: RRR. Normal S1, S2. No murmurs. RESPIRATORY: Clear to auscultation B/L. Good air entry B/L. GASTROINTESTINAL: Not distended, mildly tender to palpation. no rigidity NEUROLOGY: Alert, awake, oriented X 3. Normal speech. PSYCH: Normal mood, normal affect. Const: Vital Signs, click to edit/add: Vital Signs - 24 hr 08/19/24 14:38 08/19/24 14:48 08/19/24 14:49 Temperature 97.8 F Pulse Rate 90 Pulse Rate [Pulse Oximeter] 89 Respiratory Rate 18 18 Blood Pressure [Le ft Arm] 126/81 Pulse Oximetry 99 99 Oxygen Delivery Me thod Room Air Room Air Oxygen Flow Rate 0 0 08/19/24 14:50 08/19/24 20:35 08/19/24 21:39 Temperature 97.9 F Pulse Rate Pulse Rate [Pulse Oximeter] 90 91 Respiratory Rate 18 16 16 Blood Pressure [Le ft Arm] 138/80 Pulse Oximetry 98 98 Oxygen Delivery Me thod Room Air Room Air Oxygen Flow Rate 08/19/24 22:26 08/19/24 22:39 08/20/24 01:54 Temperature 98.1 F 97.9 F Pulse Rate 87 Pulse Rate [Pulse Oximeter] 90 92 Respiratory Rate 20 20 Blood Pressure [Le ft Arm] 125/78 133/92 H Pulse Oximetry 95 94 Oxygen Delivery Me thod Room Air Oxygen Flow Rate 08/20/24 07:00 08/20/24 07:40 08/20/24 07:40 Temperature Pulse Rate 87 Pulse Rate [Pulse Oximeter] 87 Respiratory Rate 18 18 Blood Pressure [Le ft Arm] Pulse Oximetry 97 Oxygen Delivery Me thod Room Air Oxygen Flow Rate 0 08/20/24 07:41 08/20/24 10:28 08/20/24 11:00 Temperature 98.0 F 97.7 F 97.7 F Pulse Rate Pulse Rate [Pulse Oximeter] 89 94 94 Respiratory Rate 18 20 20 Blood Pressure [Le ft Arm] 138/90 H 118/77 118/77 Pulse Oximetry 97 98 98 Oxygen Delivery Me thod Room Air Room Air Room Air Oxygen Flow Rate 0 Labs Labs: Laboratory Results - last 24 hr 08/19/24 08/20/24 14:25 06:05 WBC 5.73 RBC 3.61 L Hgb 10.6 L Hct 32.8 L MCV 91 MCH 29 MCHC 32 RDW Coeff of Xavi 14.3 Plt Count 322 Neut % (Auto) 75.8 H Lymph % (Auto) 11.5 L [place] % (Auto) 10.1 Eos % (Auto) 0.9 Baso % (Auto) 0.3 Neut # (Auto) 4.30 Lymph # (Auto) 0.70 L [place] # (Auto) 0.60 Eos # (Auto) 0.05 Baso # (Auto) 0.02 Abs Immat Gran (auto) 0.08 Imm/Tot Granulo (auto) 1.4 INR 4.52 H 3.41 H APTT 48 H Fibrinogen 443 D-Dimer Quant (PE/DVT) 1.50 H Sodium 134 L Potassium 3.8 Chloride 103 Carbon Dioxide 26 Anion Gap 5 L BUN 13 Creatinine 0.5 Estimated Creat Clear 47.53 Estimated GFR 97 Glucose 98 Calcium 7.3 L Phosphorus 1.7 L Magnesium 1.9 C-Reactive Protein 2.5 H
[2024-08-20] MEDS: OxyCODONE/APAP 5-325 TABLET 1 TAB PO ×2 (15:29→21:07)
[2024-08-20] MEDS: AA 5 %/CALCIUM/LYTES/DEXT 20 % 2,000 ML 85 ML IV (16:03)
--- NOTE | 2024-08-20 17:43 | PC.NURSE ---
Pt alert and oriented. Pt had complaints of pain ranging 1-6; see EMAR for intervention. Pt has NG in place and is clamped. Pt advanced to a full liquid diet and tolerated well no complaints of N/V. Pt up walking in hallways x 3 during shift. Pt up in chair x3 during shift.?
[2024-08-21] VITALS (7 sets, daily range): BP systolic 105–130; BP diastolic 75–86; PULSE 79–95; RESP 16–18; TEMP 36.5–36.9; O2SAT 95–97
[2024-08-21] MEDS: OxyCODONE/APAP 5-325 TABLET 1 TAB PO (02:44)
[2024-08-21] MEDS: PIPERACILLIN/TAZOBACTAM 3.375 GM in 0.9 % SODIUM CHLORIDE Mini-bag 100 ML IVPB ×4 (02:51→20:49)
[2024-08-21 07:01] LABS: Chloride* 106 mmol/L (96-114); Sodium* 134 mmol/L (135-149)
[2024-08-21 07:04] LABS: Anion Gap 5 mEq/L (7-15); Blood Urea Nitrogen* 15 mg/dL (7-30); Carbon Dioxide* 23 mmol/L (20-32); Creatinine* 0.5 mg/dL (0.5-1.5); Est. Creatinine Clearance* 47.53; Estimated Glomerular Filt Rate 97 ml/min
[2024-08-21 07:05] LABS: Calcium* 7.6 mg/dL (8.4-10.6); Glucose* 103 mg/dL (60-115); Magnesium* 1.9 mg/dL (1.5-2.6)
[2024-08-21 07:07] LABS: C Reactive Protein* 1.5 mg/dL (0.5-1.0)
--- NOTE | 2024-08-21 07:54 | PC.NURSE ---
Addendum entered by Jonna Kim 08/21/24 08:05: Pt is tolerating a full liquid diet not regular but reports she is going to try regular diet today Original Note: Pt alert and oriented x3. Afebrile. Pt reports 3-5/10 abdominal pain, managed with PRN medication. Pt's midline dressing is CDI. Pt is passing gas, voiding, and tolerating a regular diet and is up SBA with walker and gait belt.
[2024-08-21 08:22] LABS: INR 2.55 (0.91-1.10); Prothrombin Time 29.4 Seconds
[2024-08-21] MEDS: dilTIAZem 120 MG CAP.ER.24H PO (08:38)
[2024-08-21] MEDS: AMIODARONE 200 MG TABLET 100 MG PO (08:38)
[2024-08-21] MEDS: PANTOPRAZOLE SODIUM 40 MG INJ IVP ×2 (08:38→20:48)
--- NOTE | 2024-08-21 10:43 | PC.SOCIAL ---
Addendum entered by BALTAZAR Yusuf 08/21/24 15:32: Discharge planning: housekeeping department worker attempted to meet with the pt early this afternoon, but she was on a personal call with family. housekeeping department worker came back several hours later and the pt was waiting for the instructor of nursing to come so that she could go to the bathroom. housekeeping department worker told pt that this worker would stop in tomorrow morning. Social work to follow-up as needed. Original Note: Discharge planning: housekeeping department worker attempted to meet with pt around 10:40am for a check-in. Pt was sleeping and would not awake to this worker's voice. Social work will stop back later.
--- NOTE | 2024-08-21 12:59 | P.GSPN_ITS ---
Subjective Subjective Date Seen: 08/21/24 Interval history: Patient doing well. Her energy is slightly better than yesterday. She has been tolerating a soft diet without difficulty. Food sounds good, but she does not have a significant appetite. Denies any nausea or vomiting. No abdominal pain, feels like that is better. Continues to pass gas. No bowel movement today. Her NG tube fell out while she was taking a shower. Exam Narrative: Exam Narrative: General: Alert and oriented, no acute distress. Abdomen: Soft, nontender to palpation. Patient denies any pain. No guarding or rebound. Incision is well healed, Steri-Strips and dressings removed. Const: Vital Signs, click to edit/add: Vital Signs - 24 hr 08/20/24 14:59 08/20/24 15:00 08/20/24 15:00 Temperature 97.6 F Pulse Rate Pulse Rate [Pulse Oximeter] 97 90 Respiratory Rate 18 18 Blood Pressure [Le ft Arm] 108/77 Pulse Oximetry 99 [facility] O[facility] Flow Rate 0 08/20/24 15:18 08/20/24 19:00 08/20/24 23:00 Temperature 98.0 F Pulse Rate 90 Pulse Rate [Pulse Oximeter] 89 Respiratory Rate 18 18 Blood Pressure [Le ft Arm] 108/80 Pulse Oximetry 96 96 [facility] Room Air Oxygen Flow Rate 0 08/21/24 01:11 08/21/24 02:29 08/21/24 07:00 Temperature 98.0 F Pulse Rate 81 Pulse Rate [Pulse Oximeter] 87 Respiratory Rate 18 Blood Pressure [Le ft Arm] 130/86 Pulse Oximetry 96 96 [facility] Room Air Oxygen Flow Rate 0 08/21/24 07:00 08/21/24 07:00 08/21/24 11:00 Temperature 98.1 F 98.2 F Pulse Rate 89 Pulse Rate [Pulse Oximeter] 90 91 Respiratory Rate 18 16 Blood Pressure [Le ft Arm] 113/81 105/75 Pulse Oximetry 96 97 Oxygen Delivery Nv thod Room Air Room Air Oxygen Flow Rate Labs/Imaging Labs Labs: CRP 1.1 Imaging Imaging: No new imaging Progress Note:A&P Assessment and plan (1) Intra-abdominal abscess: Status: Acute Assessment and Plan: Patient is a 79-year-old female with recent hospitalization (08/01-08/14) for small-bowel obstruction requiring exploratory laparotomy with extensive lysis of adhesions (08/01). She had failure to thrive at home, weakness, coughing and nausea. On workup in the emergency department she was found to be positive for influenza A. Imaging showing findings concerning for developing intra-abdominal abscess just underneath the incision on the anterior abdominal wall. Patient is currently on day 4 of IV Zosyn. NG tube out. Patient tolerating full liquids continues to pass gas. Will start a stool softener, senna twice a day. Okay to advance diet as tolerated. Recommend tapering off and stopping TPN. -titrate off TPN per hospitalist -advance diet as tolerated. -IV Zosyn, continue today with plan to transition to oral antibiotics tomorrow. -PT and OT consulted. Encouraged patient to ambulate the hallways -SCDs, okay for Lovenox for DVT prophylaxis, warfarin per hospitalist Will continue to follow patient closely. Please call with any acute clinical changes or concerns.
--- NOTE | 2024-08-21 15:11 | PM.IMPN1 ---
Progress Note: A&P Assessment and plan (1) Intra-abdominal abscess: Problem details: -CT abdomen suggests intra-abd abscess. -Gen Sx consulted. -An NG tube was placed for persistent nausea. She is passing gas and had a liquid stool last night. She could have an ileus secondary to an intra-abdominal abscess verses partial obstruction. Given her recent surgery she is very high risk for iatrogenic injury of surrounding bowel should she need to return to the operating room. --No clinical indication for operative intervention at this time per Sx. -NPO, okay for ice chips, patient has had poor p.o. intake since leaving the hospital on 08/14. She did require TPN during her last hospital stay. -IV fluids -IV Zosyn, trend WBC, CRP -PT and OT consulted. Encouraged patient to ambulate the hallways -Off NGT 08/21. -started TPN aug,, tapered to be stopped on 08/21. Status: Acute (2) Ileus: Problem details: as above Status: Suspected (3) Supratherapeutic international normalized ratio (INR): Problem details: -INR trending up to a was more than 5, though warfarin was stopped a couple of days ago. -will repeat INR testing -ordered PTT, platelets, fibrinogen, D-dimer -> unremarkable -ordered p.o. vitamin K 2.5 mg, patient is still at risk of surgical intervention. -INR 2.55 on 08/21 -Resume warfarin on 08/21 Status: Resolved (4) Small bowel obstruction: Problem details: -Hx of recent SBO -s/p exploratory laparotomy and extensive lysis of adhesions (08/01/24) -recurrent. emergent laparotomy; 30+ years ago. one admission for SBO, nonoperative in 2019. Status: Resolved (5) Influenza A: Problem details: -oseltamivir 75 mg p.o. b.i.d. started 08/16/2024 -symptom management including schedule acetaminophen as well as scheduled ibuprofen for 1 day -full liquids for now and gradually introduce food again -continue IV fluids Status: Acute (6) Weakness: Problem details: -PT and OT to reassess Status: Acute (7) Aortic stenosis: Problem details: mild, new murmur (worsened by acute illness?) 08/02/24 TTE: Normal LV size and function, EF 60-65%. Normal RV size and function. Mild aortic stenosis, trivial aortic regurgitation. Aortic peak velocity 2.2m/s, peak gradient 20 mmHg, mean gradient 11 mmHg, valve area 1.49 cm2. 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 Status: Acute (10) Chronic anticoagulation: Problem details: -INR goal 2-3; paroxysmal AFIB -pharmacist to assist with anticoagulation in hospital Status: Acute (11) S/P exploratory laparotomy: Problem details: - 08/01/2024 exploratory laparotomy with extensive lysis of adhesions for high grade SBO - 08/03 continue NG tube to LIS, awaiting return of bowel function - 08/04 large amount flatus yesterday, NGT out today - 08/05 sips of clears going well, but bloated today. Discussed with Dr. Abraham. Advancing to clears with option of yogurt. - 08/06 more distended, continue sips. Discussed with Dr. Abraham. - 08/07 remains distended. Had episode of afib with RVR today. Discussed with Dr. Abraham. Placed NGT to LIS, obtained CT abd/pelvis which showed adynamic ileus. PICC and TPN ordered -08/08 TPN to start today, encouraged ambulation. CRP downtrending -08/09 continue TPN. NG clamped. Tolerating clears without nausea vomiting or pain. Followed by Dr. Diaz for the weekend. -08/10 evaluated by General surgery, okay to resume clears in small amounts, after episode of cramping pain last night, NGT clamped -08/11 per general surgery, will allow TPN to run out tonight, not restarting. NGT removed. Advancing diet slowly. Encourage ambulation. Restarting some of her oral medications, including oral antibiotic for mild cellulitis at surgical site. Will continue with IV metoprolol until absorption has improved 08/12 - improving. I stopped the IV metoprolol. I restarted her home diltiazem for 08/13. Her home amiodarone dosing today 08/12. 08/13 - discharge with no oral antibiotics Status: Acute (12) GERD (gastroesophageal reflux disease): Status: Acute Time Spent With Patient Total time spent: Today I spent 50 minutes seeing the patient, reviewing Expanse and EPIC notes/diagnostics, discussing the care plan with our care time that includes social work, PT/OT, pharmacy, RT, retirement and documenting my impressions and plan in the medical record. Subjective Date Seen: 08/21/24 Interval history: Patient was seen and examined at bedside today. Pt is tolerating soft diet. Passing gas, no BM today. TPN weaned off to be stopped. Exam Narrative: Exam Narrative: Physical exam GENERAL: Comfortable, no acute distress. HEAD AND NECK: Atraumatic, normocephalic, off NGT. CARDIOVASCULAR: RRR. Normal S1, S2. No murmurs. RESPIRATORY: Clear to auscultation B/L. Good air entry B/L. GASTROINTESTINAL: Not distended, not tender to palpation. NEUROLOGY: Alert, awake, oriented X 3. Normal speech. PSYCH: Normal mood, normal affect. Const: Vital Signs, click to edit/add: Vital Signs - 24 hr 08/20/24 15:18 08/20/24 19:00 08/20/24 23:00 Temperature 98.0 F Pulse Rate 90 Pulse Rate [Pulse Oximeter] 89 Respiratory Rate 18 18 Blood Pressure [Le ft Arm] 108/80 Pulse Oximetry 96 96 Oxygen Delivery Me thod Room Air Room Air Oxygen Flow Rate 0 08/21/24 01:11 08/21/24 02:29 08/21/24 07:00 Temperature 98.0 F Pulse Rate 81 Pulse Rate [Pulse Oximeter] 87 Respiratory Rate 18 Blood Pressure [Le ft Arm] 130/86 Pulse Oximetry 96 96 Oxygen Delivery Me thod Room Air Room Air Oxygen Flow Rate 0 08/21/24 07:00 08/21/24 07:00 08/21/24 11:00 Temperature 98.1 F 98.2 F Pulse Rate 89 Pulse Rate [Pulse Oximeter] 90 91 Respiratory Rate 18 16 Blood Pressure [Le ft Arm] 113/81 105/75 Pulse Oximetry 96 97 Oxygen Delivery Me thod Room Air Room Air Oxygen Flow Rate Labs Labs: Laboratory Results - last 24 hr 08/21/24 05:59 INR 2.55 H Sodium 134 L Potassium 4.0 Chloride 106 Carbon Dioxide 23 Anion Gap 5 L BUN 15 Creatinine 0.5 Estimated Creat Clear 47.53 Estimated GFR 97 Glucose 103 Calcium 7.6 L Phosphorus 3.0 Magnesium 1.9 C-Reactive Protein 1.5 H
[2024-08-21] MEDS: WARFARIN 2 MG TABLET PO (18:02)
[2024-08-21] MEDS: ACETAMINOPHEN 325 MG TABLET 650 MG PO (18:14)
--- NOTE | 2024-08-21 18:50 | PC.NURSE ---
End of Shift: The patient is pleasant and A&O and VSS on RA. Midline abdominal incision CDI with scabbing... no dressing after the patient showered today, okayed with Dr Hernández. Tolerating a regular diet fine, but reports fullness in her belly. Reports passing flatus. Up and ambulating around the unit w/ 4 wheeled RW. The patient would like to know what laxatives and or stool softeners the Dr recommends with her hx of SBO. Call light within reach. TPN was discontinued per orders. Nohemi MARINO BSN
[2024-08-21] MEDS: SODIUM CHLORIDE 0.9 % (FLUSH) 10 ML SYRINGE 5 ML IVF (20:48)
[2024-08-21] MEDS: SENNOSIDES 1 TAB TABLET PO (20:49)
[2024-08-22] VITALS (8 sets, daily range): BP systolic 119–135; BP diastolic 76–82; PULSE 76–114; RESP 16–18; TEMP 36.3–37.2; O2SAT 94–99
[2024-08-22] MEDS: PIPERACILLIN/TAZOBACTAM 3.375 GM in 0.9 % SODIUM CHLORIDE Mini-bag 100 ML IVPB (02:49)
--- NOTE | 2024-08-22 06:56 | PC.NURSE ---
End of shift summary: Pt has been A&O, afebrile and VSS. She is independent in her room with a steady gait and knows to call for assistance if condition changes. Reports mild abdominal ?tightness? but declined PRN meds overnight. PICC in E patent & C/D/I. TELE read NSR all night. Midline incision line EVAN with healing scabs. Pt denies nausea, dizziness and CP. Reports passing gas but no BM overnight. Bowel sounds active all 4 quads. She slept well in between cares. IV Zosyn q6H. ?
--- NOTE | 2024-08-22 07:04 | PM.GSPN ---
Subjective Subjective Date Seen: 08/22/24 Interval history: Patient is doing well this morning. To feels a little sore from lying in bed all night but is ready to get up. She still feels weak, but is slowly improving. She was able to tolerate a diet yesterday without nausea or increase in abdominal pain. For dinner she had have a grilled cheese sandwich and some tomato soup. No bowel movement but continues to pass gas. She is okay with trying a suppository this morning. Exam Narrative: Exam Narrative: General: Alert and oriented, no acute distress Abdomen: Soft, nontender and nondistended. Incision well healed. Const: Vital Signs, click to edit/add: Vital Signs - 24 hr 08/21/24 11:00 08/21/24 15:00 08/21/24 15:00 Temperature 98.2 F 97.7 F Pulse Rate Pulse Rate [Pulse Oximeter] 91 95 Respiratory Rate 16 18 18 Blood Pressure [Le ft Arm] 105/75 120/79 Pulse Oximetry 97 97 97 Oxygen Delivery Me thod Room Air Room Air Room Air 08/21/24 15:00 08/21/24 20:30 08/21/24 23:00 Temperature 98.5 F Pulse Rate 95 79 Pulse Rate [Pulse Oximeter] 92 Respiratory Rate 18 Blood Pressure [Le ft Arm] 116/77 Pulse Oximetry 95 Oxygen Delivery Me thod Room Air 08/21/24 23:00 08/21/24 23:00 08/22/24 03:00 Temperature 97.9 F Pulse Rate Pulse Rate [Pulse Oximeter] 79 82 Respiratory Rate 18 18 18 Blood Pressure [Le ft Arm] 126/77 Pulse Oximetry 95 94 Oxygen Delivery Me thod Room Air Room Air Labs/Imaging Labs Labs: No labs this morning. Progress Note:A&P Assessment and plan (1) Intra-abdominal abscess: Status: Acute Assessment and Plan: Patient is a 79-year-old female with recent hospitalization (08/01-08/14) for small-bowel obstruction requiring exploratory laparotomy with extensive lysis of adhesions (08/01). She had failure to thrive at home, weakness, coughing and nausea. On workup in the emergency department she was found to be positive for influenza A. Imaging showing findings concerning for developing intra-abdominal abscess just underneath the incision on the anterior abdominal wall. Patient is tolerating a regular diet. Is passing gas, last bowel movement was 08/19. She has started to take senna b.i.d. and is open to a suppository this morning. Will transition her IV Zosyn to oral antibiotics. -TPN off -continue regular diet -senna b.i.d., suppository this morning. -IV Zosyn discontinued, Augmentin b.i.d. will plan for a 10 day course -PT and OT consulted. Encouraged patient to ambulate the hallways [facility], [facility]in per hospitalist Anticipate possible discharge tomorrow to home. Would like patient to have another bowel movement prior.
[2024-08-22 07:24] LABS: Chloride* 105 mmol/L (96-114)
[2024-08-22 07:25] LABS: Albumin* 2.7 g/dL (3.3-5.0)
[2024-08-22 07:26] LABS: Sodium* 135 mmol/L (135-149)
[2024-08-22 07:28] LABS: Alanine Aminotransferase* 22 U/L (4-35); Alkaline Phosphatase* 163 U/L (40-150); Anion Gap 6 mEq/L (7-15); Aspartate Amino Transferase* 33 U/L (12-35); Bilirubin Total* 0.5 mg/dL (0.1-1.5); Blood Urea Nitrogen* 14 mg/dL (7-30); Carbon Dioxide* 24 mmol/L (20-32); Creatinine* 0.6 mg/dL (0.5-1.5); Est. Creatinine Clearance* 47.53; Estimated Glomerular Filt Rate 92 ml/min; Glucose* 83 mg/dL (60-115); Total Protein* 5.1 g/dL (6.0-8.3)
[2024-08-22 07:47] LABS: INR 1.79 (0.91-1.10)
[2024-08-22] MEDS: AMIODARONE 200 MG TABLET 100 MG PO (08:22)
[2024-08-22] MEDS: AMOXICILLIN/CLAVULANATE 875 mg/125 mg TABLET PO ×2 (08:22→17:33)
[2024-08-22] MEDS: dilTIAZem 120 MG CAP.ER.24H PO (08:23)
[2024-08-22] MEDS: OMEPRAZOLE 20 MG CAPSULE DR PO ×2 (08:23→21:23)
[2024-08-22] MEDS: SODIUM CHLORIDE 0.9 % (FLUSH) 10 ML SYRINGE 5 ML IVF ×2 (08:23→21:24)
[2024-08-22] MEDS: SENNOSIDES 1 TAB TABLET PO ×2 (08:23→21:24)
[2024-08-22] MEDS: ACETAMINOPHEN 325 MG TABLET 650 MG PO (08:25)
[2024-08-22] MEDS: bisacodyL 10 MG SUPP.RECT PR (09:44)
--- NOTE | 2024-08-22 10:21 | PC.SOCIAL ---
Discharge planning: concession worker met with pt to check-in about pt thoughts on discharging home and if she felt she had what she needed to go home. Pt said that she feels good about going home and has two very supportive daughters to help her. concession worker offered pt a list of [employer]gencies if she was interested and pt was not interested in that at this time. Pt does have this social workers contact information if she changes her mind and does want the list. Social work to follow-up as needed.
[2024-08-22] MEDS: OxyCODONE/APAP 5-325 TABLET 1 TAB PO (12:56)
--- NOTE | 2024-08-22 15:38 | PM.IMPN1 ---
Progress Note: A&P Assessment and plan (1) Intra-abdominal abscess: Problem details: -CT abdomen suggests intra-abd abscess. -Gen Sx consulted. -An NG tube was placed for persistent nausea. She is passing gas and had a liquid stool last night. She could have an ileus secondary to an intra-abdominal abscess verses partial obstruction. Given her recent surgery she is very high risk for iatrogenic injury of surrounding bowel should she need to return to the operating room. --No clinical indication for operative intervention at this time per Sx. -NPO, okay for ice chips, patient has had poor p.o. intake since leaving the hospital on 08/14. She did require TPN during her last hospital stay. -IV fluids -S/P IV Zosyn, Currently on Augmentin -PT and OT consulted. Encouraged patient to ambulate the hallways -Off NGT 08/21. -started TPN aug,, tapered to be stopped on 08/21. Status: Acute (2) Ileus: Problem details: as above Status: Suspected (3) Supratherapeutic international normalized ratio (INR): Problem details: -INR trending up to a was more than 5, though warfarin was stopped a couple of days ago. -will repeat INR testing -ordered PTT, platelets, fibrinogen, D-dimer -> unremarkable -ordered p.o. vitamin K 2.5 mg, patient is still at risk of surgical intervention. -INR 2.55 on 08/21 -Resume warfarin on 08/21 Status: Resolved (4) Small bowel obstruction: Problem details: -Hx of recent SBO -s/p exploratory laparotomy and extensive lysis of adhesions (08/01/24) -recurrent. emergent laparotomy; 30+ years ago. one admission for SBO, nonoperative in 2019. Status: Resolved (5) Influenza A: Problem details: -oseltamivir 75 mg p.o. b.i.d. started 08/16/2024 -symptom management including schedule acetaminophen as well as scheduled ibuprofen for 1 day -full liquids for now and gradually introduce food again -continue IV fluids Status: Acute (6) Weakness: Problem details: -PT and OT to reassess Status: Acute (7) Aortic stenosis: Problem details: mild, new murmur (worsened by acute illness?) 08/02/24 TTE: Normal LV size and function, EF 60-65%. Normal RV size and function. Mild aortic stenosis, trivial aortic regurgitation. Aortic peak velocity 2.2m/s, peak gradient 20 mmHg, mean gradient 11 mmHg, valve area 1.49 cm2. 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 Status: Acute (10) Chronic anticoagulation: Problem details: -INR goal 2-3; paroxysmal AFIB -pharmacist to assist with anticoagulation in hospital Status: Acute (11) S/P exploratory laparotomy: Problem details: - 08/01/2024 exploratory laparotomy with extensive lysis of adhesions for high grade SBO - 08/03 continue NG tube to LIS, awaiting return of bowel function - 08/04 large amount flatus yesterday, NGT out today - 08/05 sips of clears going well, but bloated today. Discussed with Dr. Abraham. Advancing to clears with option of yogurt. - 08/06 more distended, continue sips. Discussed with Dr. Abraham. - 08/07 remains distended. Had episode of afib with RVR today. Discussed with Dr. Abraham. Placed NGT to LIS, obtained CT abd/pelvis which showed adynamic ileus. PICC and TPN ordered -08/08 TPN to start today, encouraged ambulation. CRP downtrending -08/09 continue TPN. NG clamped. Tolerating clears without nausea vomiting or pain. Followed by Dr. Diaz for the weekend. -08/10 evaluated by General surgery, okay to resume clears in small amounts, after episode of cramping pain last night, NGT clamped -08/11 per general surgery, will allow TPN to run out tonight, not restarting. NGT removed. Advancing diet slowly. Encourage ambulation. Restarting some of her oral medications, including oral antibiotic for mild cellulitis at surgical site. Will continue with IV metoprolol until absorption has improved 08/12 - improving. I stopped the IV metoprolol. I restarted her home diltiazem for 08/13. Her home amiodarone dosing today 08/12. 08/13 - discharge with no oral antibiotics Status: Acute (12) GERD (gastroesophageal reflux disease): Status: Acute Time Spent With Patient Total time spent: Today I spent 50 minutes seeing the patient, reviewing Expanse and EPIC notes/diagnostics, discussing the care plan with our care time that includes social work, PT/OT, pharmacy, RT, [facility] and documenting my impressions and plan in the medical record. Subjective Date Seen: 08/22/24 Interval history: Pt seen and examined at bedside. Tolerating soft diet. passing gas but no BM. States that she is still having diffuse abdominal pain. Exam Narrative: Exam Narrative: Physical exam GENERAL: Comfortable, no acute distress. HEAD AND NECK: Atraumatic, normocephalic CARDIOVASCULAR: RRR. Normal S1, S2. No murmurs. RESPIRATORY: Clear to auscultation B/L. Good air entry B/L. GASTROINTESTINAL: mildly distended, mildly tender to palpation. NEUROLOGY: Alert, awake, oriented X 3. Normal speech. PSYCH: Normal mood, normal affect. Const: Vital Signs, click to edit/add: Vital Signs - 24 hr 08/21/24 20:30 08/21/24 23:00 08/21/24 23:00 Temperature 98.5 F Pulse Rate 79 Pulse Rate [Pulse Oximeter] 92 79 Respiratory Rate 18 18 Blood Pressure [Le ft Arm] 116/77 Pulse Oximetry 95 Oxygen Delivery Me thod Room Air Oxygen Flow Rate 08/21/24 23:00 08/22/24 03:00 08/22/24 07:00 Temperature 97.9 F Pulse Rate 77 Pulse Rate [Pulse Oximeter] 82 Respiratory Rate 18 18 Blood Pressure [Le ft Arm] 126/77 Pulse Oximetry 95 94 Oxygen Delivery Me thod Room Air Room Air Oxygen Flow Rate 08/22/24 07:00 08/22/24 07:00 08/22/24 11:00 Temperature 97.9 F 98.1 F Pulse Rate Pulse Rate [Pulse Oximeter] 89 92 Respiratory Rate 18 18 18 Blood Pressure [Le ft Arm] 119/82 123/80 Pulse Oximetry 97 97 96 Oxygen Delivery Me thod Room Air Room Air Room Air Oxygen Flow Rate 0 08/22/24 15:00 08/22/24 15:00 Temperature Pulse Rate 114 H Pulse Rate [Pulse Oximeter] Respiratory Rate 18 Blood Pressure [Le ft Arm] Pulse Oximetry 96 Oxygen Delivery Me thod Room Air Oxygen Flow Rate 0 Labs Labs: Laboratory Results - last 24 hr 08/22/24 Unknown INR 1.79 H Sodium 135 Potassium 4.0 Chloride 105 Carbon Dioxide 24 Anion Gap 6 L BUN 14 Creatinine 0.6 Estimated Creat Clear 47.53 Estimated GFR 92 Glucose 83 Calcium 8.0 L Phosphorus 3.0 Magnesium 2.0 Total Bilirubin 0.5 AST 33 ALT 22 Alkaline Phosphatase 163 H Total Protein 5.1 L Albumin 2.7 L
--- NOTE | 2024-08-22 16:48 | PC.NURSE ---
Patient alert and oriented, pleasant and cooperative, up ad alfredo in room and sba in hallways with FWW, suppository this morning with a small nugget hard stool resulted this afternoon, passing gas, patient pain in abdomen 3/10 prior to suppository, after patient rating pain 6/10, using heat as well as PRN pain medication, reporting pain as a cramping, abdomen soft, non-tender with active/hyperactive bowel sounds, MD updated via phone no new orders, incision to abdomen open to air, tolerating regular diet no nausea.
[2024-08-22] MEDS: WARFARIN 2 MG TABLET PO (17:33)
[2024-08-23 03:00] VITALS: BP 105/74; PULSE 79; RESP 16; TEMP 36.9; O2SAT 96
[2024-08-23] MEDS: SODIUM CHLORIDE 0.9 % (FLUSH) 10 ML SYRINGE 5 ML IVF ×2 (05:56→10:42)
--- NOTE | 2024-08-23 06:40 | PC.NURSE ---
Addendum entered by Barbara Denson RN 08/23/24 07:34: RN denice AM labs off PICC and changed cap after labs drawn per protocol. Original Note: End of shift note [id number]: Pt A&Ox4 and able to make needs known. Pt tolerating regular diet with no N/V noted. Tele in place with NSR noted. No c/o CP. Pt reported abdominal discomfort last evening though declined PRN medication or heat when offered. No further BM since small one noted by day RN yesterday. Midline abdominal incisional area EVAN with no s/sx of infection or drainage observed. Pt reports she is passing gas and bowel sounds noted to be hyperactive x 4. She is transferring/ambulating independently in room and ambulating with SBA in hallways. Pt prefers to drink bottled water that family has brought in. Call light within reach.
[2024-08-23 06:57] LABS: INR 2.23 (0.91-1.10); Prothrombin Time 26.4 Seconds
[2024-08-23 08:00] VITALS: BP 121/90; PULSE 79; PULSE 86; RESP 16; RESP 18; TEMP 37; O2SAT 79; O2SAT 96
--- NOTE | 2024-08-23 09:17 | PM.GSPN ---
Subjective Subjective Date Seen: 08/23/24 Interval history: Patient is doing well this morning. Denies any increased abdominal pain, does feel a little bloated. Denies any nausea or vomiting. Continues to pass gas. One small hard stool yesterday after the suppository, nothing since. She does chronically suffer from constipation. She does feel like she is slowly getting more energy Exam Narrative: Exam Narrative: General: Alert and oriented, sitting comfortably in a chair Abdomen: Some mild distention, firm but soft. Nontender. No guarding or rebound. Midline incision well healed. Const: Vital Signs, click to edit/add: Vital Signs - 24 hr 08/22/24 11:00 08/22/24 15:00 08/22/24 15:00 Temperature 98.1 F Pulse Rate 114 H Pulse Rate [Pulse Oximeter] 92 Respiratory Rate 18 18 Blood Pressure [Le ft Arm] 123/80 Pulse Oximetry 96 [facility] Flow Rate 0 08/22/24 15:00 08/22/24 19:58 08/22/24 22:34 Temperature 97.4 F L 98.9 F Pulse Rate 76 Pulse Rate [Pulse Oximeter] 87 80 Respiratory Rate 16 16 Blood Pressure [Le ft Arm] 133/79 127/77 Pulse Oximetry 99 95 [facility] Room Air Oxygen Flow Rate 0 0 08/22/24 22:52 08/22/24 22:52 08/22/24 23:00 Temperature 97.8 F Pulse Rate Pulse Rate [Pulse Oximeter] 79 79 Respiratory Rate 16 16 16 Blood Pressure [Le ft Arm] 135/76 Pulse Oximetry 95 95 [facility] Room Air Oxygen Flow Rate 0 08/23/24 03:00 08/23/24 08:00 08/23/24 08:00 Temperature 98.4 F Pulse Rate 79 Pulse Rate [Pulse Oximeter] 79 79 Respiratory Rate 16 16 Blood Pressure [Le ft Arm] 105/74 Pulse Oximetry 96 [facility] Flow Rate 08/23/24 08:00 Temperature Pulse Rate Pulse Rate [Pulse Oximeter] Respiratory Rate 18 Blood Pressure [Le ft Arm] Pulse Oximetry 79 L Oxygen Delivery Ia thod Room Air Oxygen Flow Rate Labs/Imaging Labs Labs: Morning labs reviewed. Progress Note:A&P Assessment and plan (1) Intra-abdominal abscess: Status: Acute Assessment and Plan: Patient is a 79-year-old female with recent hospitalization (08/01-08/14) for small-bowel obstruction requiring exploratory laparotomy with extensive lysis of adhesions (08/01). She had failure to thrive at home, weakness, coughing and nausea. On workup in the emergency department she was found to be positive for influenza A. Imaging showing findings concerning for developing intra-abdominal abscess just underneath the incision on the anterior abdominal wall. Continues to tolerate a regular diet. Small hard stool yesterday, passing gas. Patient does need to have another bowel movement before discharge. MiraLax this morning. -regular diet -senna b.i.d., MiraLax -Augmentin b.i.d. will plan for a 10 day course, currently on day 4 -PT and OT consulted. Encouraged patient to ambulate the hallways -SCDs, okay for Lovenox for DVT prophylaxis, warfarin per hospitalist Discharge later today versus tomorrow.
[2024-08-23 09:24] LABS: Basophils Absolute Auto 0.02 K/uL (0.00-0.30); Basophils Percent Auto 0.4 % (0.0-3.0); Eosinophils Absolute Auto 0.12 K/uL (0.00-0.50); Eosinophils Percent Auto 2.3 % (0.0-7.0); Hematocrit 31.8 % (33.0-51.0); Hemoglobin* 10.3 gm/dL (12.0-16.0); Immature Granulocytes Abs Auto 0.05 K/uL (0.00-0.30); Lymphocytes Percent Auto 15.6 % (20-44); Mean Corpuscular HGB Conc 32 gm/dL (32-36); Mean Corpuscular Hemoglobin 30 pg (26-34); Mean Corpuscular Volume 91 fL (80-100); Monocytes Percent Auto 8.8 % (0.0-11.0); Neutrophils Percent Auto 71.9 % (42.0-72.0); Platelet Count* 230 K/uL (140-440); RDW Coefficient of Variation % 14.4 % (11.5-15.5); Red Blood Count 3.49 m/uL (4.00-5.20); White Blood Count* 5.14 K/uL (4.50-11.00)
[2024-08-23 09:27] LABS: Slide Review Reflex No
[2024-08-23 09:30] LABS: Albumin* 2.8 g/dL (3.3-5.0); Chloride* 104 mmol/L (96-114)
[2024-08-23 09:31] LABS: Potassium* 3.8 mmol/L (3.6-5.1); Sodium* 135 mmol/L (135-149)
[2024-08-23 09:33] LABS: Alanine Aminotransferase* 22 U/L (4-35); Alkaline Phosphatase* 161 U/L (40-150); Anion Gap 5 mEq/L (7-15); Aspartate Amino Transferase* 34 U/L (12-35); Bilirubin Total* 0.4 mg/dL (0.1-1.5); Blood Urea Nitrogen* 12 mg/dL (7-30); Carbon Dioxide* 26 mmol/L (20-32); Creatinine* 0.6 mg/dL (0.5-1.5); Est. Creatinine Clearance* 47.53; Estimated Glomerular Filt Rate 92 ml/min; Glucose* 92 mg/dL (60-115); Total Protein* 5.3 g/dL (6.0-8.3)
[2024-08-23 09:34] LABS: Calcium* 8.1 mg/dL (8.4-10.6)
[2024-08-23] MEDS: AMIODARONE 200 MG TABLET 100 MG PO (09:44)
[2024-08-23] MEDS: AMOXICILLIN/CLAVULANATE 875 mg/125 mg TABLET PO (09:44)
[2024-08-23] MEDS: dilTIAZem 120 MG CAP.ER.24H PO (09:44)
[2024-08-23] MEDS: SENNOSIDES 1 TAB TABLET PO (09:44)
[2024-08-23] MEDS: OMEPRAZOLE 20 MG CAPSULE DR PO (09:45)
[2024-08-23] MEDS: polyethylene glycoL 3350 17 GM PACK PO (10:41)
[2024-08-23 11:00] VITALS: BP 117/77; PULSE 89; RESP 16; O2SAT 100
--- NOTE | 2024-08-23 12:33 | P.DS_ITS ---
DS: Providers Provider Date Seen: 08/23/24 Date of admission: 08/18/24 09:06 Primary care physician: Iza Ayon MD Admitting Clinician: Tacho Pitts MD Consults: 08/16/24 17:51 Consult to Respiratory Therapy [CONS] Routine Comment: Reason(s) for RT Consult:: Consult Comment: ? aerobika 08/17/24 08:52 Consult to Occupational Therapy [CONS] Routine Comment: Reason(s) for OT Consult:: Evaluate and Treat Any Restrictions?:: No Restrictions Consult to Physical Therapy [CONS] Routine Comment: Reason(s) for PT Consult:: Evaluate and Treat Any Restrictions?:: No Restrictions 08/18/24 13:52 Consult to Nutrition [CONS] Routine Comment: Reason for consult:: Nutritional Consult Attending Physician on discharge: Tacho Pitts MD DS: Summary Hospital Course Hospital Course: Patient was admitted to the hospital on 08/17/24 for weakness, nausea and vomiting. Evidence of an ileus on CT imaging with a fluid collection on the anterior abdominal wall concerning for an intra-abdominal abscess. An NG tube was inserted and patient was placed on bowel rest. TPN was started. IV Zosyn was initiated. Her fever curve and inflammatory markers improved. She did have slow return of bowel function. Her NG tube was removed on hospital day 4. TPN was titrated off. Her diet was advanced to regular. IV antibiotics were transitioned to oral Augmentin, to complete a 10 day course. At the time of discharge the patient was tolerating a regular diet, had return of bowel function, was ambulating without difficulty and voiding independently. Patient was discharged home with follow-up scheduled for next week in the clinic. Time Spent with Patient Time attestation: Total time spent providing and/or coordinating discharge services: Exam Narrative: Exam Narrative: Please see exam from same date. Const: Vital Signs, click to edit/add: Vital Signs - 24 hr 08/22/24 15:00 08/22/24 15:00 08/22/24 15:00 Temperature 97.4 F L Pulse Rate 114 H Pulse Rate [Pulse Oximeter] 87 Respiratory Rate 18 16 Blood Pressure [Le ft Arm] 133/79 Pulse Oximetry 96 99 Oxygen Delivery Me thod Room Air Room Air Oxygen Flow Rate 0 0 08/22/24 19:58 08/22/24 22:34 08/22/24 22:52 Temperature 98.9 F Pulse Rate 76 Pulse Rate [Pulse Oximeter] 80 Respiratory Rate 16 16 Blood Pressure [Le ft Arm] 127/77 Pulse Oximetry 95 95 Oxygen Delivery Me thod Room Air Room Air Oxygen Flow Rate 0 08/22/24 22:52 08/22/24 23:00 08/23/24 03:00 Temperature 97.8 F 98.4 F Pulse Rate Pulse Rate [Pulse Oximeter] 79 79 79 Respiratory Rate 16 16 16 Blood Pressure [Le ft Arm] 135/76 105/74 Pulse Oximetry 95 96 Oxygen Delivery Me thod Room Air Room Air Oxygen Flow Rate 0 08/23/24 08:00 08/23/24 08:00 08/23/24 08:00 Temperature Pulse Rate 79 Pulse Rate [Pulse Oximeter] 79 Respiratory Rate 16 18 Blood Pressure [Le ft Arm] Pulse Oximetry 79 L Oxygen Delivery Me thod Room Air Oxygen Flow Rate 08/23/24 08:00 08/23/24 11:00 Temperature 98.6 F Pulse Rate Pulse Rate [Pulse Oximeter] 86 89 Respiratory Rate 18 16 Blood Pressure [Le ft Arm] 121/90 H 117/77 Pulse Oximetry 96 100 Oxygen Delivery Me thod Room Air Oxygen Flow Rate DS: Data Data Completed and Pending Completed studies during hospitalization: Procedures Drainage of Stomach with Drainage Device, Via Natural or Artificial Opening (08/01/24) Extraction of Abdomen Subcutaneous Tissue and Fascia, Open Approach (08/01/24) Insertion of Infusion Device into Superior Vena Cava, Percutaneous Approach (08/01/24) Release Large Intestine, Open Approach (08/01/24) Release Small Intestine, Open Approach (08/01/24) Labs on day of discharge: Labs from last 24 hours 08/23/24 Unknown WBC 5.14 RBC 3.49 L Hgb 10.3 L Hct 31.8 L MCV 91 MCH 30 MCHC 32 RDW Coeff of Xavi 14.4 Plt Count 230 Neut % (Auto) 71.9 Lymph % (Auto) 15.6 L [place] % (Auto) 8.8 Eos % (Auto) 2.3 Baso % (Auto) 0.4 Neut # (Auto) 3.70 Lymph # (Auto) 0.80 L [place] # (Auto) 0.50 Eos # (Auto) 0.12 Baso # (Auto) 0.02 Abs Immat Gran (auto) 0.05 Imm/Tot Granulo (auto) 1.0 INR 2.23 H Sodium 135 Potassium 3.8 Chloride 104 Carbon Dioxide 26 Anion Gap 5 L BUN 12 Creatinine 0.6 Estimated Creat Clear 47.53 Estimated GFR 92 Glucose 92 Calcium 8.1 L Total Bilirubin 0.4 AST 34 ALT 22 Alkaline Phosphatase 161 H Total Protein 5.3 L Albumin 2.8 L Discharge Plan Discharge Disposition: Home, Self-Care Date of Admission: 08/18/24 09:06 Attending Provider on Discharge: Morenita Hernández Primary Care Provider: Iza Ayon Condition: Improved Anticipated Discharge Date/Time: 08/23/24 12:28 Discharge Medications: New hydrocodone-acetaminophen 5-325 mg tablet 1 tab PO Q6H PRN (Reason: pain) Qty: 10 0RF senna 8.6 mg capsule 8.6 mg PO DAILY PRN (Reason: constipation) Qty: 90 0RF amoxicillin-pot clavulanate 875-125 mg tablet 1 tab PO BID 6 Days Qty: 12 0RF Continued omeprazole 40 mg capsule,delayed release(DR/EC) 40 mg PO DAILY multivitamin Tablet 1 tab PO QAM clobetasol 0.05 % ointment 1 applic topical DAILY PRN diltiazem HCl 120 mg capsule,extended release 24hr 120 mg PO DAILY amiodarone 200 mg tablet 100 mg PO DAILY alendronate 70 mg tablet 70 mg PO QWEEK ascorbic acid (vitamin C) 500 mg capsule 500 mg PO DAILY calcium 600 mg capsule 1,200 mg PO DAILY melatonin 5 mg capsule 5 mg PO HS hydrocodone-acetaminophen 5-325 mg tablet 1 tab PO Q6H PRN (Reason: pain) Qty: 25 0RF Changed warfarin 2 mg tablet 2 mg PO DAILY 15 Days Qty: 15 0RF Rx Instructions: Take 2 mg daily, repeat INR in 5 days Discharge Orders: Discharge Order (Routine); Ordered 08/23/24 Ordered By: Morenita Hernández Consulting provider completed their portion of the discharge: Yes Patient Education: Hydrocodone/Acetaminophen (By mouth), Amoxicillin/Clavulanate Potassium (By mouth), Senna (By mouth), Ileus (DC) Additional Instructions: You were prescribed a narcotic pain medication. In addition you may supplement with Tylenol and/or ibuprofen. Be sure to not exceed greater than 4 g of Tylenol in a 24 hour period. While on narcotic pain medicine please take stool softeners. A prescription of stool softeners has been sent to the pharmacy. Stop if having greater than 2 stools per day. Take your antibiotics as prescribed. Okay to shower. Do not soak in a bath or go swimming until incision is completely healed. Please keep your follow-up appointment with your surgeon. You can call the clinic at [facility] for any After Hours questions or concerns. Activity Level: No strenuous activity Discharge Diet: Regular Follow Up Appointments: Jonathan Abraham MD [Staff Physician] - (Keep your follow up appointment previously scheduled) Iza Ayon MD [Primary Care Provider] - 08/29/24 1:40 pm ([facility] for follow up with PCP. Your appointment on 09/03 was cancelled. You need to have your INR check at appointment on 08/29/24.) Forms: [employer] Info Instructions Discharge Comments: Please take 2 mg of warfarin daily. Repeat INR testing in 5 days, follow-up with your primary care physician and discuss what is the dose t hat would work for you.
--- NOTE | 2024-08-23 14:33 | P.IMPN_ITS ---
Progress Note: A&P Assessment and plan (1) Intra-abdominal abscess: Problem details: -CT abdomen suggests intra-abd abscess. -Gen Sx consulted. -An NG tube was placed for persistent nausea. She is passing gas and had a liquid stool last night. She could have an ileus secondary to an intra-abd ominal abscess verses partial obstruction. Given her recent surgery she is very high risk for iatrogenic injury of surrounding bowel should she need to return to the operating room. --No clinical indication for operative intervention at this time per Sx. -NPO, okay for ice chips, patient has had poor p.o. intake since leaving the hospital on 08/14. She did require TPN during her last hospital stay. -IV fluids -S/P IV Zosyn, Currently on Augmentin -PT and OT consulted. Encouraged patient to ambulate the hallways -Off NGT 08/21. -started TPN aug,, tapered then stopped on 08/21. Status: Acute (2) Ileus: Problem details: as above Status: Suspected (3) Supratherapeutic international normalized ratio (INR): Problem details: -INR trending up to a was more than 5, though warfarin was stopped a couple of days ago. -will repeat INR testing -ordered PTT, platelets, fibrinogen, D-dimer -> unremarkable -ordered p.o. vitamin K 2.5 mg, patient is still at risk of surgical intervention. -INR 2.55 on 08/21 -Resume warfarin on 08/21 Status: Resolved (4) Small bowel obstruction: Problem details: -Hx of recent SBO -s/p exploratory laparotomy and extensive lysis of adhesions (08/01/24) -recurrent. emergent laparotomy; 30+ years ago. one admission for SBO, nonoperative in 2019. Status: Resolved (5) Influenza A: Problem details: -oseltamivir 75 mg p.o. b.i.d. started 08/16/2024 -symptom management including schedule acetaminophen as well as scheduled ibuprofen for 1 day -full liquids for now and gradually introduce food again -continue IV fluids Status: Acute (6) Weakness: Problem details: -PT and OT to reassess Status: Acute (7) Aortic stenosis: Problem details: mild, new murmur (worsened by acute illness?) 08/02/24 TTE: Normal LV size and function, EF 60-65%. Normal RV size and function. Mild aortic stenosis, trivial aortic regurgitation. Aortic peak velocity 2.2m/s, peak gradient 20 mmHg, mean gradient 11 mmHg, valve area 1.49 cm2. f/u with scientific research associate outpatient Status: Acute (8) Dehydration: Problem details: -normal saline and monitor daily weight and orthostatic blood pressures and pulses Status: Acute (9) Paroxysmal atrial fibrillation: Problem details: -continue amiodarone, diltiazem. Status: Acute (10) Chronic anticoagulation: Problem details: -INR goal 2-3; paroxysmal AFIB -pharmacist to assist with anticoagulation in hospital Status: Acute (11) S/P exploratory laparotomy: Problem details: - 08/01/2024 exploratory laparotomy with extensive lysis of adhesions for high grade SBO - 08/03 continue NG tube to LIS, awaiting return of bowel function - 08/04 large amount flatus yesterday, NGT out today - 08/05 sips of clears going well, but bloated today. Discussed with Dr. Abraham. Advancing to clears with option of yogurt. - 08/06 more distended, continue sips. Discussed with Dr. Abraham. - 08/07 remains distended. Had episode of afib with RVR today. Discussed with Dr. Abraham. Placed NGT to LIS, obtained CT abd/pelvis which showed adynamic ileus. PICC and TPN ordered -08/08 TPN to start today, encouraged ambulation. CRP downtrending -08/09 continue TPN. NG clamped. Tolerating clears without nausea vomiting or pain. Followed by Dr. Diaz for the weekend. -08/10 evaluated by General surgery, okay to resume clears in small amounts, after episode of cramping pain last night, NGT clamped -08/11 per general surgery, will allow TPN to run out tonight, not restarting. NGT removed. Advancing diet slowly. Encourage ambulation. Restarting some of her oral medications, including oral antibiotic for mild cellulitis at surgical site. Will continue with IV metoprolol until absorption has improved 08/12 - improving. I stopped the IV metoprolol. I restarted her home diltiazem for 08/13. Her home amiodarone dosing today 08/12. 08/13 - discharge with no oral antibiotics Status: Acute (12) GERD (gastroesophageal reflux disease): Status: Acute Time Spent With Patient Total time spent: Today I spent 50 minutes seeing the patient, reviewing Expanse and EPIC notes/diagnostics, discussing the care plan with our care time that includes social work, PT/OT, pharmacy, RT, [place] [facility] and documenting my impressions and plan in the medical record. Subjective Date Seen: 08/23/24 Interval history: Pt seen and examined at bedside. Pt had a large bowel movement. No N/V, Pt will be DCed home today Exam Narrative: Exam Narrative: Physical exam GENERAL: Comfortable, no acute distress. HEAD AND NECK: Atraumatic, normocephalic CARDIOVASCULAR: RRR. Normal S1, S2. No murmurs. RESPIRATORY: Clear to auscultation B/L. Good air entry B/L. GASTROINTESTINAL: Mildly tender to palpation. NEUROLOGY: Alert, awake, oriented X 3. Normal speech. PSYCH: Normal mood, normal affect. Const: Vital Signs, click to edit/add: Vital Signs - 24 hr 08/22/24 15:00 08/22/24 15:00 08/22/24 15:00 Temperature 97.4 F L Pulse Rate 114 H Pulse Rate [Pulse Oximeter] 87 Respiratory Rate 18 16 Blood Pressure [Le ft Arm] 133/79 Pulse Oximetry 96 99 Oxygen Delivery Me thod Room Air Room Air Oxygen Flow Rate 0 0 08/22/24 19:58 08/22/24 22:34 08/22/24 22:52 Temperature 98.9 F Pulse Rate 76 Pulse Rate [Pulse Oximeter] 80 Respiratory Rate 16 16 Blood Pressure [Le ft Arm] 127/77 Pulse Oximetry 95 95 Oxygen Delivery [facility] thod Room Air Room Air Oxygen Flow Rate 0 08/22/24 22:52 08/22/24 23:00 08/23/24 03:00 Temperature 97.8 F 98.4 F Pulse Rate Pulse Rate [Pulse Oximeter] 79 79 79 Respiratory Rate 16 16 16 Blood Pressure [Le ft Arm] 135/76 105/74 Pulse Oximetry 95 96 Oxygen Delivery Ga thod Room Air Room Air Oxygen Flow Rate 0 08/23/24 08:00 08/23/24 08:00 08/23/24 08:00 Temperature Pulse Rate 79 Pulse Rate [Pulse Oximeter] 79 Respiratory Rate 16 18 Blood Pressure [Le ft Arm] Pulse Oximetry 79 L Oxygen Delivery Me thod Room Air Oxygen Flow Rate 08/23/24 08:00 08/23/24 11:00 Temperature 98.6 F Pulse Rate Pulse Rate [Pulse Oximeter] 86 89 Respiratory Rate 18 16 Blood Pressure [Le ft Arm] 121/90 H 117/77 Pulse Oximetry 96 100 Oxygen Delivery Me thod Room Air Oxygen Flow Rate Labs Labs: Laboratory Results - last 24 hr 08/23/24 Unknown WBC 5.14 RBC 3.49 L Hgb 10.3 L Hct 31.8 L MCV 91 MCH 30 MCHC 32 RDW Coeff of Xavi 14.4 Plt Count 230 Neut % (Auto) 71.9 Lymph % (Auto) 15.6 L [place] % (Auto) 8.8 Eos % (Auto) 2.3 Baso % (Auto) 0.4 Neut # (Auto) 3.70 Lymph # (Auto) 0.80 L [place] # (Auto) 0.50 Eos # (Auto) 0.12 Baso # (Auto) 0.02 Abs Immat Gran (auto) 0.05 Imm/Tot Granulo (auto) 1.0 INR 2.23 H Sodium 135 Potassium 3.8 Chloride 104 Carbon Dioxide 26 Anion Gap 5 L BUN 12 Creatinine 0.6 Estimated Creat Clear 47.53 Estimated GFR 92 Glucose 92 Calcium 8.1 L Total Bilirubin 0.4 AST 34 ALT 22 Alkaline Phosphatase 161 H Total Protein 5.3 L Albumin 2.8 L
--- NOTE | 2024-08-23 15:29 | PC.NURSE ---
Nursing Care Hours: [id number] Pt this shift calm and cooperative, alert and oriented. Indpendent in the room, SB with walker in the mtz. Walking with staff in mtz multiple times. LG and MED BM this afternoon. Minimal abdomen pain, no interventions needed. Tolerating regular diet. PICC patent. PICC removed according to policy direction. Pressure applied 30min while supine. No discharge noted. occlusive gauze and band aid applied. Assisted with getting dressed. DC instructions went over with pt and adult son. Wheeled out to vehicle in stable condition.
== END 2024-08-23 15:27 | disposition home or self-care (01) | DRG 862 ==
LOC: ED 16:39 → MEDSURG 17:17
PROVIDERS: Student in an Organized Health Care Education/Training Program; Admitting Provider Internal Medicine; Emergency Provider Emergency Medicine; PCP Internal Medicine; Visit Provider Internal Medicine
DX: T81.43XA Infection following a procedure, organ and space surgical site, initial encounter (principal); K65.1 Peritoneal abscess; K91.89 Other postprocedural complications and disorders of digestive system; K56.7 Ileus, unspecified; J91.8 Pleural effusion in other conditions classified elsewhere; J10.1 Influenza due to other identified influenza virus with other respiratory manifestations; E86.0 Dehydration; I35.0 Nonrheumatic aortic (valve) stenosis; I48.0 Paroxysmal atrial fibrillation; Z79.01 Long term (current) use of anticoagulants; K21.9 Gastro-esophageal reflux disease without esophagitis; R79.1 Abnormal coagulation profile
CPT/HCPCS: 36415; 36573; 71046; 74018; 74176; 80048; 80053; 80076; 82962; 83605; 83735; 83880; 84100; 84134; 84443; 84478; 84484; 85025; 85379; 85384; 85610; 85730; 86140; 87631; 93005; 94664; 97110; 97116; 97161; 97165; 97535; 99284; A4221; A9270; B4185; B4189; C1751; G0378; J1171; J2060; J2405; J2470; J2543; J7030; J7050; J7307